=== PATIENT | male | born 1950 | race American Indian/Alaskan Native ===

== ENCOUNTER 2016-11-26 19:20 | Emergency (ER) | payer MEDICARE ==
--- NOTE | 2016-11-26 21:05 | Emergency Department Report ---
Chief Complaint: Pain General Stated Complaint: LEFT SIDED WEAKNESS Time Seen by Provider: 11/26/16 20:44 - HPI History of Present Illness: Patient here with his family who report that patient has left-sided weakness 2 days. Patient also with elevated blood pressure. Patient is end-stage renal disease on dialysis. He has diabetes, hyperlipidemia and heart disease. He reports that patient has a history for strokes and he has residual left-sided weakness but his left side has been progressively weak over the last 2 days. They also report that patient left upper lip is drooping. Family reported the patient was slow in speech and was having some slurred speech. Patient reports that he is having left-sided pain 8 out of 10. Patient denies any headache at present. - ROS Review of Systems: All systems are negative unless stated in HPI above. - Exam Vital Signs: Vital Signs 11/26/16 20:05 Temperature 98.4 F Pulse Rate 108 H Respiratory 16 Rate Blood Pressure 167/108 O2 Sat by Pulse 99 Oximetry Physical Exam: Gen.: This is a 66-year-old male patient that is nontoxic in appearance. mini-Neuro: Patient with abnormal gait. He usually walks with a cane. Positive left pronator drift. Positive facial drooping. CV: Blood pressure is 167/108. Tqachycardia, Regular rhythm. MSE screening note: Focused history and physical exam performed. Due to findings the following was ordered:see mdm ED Medical Decision Making - Medical Decision Making MDM: patient seen by provider in [facility]. suspect stroke leni col ordered, Charge nurse notified. Patient to go to main ED ED Disposition for MSE Condition: Stable
[2016-11-26 22:24] LABS: Basophils % (Auto) 1.2 % (0.0-1.8); Eosinophils % (Auto) 3.5 % (0.0-4.3); Hematocrit 38.7 % (35.5-45.6); Hemoglobin 12.2 gm/dl (11.8-15.2); Mean Corpuscular HGB Conc 32 % (32-34); Mean Corpuscular Hemoglobin 30 pg (28-32); Mean Corpuscular Volume 95 fl (84-94); Platelet Count 197 K/mm3 (140-440); Red Blood Count 4.08 M/mm3 (3.65-5.03); Red Cell Distribution Width 16.4 % (13.2-15.2); White Blood Count 6.5 K/mm3 (4.5-11.0)
[2016-11-26 22:36] LABS: INR 1.02 (0.87-1.13); Partial Thromboplastin Time 29.5 Sec. (24.2-36.6)
--- NOTE | 2016-11-26 22:47 | Cat Scan Report ---
FINAL REPORT EXAM: CT HEAD/BRAIN WO CON HISTORY: neuro deficits < 6hrs or sx present upon awakening TECHNIQUE: Noncontrast CT axial images of the brain. PRIORS: None. FINDINGS: No parenchymal mass, mass effect, hemorrhage, midline shift or hydrocephalus. No evidence of acute cortical infarct. No abnormal, extra-axial fluid or air collection. Mild, patchy low density in the periventricular and subcortical white matter is nonspecific, but may relate to chronic small vessel ischemic change. Probable old lacunar infarct changes in the bilateral basal ganglia. Age-related volume loss. Osseous calvarium grossly intact. Mucosal thickening in the right sphenoid sinus. IMPRESSION: 1. Chronic ischemic and atrophic changes. Please note that MRI is a far more sensitive modality in the evaluation of acute cerebral ischemia, and followup may be warranted. 2. No other acute intracranial findings.
[2016-11-26 22:56] LABS: BUN/Creatinine Ratio 4.14; Calcium 8.9 mg/dL (8.4-10.2); Chloride 94.4 mmol/L (98-107); Potassium 4.4 mmol/L (3.6-5.0)
--- NOTE | 2016-11-27 13:43 | Emergency Department Report ---
ED General Adult HPI - General Chief complaint: Pain General Stated complaint: LEFT SIDED WEAKNESS Time Seen by Provider: 11/26/16 20:44 Source: patient Mode of arrival: Wheelchair Limitations: Physical Limitation - History of Present Illness Initial comments: Patient states that clearly he has a pre-existing left-sided weakness. He states he's felt somewhat weaker on that side perhaps for 6 months. However he is able to ambulate with walker. He is a poor historian. He is here with perhaps a grandson. Apparently he is saying now that his principal concern was he was having more trouble speaking since Friday. He was compliant with his dialysis on Friday. Today is his dialysis day. He does not complain of difficulty breathing chest pain abdominal pain or fluid buildup. He states his difficulty with speech has resolved. He states he is back to his normal self. He's been here since yesterday due to computer difficulties. He is essentially asymptomatic at this time. He usually takes 20 units of insulin I believe twice a day. He and his family are really unclear about his insulin protocol. However he has not taken any insulin today. He denies any recent fever or chills. -: days(s) Associated Symptoms: denies other symptoms Treatments Prior to Arrival: none - Related Data Home Medications Medication Instructions Recorded Confirmed Last Taken Aspirin [Aspirin TAB] 325 mg PO DAILY 12/03/13 12/03/13 Unknown Ergocalciferol [Vitamin D2] 1 cap PO QWEEK 12/03/13 12/03/13 Unknown Furosemide [Lasix] 20 mg PO DAILY 12/03/13 12/03/13 Unknown Gabapentin 300 mg PO BID 12/03/13 12/03/13 Unknown Insulin Glargine,Hum.rec.anlog 10 units SQ QHS 12/03/13 12/03/13 Unknown [Lantus Solostar] Insulin Regular, Human [Humulin R] 3 units SC TIDAC 12/03/13 12/03/13 Unknown Simvastatin [Zocor TAB] 40 mg PO DAILY 12/03/13 12/03/13 Unknown Sodium Bicarbonate 650 mg PO BID 12/03/13 12/03/13 Unknown glipiZIDE [glipiZIDE XL] 10 mg PO DAILY 12/03/13 12/03/13 Unknown Previous Rx's Medication Instructions Recorded Last Taken Type Clopidogrel Bisulfate [Plavix] 75 mg PO DAILY #30 tablet 12/06/13 Unknown Rx amLODIPine [Norvasc] 10 mg PO DAILY #30 tab 12/06/13 Unknown Rx cloNIDine [Catapres] 0.1 mg PO BID #60 tablet 12/06/13 Unknown Rx Allergies Allergy/AdvReac Type Severity Reaction Status Date / Time No Known Allergies Allergy Unverified 12/03/13 12:17 ED Review of Systems ROS: Stated complaint: LEFT SIDED WEAKNESS Other details as noted in HPI Constitutional: denies: chills, fever Eyes: denies: eye pain, eye discharge, vision change ENT: denies: ear pain, throat pain Respiratory: denies: cough, shortness of breath, wheezing Cardiovascular: denies: chest pain, palpitations Endocrine: no symptoms reported Gastrointestinal: denies: abdominal pain, nausea, diarrhea Genitourinary: denies: urgency, dysuria Musculoskeletal: denies: back pain, joint swelling, arthralgia Skin: denies: rash, lesions Neurological: other (tonic left-sided weakness. Speech difficulty for 4 days.) . denies: headache, weakness, paresthesias Psychiatric: denies: anxiety, depression Hematological/Lymphatic: denies: easy bleeding, easy bruising ED Past Medical Hx - Past Medical History Hx Hypertension: Yes Hx CVA: Yes Hx Congestive Heart Failure: No Hx Diabetes: Yes Hx Renal Disease: Yes Hx Asthma: No Hx COPD: No - Surgical History Additional Surgical History: Cataract removal bilat - Social History Smoking Status: Never Smoker Substance Use Type: None - Medications Home Medications: Home Medications Medication Instructions Recorded Confirmed Last Taken Type Aspirin [Aspirin TAB] 325 mg PO DAILY 12/03/13 12/03/13 Unknown History Ergocalciferol [Vitamin D2] 1 cap PO QWEEK 12/03/13 12/03/13 Unknown History Furosemide [Lasix] 20 mg PO DAILY 12/03/13 12/03/13 Unknown History Gabapentin 300 mg PO BID 12/03/13 12/03/13 Unknown History Insulin Glargine,Hum.rec.anlog 10 units SQ QHS 12/03/13 12/03/13 Unknown History [Lantus Solostar] Insulin Regular, Human [Humulin R] 3 units SC TIDAC 12/03/13 12/03/13 Unknown History Simvastatin [Zocor TAB] 40 mg PO DAILY 12/03/13 12/03/13 Unknown History Sodium Bicarbonate 650 mg PO BID 12/03/13 12/03/13 Unknown History glipiZIDE [glipiZIDE XL] 10 mg PO DAILY 12/03/13 12/03/13 Unknown History Clopidogrel Bisulfate [Plavix] 75 mg PO DAILY #30 tablet 12/06/13 Unknown Rx amLODIPine [Norvasc] 10 mg PO DAILY #30 tab 12/06/13 Unknown Rx cloNIDine [Catapres] 0.1 mg PO BID #60 tablet 12/06/13 Unknown Rx ED Physical Exam - General Limitations: Physical Limitation General appearance: alert, in no apparent distress - Head Head exam: Present: atraumatic, normocephalic - Eye Eye exam: Present: normal appearance. Absent: scleral icterus - ENT ENT exam: Present: mucous membranes moist - Neck Neck exam: Present: normal inspection - Respiratory Respiratory exam: Present: normal lung sounds bilaterally. Absent: respiratory distress - Cardiovascular Cardiovascular Exam: Present: regular rate, normal rhythm. Absent: systolic murmur, diastolic murmur, rubs, gallop - GI/Abdominal GI/Abdominal exam: Present: soft, normal bowel sounds. Absent: distended, tenderness, guarding, rebound, rigid - Rectal Rectal exam: Present: deferred - Extremities Exam Extremities exam: Present: normal inspection - Back Exam Back exam: Present: normal inspection - Neurological Exam Neurological exam: Present: alert, oriented X3, other (patient has perhaps a slight left hemiparesis. However he does not have drift. He does have some facial asymmetry/mild paresis this is chronic. He has no acute focal deficit.) - Psychiatric Psychiatric exam: Present: normal affect, normal mood - Skin Skin exam: Present: warm, dry, intact, normal color. Absent: rash ED Course Vital Signs 11/26/16 11/26/16 20:05 22:49 Temperature 98.4 F Pulse Rate 108 H 90 Respiratory 16 16 Rate Blood Pressure 167/108 Blood Pressure 138/81 [Left] O2 Sat by Pulse 99 95 Oximetry - Reevaluation(s) Reevaluation #1: She was observed for quite a period of time. He remained asymptomatic. He was given subcutaneous insulin. He was instructed to follow his sugars. He was instructed to call his dialysis center and this was explained to his family to see if he can get dialyzed tomorrow. He does not meet criteria for emergency dialysis at this time. 11/27/16 15:00 ED Medical Decision Making - Lab Data Result diagrams: 11/26/16 21:35 11/26/16 21:35 Laboratory Results - last 24 hr 11/26/16 11/26/16 11/26/16 21:35 21:35 21:40 WBC 6.5 RBC 4.08 Hgb 12.2 Hct 38.7 MCV 95 H MCH 30 MCHC 32 RDW 16.4 H Plt Count 197 Lymph % (Auto) 32.3 [place] % (Auto) 11.3 H Eos % (Auto) 3.5 Baso % (Auto) 1.2 Lymph # 2.1 [place] # 0.7 Eos # 0.2 Baso # 0.1 Seg Neutrophils % 51.7 Seg Neutrophils # 3.3 PT 13.3 INR 1.02 APTT 29.5 Thrombin Time Sodium 138 Potassium 4.4 Chloride 94.4 L Carbon Dioxide 23 Anion Gap 25 BUN 29 H Creatinine 7.0 H Estimated GFR 10 BUN/Creatinine Ratio 4.14 Glucose 466 H Calcium 8.9 Troponin T 0.091 H 11/26/16 21:41 WBC RBC Hgb Hct MCV MCH MCHC RDW Plt Count Lymph % (Auto) [place] % (Auto) Eos % (Auto) Baso % (Auto) Lymph # [place] # Eos # Baso # Seg Neutrophils % Seg Neutrophils # PT INR APTT Thrombin Time 15.8 Sodium Potassium Chloride Carbon Dioxide Anion Gap BUN Creatinine Estimated GFR BUN/Creatinine Ratio Glucose Calcium Troponin T - EKG Data -: EKG Interpreted by Me EKG shows normal: sinus rhythm, intervals, QRS complexes, ST-T waves Rate: normal - EKG Data Interpretation: other (left axis deviation and no acute changes) Critical care attestation.: If time is entered above; I have spent that time in minutes in the direct care of this critically ill patient, excluding procedure time. ED Disposition Clinical Impression: Hyperglycemia due to type 1 diabetes mellitus, End stage renal disease on dialysis, Dysarthria Disposition: DISCHARGED TO HOME OR SELFCARE Is pt being admited?: No Does the pt Need Aspirin: No Condition: Stable Instructions: Chronic Kidney Disease (ED), Diabetic Hyperglycemia (ED) Additional Instructions: Follow your sugars at home. Call your dialysis center to see if they can provide dialysis tomorrow. Follow-up with your usual fire observer. Return as needed any persistent elevation of your blood sugar or any acute change or problem. Continue your current medications to include aspirin. Referrals: PRIMARY CARE,MD [Primary Care Provider] - 3-5 Days usual, fire observer [Other] - 24 Hours Time of Disposition: 15:04
--- NOTE | 2016-11-27 13:45 | Admit Criteria Form ---
Admission Criteria Documentation: GENERAL ADMISSION CRITERIA (Place 'X' for any and all applicable criteria): Admission is indicated for ANY ONE of the following: [ ]I. Hemodynamic instability as indicated by ANY ONE of the following(1)(2) (3)(4)(5): [ ]a) Vital sign abnormality not readily corrected by appropriate treatment within 12 to 24 hours indicated by ANY ONE of the following: [ ]i) Hypotension [ ]ii) Symptomatic Tachycardia unresponsive to treatment (eg , analgesia, fluids, sedation as indicated) [ ]iii) Orthostatic vital sign changes unresponsive to treatment (eg, fluids) [ ]b) Vital sign abnormality that is severe indicated by ANY ONE of the following: [ ]i) Inadequate perfusion indicated by ANY ONE of the following: [ ]1) Lactic acidosis (greater than 2 mmol/L) [ ]2) New abnormal capillary refill (greater than 3 seconds) [ ]3) Other metabolic acidosis (arterial pH less than 7.35) not otherwise explained [ ]4) Reduced urine output [ ]5) Altered mental status [ ]6) Myocardial Ischemia [ ]v) Mean arterial pressure[A] less than 60 mm Hg [ ]vi) Mean arterial pressure[A] less than 70 mm Hg after 30 minutes of appropriate treatment (eg, fluid resuscitation) [ ]vii) IV inotropic or vasopressor medication required to maintain adequate blood pressure or perfusion [ ]viii) Sustained heart rate greater than 120 beats per minute in adult or child 6 years or older[B]] [ ]II. Hypertension requiring inpatient treatment as indicated by ANY ONE of the following(6)(7)(8): [ ]a) SBP greater than 220 mm Hg or DBP greater than 120 mm Hg despite treatment [ ]b) SBP greater than 140 mm Hg or DBP greater than 100 mm Hg with evidence of acute end organ damage as indicated by ANY ONE of the following: [ ]i) Encephalopathy [ ]ii) Acute renal failure as indicated by new onset of ANY ONE of the following(9)(10)(11)(12)(13): [ ]1) A 3-fold rise in serum creatinine from baseline [ ]2) Serum creatinine greater than 4 mg/dL ( 354 micromoles/L) with acute rise greater than 0.5 mg/dL (44.2 micromoles/L) [ ]3) Reduction of more than 75% in estimated glomerular filtration rate from baseline [ ]4) Estimated glomerular filtration rate less than 35 mL/min/1.73m2 (0.59 mL/sec/1.73m2) in child up to 18 years of age [ ]5) Cessation of urine output indicated by ALL of the following: [ ]A. Adequate volume status [ ]B. Inadequate urine output as indicated by ANY ONE of the following: [ ]a. Urine output less than 0.3 mL/kg/hr for 24 hours [ ]b. Anuria (urine output less than 0.1 mL/kg/hr) for 12 hours [ ]iii) Aortic dissection [ ]iv) Myocardial ischemia [ ]v) Left ventricular heart failure [ ]vi) Retinal hemorrhage [ ]vii) Other significant finding [ ]c) Hypertension in child requiring inpatient treatment as indicated by ALL of the following(14)(15)(16): [ ]i) Outpatient treatment not effective, not available, or not appropriate [ ]ii) SBP or DBP greater than 95th percentile for age [ ]iii) Evidence of acute end organ damage as indicated by ANY ONE of the following: [ ]1) Altered mental status [ ]2) Acute renal failure as indicated by new onset of ANY ONE of the following(9)(10)(11)(12)(13): [ ]A. A 3-fold rise in serum creatinine from baseline [ ]B. Serum creatinine greater than 4 mg/dL (354 micromoles/L) with acute rise greater than 0.5 mg/dL (44.2 micromoles/L) [ ]C. Reduction of more than 75% in estimated glomerular filtration rate from baseline [ ]D. Estimated glomerular filtration rate less than 35 mL/min/1.73m2 (0.59 mL/sec/1.73m2)in child up to 18 years of age [ ]E. Cessation of urine output indicated by ALL of the following: [ ]a. Adequate volume status [ ]b. Inadequate urine output as indicated by ANY ONE of the following: [ ]1) Urine output less than 0.3 mL/kg/hr for 24 hours [ ]2) Anuria (urine output less than 0.1 mL/kg/hr) for 12 hours [ ]3) Severe headache [ ]4) Visual disturbance [ ]5) Retinal hemorrhage [ ]6) Other significant finding [ ]III. Acute cardiac or peripheral ischemia as indicated by ANY ONE of the following: [ ]a) Acute coronary syndrome(17)(18) [ ]b) Acute peripheral ischemia (eg, pulseless, cool, mottled, or cyanotic extremity)(19) [ ]IV. Cardiac arrhythmias or findings of immediate concern indicated by ANY ONE of the following(20)(21): [ ]a) Heart rhythms that are inherently dangerous or unstable indicated by ANY ONE of the following(22)(23)(24): [ ]i) Resuscitated ventricular fibrillation or cardiac arrest [ ]ii) Ventricular escape rhythm [ ]iii) Sustained ventricular tachycardia (30 seconds or more of ventricular rhythm at greater than 100 beats per minute) [ ]iv) Nonsustained ventricular tachycardia and ANY ONE of the following: [ ]1) Suspected cardiac ischemia as cause or consequence of ventricular tachycardia [ ]2) In setting of acute myocarditis [ ]b) Unstable cardiac conduction defects indicated by ANY ONE of the following(24)(25)(26): [ ]i) Type II second-degree atrioventricular block [ ]ii) Third-degree atrioventricular block [ ]iii) New-onset left bundle branch block with suspected myocardial ischemia [ ]c) Any heart rhythm and ANY ONE of the following(22)(23)(27)(28)( 29): [ ] i) Continuous long-term ECG monitoring needed (eg, initiation of drug requiring monitoring for more than 24 hours) [ ] ii) Patient has automatic implanted cardioverter defibrillator that is repeatedly firing, malfunctioning, or in need of immediate adjustment of settings beyond the scope of ambulatory or observation care. [ ]d) Heart rhythms of concern due to ANY ONE of the following: [ ]i) Hypotension [ ]ii) Respiratory distress [ ]iii) Association with other significant symptoms (eg, bradycardia with syncope or ongoing dizziness, supraventricular tachycardia with chest pain) (27)(28) (30) [ ] V. Severe heart failure as indicated by ANY ONE of the following ( 31)(32): [ ]a) Respiratory distress [ ]b) Hypotension [ ]c) Anasarca (refractory to outpatient therapy) [ ]d) Cardiac arrhythmias of immediate concern [ ]e) Myocardial ischemia [ ]. Respiratory abnormalities, including ANY ONE of the following(33)(34) (35)(36): [ ]a) Respiratory rate greater than 30 breaths per minute unresponsive to treatment [A] [ ]b) New saturation of arterial oxygen less than 90% [ ]c) New partial pressure of carbon dioxide greater than 44 mm Hg ( 5.9 kPa) [ ]d) Supplemental oxygen or respiratory treatments needed that are new or not performable at other levels of care [ ]e) New-onset cyanosis [ ]f) Inability to protect airway [ ]g) Chronic lung disease with severe deterioration (not responsive to emergency and observation care treatment as appropriate) as indicated by ANY ONE of the following(34)(36 ): [ ]i) SaO2 5% below baseline in patient with chronic hypoxemia [ ]ii) New requirement for supplemental oxygen to keep SaO2 at baseline or acceptable level [ ]iii) Required supplemental oxygen performable only in acute inpatient setting [ ]iv) Severe airflow or ventilation abnormalities [ ]v) Previously mobile patient unable to walk between rooms [ ]vi Inability to eat or sleep due to dyspnea [ ]vii) Rapid rate of exacerbation onset [ ]viii) Altered mental status ]VII. Severe airflow or ventilation abnormalities (not responsive to emergency and observation care treatment as appropriate) as indicated by ANY ONE of the following(33)(34)(35)(37): [ ]a) PCO2 greater than 42 mm Hg (5.6 kPa) and pH less than 7.35 (new ) [ ]b) Documented PCO2 increased more than 5 mm Hg (0.7 kPa) from disease baseline [ ]c) Airflow measurements [B] less than 60% of previous best or predicted (eg, peak expiratory flow rate less than 300 L/minute) despite intensive emergent treatment [C] [ ]d) Required respiratory treatments that are performable only in acute inpatient setting [ ]VIII. Impending or actual respiratory arrest ( Also use Respiratory Failure GRG for severe respiratory disease and long-term mechanical ventilation patients) [ ]IX. Neurologic abnormalities, including ANY ONE of the following: [ ]a) New findings that suggest ANY ONE of the following: [ ]i) STAND GRINDER infection(38) [ ]ii) Cerebral bleeding, ischemia, or vasospasm(39)(40) [ ]iii) Increased intracranial pressure, hydrocephalus, or cerebral edema(41)(42)(43) [ ]iv) Spinal cord injury(44) [ ]b) Uncontrolled seizures(45) [ ]c) New-onset coma (eg, Roscoe coma scale score less than 9) or unexplained abnormal mental status (eg, Roscoe coma scale score less than 14) [D](41)(46)(47) [ ]X. New-onset severe neurologic findings requiring inpatient care; examples include(42)(48)(49): [ ]a) Papilledema [ ]b) Cerebral edema [ ]c) Mass effect on CT scan [ ]XI. Suspected acute intra-abdominal process with peritoneal signs, abdominal mass, or similar findings (50)(51)(52) [ ]XII. Severe physiologic disorder remaining after emergency or observation level care (as appropriate) as indicated by ANY ONE of the following (53): [ ]a) Significant dehydration [ ]b) Diabetic ketoacidosis [ ]c) Hyperglycemic hyperosmolar state (eg, osmolality greater than 320 mOsm/kg (mmol/kg) [ ]d) Hypoglycemia [ ]e) Other (new) acid-base disorder with pH less than 7.35 or greater than 7.5(54) [ ]f) Thyroid storm (55) [ ]g) Myxedema coma (55) [ ]XIII. Abdominal abnormalities with ANY ONE of the following(56)(57): [ ]a) Absent bowel sounds with complete ileus [ ]b) Signs of intestinal obstruction or peritonitis [E] [ ]c) Nausea and vomiting that cannot be controlled with outpatient or observation care [ ]XIV. Acute renal failure as indicated by new onset of ANY ONE of the following(9)(10)(11)(12)(13): [ ]a) A 3-fold rise in serum creatinine from baseline [ ]b) Serum creatinine greater than 4 mg/dL (354 micromoles/L) with acute rise greater than 0.5 mg/dL (44.2 micromoles/L) [ ]c) Reduction of more than 75% in estimated glomerular filtration rate from baseline [ ]d) Estimated glomerular filtration rate less than 35 mL/min/ 1.73m2 (0.59 mL/sec/1.73m2) in child up to 18 years of age [ ]e) Cessation of urine output indicated by ALL of the following: [ ]i) Adequate volume status [ ]ii) Inadequate urine output as indicated by ANY ONE of the following: [ ]1) Urine output less than 0.3 mL/kg/hr for 24 hours [ ]2) Anuria (urine output less than 0.1 mL/kg/hr) for 12 hours [ ]XV. Significant uremic complications as indicated by ANY ONE of the following(58)(59)(60): [ ]a) Outpatient therapy is ineffective or not feasible for ANY ONE of the following: [ ]i) Severe heart failure [ ]ii) Severehypertension [ ]iii) Pleural effusion [ ]iv) Pericarditis or pericardial effusion [ ]b) Cardiac arrhythmias of immediate concern [ ]c) Intractable nausea or vomiting [ ]d) Recurrent seizures [ ]e) Encephalopathy [ ]f) Bleeding abnormalities (eg, platelet dysfunction) with active (eg, gastrointestinal) bleeding [ ]g) Dialysis indicated before long-term access or ambulatory arrangements can be made [ ]h) Significant metabolic or electrolyte abnormalities (eg, severe acidosis or hyperkalemia) [ ]XVI. High fever or other high-risk infection situation as indicated by ANY ONE of the following(61)(62)(63)(64): [ ]a) Outpatient and observation care antimicrobial treatment unavailable, not effective, or not appropriate [ ]b) Documented bacteremia [ ]c) Temperature greater than 40.5 degrees C (104.9 degrees F) ( oral) [ ]d) Temperature greater than 39.5 degrees C (103.1 degrees F) ( oral) or less than 36 degrees C (96.8 degrees F) (rectal) that does not respond to e treatment and observation care [ ] XVII. Temperature less than 95 degrees F (35 degrees C)(rectal)(65) [ ] XVIII. Severe nutritional abnormalities as indicated by ALL of the following (66)(67): [ ]a) Inability to tolerate or establish sufficient oral or other enteral nutrition in outpatient setting [ ]b) Parenteral nutrition regimen need that must be implemented on inpatient basis [ ] XIX. Severe electrolyte abnormalities indicated by ALL of the following(68) (69)(70): [ ]a) Electrolytes and associated findings are not as expected for patient baseline or acceptable treatment effects. [ ]b) Severe abnormalities indicated by ANY ONE of the following: [ ]i) Sodium less than 130 mEq/L (mmol/L) (new) [ ]ii)Sodium less than 135 mEq/L (mmol/L) with ANY ONE of the following: [ ]1) Uncorrectable (to near normal or chronic baseline) after trial of outpatient and emergency treatment [ ]2) Altered mental status [ ]3) Seizures [ ]4) Severe medical etiology requiring inpatient management (eg, heart failure, hypovolemia) [ ]iii) Sodium greater than 155 mEq/L (mmol/L) [ ]iv) Sodium greater than 150 mEq/L (mmol/L) with ANY ONE of the following: [ ]1) Uncorrectable (to near normal or chronic baseline) with outpatient and emergency treatment [ ]2) Altered mental status [ ]3) Seizures [ ]4) Severe medical etiology (eg, hypovolemia, diabetes insipidus) [ ]v) Potassium less than 2.5 mEq/L (mmol/L) despite outpatient and emergency treatment [ ]vi) Potassium less than 3 mEq/L (mmol/L) with ANY ONE of the following: [ ]1) Weakness [ ]2) Cardiac abnormality (eg, arrhythmia, conduction disturbance) [ ]3) Cardiac ischemia [ ]4) Ileus [ ]5) Ongoing medical cause requiring inpatient management (eg, acute renal wasting or SIADH) [ ]6) Other severe symptoms [ ]vii) Potassium greater than 6.5 mEq/L (mmol/L) [ ]viii) Potassium greater than 5 mEq/L (mmol/L) with ANY ONE of the following: [ ]1) Uncorrectable (to near normal or chronic baseline) with outpatient and emergency treatment [ ]2) Severe ECG findings [F] [ ]3) Acute worsening of renal failure (creatinine greater than 2.5 mg/dL (221 micromoles/L) or significant elevation for age and size) [ ]4) Severe weakness [ ]5) Severe medical etiology (eg, hemolysis, infection, drug overdose) [ ]ix) Calcium less than 7 mg/dL (1.75 mmol/L) despite outpatient and emergency treatment (72) [ ]x) Calcium less than 8 mg/dL (2 mmol/L) with significant symptoms or findings; examples include(72): [ ]1) Altered mental status [ ]2) Muscle spasms [ ]3) Seizures [ ]4) Breathing difficulty [ ]5) Cardiac abnormality (eg, arrhythmia or conduction disturbance) [ ]xi) Calcium greater than 14 mg/dL (3.5 mmol/L)(72) [ ]xii) Calcium greater than 12 mg/dL (3 mmol/L) with ANY ONE of the following(72): [ ]1) Uncorrectable (to near normal or chronic baseline) with outpatient and emergency treatment [ ]2) Significant dehydration or hypovolemia as indicated by ALL of the following(70)(73)(74): [ ]A. Not resolved with initial treatments [ ]B. Clinically significant dehydration as indicated by ANY ONE of the following: [ ]a. Vomiting refractory to outpatient treatment (ie, precluding oral rehydration) [ ]b. Inability to drink [ ]c. Hypernatremia or other electrolyte abnormality unable to be corrected with outpatient and emergency treatment [ ]d. Failure to remain hydrated with outpatient therapy [ ]e. Reduced urine output [ ]f. Hypotension [ ]g. Serious cause for dehydration requiring acute hospitalization (eg, bowel obstruction, increased intracranial pressure, infectious cause) [ ]h. Child with ANY ONE of the following(75): [ ]1) Severe abdominal tenderness [ ]2) Adequate care not available at home [ ]3) Severe dehydration ( greater than 9% loss of body weight) [ ]4) Significant symptoms or findings; examples include: [ ]A. Altered mental status [ ]B. Cardiac abnormality (eg, arrhythmia, conduction disturbance) [ ]C. Malignant etiology requiring inpatient treatment [ ]xiii) Phosphorus less than 1 mg/dL (0.32 mmol/L) [ ]xiv) Phosphorus less than 1.5 mg/dL (0.48 mmol/L) with ANY ONE of the following: [ ]1) Patient unresponsive to outpatient and emergency treatment [ ]2) Significant symptoms or findings; examples include: [ ]A. Weakness [ ]B. Altered mental status [ ]C. Breathing difficulty [ ]D. Seizures [ ]E. Rhabdomyolysis [ ]xv) Phosphorus greater than 10 mg/dL (3.2 mmol/L) [ ]xvi) Phosphorus greater than 4.5 mg/dL (1.45 mmol/L) (new) with ANY ONE of the following: [ ]1) Severe medical etiology (eg, crush injury, acute renal failure) [ ]2) Associated hypocalcemia with significant findings; examples include: [ ]A. Neurologic symptoms [ ]B. Altered mental status [ ]C. Muscle spasms [ ]D. Seizures [ ]E. Breathing difficulty [ ]F. Cardiac abnormality (eg, arrhythmia, conduction disturbance) [ ]xvii) Magnesium less than 1 mg/dL (0.41 mmol/L) [ ]xviii) Magnesium less than 1.5 mg/dL (0.62 mmol/L) with ANY ONE of the following: [ ]1) Patient unresponsive to outpatient and emergency treatment [ ]2) Associated hypocalcemia with significant findings; examples include: [ ]A. Altered mental status [ ]B. Muscle spasms [ ]C. Seizures [ ]D. Breathing difficulty [ ]E. Cardiac abnormality (eg, arrhythmia , conduction disturbance) [ ]3) Associated hypokalemia (potassium less than 3 mEq/L (mmol/L)) with risk of arrhythmia [ ]xix) Magnesium greater than 4 mEq/L (2 mmol/L) [ ]xx) Magnesium greater than 2.5 mEq/L (1.25 mmol/L) with significant symptoms or findings; examples include: [ ]1) Weakness [ ]2) Altered mental status [ ]3) Cardiac abnormality (eg, arrhythmia, conduction disturbance) [ ]4) Breathing difficulty [ ]5) Severe medical etiology (eg, renal failure, hypovolemia) [ ]xxi) Uric acid greater than 20 mg/dL (1190 micromoles/L)(76) [ ]xxii) Uric acid greater than 8 mg/dL (476 micromoles/L) with significant symptoms or findings of tumor lysis syndrome; examples include(76): [ ]1) Creatinine greater than 1.5 times upper limit of normal [ ]2) Cardiac abnormality (eg, arrhythmia, conduction disturbance) [ ]3) Seizure [ ]XX. Acute blood loss causing significant abnormality as indicated by ANY ONE of the following(77)(78): [ ]a) Hemoglobin less than 10 g/dL (100 g/L) (not baseline) [ ]b) Hematocrit less than 30% (0.30) (not baseline) [ ]c) Repeat hematocrit decreased more than 2% (0.02) [ ]d) Uncontrolled bleeding [ ]XXI. Severe anemia indicated by ANY ONE of the following(78)(79): [ ]a) Altered mental status [ ]b) Chest pain [ ]c) Exertional dyspnea [ ]d) Syncope [ ]e) Other findings suggesting inadequate perfusion [ ]f) Treatment with transfusion or volume replacement is ineffective at resolving ANY ONE of the following [G]: [ ]i) Tachycardia for age [ ]ii) Orthostatic vital sign changes as indicated by ANY ONE of the following(80): [ ]1) Fall in SBP of 20 mm Hg or more 1 to 3 minutes after patient sits or stands from recumbent position [ ]2) Fall in DBP of 10 mm Hg or more 1 to 3 minutes after patient sits or stands from recumbent position [ ]XXII. High-risk low platelet count as indicated by ANY ONE of the following( 81)(82): [ ]a) Severe or life-threatening bleeding (eg, intracranial, major gastrointestinal, or extensive mucosal bleeding), with any reduced platelet count [ ]b) Platelet count less than 20,000/mm3 (20 x109/L) with any active bleeding [ ]c) Platelet count less than 10,000/mm3 (10 x109/L) with minor purpura or petechiae [ ]d) Platelet count less than 5000/mm3 (5 x109/L) [ ]e) Low platelet count with hemolytic anemia [ ]XXIII. Disseminated intravascular coagulation(77)(83) [ ]XXIV. Severe adverse drug or systemic toxin reaction requiring inpatient treatment; examples include(84)(85): [ ]a) Serotonin syndrome(86) [ ]b) Neuroleptic malignant syndrome(86) [ ]c) Cholinergic syndrome with severe symptoms (eg, bronchorrhea, weakness, mental status changes, seizures) [ ]d) Sympathetic syndrome with severe symptoms (eg, seizures, mental status changes, cardiac dysrhythmias) [ ]e) Anticholinergic syndrome [ ]XXV. Severe pain requiring acute inpatient management as indicated by ALL of the following (87)(88)(89): [ ]a) Continuous or frequent (eg, every 2 to 4 hours) parenteral analgesics required [H] [ ]b) Rapid improvement expected from treatment or acute intervention (eg, surgery, anesthesia procedure) [ ]XXVI.Severe behavioral health issues judged unmanageable at a lower level of care (eg, residential) in a patient who is ANY ONE of the following(91) [ ]a) Acutely suicidal [ ]b) A danger to self (eg, self-mutilating or suicidal behavior) [ ]c) A danger to others (eg, assaultive or homicidal behavior) [ ]d) Incapacitated because of grave disability (eg, inability to provide for self at lower level of care) (92) [ ]XXVII. Inpatient monitoring needed; examples include(1)(3)(87)(93)(94)(95)(96 ): [ ]a) Vital signs, neurologic signs, or vascular checks more frequently than every 4 hours [ ]b) Cardiac or respiratory monitoring beyond the scope (eg, over 24 hours) of observation care [ ]c) Pulmonary artery catheter monitoring [ ]d) Suspected compartment syndrome(97) (98) [ ]e) Cerebral bleeding, hydrocephalus, or vasospasm monitoring [ ]f) Increased intracranial pressure or cerebral edema monitoring [ ]g) monitoring [ ]XXVIII. Treatment requiring inpatient care; examples include: [ ]a) IV fluid to replace significant ongoing losses (greater than 3 L/m2 per day)(53) [ ]b) High concentration oxygen (greater than 40%)(33)(99)(100) [ ]c) Frequent respiratory therapy (more frequently than every 4 hours) to maintain airflow rates greater than 60% of baseline(33)(99)(100) [ ]d) Epidural analgesia(87) [ ]e) IV anticoagulation, vasoactive, or antiarrhythmic medication(19 )(23) [ ]f) Acute thrombolytics (generally require 24 hours of observation )(101)(102) [ ]XXIX. Emergency procedures needed; examples include: [ ]a) Emergency inpatient surgery [ ]b) Temporary pacemaker placement(103) [ ]c) Chest tube placement with active evacuation (eg, suction, drainage)(104) [ ]d) Emergent cardioversion(105) [ ]e) Emergent cardiac or vascular procedures (eg, cardiac catheterization, angioplasty) (17)(18) [ ]f) Emergent dialysis access placement and institution(10)(106) [ ]g) Emergent pericardiocentesis(107) [ ]h) Emergent plasmapheresis or leukapheresis(83) [ ]i) Emergent tracheostomy The original [employer] content created by [employer] has been revised. The portions of the content which have been revised are identified through the use of italic text or in bold, and [facility] has neither reviewed nor approved the modified material. All other unmodified content is copyright [employer]. Please see references footnoted in the original [employer] edition 2016
[2016-11-27 15:38] VITALS: BP 171/98
== END 2016-11-27 15:38 | disposition home or self-care (01) ==
LOC: ED 19:20
DX: E10.22 Type 1 diabetes mellitus with diabetic chronic kidney disease (principal); I12.0 Hypertensive chronic kidney disease with stage 5 chronic kidney disease or end stage renal disease; E10.65 Type 1 diabetes mellitus with hyperglycemia; N18.6 End stage renal disease; Z99.2 Dependence on renal dialysis; R47.1 Dysarthria and anarthria; Z86.73 Personal history of transient ischemic attack (TIA), and cerebral infarction without residual deficits
CPT/HCPCS: 36415; 70450; 80048; 82962; 84484; 85025; 85610; 85670; 85730; 93005; 93010; 96372; J1815

== ENCOUNTER 2016-12-02 18:59 | Inpatient (IN) | payer MEDICARE ==
[2016-12-02] MEDS ORDERED: ASPIRIN PO ONE (20:06)
[2016-12-02] MEDS ORDERED: NITRO-BID 2% TP ONE (20:06)
[2016-12-02] MEDS ORDERED: ALUM-MAG HYDROX-SIMETH 200-200-20MG/5ML PO ONE (20:08)
[2016-12-02] MEDS ORDERED: LIDOCAINE VISCOUS 2% PO ONE (20:08)
--- NOTE | 2016-12-02 20:13 | Emergency Department Report ---
ED Chest Pain HPI - General Stated Complaint: SHARP CHEST PAIN Time Seen by Provider: 12/02/16 20:01 Source: patient, RN notes reviewed Mode of arrival: Ambulatory - History of Present Illness Initial Comments: This is a 66-year-old gentleman who complains of chest pain starting at 1600 yesterday. He describes sitting around watching TV when the pain started. He reports it is approximately 1 hour after eating a greasy meal. He feels that his indigestion. He did take some Tums last night with some improvement for several hours and the pain returned. The pain throughout the night. He states eczema, couple of times. He rates pain a 7 out of 10 at this time. He denies any shortness of breath associated with it or any radiation of the pain. He reports also feeling similar pains prior that he also continues to be due to heartburn. Patient denies any specific cardiac history does give a history of strokes though. He also indicates that he has end-stage renal disease on hemodialysis. He is dialyzed Friday and Friday. He did finish her dialysis today. He reports this did not change his pain in any way. He does take aspirin daily. He hasn't taken one today yet. MD Complaint: chest pain Onset/Timin -: days(s) Onset: after eating Pain Location: substernal Pain Radiation: none Severity: moderate Quality: other (dull) Consistency: constant Improves With: antacids Worsens With: nothing re: denies: nausea, vomting, diaphoresis, dyspnea Other Symptoms: denies: cough, fever, acid taste in mouth, leg swelling Treatments Prior to Arrival: other (antacid) - Related Data Home Medications Medication Instructions Recorded Confirmed Last Taken Aspirin [Aspirin TAB] 325 mg PO DAILY 12/03/13 12/03/13 Unknown Ergocalciferol [Vitamin D2] 1 cap PO QWEEK 12/03/13 12/03/13 Unknown Furosemide [Lasix] 20 mg PO DAILY 12/03/13 12/03/13 Unknown Gabapentin 300 mg PO BID 12/03/13 12/03/13 Unknown Insulin Glargine,Hum.rec.anlog 10 units SQ QHS 12/03/13 12/03/13 Unknown [Lantus Solostar] Insulin Regular, Human [Humulin R] 3 units SC TIDAC 12/03/13 12/03/13 Unknown Simvastatin [Zocor TAB] 40 mg PO DAILY 12/03/13 12/03/13 Unknown Sodium Bicarbonate 650 mg PO BID 12/03/13 12/03/13 Unknown glipiZIDE [glipiZIDE XL] 10 mg PO DAILY 12/03/13 12/03/13 Unknown Previous Rx's Medication Instructions Recorded Last Taken Type Clopidogrel Bisulfate [Plavix] 75 mg PO DAILY #30 tablet 12/06/13 Unknown Rx amLODIPine [Norvasc] 10 mg PO DAILY #30 tab 12/06/13 Unknown Rx cloNIDine [Catapres] 0.1 mg PO BID #60 tablet 12/06/13 Unknown Rx Allergies Allergy/AdvReac Type Severity Reaction Status Date / Time No Known Allergies Allergy Unverified 12/03/13 12:17 ALONZO score - Alonzo Score Age > 65: (1) Yes Aspirin use within the Past 7 Days: (1) Yes 3 or more CAD Risk Factors: (1) Yes 2 or more Angina events in past 24 hrs: (1) Yes Known CAD with more than 50% Stenosis: (0) No Elevated Cardiac Markers: (1) Yes ST Deviation Greater than 0.5mm: (0) No ALONZO Score: 5 ED Review of Systems ROS: Stated complaint: SHARP CHEST PAIN Other details as noted in HPI Comment: All other systems reviewed and negative Constitutional: denies: chills, fever Eyes: denies: eye pain, eye discharge, vision change ENT: denies: ear pain, throat pain Respiratory: denies: cough, shortness of breath, wheezing Cardiovascular: chest pain. denies: palpitations Endocrine: no symptoms reported Gastrointestinal: denies: abdominal pain, nausea, diarrhea Genitourinary: denies: urgency, dysuria Musculoskeletal: denies: back pain, joint swelling, arthralgia Skin: denies: rash, lesions Neurological: denies: headache, weakness, paresthesias Psychiatric: denies: anxiety, depression Hematological/Lymphatic: denies: easy bleeding, easy bruising ED Past Medical Hx - Past Medical History Hx Hypertension: Yes Hx CVA: Yes Hx Congestive Heart Failure: No Hx Diabetes: Yes Hx Renal Disease: Yes Hx Asthma: No Hx COPD: No - Surgical History Additional Surgical History: Cataract removal bilat - Social History Smoking Status: Never Smoker Substance Use Type: None - Medications Home Medications: Home Medications Medication Instructions Recorded Confirmed Last Taken Type Aspirin [Aspirin TAB] 325 mg PO DAILY 12/03/13 12/03/13 Unknown History Ergocalciferol [Vitamin D2] 1 cap PO QWEEK 12/03/13 12/03/13 Unknown History Furosemide [Lasix] 20 mg PO DAILY 12/03/13 12/03/13 Unknown History Gabapentin 300 mg PO BID 12/03/13 12/03/13 Unknown History Insulin Glargine,Hum.rec.anlog 10 units SQ QHS 12/03/13 12/03/13 Unknown History [Lantus Solostar] Insulin Regular, Human [Humulin R] 3 units SC TIDAC 12/03/13 12/03/13 Unknown History Simvastatin [Zocor TAB] 40 mg PO DAILY 12/03/13 12/03/13 Unknown History Sodium Bicarbonate 650 mg PO BID 12/03/13 12/03/13 Unknown History glipiZIDE [glipiZIDE XL] 10 mg PO DAILY 12/03/13 12/03/13 Unknown History Clopidogrel Bisulfate [Plavix] 75 mg PO DAILY #30 tablet 12/06/13 Unknown Rx amLODIPine [Norvasc] 10 mg PO DAILY #30 tab 12/06/13 Unknown Rx cloNIDine [Catapres] 0.1 mg PO BID #60 tablet 12/06/13 Unknown Rx ED Physical Exam - General General appearance: alert, in no apparent distress - Head Head exam: Present: atraumatic, normocephalic - Eye Eye exam: Present: normal appearance - ENT ENT exam: Present: normal orophraynx, mucous membranes moist - Neck Neck exam: Present: normal inspection - Respiratory Respiratory exam: Present: normal lung sounds bilaterally. Absent: respiratory distress - Cardiovascular Cardiovascular Exam: Present: regular rate, normal rhythm. Absent: systolic murmur, diastolic murmur, rubs, gallop - GI/Abdominal GI/Abdominal exam: Present: soft, normal bowel sounds. Absent: tenderness - Rectal Rectal exam: Present: deferred - Extremities Exam Extremities exam: Present: normal inspection, full ROM, pedal edema (Trace edema of LE bilat with good distal pedal pulses.), other (L arm fistula with good thrill. Bandage over it.). Absent: tenderness, calf tenderness - Back Exam Back exam: Present: normal inspection - Neurological Exam Neurological exam: Present: alert, oriented X3 - Psychiatric Psychiatric exam: Present: normal affect, normal mood - Skin Skin exam: Present: warm, dry, intact, normal color. Absent: rash ED Course Vital Signs 12/02/16 12/02/16 12/02/16 20:00 20:10 20:20 Temperature 99.9 F H Pulse Rate 101 H 100 H 100 H Respiratory 20 21 20 Rate Blood Pressure 168/81 161/74 Blood Pressure [Right] O2 Sat by Pulse 98 97 99 Oximetry 12/02/16 12/02/16 12/02/16 20:30 20:39 20:40 Temperature 99.9 F H Pulse Rate 94 H 101 H 105 H Respiratory 22 20 25 H Rate Blood Pressure 168/81 Blood Pressure 168/81 [Right] O2 Sat by Pulse 98 98 98 Oximetry 12/02/16 12/02/16 12/02/16 20:49 20:50 21:00 Temperature Pulse Rate 104 H 103 H 102 H Respiratory 23 18 Rate Blood Pressure 168/81 161/74 161/74 Blood Pressure [Right] O2 Sat by Pulse 97 98 Oximetry 12/02/16 12/02/16 12/02/16 21:10 21:20 21:30 Temperature Pulse Rate 102 H 104 H 104 H Respiratory 22 20 20 Rate Blood Pressure 161/74 161/74 161/74 Blood Pressure [Right] O2 Sat by Pulse 98 98 98 Oximetry 12/02/16 23:59 Temperature Pulse Rate Respiratory 20 Rate Blood Pressure Blood Pressure [Right] O2 Sat by Pulse Oximetry - Reevaluation(s) Reevaluation #1: 12/02/16 20:54 ECG at 2036 with sinus tachycardia at 113 bpm normal axis normal CT and QRS unchanged from prior ECG from 19 excuse [address] no concerning [address]-T wave changes from 11/26/2016 Reevaluation #2: 12/02/16 21:53 Patient was given GI cocktail with modest improvement of his pain. On repeat evaluation he still complains of 5 out of 10 pain. He appears quite comfortable when I ask about this. He has noted on his laboratory studies troponin elevated at 0.13. Reviewing his chest ECG demonstrates no acute process. The unremarkable ECG and unchanged from prior from 1 week ago. I am concerned given his chest pain and elevated troponin though that this could refer represent ACS. He has had history of disease and there may be a troponin leak that is associated which could be possibly mildly elevated as well. For this reason I will not call him in an STEMI at this time. Dr. Spivey for admission for chest pain ACS protocol. ED Medical Decision Making - Lab Data Result diagrams: 12/02/16 20:56 12/02/16 20:56 - Radiology Data interpreted by me: Mild cardiomegaly no acute infiltrate process otherwise unremarkable. Critical care attestation.: If time is entered above; I have spent that time in minutes in the direct care of this critically ill patient, excluding procedure time. ED Disposition Clinical Impression: Acute coronary syndrome Disposition: OP ADMITTED IP TO THIS HOSP Is pt being admited?: Yes Does the pt Need Aspirin: No Condition: Stable Time of Disposition: 21:55
--- NOTE | 2016-12-02 20:20 | Admit Criteria Form ---
Admission Criteria Documentation: CHEST PAIN Clinical Indications for Admission to Inpatient Care (Place 'X' for any and all applicable criteria): Admission is indicated for chest pain and ANY ONE of the following(1)(2)(3)(4)(5 ): [X ]I. Angina with acute coronary syndrome (Also use Myocardial Infarction or Angina guideline) [ ]II. Hemodynamic instability [X ]III. Angina needing acute intervention as indicated by ALL of the following (11)(12): [ X]a) Unstable angina is present as indicated by angina that is ANY ONE of the following: [X ]i) New onset [ ]ii) Nocturnal [ ]iii) Prolonged at rest [ ]iv) Progressive [X ]b) Angina warrants acute intervention as indicated by ANY ONE of the following: [ ]i) Recurrent angina (e.g, not responding as previously to treatment) [ ]ii) Angina at rest or with low-level activities despite initial medical therapy [ ]iii) New or presumably new ST-segment depression on ECG [ ]iv) Signs or symptoms of heart failure (eg, dyspnea, pulmonary edema) [ ]v) New or worsening mitral regurgitation [ ]vi) Hemodynamic instability [ ]vii) Dangerous arrhythmia (eg, sustained ventricular tachycardia) [ ]viii) History of percutaneous coronary intervention within 6 months [ ]ix) History of coronary artery bypass graft surgery [ ]x) ALONZO risk score of 2 or greater[A] [X ]xi) History of Diabetes(14) [ ]xii) High-risk cardiac ischemia findings on noninvasive testing (e.g, echocardiogram, treadmill testing, nuclear scan) [ ]xiii) Chronic renal insufficiency (ie, estimated GFR less than 60 mL/min/1.732m) [ ]xiv) Left ventricular ejection fraction less than 40% [ ]IV. Evidence of MA (eg, cardiac biomarkers positive, ST-segment elevation on ECG) also use Myocardial Infarction Criteria Form. [ ]V. Pulmonary edema [ ]. Respiratory distress [ ]VII. Chest pain indicative of serious diagnosis other than coronary artery disease (eg, aortic dissection) [ ]VIII. Contraindications and/or Inappropriate clinical situations for Observational Care in patients with Chest Pain, when ANY ONE of the following is required: [ ]a) Patient with risk factor for pulmonary embolism, acute coronary syndrome and myocardial infarction (18) [ ]b) Patient with Pulmonary embolism require an average LOS of 4.3 days, therefore emergency department observation management is inappropriate 18,23 [ ]c) Painful condition/s in the elderly, have the highest rate of recidivism after emergency department observation management (10.8%) 20,21,22 [ ]d) Elevated cardiac biomarker requires intensive and exhaustive care (19) [ ]IX. General contraindications and/or Inappropriate clinical situations for Observational Care in patients with Chest Pain, when ANY ONE of the following is required: [ ]a) Prediction of prolongation of LOS based on ANY ONE of the following may be considered as a contraindication for observational care 2, 3, 4, 5, 6, 7, 8, 9, 10, 11 [ ]i) Age > 65 yrs. [ ]ii) Patient arriving by ambulance [ ]iii) Patient with high acuity [ ]iv) Patient requiring vital sign monitoring [ ]v) Patient on IV medication [ ]b) Systolic blood pressures 180mmHg 3,12 [ ]c) Patient with altered mental status including delirium and other alteration of consciousness, (3) [ ]d) Patient whose discharge disposition will be to a retirement home or rehabilitation home should not be managed in Emergency Department Observation Unit. CMS rule requires 3 days hospital stay before such placement. 3,13 [ ]e) Patient with failure to thrive due to broad array of etiologies 3,16,17 [ ]f) Inability to ambulate 3,14 Extended stay beyond goal length of stay may be needed for (1)(28): [ ]a) Specific condition diagnosed after evaluation (eg, pulmonary embolism, aortic dissection) [ ]b) Unstable angina [ ]c) Continued suspicion of acute coronary syndrome with inability to complete needed cardiac evaluation (eg, patient clinically unable to undergo stress testing) [ ]d) Myocardial infarction (Contents from ANGINA and CHEST PAIN clinical indications for admission to inpatient care have been integrated in this form) The original [employer] content created by [employer] has been revised. The portions of the content which have been revised are identified through the use of italic text or in bold, and [facility] has neither reviewed nor approved the modified material. All other unmodified content is copyright [employer]. Please see references footnoted in the original [facility] edition 2016 Admission Criteria Met: Yes
[2016-12-02 21:27] LABS: Basophils % (Auto) 0.4 % (0.0-1.8); Hematocrit 37.5 % (35.5-45.6); Hemoglobin 11.7 gm/dl (11.8-15.2); Mean Corpuscular HGB Conc 31 % (32-34); Mean Corpuscular Hemoglobin 30 pg (28-32); Mean Corpuscular Volume 95 fl (84-94); Platelet Count 161 K/mm3 (140-440); Red Blood Count 3.95 M/mm3 (3.65-5.03); Red Cell Distribution Width 15.7 % (13.2-15.2); White Blood Count 12.7 K/mm3 (4.5-11.0)
[2016-12-02 21:31] LABS: Albumin 3.5 g/dL (3.9-5); Albumin/Globulin Ratio 0.9 %; BUN/Creatinine Ratio 5.09; Bilirubin,Total 0.3 mg/dL (0.1-1.2); Calcium 8.8 mg/dL (8.4-10.2); Chloride 91.6 mmol/L (98-107); Potassium 4.1 mmol/L (3.6-5.0); Total Protein 7.3 g/dL (6.3-8.2)
[2016-12-02] MEDS ORDERED: MORPHINE IV ONE (21:44)
[2016-12-02] MEDS ORDERED: LOVENOX SUB-Q SCH ×2 (22:00)
[2016-12-02] MEDS ORDERED: SODIUM CHLORIDE FLUSH SYRINGE 10 ML IV PRN (23:30)
[2016-12-02] MEDS ORDERED: TYLENOL PO PRN (23:30)
[2016-12-02] MEDS ORDERED: DULCOLAX PR PRN (23:30)
[2016-12-02] MEDS ORDERED: LEVAQUIN PO SCH (23:30)
--- NOTE | 2016-12-02 23:30 | History and Physical Report ---
History of Present Illness Date of examination: 12/02/16 History of present illness: 66-year-old man with a history of hypertension, diabetes, end-stage renal disease on dialysis Friday, Friday, Friday comes emergency room with complaint of chest pain. Pain is in the epigastric area which she described as a hurting pain, constant, intensity 7/10, no radiation any cannot identify exacerbating or relieving factors. He admits to nausea vomiting, no shortness breath, diaphoresis or palpitation Patient denies cough, abdominal pain, hematochezia, dysuria, frequency, focal weakness, dysarthria, fever chills, polydipsia polyuria, hot or cold intolerance , easy bruisability, or rash or bleeding from mucosal membrane, rhinorrhea, epistaxis, earache, tinnitus, blurry vision, eye discharge, anxiety, depression. Other review of systems negative PAST SURGICAL HISTORY: AV fistula SOCIAL HISTORY: Denies alcohol, tobacco, drugs FAMILY HISTORY: Hypertension Medications and Allergies Allergies Allergy/AdvReac Type Severity Reaction Status Date / Time No Known Allergies Allergy Unverified 12/03/13 12:17 Home Medications Medication Instructions Recorded Confirmed Last Taken Type Aspirin [Aspirin TAB] 325 mg PO DAILY 12/03/13 12/03/13 Unknown History Ergocalciferol [Vitamin D2] 1 cap PO QWEEK 12/03/13 12/03/13 Unknown History Furosemide [Lasix] 20 mg PO DAILY 12/03/13 12/03/13 Unknown History Gabapentin 300 mg PO BID 12/03/13 12/03/13 Unknown History Insulin Glargine,Hum.rec.anlog 10 units SQ QHS 12/03/13 12/03/13 Unknown History [Lantus Solostar] Insulin Regular, Human [Humulin R] 3 units SC TIDAC 12/03/13 12/03/13 Unknown History Simvastatin [Zocor TAB] 40 mg PO DAILY 12/03/13 12/03/13 Unknown History Sodium Bicarbonate 650 mg PO BID 12/03/13 12/03/13 Unknown History glipiZIDE [glipiZIDE XL] 10 mg PO DAILY 12/03/13 12/03/13 Unknown History Clopidogrel Bisulfate [Plavix] 75 mg PO DAILY #30 tablet 12/06/13 Unknown Rx amLODIPine [Norvasc] 10 mg PO DAILY #30 tab 12/06/13 Unknown Rx cloNIDine [Catapres] 0.1 mg PO BID #60 tablet 12/06/13 Unknown Rx Active Meds: Active Medications Amlodipine Besylate (Norvasc) 10 mg PO DAILY BENJA Enoxaparin Sodium (Lovenox) 60 mg SUB-Q Q24H BENJA Levofloxacin (Levaquin) 500 mg PO Q24HR BENJA Exam - Physical Exam Narrative exam: Gen. appearance: Patient lying in bed, no apparent distress HEENT: Normocephalic, atraumatic, pupils equally round and reactive to light, extraocular movement intact, and no sclericterus,. No JVD or thyromegaly or nodule,neck supple, no carotid bruit ,mucous membranes moist, no exudate or erythema Heart: S1, S2, regular rate and rhythm Lungs: Clear to auscultation bilaterally, breathing comfortable Abdomen: Positive bowel sounds, nontender, nondistended, no organomegaly Extremity: No edema, cyanosis, clubbing Skin: No rash, nodules, warm, dry Neuro: Oriented 3, cranial nerves II-12 intact, speech is fluent, motor and sensory intact - Constitutional Vitals: Temp Pulse Resp BP Pulse Ox 99.9 F H 104 H 20 161/74 98 12/02/16 20:39 12/02/16 21:30 12/02/16 21:30 12/02/16 21:30 12/02/16 21:30 Results - Labs CBC & Chem 7: 12/02/16 20:56 12/02/16 20:56 Labs: Abnormal lab results 12/02/16 12/02/16 Range/Units 20:56 20:56 WBC 12.7 H (4.5-11.0) K/mm3 Hgb 11.7 L (11.8-15.2) gm/dl MCV 95 H (84-94) fl MCHC 31 L (32-34) % RDW 15.7 H (13.2-15.2) % Lymph % (Auto) 6.0 L (13.4-35.0) % Leon % (Auto) 12.9 H (0.0-7.3) % Lymph # 0.8 L (1.2-5.4) K/mm3 Leon # 1.6 H (0.0-0.8) K/mm3 Seg Neutrophils % 80.7 H (40.0-70.0) % Seg Neutrophils # 10.2 H (1.8-7.7) K/mm3 Sodium 134 L (137-145) mmol/L Chloride 91.6 L (98-107) mmol/L Carbon Dioxide 16 L (22-30) mmol/L BUN 26 H (9-20) mg/dL Creatinine 5.1 H (0.8-1.5) mg/dL Glucose 168 H (75-100) mg/dL AST 64 H (5-40) units/L Troponin T 0.130 H* (0.00-0.029) ng/mL Albumin 3.5 L (3.9-5) g/dL Triglycerides 203 H (2-149) mg/dL - Imaging and Cardiology EKG: image reviewed Chest x-ray: image reviewed Assessment and Plan Non-STEMI SIRS Hypertension Diabetes End-stage renal disease Admits medicine Start aspirin, beta lynsey, aspirin Check cardiac enzymes, obtain stress test Check fingersticks and initiate insulin start DVT prophylaxis Obtain UA, blood culture, start empiric antibiotics
[2016-12-03] MEDS: LEVAQUIN PO SCH (00:51)
[2016-12-03 06:42] LABS: Basophils % (Auto) 0.2 % (0.0-1.8); Hematocrit 35.7 % (35.5-45.6); Hemoglobin 11.3 gm/dl (11.8-15.2); Mean Corpuscular HGB Conc 32 % (32-34); Mean Corpuscular Hemoglobin 30 pg (28-32); Mean Corpuscular Volume 93 fl (84-94); Platelet Count 153 K/mm3 (140-440); Red Blood Count 3.83 M/mm3 (3.65-5.03); Red Cell Distribution Width 15.9 % (13.2-15.2)
[2016-12-03 07:17] LABS: BUN/Creatinine Ratio 6.19; Calcium 8.7 mg/dL (8.4-10.2); Chloride 88.4 mmol/L (98-107); Potassium 4.3 mmol/L (3.6-5.0)
[2016-12-03 08:17] LABS: Creatine Kinase MB 6.1 ng/mL (0.0-4.0)
--- NOTE | 2016-12-03 09:25 | XRay Report ---
AP CHEST: HISTORY: chest pain AP view of the chest demonstrates a normal mediastinal and cardiac contour with clear lungs and normal bony and soft tissue structures. IMPRESSION: Unremarkable AP chest.
[2016-12-03] MEDS ORDERED: ASPIRIN PO SCH (10:00)
[2016-12-03] MEDS ORDERED: LEVAQUIN PO SCH (10:00)
[2016-12-03] MEDS ORDERED: ZOCOR PO SCH (10:00)
[2016-12-03] MEDS ORDERED: LEXISCAN IV ONE ×2 (10:58→11:00)
[2016-12-03 11:25] LABS: Creatine Kinase MB 5.9 ng/mL (0.0-4.0)
[2016-12-03] MEDS: NEURONTIN PO SCH ×2 (12:29→21:55)
[2016-12-03] MEDS: NORVASC PO SCH (12:29)
[2016-12-03] MEDS: LASIX PO SCH (12:29)
[2016-12-03] MEDS: LOVENOX SUB-Q SCH (12:29)
[2016-12-03] MEDS: PLAVIX PO SCH (12:29)
[2016-12-03] MEDS: BABY ASPIRIN PO SCH (12:29)
[2016-12-03] MEDS: SODIUM BICARBONATE PO SCH ×2 (12:30→21:55)
--- NOTE | 2016-12-03 16:29 | Consultation ---
History of Present Illness - Reason for Consult Consult date: 12/03/16 end stage renal disease - History of Present Illness Patient is a 66 year old AAM with history significant for Hypertension, Diabetes mellitus type 2, CVA and ESRD on hemodialysis (MWF) followed by came to the Emergency room with complaint of chest pain. The pain started yesterday and got worse later in the day. The pain over the anterior chest, fairly constant, not radiating, sharp in nature and intensity 7/10. Associated symptoms include nausea, vomiting, persistent hicups, pain on swallowing and decreased PO intake. Patient denies any abd pain, rectal bleeding, shortness breath, diaphoresis, palpitation, cough, dysuria, hematuria , fever, chills, dizziness or syncope. Patient was last dialyzed yesterday. Past History Past Medical History: anemia, diabetes, dialysis, ESRD, hypertension, stroke Past Surgical History: Other (AVF creation) Social history: denies: smoking, alcohol abuse, IV drug use Medications and Allergies Allergies Allergy/AdvReac Type Severity Reaction Status Date / Time No Known Allergies Allergy Unverified 12/03/13 12:17 Home Medications Medication Instructions Recorded Confirmed Last Taken Type Aspirin [Aspirin TAB] 325 mg PO DAILY 12/03/13 12/03/13 Unknown History Ergocalciferol [Vitamin D2] 1 cap PO QWEEK 12/03/13 12/03/13 Unknown History Furosemide [Lasix] 20 mg PO DAILY 12/03/13 12/03/13 Unknown History Gabapentin 300 mg PO BID 12/03/13 12/03/13 Unknown History Insulin Glargine,Hum.rec.anlog 10 units SQ QHS 12/03/13 12/03/13 Unknown History [Lantus Solostar] Insulin Regular, Human [Humulin R] 3 units SC TIDAC 12/03/13 12/03/13 Unknown History Simvastatin [Zocor TAB] 40 mg PO DAILY 12/03/13 12/03/13 Unknown History Sodium Bicarbonate 650 mg PO BID 12/03/13 12/03/13 Unknown History glipiZIDE [glipiZIDE XL] 10 mg PO DAILY 12/03/13 12/03/13 Unknown History Clopidogrel Bisulfate [Plavix] 75 mg PO DAILY #30 tablet 12/06/13 Unknown Rx amLODIPine [Norvasc] 10 mg PO DAILY #30 tab 12/06/13 Unknown Rx cloNIDine [Catapres] 0.1 mg PO BID #60 tablet 12/06/13 Unknown Rx Active Meds: Active Medications Acetaminophen (Tylenol) 650 mg PO Q4H PRN PRN Reason: Pain MILD(1-3)/Fever >100.5/PINEDA Amlodipine Besylate (Norvasc) 10 mg PO DAILY [facility] Last Admin: 12/03/16 12:29 Dose: 10 mg Aspirin (Baby Aspirin) 81 mg PO QDAY [facility] Last Admin: 12/03/16 12:29 Dose: 81 mg Bisacodyl (Dulcolax) 10 mg [place] QDAY PRN PRN Reason: Constipation unrelieved by MOM Clopidogrel Bisulfate (Plavix) 75 mg PO DAILY [facility] Last Admin: 12/03/16 12:29 Dose: 75 mg Enoxaparin Sodium (Lovenox) 30 mg SUB-Q QDAY [facility] Last Admin: 12/03/16 12:29 Dose: 30 mg Ergocalciferol (Vitamin D2) 50,000 unit PO [facility] Furosemide (Lasix) 20 mg PO DAILY [facility] Last Admin: 12/03/16 12:29 Dose: 20 mg Gabapentin (Neurontin) 300 mg PO BID [facility] Last Admin: 12/03/16 12:29 Dose: 300 mg Levofloxacin (Levaquin) 500 mg PO Q48HR [facility] Last Admin: 12/03/16 00:51 Dose: 500 mg Ondansetron HCl (Zofran) 4 mg IV Q8H PRN PRN Reason: N/V unrelieved by Reglan Oxycodone/Acetaminophen (Percocet 5/325) 1 tab PO Q6H PRN PRN Reason: Pain, Moderate (4-6) Simvastatin (Zocor) 40 mg PO QHS [facility] Sodium Bicarbonate (Sodium Bicarbonate) 650 mg PO BID [facility] Last Admin: 12/03/16 12:30 Dose: Not Given Sodium Chloride (Sodium Chloride Flush Syringe 10 Ml) 10 ml IV PRN PRN PRN Reason: LINE FLUSH Review of Systems Constitutional: anorexia, weakness, no weight loss, no weight gain, no fever, no chills Ears, nose, mouth and throat: no sinus pain, no epistaxis Cardiovascular: chest pain, no orthopnea, no palpitations, no edema, no syncope , no lightheadedness, no shortness of breath Respiratory: no cough, no hemoptysis, no shortness of breath, no wheezing Gastrointestinal: nausea, vomiting, no abdominal pain, no diarrhea, no melena Genitourinary Male: no dysuria, no hematuria Rectal: no bleeding Musculoskeletal: no neck stiffness, no neck pain, no redness of joints Integumentary: no rash, no wounds, no jaundice Neurological: weakness (left sided weakness), no seizures, no syncope Endocrine: no weight change Hematologic/Lymphatic: no easy bleeding Allergic/Immunologic: no wheezing, no anaphylaxis Exam - Vital Signs Vital signs: Vital Signs Temp Pulse Resp BP Pulse Ox 99.9 F H 101 H 20 168/81 98 12/02/16 20:00 12/02/16 20:00 12/02/16 20:00 12/02/16 20:00 12/02/16 20:00 - General Appearance General appearance: well-developed, frail, other (no distress) EENT: PERRL, mucous membranes dry, hearing intact, vision intact Neck: Present: neck supple, trachea midline Respiratory: Clear to Ascultation Heart: regular, S1S2, no murmurs Gastrointestinal: Present: normoactive bowel sounds. Absent: tenderness, distended, guarding Integumentary: no rash, warm and dry Neurologic: alert and oriented x3, CN 3-12 intact, hemiplegic (left sided weakness) Musculoskeletal: Present: other (no edema) Psychiatric: mood/affect appropriate, cooperative Results - Lab Results 12/03/16 06:29 12/03/16 06:29 Most recent lab results Calcium 8.7 mg/dL (8.4-10.2) 12/03/16 06:29 Assessment and Plan - Patient Problems (1) End stage renal disease on dialysis Current Visit: No Status: Acute Plan to address problem: Patient was last dialyzed yesterday. Plan to do hemodialysis tomorrow. (2) Acute coronary syndrome Current Visit: Yes Status: Acute Plan to address problem: On ASA, Plavix and Statin. (3) Anemia, chronic renal failure Current Visit: Yes Status: Acute Qualifiers: Chronic kidney disease stage: C Plan to address problem: Epogen prn. (4) Hypertension Current Visit: Yes Status: Acute Qualifiers: Hypertension type: H Plan to address problem: Resume home meds and monitor BP.
--- NOTE | 2016-12-03 17:48 | Progress Note ---
Assessment and Plan Assessment and plan: Chest pain/ non-STEMI - Elevated cardiac enzymes - Cardiology consult placed - On aspirin, Plavix End-stage disease on hemodialysis - Nephrology consulted - We will monitor Prophylaxis - lovenox Disposition - Continue inpatient care History Interval history: I have seen and evaluated the patient, currently the patient denied any chest pain, shortness of breath. Hospitalist Physical - Physical exam Narrative exam: Not in cardiopulmonary distress. Vital signs as documented. Head exam is unremarkable. No scleral icterus . Neck is without jugular venous distension, thyromegaly, or carotid bruits. Lungs are clear to auscultation. Cardiac exam reveals regular rate and Rhythm. First and second heart sounds normal. No murmurs, rubs or gallops. Abdominal exam reveals normal bowel sounds, no masses, no organomegaly and no aortic enlargement. 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 No focal weakness. - Constitutional Vitals: Temp Pulse Resp BP Pulse Ox 99.4 F 102 H 18 167/69 95 12/03/16 12:28 12/03/16 12:29 12/03/16 12:28 12/03/16 12:29 12/03/16 12:28 Results - Labs CBC & Chem 7: 12/03/16 06:29 12/03/16 06:29 Labs: Laboratory Last Values WBC 11.0 K/mm3 (4.5-11.0) 12/03/16 06:29 RBC 3.83 M/mm3 (3.65-5.03) 12/03/16 06:29 Hgb 11.3 gm/dl (11.8-15.2) L 12/03/16 06:29 Hct 35.7 % (35.5-45.6) 12/03/16 06:29 MCV 93 fl (84-94) 12/03/16 06:29 MCH 30 pg (28-32) 12/03/16 06:29 MCHC 32 % (32-34) 12/03/16 06:29 RDW 15.9 % (13.2-15.2) H 12/03/16 06:29 Plt Count 153 K/mm3 (140-440) 12/03/16 06:29 Lymph % (Auto) 6.5 % (13.4-35.0) L 12/03/16 06:29 Bartholomew % (Auto) 12.8 % (0.0-7.3) H 12/03/16 06:29 Eos % (Auto) 0.0 % (0.0-4.3) 12/03/16 06:29 Baso % (Auto) 0.2 % (0.0-1.8) 12/03/16 06:29 Lymph # 0.7 K/mm3 (1.2-5.4) L 12/03/16 06:29 Bartholomew # 1.4 K/mm3 (0.0-0.8) H 12/03/16 06:29 Eos # 0.0 K/mm3 (0.0-0.4) 12/03/16 06:29 Baso # 0.0 K/mm3 (0.0-0.1) 12/03/16 06:29 Seg Neutrophils % 80.5 % (40.0-70.0) H 12/03/16 06:29 Seg Neutrophils # 8.8 K/mm3 (1.8-7.7) H 12/03/16 06:29 Sodium 133 mmol/L (137-145) L 12/03/16 06:29 Potassium 4.3 mmol/L (3.6-5.0) 12/03/16 06:29 Chloride 88.4 mmol/L (98-107) L 12/03/16 06:29 Carbon Dioxide 19 mmol/L (22-30) L 12/03/16 06:29 Anion Gap 30 mmol/L 12/03/16 06:29 BUN 39 mg/dL (9-20) H 12/03/16 06:29 Creatinine 6.3 mg/dL (0.8-1.5) H 12/03/16 06:29 Estimated GFR 11 ml/min 12/03/16 06:29 BUN/Creatinine Ratio 6.19 % 12/03/16 06:29 Glucose 228 mg/dL (75-100) H 12/03/16 06:29 Calcium 8.7 mg/dL (8.4-10.2) 12/03/16 06:29 Total Bilirubin 0.3 mg/dL (0.1-1.2) 12/02/16 20:56 AST 64 units/L (5-40) H 12/02/16 20:56 ALT 33 units/L (7-56) 12/02/16 20:56 Alkaline Phosphatase 76 units/L (35-129) 12/02/16 20:56 Total Creatine Kinase 1169 units/L (55-170) H 12/03/16 10:41 CK-MB (CK-2) 5.9 ng/mL (0.0-4.0) H 12/03/16 10:41 CK-MB (CK-2) Rel Index 0.5 (0-4) 12/03/16 10:41 Troponin T 0.123 ng/mL (0.00-0.029) H* 12/03/16 13:12 Total Protein 7.3 g/dL (6.3-8.2) 12/02/16 20:56 Albumin 3.5 g/dL (3.9-5) L 12/02/16 20:56 Albumin/Globulin Ratio 0.9 % 12/02/16 20:56 Triglycerides 203 mg/dL (2-149) H 12/02/16 20:56 Cholesterol 157 mg/dL (50-199) 12/02/16 20:56 LDL Cholesterol Direct 67 mg/dL (50-130) 12/02/16 20:56 HDL Cholesterol 50 mg/dL (40-59) 12/02/16 20:56 Cholesterol/HDL Ratio 3.14 % 12/02/16 20:56
--- NOTE | 2016-12-03 20:42 | Treadmill Report ---
THALLIUM STRESS TEST LEFT VENTRICLE: Left ventricular chamber size is within normal. Perfusion study demonstrates a small to moderate size, fixed inferior defect. On the resting study, there is no significant reversibility. Gated analysis demonstrates well preserved left ventricular systolic function, ejection fraction 57%. CONCLUSION: Fixed inferior defect suggests diaphragmatic attenuation artifact, cannot exclude a prior basal or mid inferior infarct. There is no significant reversible ischemia demonstrated. Clinical correlation is recommended due to suboptimal study. [facility]# [id number] CA/NTS
[2016-12-03] MEDS: ZOCOR PO SCH (21:55)
[2016-12-04 06:18] LABS: Basophils % (Auto) 0.3 % (0.0-1.8); Hematocrit 36.5 % (35.5-45.6); Hemoglobin 11.5 gm/dl (11.8-15.2); Mean Corpuscular HGB Conc 32 % (32-34); Mean Corpuscular Hemoglobin 29 pg (28-32); Mean Corpuscular Volume 93 fl (84-94); Platelet Count 174 K/mm3 (140-440); Red Blood Count 3.92 M/mm3 (3.65-5.03); Red Cell Distribution Width 15.6 % (13.2-15.2); White Blood Count 9.6 K/mm3 (4.5-11.0)
[2016-12-04 06:31] LABS: BUN/Creatinine Ratio 7.52; Chloride 87.5 mmol/L (98-107); Potassium 4.5 mmol/L (3.6-5.0)
--- NOTE | 2016-12-04 07:08 | Progress Note ---
Assessment and Plan - Patient Problems (1) End stage renal disease on dialysis Current Visit: No Status: Acute Plan to address problem: Continue hemodialysis as planned. Since BP is borderline low will not remove any fluids. (2) Acute coronary syndrome Current Visit: Yes Status: Acute Plan to address problem: On ASA, Plavix and Statin. (3) Anemia, chronic renal failure Current Visit: Yes Status: Acute Qualifiers: Chronic kidney disease stage: C Plan to address problem: Epogen prn. (4) Hypertension Current Visit: Yes Status: Acute Qualifiers: Hypertension type: H Plan to address problem: BP well controlled. (5) Fever Current Visit: Yes Status: Acute Qualifiers: Fever type: F Encounter type: E Plan to address problem: On Levofloxacin. Cultures pending. Subjective Date of service: 12/04/16 Interval history: Patient was seen and examined during hemodialysis. Fever noted. Objective - Vital Signs Vital signs: Vital Signs - 12hr 12/03/16 12/04/16 12/04/16 20:41 00:00 05:00 Temperature 99.3 F 99.9 F H 99.8 F H Pulse Rate [ 101 H 104 H 110 H Left] Respiratory 19 19 18 Rate Blood Pressure 171/71 151/72 170/74 [Left Arm] O2 Sat by Pulse 100 91 96 Oximetry - General Appearance General appearance: well-developed, frail, other (no distress) EENT: PERRL, hearing intact, vision intact Neck: supple Respiratory: Present: Clear to Ascultation Cardiology: regular, S1S2, no murmurs Gastrointestinal: no tenderness, no distended, no guarding Integumentary: no rash, warm and dry Neurologic: no asterixis, alert and oriented x3, other (left sided weakness) Musculoskeletal: other (no edema, left arm AVF) Psychiatric: mood/affect appropriate, cooperative - Lab 12/04/16 04:30 12/04/16 04:30 Most recent lab results Calcium 9.0 mg/dL (8.4-10.2) 12/04/16 04:30
[2016-12-04] MEDS ORDERED: NACL 0.9% 1000 ML 100 ML IV PRN (07:09)
[2016-12-04] MEDS: NEURONTIN PO SCH ×2 (10:00→22:11)
[2016-12-04] MEDS: SODIUM BICARBONATE PO SCH ×2 (10:00→22:11)
[2016-12-04] MEDS: NORVASC PO SCH (10:30)
--- NOTE | 2016-12-04 10:58 | Discharge Summary ---
Providers - Providers Date of Admission: 12/02/16 23:30 Date of discharge: 12/04/16 Attending physician: AVELINO SCHAEFFER MD 12/03/16 14:36 Consult to Physician [CONS] Routine Consulting Provider: CYNTHIA GROVE Reason For Exam: ESRD on hemodialysis Place consult to:: Nephrology Notified:: y Primary care physician: JEANNETTE WELCH MD Hospitalization Condition: Stable Disposition: STILL A PATIENT Exam - Constitutional Vitals: Temp Pulse Resp BP Pulse Ox 102.4 F H 95 H 20 97/63 94 12/04/16 09:30 12/04/16 10:35 12/04/16 09:30 12/04/16 10:35 12/04/16 08:56 Plan Follow up with: JEANNETTE WELCH MD [Primary Care Provider] - 3-5 Days
--- NOTE | 2016-12-04 13:42 | Progress Note ---
Assessment and Plan Assessment and plan: Chest pain - Elevated cardiac enzymes in the setting of end-stage renal disease - Nuclear medicine stress test was negative this morning - My suspicion for NSTEMI is low End-stage disease on hemodialysis - Nephrology consulted - We will monitor Patient has cough and fever - Patient may have aspiration pneumonia - Patient is on IV Levaquin - Patient has coughing while eating - Make him nothing by mouth - Aspiration precaution - Chest x-ray - Swallow evaluation Prophylaxis - lovenox Disposition - Continue inpatient care History Interval history: I have seen and evaluated the patient, patient's complaining cough productive of yellowish sputum. Patient denied fever 101.3 overnight. Patient was coughing while eating. Hospitalist Physical - Physical exam Narrative exam: Not in cardiopulmonary distress. Vital signs as documented. Head exam is unremarkable. No scleral icterus . Neck is without jugular venous distension, thyromegaly, or carotid bruits. Lungs significant wheezing on the left anterior chest. Cardiac exam reveals regular rate and Rhythm. First and second heart sounds normal. No murmurs, rubs or gallops. Abdominal exam reveals normal bowel sounds, no masses, no organomegaly and no aortic enlargement. 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 No focal weakness. - Constitutional Vitals: Temp Pulse Resp BP Pulse Ox 98.4 F 96 H 20 146/80 74 L 12/04/16 12:45 12/04/16 12:45 12/04/16 12:45 12/04/16 12:45 12/04/16 10:00 Results - Labs CBC & Chem 7: 12/04/16 04:30 12/04/16 04:30 Labs: Laboratory Last Values WBC 9.6 K/mm3 (4.5-11.0) 12/04/16 04:30 RBC 3.92 M/mm3 (3.65-5.03) 12/04/16 04:30 Hgb 11.5 gm/dl (11.8-15.2) L 12/04/16 04:30 Hct 36.5 % (35.5-45.6) 12/04/16 04:30 MCV 93 fl (84-94) 12/04/16 04:30 MCH 29 pg (28-32) 12/04/16 04:30 MCHC 32 % (32-34) 12/04/16 04:30 RDW 15.6 % (13.2-15.2) H 12/04/16 04:30 Plt Count 174 K/mm3 (140-440) 12/04/16 04:30 Lymph % (Auto) 8.0 % (13.4-35.0) L 12/04/16 04:30 [place] % (Auto) 14.1 % (0.0-7.3) H 12/04/16 04:30 Eos % (Auto) 0.0 % (0.0-4.3) 12/04/16 04:30 Baso % (Auto) 0.3 % (0.0-1.8) 12/04/16 04:30 Lymph # 0.8 K/mm3 (1.2-5.4) L 12/04/16 04:30 [place] # 1.4 K/mm3 (0.0-0.8) H 12/04/16 04:30 Eos # 0.0 K/mm3 (0.0-0.4) 12/04/16 04:30 Baso # 0.0 K/mm3 (0.0-0.1) 12/04/16 04:30 Seg Neutrophils % 77.6 % (40.0-70.0) H 12/04/16 04:30 Seg Neutrophils # 7.5 K/mm3 (1.8-7.7) 12/04/16 04:30 Sodium 133 mmol/L (137-145) L 12/04/16 04:30 Potassium 4.5 mmol/L (3.6-5.0) 12/04/16 04:30 Chloride 87.5 mmol/L (98-107) L 12/04/16 04:30 Carbon Dioxide 20 mmol/L (22-30) L 12/04/16 04:30 Anion Gap 30 mmol/L 12/04/16 04:30 BUN 67 mg/dL (9-20) H 12/04/16 04:30 Creatinine 8.9 mg/dL (0.8-1.5) H 12/04/16 04:30 Estimated GFR 7 ml/min 12/04/16 04:30 BUN/Creatinine Ratio 7.52 % 12/04/16 04:30 Glucose 307 mg/dL (75-100) H 12/04/16 04:30 Calcium 9.0 mg/dL (8.4-10.2) 12/04/16 04:30 Total Bilirubin 0.3 mg/dL (0.1-1.2) 12/02/16 20:56 AST 64 units/L (5-40) H 12/02/16 20:56 ALT 33 units/L (7-56) 12/02/16 20:56 Alkaline Phosphatase 76 units/L (35-129) 12/02/16 20:56 Total Creatine Kinase 1169 units/L (55-170) H 12/03/16 10:41 CK-MB (CK-2) 5.9 ng/mL (0.0-4.0) H 12/03/16 10:41 CK-MB (CK-2) Rel Index 0.5 (0-4) 12/03/16 10:41 Troponin T 0.123 ng/mL (0.00-0.029) H* 12/03/16 13:12 Total Protein 7.3 g/dL (6.3-8.2) 12/02/16 20:56 Albumin 3.5 g/dL (3.9-5) L 12/02/16 20:56 Albumin/Globulin Ratio 0.9 % 12/02/16 20:56 Triglycerides 203 mg/dL (2-149) H 12/02/16 20:56 Cholesterol 157 mg/dL (50-199) 12/02/16 20:56 LDL Cholesterol Direct 67 mg/dL (50-130) 12/02/16 20:56 HDL Cholesterol 50 mg/dL (40-59) 12/02/16 20:56 Cholesterol/HDL Ratio 3.14 % 12/02/16 20:56
[2016-12-04] MEDS ORDERED: LEVAQUIN 750MG/150ML 150 ML IV SCH (14:00)
--- NOTE | 2016-12-04 14:36 | XRay Report ---
AP chest x-ray. Findings: The heart and lungs reveal no acute findings or interval changes since the previous study on December 02.
[2016-12-04] MEDS: LEVAQUIN PO SCH (16:40)
[2016-12-04] MEDS: LASIX PO SCH (17:16)
[2016-12-04] MEDS: BABY ASPIRIN PO SCH (17:16)
[2016-12-04] MEDS: LOVENOX SUB-Q SCH (17:16)
[2016-12-04] MEDS: PLAVIX PO SCH (17:17)
[2016-12-04] MEDS: LEVAQUIN 500MG/100ML 500 MG/100 ML BAG IV SCH (17:17)
[2016-12-04] MEDS: ZOCOR PO SCH (22:11)
[2016-12-05 06:30] LABS: Basophils % (Auto) 0.1 % (0.0-1.8); Hematocrit 35.2 % (35.5-45.6); Hemoglobin 11.1 gm/dl (11.8-15.2); Mean Corpuscular HGB Conc 32 % (32-34); Mean Corpuscular Hemoglobin 30 pg (28-32); Mean Corpuscular Volume 93 fl (84-94); Platelet Count 148 K/mm3 (140-440); Red Blood Count 3.77 M/mm3 (3.65-5.03); Red Cell Distribution Width 15.3 % (13.2-15.2); White Blood Count 8.5 K/mm3 (4.5-11.0)
[2016-12-05 06:45] LABS: BUN/Creatinine Ratio 7.14; Calcium 8.7 mg/dL (8.4-10.2); Potassium 4.1 mmol/L (3.6-5.0)
--- NOTE | 2016-12-05 07:11 | Progress Note ---
Assessment and Plan - Patient Problems (1) End stage renal disease on dialysis Current Visit: No Status: Acute Plan to address problem: Maintenance Hemodialysis on MWF, last dialyzed yesterday. (2) Acute coronary syndrome Current Visit: Yes Status: Acute Plan to address problem: On ASA, Plavix and Statin. (3) Anemia, chronic renal failure Current Visit: Yes Status: Acute Qualifiers: Chronic kidney disease stage: C Plan to address problem: Epogen prn. (4) Hypertension Current Visit: Yes Status: Acute Qualifiers: Hypertension type: H Plan to address problem: BP well controlled. (5) Fever Current Visit: Yes Status: Acute Qualifiers: Fever type: F Encounter type: E Plan to address problem: On Levofloxacin. Cultures pending. Subjective Date of service: 12/05/16 Interval history: He is feeling better today. Objective - Vital Signs Vital signs: Vital Signs - 12hr 12/04/16 12/04/16 12/05/16 20:00 20:10 00:35 Temperature 97.3 F L 98.8 F Pulse Rate [ 96 H 94 H Right Radial] Respiratory 20 22 Rate Blood Pressure 153/76 137/72 [Left Arm] O2 Sat by Pulse 93 93 95 Oximetry 12/05/16 04:25 Temperature 98.6 F Pulse Rate [ 92 H Right Radial] Respiratory 18 Rate Blood Pressure 134/78 [Left Arm] O2 Sat by Pulse 94 Oximetry - General Appearance General appearance: well-developed, frail, other (no distress) EENT: PERRL, hearing intact, vision intact Neck: supple Respiratory: Present: Other (coarse breath sounds) Cardiology: regular, S1S2 Gastrointestinal: normoactive bowel sounds, no tenderness, no distended, no guarding Integumentary: no rash, warm and dry Neurologic: alert and oriented x3, CN 3-12 intact Musculoskeletal: other (no edema, left arm AVF) Psychiatric: mood/affect appropriate, cooperative - Lab 12/05/16 04:55 12/05/16 04:55 Most recent lab results Calcium 8.7 mg/dL (8.4-10.2) 12/05/16 04:55
[2016-12-05] MEDS: DUONEB 0.5 MG-3 MG/3 ML SOLN IH SCH ×4 (10:15→19:55)
[2016-12-05] MEDS: LOVENOX SUB-Q SCH (13:24)
[2016-12-05] MEDS: LASIX PO SCH (15:00)
[2016-12-05] MEDS: NORVASC PO SCH (15:00)
[2016-12-05] MEDS: SODIUM BICARBONATE PO SCH ×2 (15:00→21:46)
[2016-12-05] MEDS: PLAVIX PO SCH (15:00)
[2016-12-05] MEDS: NEURONTIN PO SCH ×2 (15:00→21:46)
[2016-12-05] MEDS: BABY ASPIRIN PO SCH (15:00)
--- NOTE | 2016-12-05 15:45 | Progress Note ---
Assessment and Plan Assessment and plan: Chest pain - Elevated cardiac enzymes in the setting of end-stage renal disease - Nuclear medicine stress test was negative this morning - My suspicion for NSTEMI is low End-stage disease on hemodialysis - Nephrology consulted - We will monitor Patient has cough and fever - Patient may have aspiration pneumonia - Patient is on IV Levaquin - Patient has coughing while eating - Make him nothing by mouth - Aspiration precaution - Chest x-ray - Swallow evaluation done and at high risk for aspiration, recommended barium swallow tomorrow morning Prophylaxis - lovenox Disposition - Continue inpatient care History Interval history: I have seen and evaluated the patient, patient's complaining cough productive of yellowish sputum. Patient was coughing while eating. Swallow evaluation was done and he is at risk of aspiration. Recommended to have barium swallow evaluation. Nothing by mouth. Hospitalist Physical - Physical exam Narrative exam: Not in cardiopulmonary distress. Vital signs as documented. Head exam is unremarkable. No scleral icterus . Neck is without jugular venous distension, thyromegaly, or carotid bruits. Lungs CTAB. Cardiac exam reveals regular rate and Rhythm. First and second heart sounds normal. No murmurs, rubs or gallops. Abdominal exam reveals normal bowel sounds, no masses, no organomegaly and no aortic enlargement. 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 No focal weakness. - Constitutional Vitals: Temp Pulse Resp BP Pulse Ox 98.6 F 87 16 147/77 96 12/05/16 04:25 12/05/16 07:52 12/05/16 07:52 12/05/16 07:52 12/05/16 10:00 Results - Labs CBC & Chem 7: 12/05/16 04:55 12/05/16 04:55 Labs: Laboratory Last Values WBC 8.5 K/mm3 (4.5-11.0) 12/05/16 04:55 RBC 3.77 M/mm3 (3.65-5.03) 12/05/16 04:55 Hgb 11.1 gm/dl (11.8-15.2) L 12/05/16 04:55 Hct 35.2 % (35.5-45.6) L 12/05/16 04:55 MCV 93 fl (84-94) 12/05/16 04:55 MCH 30 pg (28-32) 12/05/16 04:55 MCHC 32 % (32-34) 12/05/16 04:55 RDW 15.3 % (13.2-15.2) H 12/05/16 04:55 Plt Count 148 K/mm3 (140-440) 12/05/16 04:55 Lymph % (Auto) 9.7 % (13.4-35.0) L 12/05/16 04:55 [place] % (Auto) 12.0 % (0.0-7.3) H 12/05/16 04:55 Eos % (Auto) 0.0 % (0.0-4.3) 12/05/16 04:55 Baso % (Auto) 0.1 % (0.0-1.8) 12/05/16 04:55 Lymph # 0.8 K/mm3 (1.2-5.4) L 12/05/16 04:55 [place] # 1.0 K/mm3 (0.0-0.8) H 12/05/16 04:55 Eos # 0.0 K/mm3 (0.0-0.4) 12/05/16 04:55 Baso # 0.0 K/mm3 (0.0-0.1) 12/05/16 04:55 Seg Neutrophils % 78.2 % (40.0-70.0) H 12/05/16 04:55 Seg Neutrophils # 6.6 K/mm3 (1.8-7.7) 12/05/16 04:55 Sodium 136 mmol/L (137-145) L 12/05/16 04:55 Potassium 4.1 mmol/L (3.6-5.0) 12/05/16 04:55 Chloride 89.0 mmol/L (98-107) L 12/05/16 04:55 Carbon Dioxide 24 mmol/L (22-30) 12/05/16 04:55 Anion Gap 27 mmol/L 12/05/16 04:55 BUN 45 mg/dL (9-20) H 12/05/16 04:55 Creatinine 6.3 mg/dL (0.8-1.5) H 12/05/16 04:55 Estimated GFR 11 ml/min 12/05/16 04:55 BUN/Creatinine Ratio 7.14 % 12/05/16 04:55 Glucose 242 mg/dL (75-100) H 12/05/16 04:55 Calcium 8.7 mg/dL (8.4-10.2) 12/05/16 04:55 Total Bilirubin 0.3 mg/dL (0.1-1.2) 12/02/16 20:56 AST 64 units/L (5-40) H 12/02/16 20:56 ALT 33 units/L (7-56) 12/02/16 20:56 Alkaline Phosphatase 76 units/L (35-129) 12/02/16 20:56 Total Creatine Kinase 1169 units/L (55-170) H 12/03/16 10:41 CK-MB (CK-2) 5.9 ng/mL (0.0-4.0) H 12/03/16 10:41 CK-MB (CK-2) Rel Index 0.5 (0-4) 12/03/16 10:41 Troponin T 0.123 ng/mL (0.00-0.029) H* 12/03/16 13:12 Total Protein 7.3 g/dL (6.3-8.2) 12/02/16 20:56 Albumin 3.5 g/dL (3.9-5) L 12/02/16 20:56 Albumin/Globulin Ratio 0.9 % 12/02/16 20:56 Triglycerides 203 mg/dL (2-149) H 12/02/16 20:56 Cholesterol 157 mg/dL (50-199) 12/02/16 20:56 LDL Cholesterol Direct 67 mg/dL (50-130) 12/02/16 20:56 HDL Cholesterol 50 mg/dL (40-59) 12/02/16 20:56 Cholesterol/HDL Ratio 3.14 % 12/02/16 20:56 - Imaging and Cardiology Chest x-ray: image reviewed (no acute cardiopulmonary process)
[2016-12-05] MEDS: NACL 0.9% 1000 ML 2,000 ML IV SCH (16:52)
[2016-12-05] MEDS: ZOCOR PO SCH (21:46)
[2016-12-06 06:03] LABS: Basophils % (Auto) 0.2 % (0.0-1.8); Hematocrit 32.9 % (35.5-45.6); Hemoglobin 10.5 gm/dl (11.8-15.2); Mean Corpuscular HGB Conc 32 % (32-34); Mean Corpuscular Hemoglobin 29 pg (28-32); Mean Corpuscular Volume 92 fl (84-94); Platelet Count 155 K/mm3 (140-440); Red Blood Count 3.57 M/mm3 (3.65-5.03); Red Cell Distribution Width 15.3 % (13.2-15.2); White Blood Count 6.5 K/mm3 (4.5-11.0)
[2016-12-06 06:24] LABS: BUN/Creatinine Ratio 8.21; Calcium 8.5 mg/dL (8.4-10.2); Potassium 4.1 mmol/L (3.6-5.0)
--- NOTE | 2016-12-06 06:51 | Progress Note ---
Assessment and Plan - Patient Problems (1) End stage renal disease on dialysis Current Visit: No Status: Acute Plan to address problem: Maintenance Hemodialysis on MWF, last dialyzed 2 days ago. (2) Acute coronary syndrome Current Visit: Yes Status: Acute Plan to address problem: On ASA, Plavix and Statin. (3) Anemia, chronic renal failure Current Visit: Yes Status: Acute Qualifiers: Chronic kidney disease stage: C Plan to address problem: Epogen prn. (4) Hypertension Current Visit: Yes Status: Acute Qualifiers: Hypertension type: H Plan to address problem: Decrease IV fluids. (5) Fever Current Visit: Yes Status: Acute Qualifiers: Fever type: F Encounter type: E Plan to address problem: On Levofloxacin. Cultures pending. Subjective Date of service: 12/06/16 Interval history: No new complaint. Objective - Vital Signs Vital signs: Vital Signs - 12hr 12/05/16 12/05/16 12/05/16 19:55 20:00 20:08 Temperature 98.2 F Pulse Rate Pulse Rate [ 89 92 H Anterior Bilateral Throughout] Pulse Rate [ 92 H Right Radial] Respiratory 19 Rate Respiratory 18 18 Rate [Anterior Bilateral Throughout] Blood Pressure 162/75 [Right Arm] O2 Sat by Pulse 100 Oximetry 12/05/16 12/05/16 12/05/16 20:10 21:50 22:00 Temperature Pulse Rate 90 Pulse Rate [ Anterior Bilateral Throughout] Pulse Rate [ Right Radial] Respiratory 20 Rate Respiratory Rate [Anterior Bilateral Throughout] Blood Pressure [Right Arm] O2 Sat by Pulse 96 Oximetry 12/06/16 12/06/16 01:00 05:00 Temperature 100.5 F H 98.3 F Pulse Rate Pulse Rate [ Anterior Bilateral Throughout] Pulse Rate [ 93 H 96 H Right Radial] Respiratory 19 19 Rate Respiratory Rate [Anterior Bilateral Throughout] Blood Pressure 180/79 184/87 [Right Arm] O2 Sat by Pulse 96 99 Oximetry - General Appearance General appearance: well-developed, appears stated age, frail, other (no distress) EENT: PERRL, hearing intact, vision intact Neck: no carotid bruit, supple Respiratory: Present: Clear to Ascultation Cardiology: regular, S1S2, no murmurs Gastrointestinal: normoactive bowel sounds, no tenderness, no distended Integumentary: no rash Neurologic: no asterixis, CN 3-12 intact, other (left sided weakness) Musculoskeletal: other (no edema, left arm AVF) Psychiatric: mood/affect appropriate, cooperative - Lab 12/06/16 04:25 12/06/16 04:25 Most recent lab results Calcium 8.5 mg/dL (8.4-10.2) 12/06/16 04:25
[2016-12-06] MEDS: DUONEB 0.5 MG-3 MG/3 ML SOLN IH SCH ×4 (07:12→20:11)
[2016-12-06] MEDS ORDERED: NACL 0.9% 1000 ML 100 ML IV PRN (09:33)
--- NOTE | 2016-12-06 11:29 | Event Note ---
Date: 12/06/16 Attempted to see patient. Off floor for MBS. Noted patient recommended MBS for assessment of aspiration. Will wait for results of MBS for further evaluation. Full consult in AM. FREDY Stern-BC
[2016-12-06] MEDS: PLAVIX PO SCH (13:57)
[2016-12-06] MEDS: BABY ASPIRIN PO SCH (13:57)
[2016-12-06] MEDS: NEURONTIN PO SCH (13:57)
[2016-12-06] MEDS: LASIX PO SCH (13:57)
[2016-12-06] MEDS: NORVASC PO SCH (13:57)
[2016-12-06] MEDS: SODIUM BICARBONATE PO SCH ×2 (13:57→23:03)
[2016-12-06] MEDS: LOVENOX SUB-Q SCH (13:57)
--- NOTE | 2016-12-06 15:03 | Progress Note ---
Assessment and Plan Assessment and plan: Chest pain - Elevated cardiac enzymes in the setting of end-stage renal disease - Nuclear medicine stress test was negative this morning - My suspicion for NSTEMI is low End-stage disease on hemodialysis - Nephrology consulted - We will monitor Patient has cough and fever - Patient may have aspiration pneumonia - Patient is on IV Levaquin - Patient has coughing while eating - Make him nothing by mouth - Aspiration precaution - Chest x-ray no acute changes - Swallow evaluation done and at high risk for aspiration, recommended barium swallow tomorrow morning - GI consulted didn't saw him because the patient went for barium swallow evaluation, they said they will see him tomorrow morning Left-sided weakness (chronic) - On his previous workup in the ED showed chronic changes - Going to do MRI head to further evaluate for CVA Prophylaxis - lovenox Disposition - Continue inpatient care History Interval history: I have seen and evaluated the patient, patient's complaining cough productive of yellowish sputum. Patient was coughing while eating. Swallow evaluation was done and he is at risk of aspiration. Barium swallow twst will be done today. His was in the room while I examined him and she told me that he has some weakness on the left side and patient was presented recently for the same complaint and he was discharged after resting for [address] done at that time showed chronic changes no acute process going on. I'll do MRI of the head to evaluate for stroke. Hospitalist Physical - Physical exam Narrative exam: Not in cardiopulmonary distress. Vital signs as documented. Head exam is unremarkable. No scleral icterus . Neck is without jugular venous distension, thyromegaly, or carotid bruits. Lungs CTAB. Cardiac exam reveals regular rate and Rhythm. First and second heart sounds normal. No murmurs, rubs or gallops. Abdominal exam reveals normal bowel sounds, no masses, no organomegaly and no aortic enlargement. 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 Mild weakness on the left side compared to the right side. - Constitutional Vitals: Temp Pulse Resp BP Pulse Ox 98.2 F 91 H 20 141/87 92 12/06/16 10:30 12/06/16 12:15 12/06/16 10:30 12/06/16 12:15 12/06/16 07:39 Results - Labs CBC & Chem 7: 12/06/16 04:25 12/06/16 04:25 Labs: Laboratory Last Values WBC 6.5 K/mm3 (4.5-11.0) 12/06/16 04:25 RBC 3.57 M/mm3 (3.65-5.03) L 12/06/16 04:25 Hgb 10.5 gm/dl (11.8-15.2) L 12/06/16 04:25 Hct 32.9 % (35.5-45.6) L 12/06/16 04:25 MCV 92 fl (84-94) 12/06/16 04:25 MCH 29 pg (28-32) 12/06/16 04:25 MCHC 32 % (32-34) 12/06/16 04:25 RDW 15.3 % (13.2-15.2) H 12/06/16 04:25 Plt Count 155 K/mm3 (140-440) 12/06/16 04:25 Lymph % (Auto) 10.0 % (13.4-35.0) L 12/06/16 04:25 [place] % (Auto) 12.8 % (0.0-7.3) H 12/06/16 04:25 Eos % (Auto) 0.0 % (0.0-4.3) 12/06/16 04:25 Baso % (Auto) 0.2 % (0.0-1.8) 12/06/16 04:25 Lymph # 0.7 K/mm3 (1.2-5.4) L 12/06/16 04:25 [place] # 0.8 K/mm3 (0.0-0.8) 12/06/16 04:25 Eos # 0.0 K/mm3 (0.0-0.4) 12/06/16 04:25 Baso # 0.0 K/mm3 (0.0-0.1) 12/06/16 04:25 Seg Neutrophils % 77.0 % (40.0-70.0) H 12/06/16 04:25 Seg Neutrophils # 5.0 K/mm3 (1.8-7.7) 12/06/16 04:25 Sodium 142 mmol/L (137-145) 12/06/16 04:25 Potassium 4.1 mmol/L (3.6-5.0) 12/06/16 04:25 Chloride 95.0 mmol/L (98-107) L 12/06/16 04:25 Carbon Dioxide 23 mmol/L (22-30) 12/06/16 04:25 Anion Gap 28 mmol/L 12/06/16 04:25 BUN 69 mg/dL (9-20) H 12/06/16 04:25 Creatinine 8.4 mg/dL (0.8-1.5) H 12/06/16 04:25 Estimated GFR 8 ml/min 12/06/16 04:25 BUN/Creatinine Ratio 8.21 % 12/06/16 04:25 Glucose 189 mg/dL (75-100) H 12/06/16 04:25 POC Glucose 232 (70-105) H 12/06/16 07:21 Calcium 8.5 mg/dL (8.4-10.2) 12/06/16 04:25 Total Bilirubin 0.3 mg/dL (0.1-1.2) 12/02/16 20:56 AST 64 units/L (5-40) H 12/02/16 20:56 ALT 33 units/L (7-56) 12/02/16 20:56 Alkaline Phosphatase 76 units/L (35-129) 12/02/16 20:56 Total Creatine Kinase 1169 units/L (55-170) H 12/03/16 10:41 CK-MB (CK-2) 5.9 ng/mL (0.0-4.0) H 12/03/16 10:41 CK-MB (CK-2) Rel Index 0.5 (0-4) 12/03/16 10:41 Troponin T 0.123 ng/mL (0.00-0.029) H* 12/03/16 13:12 Total Protein 7.3 g/dL (6.3-8.2) 12/02/16 20:56 Albumin 3.5 g/dL (3.9-5) L 12/02/16 20:56 Albumin/Globulin Ratio 0.9 % 12/02/16 20:56 Triglycerides 203 mg/dL (2-149) H 12/02/16 20:56 Cholesterol 157 mg/dL (50-199) 12/02/16 20:56 LDL Cholesterol Direct 67 mg/dL (50-130) 12/02/16 20:56 HDL Cholesterol 50 mg/dL (40-59) 12/02/16 20:56 Cholesterol/HDL Ratio 3.14 % 12/02/16 20:56
[2016-12-06] MEDS: LEVAQUIN 500MG/100ML 500 MG/100 ML BAG IV SCH (15:10)
[2016-12-06] MEDS: ZOCOR PO SCH (23:03)
--- NOTE | 2016-12-07 06:36 | Consultation ---
REFERRING PHYSICIAN: Andres Lopez MD INDICATION: 1. Dysphagia. 2. Problem swallowing. HISTORY OF PRESENT ILLNESS: The patient is a 66-year-old black male with history of hypertension, diabetes, end-stage renal disease, on dialysis, who now have been seen by GI for problems swallowing. The patient was admitted on 12/02/2016, with chest pain with noted increased cardiac enzymes, but was felt to be more a byproduct of his renal disease. The patient reports he had some problems with pain on swallowing in his upper esophageal layer. He reports food does not necessarily gets stuck, but hurts sometimes as it is going down. He reports a history of reflux and does have some epigastric pain. He reports no nausea, vomiting. He reports no lower GI symptoms including diarrhea, constipation or rectal bleeding. Denies any weight loss. Denies any other specific GI problems or complaints. GI is consulted to aid in management. PAST MEDICAL HISTORY: Diabetes, hypertension, end-stage renal disease, on dialysis. PAST SURGICAL HISTORY: AV fistula. MEDICATIONS: See chart. ALLERGIES: No known drug allergies. SOCIAL HISTORY: Denies alcohol or tobacco. FAMILY HISTORY: Negative for colon cancer. REVIEW OF SYSTEMS: GENERAL: Reports mild weakness. HEENT: No visual complaints or tinnitus. PULMONARY: No shortness of breath. No cough. No chest pain. GASTROINTESTINAL: Reports pain with swallowing. All points of 13-point review of systems otherwise negative. PHYSICAL EXAMINATION: VITAL SIGNS: Temperature of 98.9, pulse 91, respiratory rate 18, blood pressure 160/74. GENERAL: Fairly nourished male in no acute distress. HEENT: Pupils equal, round, reactive to light and accommodation. Extraocular movements intact. PULMONARY: Clear to auscultation bilaterally. CARDIOVASCULAR: Regular rhythm. Normal S1, S2. ABDOMEN: Positive bowel sounds, soft. SKIN: No obvious rashes. LABORATORY DATA: Pertinent for white count of 6.5, hemoglobin and hematocrit 10.5 and ____, platelet count of 155. Chem-7 pertinent for BUN and creatinine of 69 and 8.4. ASSESSMENT AND PLAN: A 66-year-old black male with past medical history as noted above been seen for problems with swallowing. The patient reports he has a history of reflux. He reports otherwise prior to admission, he has been doing well. The patient was scheduled to have a modified barium swallow and speech evaluation today, but did not. Management as noted below. PLAN: 1. We will continue n.p.o. 2. We will await results of speech evaluation and a modified barium swallow. 3. Avoid NSAIDs and aspirin. 4. We will consider EGD and further intervention based on progress and results of the above. JOB# [id number] CAB/NTS
[2016-12-07] MEDS: DUONEB 0.5 MG-3 MG/3 ML SOLN IH SCH ×4 (07:10→19:49)
--- NOTE | 2016-12-07 07:38 | Progress Note ---
Assessment and Plan - Patient Problems (1) End stage renal disease on dialysis Current Visit: No Status: Acute Plan to address problem: Maintenance Hemodialysis on MWF, last dialyzed yesterday. Decrease IV fluids. (2) Acute coronary syndrome Current Visit: Yes Status: Acute Plan to address problem: On ASA, Plavix and Statin. (3) Anemia, chronic renal failure Current Visit: Yes Status: Acute Qualifiers: Chronic kidney disease stage: C Plan to address problem: Epogen prn. (4) Hypertension Current Visit: Yes Status: Acute Qualifiers: Hypertension type: H Plan to address problem: Decrease IV fluids. (5) Fever Current Visit: Yes Status: Acute Qualifiers: Fever type: F Encounter type: E Plan to address problem: On Levofloxacin. Cultures pending. (6) Dysphagia Current Visit: Yes Status: Acute Qualifiers: Dysphagia type: D Plan to address problem: Followed by GI. Subjective Date of service: 12/07/16 Interval history: Patient is doing ok. Objective - Vital Signs Vital signs: Vital Signs - 12hr 12/06/16 12/06/16 12/06/16 20:09 20:12 20:14 Temperature Pulse Rate Pulse Rate [ 96 H Anterior Bilateral Throughout] Pulse Rate [ Right Radial] Respiratory 20 Rate Respiratory 18 Rate [Anterior Bilateral Throughout] Blood Pressure [Right Arm] O2 Sat by Pulse 96 Oximetry 12/06/16 12/06/16 12/06/16 20:31 21:12 22:00 Temperature 98.2 F Pulse Rate 98 H Pulse Rate [ 97 H Anterior Bilateral Throughout] Pulse Rate [ 105 H Right Radial] Respiratory 20 Rate Respiratory 16 Rate [Anterior Bilateral Throughout] Blood Pressure 116/61 [Right Arm] O2 Sat by Pulse 97 Oximetry 12/07/16 12/07/16 01:00 04:00 Temperature 99.4 F 98.7 F Pulse Rate Pulse Rate [ Anterior Bilateral Throughout] Pulse Rate [ 99 H 90 Right Radial] Respiratory 20 18 Rate Respiratory Rate [Anterior Bilateral Throughout] Blood Pressure 140/65 150/73 [Right Arm] O2 Sat by Pulse 99 96 Oximetry - General Appearance General appearance: well-developed, frail, other (no distress) EENT: PERRL, mucous membranes moist, hearing intact, vision intact Neck: no carotid bruit, supple Respiratory: Present: Clear to Ascultation Cardiology: regular, S1S2, no murmurs Gastrointestinal: normoactive bowel sounds, no tenderness, no distended Integumentary: no rash, warm and dry Neurologic: no focal deficit, no asterixis, alert and oriented x3, CN 3-12 intact Musculoskeletal: other (no edema, left arm AVF) Psychiatric: mood/affect appropriate, cooperative - Lab 12/06/16 04:25 12/06/16 04:25 Most recent lab results Calcium 8.5 mg/dL (8.4-10.2) 12/06/16 04:25
--- NOTE | 2016-12-07 13:19 | Event Note ---
Date: 12/07/16 Pt not seen as he has MBS scheduled for 12/08. Will see him subsequently to assess and plan.
[2016-12-07] MEDS: LOVENOX SUB-Q SCH (14:47)
[2016-12-07] MEDS: SODIUM BICARBONATE PO SCH ×2 (16:12→21:13)
[2016-12-07] MEDS: PLAVIX PO SCH (16:12)
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
[2016-12-07] MEDS: LASIX PO SCH (18:03)
[2016-12-07] MEDS: BABY ASPIRIN PO SCH (18:03)
[2016-12-07] MEDS: NORVASC PO SCH (18:04)
[2016-12-07] MEDS: NEURONTIN PO SCH (18:04)
[2016-12-07] MEDS: ZOCOR PO SCH (21:13)
[2016-12-07] MEDS: PERCOCET 5/325 PO PRN (22:10)
[2016-12-08 05:30] LABS: Hematocrit 32.8 % (35.5-45.6); Hemoglobin 10.4 gm/dl (11.8-15.2); Mean Corpuscular HGB Conc 32 % (32-34); Mean Corpuscular Hemoglobin 30 pg (28-32); Mean Corpuscular Volume 93 fl (84-94); Platelet Count 172 K/mm3 (140-440); Red Blood Count 3.54 M/mm3 (3.65-5.03); Red Cell Distribution Width 15.7 % (13.2-15.2)
[2016-12-08] MEDS ORDERED: NORMODYNE IV PRN (05:32)
[2016-12-08 05:54] LABS: BUN/Creatinine Ratio 8.88; Calcium 8.5 mg/dL (8.4-10.2); Chloride 95.6 mmol/L (98-107); Potassium 4.2 mmol/L (3.6-5.0)
[2016-12-08] MEDS: DUONEB 0.5 MG-3 MG/3 ML SOLN IH SCH ×3 (08:13→19:44)
[2016-12-08 08:14] LABS: Anisocytosis Few; Basophils % (Manual) 0 % (0.0-1.8); Blastocytes % (Manual) 0 %; Diff Status Complete; Eosinophils % (Manual) 0 % (0.0-4.3); Hypochromasia 1+; Stomatocytes Rare
--- NOTE | 2016-12-08 09:17 | Progress Note ---
Assessment and Plan - Patient Problems (1) End stage renal disease on dialysis Current Visit: No Status: Acute Plan to address problem: Maintenance Hemodialysis on MWF, last dialyzed 2 days ago. (2) Acute coronary syndrome Current Visit: Yes Status: Acute Plan to address problem: On ASA, Plavix and Statin. (3) Anemia, chronic renal failure Current Visit: Yes Status: Acute Qualifiers: Chronic kidney disease stage: C Plan to address problem: Epogen prn. (4) Hypertension Current Visit: Yes Status: Acute Qualifiers: Hypertension type: H (5) Fever Current Visit: Yes Status: Acute Qualifiers: Fever type: F Encounter type: E Plan to address problem: On Levofloxacin. Cultures negative so far. (6) Dysphagia Current Visit: Yes Status: Acute Qualifiers: Dysphagia type: D Plan to address problem: MBS today. Followed by GI. Subjective Date of service: 12/08/16 Interval history: Patient is doing ok. Objective - Vital Signs Vital signs: Vital Signs - 12hr 12/08/16 12/08/16 12/08/16 00:13 01:17 04:16 Temperature 98.3 F 98.5 F Pulse Rate 101 H Pulse Rate [ 99 H 89 Right Radial] Respiratory 20 18 Rate Blood Pressure 148/81 173/86 [Right Arm] O2 Sat by Pulse 97 97 Oximetry 12/08/16 09:10 Temperature 98.1 F Pulse Rate Pulse Rate [ 85 Right Radial] Respiratory 18 Rate Blood Pressure 161/81 [Right Arm] O2 Sat by Pulse 97 Oximetry - General Appearance General appearance: well-developed, frail, other (no distress) EENT: PERRL, hearing intact, vision intact Neck: supple Respiratory: Present: Clear to Ascultation Cardiology: regular, S1S2, no murmurs Gastrointestinal: normoactive bowel sounds, no tenderness, no distended, no guarding Integumentary: no rash, warm and dry Neurologic: no asterixis, alert and oriented x3, CN 3-12 intact, other (left hemiparesis) Musculoskeletal: other (no edema, left arm AVF) Psychiatric: mood/affect appropriate, cooperative - Lab 12/08/16 04:26 12/08/16 04:26 Most recent lab results Calcium 8.5 mg/dL (8.4-10.2) 12/08/16 04:26
--- NOTE | 2016-12-08 10:34 | Fluoroscopy Report ---
MODIFIED BARIUM SWALLOW: 12/08/16 09:30:00 CLINICAL: Choking on swallowing. FINDINGS: The patient ingested barium impregnated substances of varying consistencies and swallowing was observed fluoroscopically. For more detail, please refer to the speech pathologist's report.
[2016-12-08] MEDS: NORVASC PO SCH (11:45)
[2016-12-08] MEDS: LASIX PO SCH (11:46)
[2016-12-08] MEDS: BABY ASPIRIN PO SCH (11:46)
[2016-12-08] MEDS: LOVENOX SUB-Q SCH (11:46)
[2016-12-08] MEDS: SODIUM BICARBONATE PO SCH ×2 (11:46→23:02)
[2016-12-08] MEDS: PERCOCET 5/325 PO PRN (11:47)
[2016-12-08] MEDS: NEURONTIN PO SCH (11:47)
[2016-12-08] MEDS: ZOFRAN IV PRN (11:47)
[2016-12-08] MEDS: PLAVIX PO SCH (11:47)
--- NOTE | 2016-12-08 14:07 | Progress Note ---
Assessment and Plan 1. Difficulty swallowing - unclear if pt has oropharyngeal dysphagia, with aspiration, vs. upper esophageal process given that pt describes some pain on swallowing. - would f/u on MBS, and if appropriate, proceed with PEG placement. - if MBS negative, would do EGD for mucosal evaluation since clear hx difficult to stevens. Subjective Date of service: 12/08/16 Interval history: Pt complains of cough with retching up of some food approx 1 hr ago. [place] he showed me was empty. Objective - Constitutional Vitals: Vital Signs - 12hr 12/08/16 12/08/16 12/08/16 04:16 07:50 08:04 Temperature 98.5 F Pulse Rate [ 85 86 Anterior Bilateral Throughout] Pulse Rate [ 89 Right Radial] Respiratory 18 Rate Respiratory 18 18 Rate [Anterior Bilateral Throughout] Blood Pressure 173/86 [Right Arm] O2 Sat by Pulse 97 Oximetry 12/08/16 12/08/16 12/08/16 09:10 10:00 11:32 Temperature 98.1 F Pulse Rate [ Anterior Bilateral Throughout] Pulse Rate [ 85 96 H Right Radial] Respiratory 18 22 Rate Respiratory Rate [Anterior Bilateral Throughout] Blood Pressure 161/81 189/91 [Right Arm] O2 Sat by Pulse 97 97 Oximetry 12/08/16 11:47 Temperature Pulse Rate [ Anterior Bilateral Throughout] Pulse Rate [ Right Radial] Respiratory 20 Rate Respiratory Rate [Anterior Bilateral Throughout] Blood Pressure [Right Arm] O2 Sat by Pulse Oximetry General appearance: Present: no acute distress - EENT Eyes: PERRL, EOM intact ENT: hearing intact - Gastrointestinal General gastrointestinal: Present: soft, non-tender - Labs CBC & Chem 7: 12/08/16 04:26 12/08/16 04:26 Labs: Abnormal lab results 12/07/16 12/07/16 12/08/16 Range/Units 16:52 21:38 04:26 RBC 3.54 L (3.65-5.03) M/mm3 Hgb 10.4 L (11.8-15.2) gm/dl Hct 32.8 L (35.5-45.6) % RDW 15.7 H (13.2-15.2) % Lymphocytes % (Manual) 13.0 L (13.4-35.0) % Monocytes % (Manual) 18.0 H (0.0-7.3) % Lymphocytes # (Manual) 0.9 L (1.2-5.4) K/mm3 Monocytes # (Manual) 1.3 H (0.0-0.8) K/mm3 Chloride (98-107) mmol/L Carbon Dioxide (22-30) mmol/L BUN (9-20) mg/dL Creatinine (0.8-1.5) mg/dL Glucose (75-100) mg/dL POC Glucose 250 H 227 H (70-105) 12/08/16 Range/Units 04:26 RBC (3.65-5.03) M/mm3 Hgb (11.8-15.2) gm/dl Hct (35.5-45.6) % RDW (13.2-15.2) % Lymphocytes % (Manual) (13.4-35.0) % Monocytes % (Manual) (0.0-7.3) % Lymphocytes # (Manual) (1.2-5.4) K/mm3 Monocytes # (Manual) (0.0-0.8) K/mm3 Chloride 95.6 L (98-107) mmol/L Carbon Dioxide 20 L (22-30) mmol/L BUN 80 H (9-20) mg/dL Creatinine 9.0 H (0.8-1.5) mg/dL Glucose 168 H (75-100) mg/dL POC Glucose (70-105)
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
[2016-12-08] MEDS: LEVAQUIN 500MG/100ML 500 MG/100 ML BAG IV SCH (18:03)
[2016-12-08] MEDS: ZOCOR PO SCH (23:02)
[2016-12-09] MEDS: NACL 0.9% 1000 ML 2,000 ML IV SCH (05:02)
[2016-12-09] MEDS: DUONEB 0.5 MG-3 MG/3 ML SOLN IH SCH ×3 (09:18→19:08)
--- NOTE | 2016-12-09 09:21 | Progress Note ---
Assessment and Plan - Patient Problems (1) End stage renal disease on dialysis Current Visit: No Status: Acute Plan to address problem: Maintenance Hemodialysis on MWF, last dialyzed 3 days ago. Plan to do hemodialysis today. (2) Acute coronary syndrome Current Visit: Yes Status: Acute Plan to address problem: On ASA, Plavix and Statin. (3) Anemia, chronic renal failure Current Visit: Yes Status: Acute Qualifiers: Chronic kidney disease stage: C Plan to address problem: Epogen prn. (4) Hypertension Current Visit: Yes Status: Acute Qualifiers: Hypertension type: H Plan to address problem: Decrease IV fluids. (5) Fever Current Visit: Yes Status: Acute Qualifiers: Fever type: F Encounter type: E Plan to address problem: On Levofloxacin. Cultures are negative. (6) Dysphagia Current Visit: Yes Status: Acute Qualifiers: Dysphagia type: D Plan to address problem: Followed by GI. Subjective Date of service: 12/09/16 Interval history: Patient is doing ok. Objective - Vital Signs Vital signs: Vital Signs - 12hr 12/08/16 12/08/16 12/08/16 21:24 21:39 22:00 Temperature 98.2 F Pulse Rate 84 Pulse Rate [ 91 H Right Radial] Respiratory 18 Rate Blood Pressure 126/65 [Right Arm] O2 Sat by Pulse 98 97 Oximetry 12/09/16 12/09/16 00:06 05:46 Temperature 98.4 F 98.0 F Pulse Rate Pulse Rate [ 89 84 Right Radial] Respiratory 20 20 Rate Blood Pressure 146/75 126/69 [Right Arm] O2 Sat by Pulse 98 100 Oximetry - General Appearance General appearance: well-developed, frail, other (no distress) EENT: PERRL, mucous membranes moist, hearing intact, vision intact Neck: supple Respiratory: Present: Clear to Ascultation Cardiology: regular, S1S2, no murmurs Gastrointestinal: normoactive bowel sounds, no tenderness, no distended Integumentary: no rash, warm and dry Neurologic: alert and oriented x3, CN 3-12 intact, other (slight weakness of left side) Musculoskeletal: other (no edema, left arm AVF) Psychiatric: mood/affect appropriate, cooperative - Lab 12/08/16 04:26 12/08/16 04:26 Most recent lab results Calcium 8.5 mg/dL (8.4-10.2) 12/08/16 04:26
[2016-12-09] MEDS ORDERED: NACL 0.9% 1000 ML 100 ML IV PRN (09:46)
--- NOTE | 2016-12-09 10:12 | Gastroenterology Progress Note ---
Assessment and Plan 1) Dysphagia; s/p MBBS with posterior pharyngeal thickening and cervical osteophytes -Hold off on PEG, but would want to r/o anatomic pathology with EGD. Pt is agreeable and will plan for tomorrow. -NPO after MN tonight Subjective Date of service: 12/09/16 Principal diagnosis: Dysphagia Interval history: Pt seen/examined today. Had MBBS yesterday, which revealed cervical osteophytes and posterior pharyngeal wall thickening. No aspiration noted and pt on pureed diet at present. No complaints this AM. Objective - Constitutional Vitals: Temp Pulse Resp BP Pulse Ox 98.0 F 88 18 126/69 98 12/09/16 05:46 12/09/16 09:54 12/09/16 09:54 12/09/16 05:46 12/09/16 09:18 General appearance: no acute distress - Neck Neck: supple - Respiratory Respiratory: bilateral: CTA - Cardiovascular Rhythm: regular Heart Sounds: Present: S1 & S2 - Extremities Extremities: No edema - Gastrointestinal General gastrointestinal: Present: soft, non-tender, non-distended, normal bowel sounds - Neurologic Neurological: alert and oriented x3 - Labs CBC & Chem 7: 12/08/16 04:26 12/08/16 04:26 Labs: Laboratory Results - last 24 hr 12/08/16 12/08/16 12/08/16 07:48 11:37 17:08 POC Glucose 213 H 306 H 335 H 12/08/16 12/09/16 22:15 07:31 POC Glucose 283 H 197 H - Imaging x-ray: report reviewed (CORAL)
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
[2016-12-09] MEDS: SODIUM BICARBONATE PO SCH ×2 (14:57→21:18)
[2016-12-09] MEDS: BABY ASPIRIN PO SCH (14:57)
[2016-12-09] MEDS: NEURONTIN PO SCH (14:57)
[2016-12-09] MEDS: PLAVIX PO SCH (14:57)
[2016-12-09] MEDS: LOVENOX SUB-Q SCH (14:58)
[2016-12-09] MEDS: LASIX PO SCH (14:58)
[2016-12-09] MEDS: NORVASC PO SCH (14:58)
[2016-12-09] MEDS: ZOCOR PO SCH (21:18)
--- NOTE | 2016-12-10 07:17 | Progress Note ---
Assessment and Plan - Patient Problems (1) End stage renal disease on dialysis Current Visit: No Status: Chronic Plan to address problem: Maintenance Hemodialysis on MWF, last dialyzed yesterday. Plan to do hemodialysis tomorrow. (2) Acute coronary syndrome Current Visit: Yes Status: Acute Plan to address problem: On ASA, Plavix and Statin. (3) Anemia, chronic renal failure Current Visit: Yes Status: Chronic Qualifiers: Chronic kidney disease stage: C Plan to address problem: Epogen prn. (4) Hypertension Current Visit: Yes Status: Chronic Qualifiers: Hypertension type: H Plan to address problem: Decrease IV fluids. (5) Fever Current Visit: Yes Status: Acute Qualifiers: Fever type: F Encounter type: E Plan to address problem: Resolved. On Levofloxacin. Cultures are negative. (6) Dysphagia Current Visit: Yes Status: Acute Qualifiers: Dysphagia type: D Plan to address problem: EGD today. Subjective Date of service: 12/10/16 Principal diagnosis: Dysphagia Interval history: Patient is doing better. Objective - Vital Signs Vital signs: Vital Signs - 12hr 12/09/16 12/09/16 12/09/16 20:21 21:21 22:00 Temperature 97.8 F 97.6 F Pulse Rate 88 Pulse Rate [ 102 H 84 Right Radial] Respiratory 18 18 18 Rate Blood Pressure 144/75 141/64 [Right Arm] O2 Sat by Pulse 98 98 Oximetry 12/10/16 00:47 Temperature 98.2 F Pulse Rate Pulse Rate [ 98 H Right Radial] Respiratory 20 Rate Blood Pressure 119/73 [Right Arm] O2 Sat by Pulse 93 Oximetry - General Appearance General appearance: well-developed, other (no distress) EENT: PERRL, hearing intact, vision intact Neck: supple Respiratory: Present: Clear to Ascultation Gastrointestinal: normoactive bowel sounds, no tenderness, no distended Integumentary: no rash, warm and dry Neurologic: no asterixis, alert and oriented x3, CN 3-12 intact, other (left sided weaknes barely noticeable) Musculoskeletal: other (no edema, left arm AVF) Psychiatric: mood/affect appropriate, cooperative - Lab 12/08/16 04:26 12/08/16 04:26 Most recent lab results Calcium 8.5 mg/dL (8.4-10.2) 12/08/16 04:26
[2016-12-10] MEDS: DUONEB 0.5 MG-3 MG/3 ML SOLN IH SCH ×3 (08:00→19:37)
[2016-12-10] MEDS ORDERED: WATER FOR IRRIG STERILE IR ONE ×3 (13:28→14:06)
--- NOTE | 2016-12-10 13:33 | Anesthesia Consultation ---
Anesthesia Consult and Med Hx Date of service: 12/10/16 - Airway Anesthetic Teeth Evaluation: Edentulous ROM Head & Neck: Adequate Mental/Hyoid Distance: Adequate Mallampati Class: Class II Intubation Access Assessment: Probably Good - Pulmonary Exam CTA: Yes - Cardiac Exam Cardiac Exam: RRR - Pre-Operative Health Status ASA Pre-Surgery Classification: ASA4 Proposed Anesthetic Plan: MAC - Pulmonary Hx Asthma: No COPD: No Home Oxygen Therapy: Yes (patient on O2 since admitted to hospital) Hx Pneumonia: No - Cardiovascular System Hx Hypertension: Yes Hx Coronary Artery Disease: Yes (EF from stress test 57%) Hx Heart Attack/AMI: Yes (NSTEMI 12/03/16) Hx Angina: Yes - Central Nervous System CVA: Yes (x4 - left sided weakness; most recent stroke 3 years ago) - Gastrointestinal Hx Gastroesophageal Reflux Disease: Yes - Endocrine Hx Renal Disease: Yes Hx End Stage Renal Disease: Yes (Dialysis M,W,F) Hx Insulin Dependent Diabetes: Yes (BG 183) - Hematic Hx Anemia: Yes
--- NOTE | 2016-12-10 13:34 | Anesthesia Day of Surgery ---
Anesthesia Day of Surgery - Day of Surgery Patient Examined: Yes Patient H&P Reviewed: Yes Patient is NPO: Yes Beta Blockers: No Cardiac Clearance: No Pulmonary Clearance: No
[2016-12-10] MEDS ORDERED: DIPRIVAN 10 MG/ML IV ONE (13:38)
[2016-12-10] MEDS ORDERED: AMIDATE IV ONE (13:38)
[2016-12-10] MEDS ORDERED: NACL 0.9% 1000 ML 1,000 ML IV SCH (14:00)
--- NOTE | 2016-12-10 14:16 | Post Operative Note ---
Pre-op diagnosis: Dysphagia Post-op diagnosis: other (Esophagitis) Findings: EGD Esophagus: Ulcerative esophagitis in distal esophagus; not bleeding. 4cm hiatus hernia. Stomach: Normal Duodenum: Normal, up to 2nd portion Rec: 1) PPI 2x/day 2) Carafate 4x/day for 14 days 3) Outpatient f/u in 1 month No further GI w/u planned; please re-call with any questions. Thank you! Procedure: EGD Anesthesia: MAC Surgeon: MARIO FOY Estimated blood loss: minimal Pathology: none Specimen disposition: to lab Condition: stable Disposition: floor
--- NOTE | 2016-12-10 14:38 | Operative Report ---
PROCEDURE PERFORMED: Upper endoscopy. PREOPERATIVE DIAGNOSIS: Dysphagia. POSTOPERATIVE DIAGNOSIS: Esophagitis. ANESTHESIA: Via monitored anesthesia care. DESCRIPTION OF PROCEDURE: After informed consent was obtained, the patient was placed in left lateral decubitus position. Standard Fujinon upper endoscope was inserted into the mouth and advanced to the second portion of duodenum. Scope was then carefully withdrawn and mucosa was carefully examined. FINDINGS: Esophagus: There was evidence of ulcerative esophagitis in the distal esophagus, which was not bleeding. There was an associated 4 cm hiatal hernia. Stomach appeared normal. Duodenum appeared normal up to second portion. COMPLICATIONS: None. ESTIMATED BLOOD LOSS: None. IMPRESSION: A 66-year-old gentleman with dysphagia which is likely more so due to oropharyngeal dysphagia, but he also has concomitant esophagitis on EGD. RECOMMENDATIONS: 1. Pureed diet with thin liquids as per speech recommendations. 2. Protonix 40 mg twice daily for 1 month. 3. Carafate suspension 4 times a day for 14 days. 4. Outpatient followup in 1 month. At this time, no further GI workup will be planned, but please do not hesitate to contact me with any further questions. Thank you for allowing me to participate in the care of your patient. JOB# [id number] LIZ/NTS
--- NOTE | 2016-12-10 14:51 | Post Anesthesia Evaluation ---
- Post Anesthesia Evaluation Patient Participated: Yes Airway Patent: Yes Stable Respiratory Function: Yes Temp > 96.8F: Yes Pain Manageable: Yes Adequeate Hydration: Yes Anesthesia Complications: No Block Receding Appropriately: Not Applicable
[2016-12-10] MEDS: PROTONIX PO SCH ×2 (15:25→23:30)
[2016-12-10] MEDS: SODIUM BICARBONATE PO SCH ×2 (15:25→23:30)
[2016-12-10] MEDS: PLAVIX PO SCH (15:25)
[2016-12-10] MEDS: LASIX PO SCH (15:25)
[2016-12-10] MEDS: NORVASC PO SCH (15:27)
[2016-12-10] MEDS: NEURONTIN PO SCH (15:30)
[2016-12-10] MEDS: LOVENOX SUB-Q SCH (15:33)
[2016-12-10] MEDS: BABY ASPIRIN PO SCH (15:33)
[2016-12-10] MEDS: CARAFATE PO SCH ×2 (17:41→23:41)
[2016-12-10] MEDS: LEVAQUIN 500MG/100ML 500 MG/100 ML BAG IV SCH (17:42)
[2016-12-10] MEDS: ZOCOR PO SCH (23:30)
--- NOTE | 2016-12-11 04:43 | Progress Note ---
Assessment and Plan - Patient Problems (1) Acute coronary syndrome Current Visit: Yes Status: Resolved Plan to address problem: REsolved. Secondary to GERD. (2) Accelerated hypertension Current Visit: No Status: Acute Plan to address problem: continue current care, monitor bp q shift (3) End stage renal disease on dialysis Current Visit: No Status: Chronic Plan to address problem: Nephrology consulted, dialysis as per renal service (4) Type II diabetes mellitus Current Visit: No Status: Chronic Qualifiers: Diabetes mellitus complication status: D Diabetes mellitus complication detail: D Diabetic retinopathy severity: D Proliferative retinopathy type: P Diabetes mellitus macular edema: D Diabetes mellitus [facility] insulin use : D Laterality: L Chronic kidney disease stage: C Plan to address problem: ADA diet, insulin, accu check (5) Dysphagia Current Visit: Yes Status: Acute Qualifiers: Dysphagia type: D Plan to address problem: Endoscopy as per GI today (6) DVT prophylaxis Current Visit: Yes Status: Acute History Interval history: Pt resting in bed, Pt denies pain. Pt states that he feels well and in ready to go home. No reported nursing events. D/C planning after endoscopy today. Hospitalist Physical - Constitutional Vitals: Temp Pulse Resp BP Pulse Ox 98.5 F 85 18 129/66 99 12/11/16 00:54 12/11/16 00:54 12/11/16 00:54 12/11/16 00:54 12/11/16 00:54 General appearance: Present: no acute distress - EENT Eyes: Present: PERRL, EOM intact - Neck Neck: Present: supple - Respiratory Respiratory: bilateral: CTA - Cardiovascular Rhythm: regular Heart Sounds: Present: S1 & S2 - Extremities Extremities: no ischemia Peripheral Pulses: within normal limits - Abdominal General gastrointestinal: soft, non-tender, non-distended - Integumentary Integumentary: Present: clear, warm, dry - Psychiatric Psychiatric: appropriate mood/affect, cooperative - Neurologic Neurologic: CNII-XII intact Results - Labs CBC & Chem 7: 12/08/16 04:26 12/08/16 04:26 Labs: Laboratory Last Values WBC 7.0 K/mm3 (4.5-11.0) 12/08/16 04:26 RBC 3.54 M/mm3 (3.65-5.03) L 12/08/16 04:26 Hgb 10.4 gm/dl (11.8-15.2) L 12/08/16 04:26 Hct 32.8 % (35.5-45.6) L 12/08/16 04:26 MCV 93 fl (84-94) 12/08/16 04:26 MCH 30 pg (28-32) 12/08/16 04:26 MCHC 32 % (32-34) 12/08/16 04:26 RDW 15.7 % (13.2-15.2) H 12/08/16 04:26 Plt Count 172 K/mm3 (140-440) 12/08/16 04:26 Lymph % (Auto) 10.0 % (13.4-35.0) L 12/06/16 04:25 [place] % (Auto) Privacy Attorney 12/08/16 04:26 Eos % (Auto) 0.0 % (0.0-4.3) 12/06/16 04:25 Baso % (Auto) 0.2 % (0.0-1.8) 12/06/16 04:25 Lymph # 0.7 K/mm3 (1.2-5.4) L 12/06/16 04:25 [place] # 0.8 K/mm3 (0.0-0.8) 12/06/16 04:25 Eos # 0.0 K/mm3 (0.0-0.4) 12/06/16 04:25 Baso # 0.0 K/mm3 (0.0-0.1) 12/06/16 04:25 Add Manual Diff Complete 12/08/16 04:26 Total Counted 100 12/08/16 04:26 Seg Neutrophils % 77.0 % (40.0-70.0) H 12/06/16 04:25 Seg Neuts % (Manual) 46.0 % (40.0-70.0) 12/08/16 04:26 Band Neutrophils % 20.0 % 12/08/16 04:26 Lymphocytes % (Manual) 13.0 % (13.4-35.0) L 12/08/16 04:26 Reactive Lymphs % (Man) 0 % 12/08/16 04:26 Monocytes % (Manual) 18.0 % (0.0-7.3) H 12/08/16 04:26 Eosinophils % (Manual) 0 % (0.0-4.3) 12/08/16 04:26 Basophils % (Manual) 0 % (0.0-1.8) 12/08/16 04:26 Metamyelocytes % 3.0 % 12/08/16 04:26 Myelocytes % 0 % 12/08/16 04:26 Promyelocytes % 0 % 12/08/16 04:26 Blast Cells % 0 % 12/08/16 04:26 Nucleated RBC % Not Reportable 12/08/16 04:26 Seg Neutrophils # 5.0 K/mm3 (1.8-7.7) 12/06/16 04:25 Seg Neutrophils # Man 3.2 K/mm3 (1.8-7.7) 12/08/16 04:26 Band Neutrophils # 1.4 K/mm3 12/08/16 04:26 Lymphocytes # (Manual) 0.9 K/mm3 (1.2-5.4) L 12/08/16 04:26 Abs React Lymphs (Man) 0.0 K/mm3 12/08/16 04:26 Monocytes # (Manual) 1.3 K/mm3 (0.0-0.8) H 12/08/16 04:26 Eosinophils # (Manual) 0.0 K/mm3 (0.0-0.4) 12/08/16 04:26 Basophils # (Manual) 0.0 K/mm3 (0.0-0.1) 12/08/16 04:26 Metamyelocytes # 0.2 K/mm3 12/08/16 04:26 Myelocytes # 0.0 K/mm3 12/08/16 04:26 Promyelocytes # 0.0 K/mm3 12/08/16 04:26 Blast Cells # 0.0 K/mm3 12/08/16 04:26 WBC Morphology Not Reportable 12/08/16 04:26 Hypersegmented Neuts Not Reportable 12/08/16 04:26 Hyposegmented Neuts Not Reportable 12/08/16 04:26 Hypogranular Neuts Not Reportable 12/08/16 04:26 Smudge Cells Not Reportable 12/08/16 04:26 Toxic Granulation Not Reportable 12/08/16 04:26 Toxic Vacuolation Not Reportable 12/08/16 04:26 Dohle Bodies Not Reportable 12/08/16 04:26 Pelger-Huet Anomaly Not Reportable 12/08/16 04:26 Otilio Rods Not Reportable 12/08/16 04:26 Platelet Estimate Appears normal 12/08/16 04:26 Clumped Platelets Not Reportable 12/08/16 04:26 Plt Clumps, EDTA Not Reportable 12/08/16 04:26 Large Platelets Not Reportable 12/08/16 04:26 Giant Platelets Not Reportable 12/08/16 04:26 Platelet Satelliting Not Reportable 12/08/16 04:26 Plt Morphology Comment Not Reportable 12/08/16 04:26 RBC Morphology Not Reportable 12/08/16 04:26 Dimorphic RBCs Not Reportable 12/08/16 04:26 Polychromasia Not Reportable 12/08/16 04:26 Hypochromasia 1+ 12/08/16 04:26 Poikilocytosis Not Reportable 12/08/16 04:26 Anisocytosis Few 12/08/16 04:26 Microcytosis Not Reportable 12/08/16 04:26 Macrocytosis Not Reportable 12/08/16 04:26 Spherocytes Not Reportable 12/08/16 04:26 Pappenheimer Bodies Not Reportable 12/08/16 04:26 Sickle Cells Not Reportable 12/08/16 04:26 Target Cells Not Reportable 12/08/16 04:26 Tear Drop Cells Not Reportable 12/08/16 04:26 Ovalocytes Not Reportable 12/08/16 04:26 Stomatocytes Rare 12/08/16 04:26 Helmet Cells Not Reportable 12/08/16 04:26 Mcg[place] Bodies Not Reportable 12/08/16 04:26 [place] Rings Not Reportable 12/08/16 04:26 [place] Cells Not Reportable 12/08/16 04:26 Bite Cells Not Reportable 12/08/16 04:26 Crenated Cell Not Reportable 12/08/16 04:26 Elliptocytes Not Reportable 12/08/16 04:26 Acanthocytes (Spur) Not Reportable 12/08/16 04:26 Rouleaux Not Reportable 12/08/16 04:26 Hemoglobin C Crystals Not Reportable 12/08/16 04:26 Schistocytes Not Reportable 12/08/16 04:26 Malaria parasites Not Reportable 12/08/16 04:26 Maxim Bodies Not Reportable 12/08/16 04:26 Hem Pathologist Commnt No 12/08/16 04:26 Sodium 141 mmol/L (137-145) 12/08/16 04:26 Potassium 4.2 mmol/L (3.6-5.0) 12/08/16 04:26 Chloride 95.6 mmol/L (98-107) L 12/08/16 04:26 Carbon Dioxide 20 mmol/L (22-30) L 12/08/16 04:26 Anion Gap 30 mmol/L 12/08/16 04:26 BUN 80 mg/dL (9-20) H 12/08/16 04:26 Creatinine 9.0 mg/dL (0.8-1.5) H 12/08/16 04:26 Estimated GFR 7 ml/min 12/08/16 04:26 BUN/Creatinine Ratio 8.88 % 12/08/16 04:26 Glucose 168 mg/dL (75-100) H 12/08/16 04:26 POC Glucose 291 (70-105) H 12/10/16 22:23 Calcium 8.5 mg/dL (8.4-10.2) 12/08/16 04:26 Total Bilirubin 0.3 mg/dL (0.1-1.2) 12/02/16 20:56 AST 64 units/L (5-40) H 12/02/16 20:56 ALT 33 units/L (7-56) 12/02/16 20:56 Alkaline Phosphatase 76 units/L (35-129) 12/02/16 20:56 Total Creatine Kinase 1169 units/L (55-170) H 12/03/16 10:41 CK-MB (CK-2) 5.9 ng/mL (0.0-4.0) H 12/03/16 10:41 CK-MB (CK-2) Rel Index 0.5 (0-4) 12/03/16 10:41 Troponin T 0.123 ng/mL (0.00-0.029) H* 12/03/16 13:12 Total Protein 7.3 g/dL (6.3-8.2) 12/02/16 20:56 Albumin 3.5 g/dL (3.9-5) L 12/02/16 20:56 Albumin/Globulin Ratio 0.9 % 12/02/16 20:56 Triglycerides 203 mg/dL (2-149) H 12/02/16 20:56 Cholesterol 157 mg/dL (50-199) 12/02/16 20:56 LDL Cholesterol Direct 67 mg/dL (50-130) 12/02/16 20:56 HDL Cholesterol 50 mg/dL (40-59) 12/02/16 20:56 Cholesterol/HDL Ratio 3.14 % 12/02/16 20:56
[2016-12-11] MEDS: CARAFATE PO SCH ×3 (05:48→19:02)
[2016-12-11] MEDS: DUONEB 0.5 MG-3 MG/3 ML SOLN IH SCH ×3 (07:43→19:22)
[2016-12-11] MEDS ORDERED: NACL 0.9% 1000 ML 100 ML IV PRN (08:32)
[2016-12-11] MEDS: BABY ASPIRIN PO SCH (09:40)
[2016-12-11] MEDS: NORVASC PO SCH (09:40)
[2016-12-11] MEDS: PLAVIX PO SCH (09:40)
[2016-12-11] MEDS: NEURONTIN PO SCH (09:41)
[2016-12-11] MEDS: PROTONIX PO SCH (09:41)
[2016-12-11] MEDS: LASIX PO SCH (09:41)
[2016-12-11] MEDS: SODIUM BICARBONATE PO SCH (09:41)
[2016-12-11] MEDS: LOVENOX SUB-Q SCH (09:41)
[2016-12-11] MEDS: ZOFRAN IV PRN (15:31)
--- NOTE | 2016-12-11 16:44 | Discharge Summary ---
Providers - Providers Date of Admission: 12/02/16 23:30 Attending physician: MAYCO FRIAS 12/03/16 14:36 Consult to Physician [CONS] Routine Consulting Provider: CYNTHIA GROVE Reason For Exam: ESRD on hemodialysis Place consult to:: Nephrology Notified:: y 12/04/16 13:37 Speech Therapy Evaluation and Treat [CONS] Urgent Reason For Exam: possible aspiration 12/06/16 09:23 Consult to Physician [CONS] Routine Consulting Provider: [facility] Reason For Exam: Difficulty of swallowing, CVA Place consult to:: dr torres Notified:: dr torres 12/06/16 09:29 Physical Therapy Evaluation and Treat [CONS] Urgent Comment: Reason For Exam: cva 12/10/16 09:23 Physical Therapy Evaluation and Treat [CONS] Routine Comment: Reason For Exam: Stroke. Mode of Transport?: Wheelchair Weight bearing status?: Full wt bearing Primary care physician: SALES RESEARCH ANALYST Hospitalization Condition: Stable Hospital course: 66 YO Male admitted for Chest pain. Pt treated IAW Chest pain protocol. Pt found to have elevated cardiac enzymes. Pt underwent stress test which was negative for ischemia. Nephrology team consulted for ESRD. Pt treated with dialysis as per nephrology team. Pt convalesced well during hospital course. Pt hospital course complicated by dysphagia. Pt underwent CT head which was negative for evidence of acute stroke. GI team consulted. Pt underwent EGD and found to have gastric ulcers and treated with PPI therapy as per GI service recommendations. Pt medically optimized. Pt evaluated prior to discharge but no significant new physical exam findings since admission. Pt discharged to SNF under care of emergency medical dispatcher. Pt to f/u pcp 1wk, nephrology prn, and GI as directed. 34 minutes dedicated to patient discharge and education. Disposition: DC/TX SNF W [facility] CERT - Discharge Diagnoses (1) Acute coronary syndrome Status: Resolved (2) Accelerated hypertension Status: Acute (3) End stage renal disease on dialysis Status: Chronic (4) Type II diabetes mellitus Status: Chronic Qualifiers: Diabetes mellitus complication status: D Diabetes mellitus complication detail: D Diabetic retinopathy severity: D Proliferative retinopathy type: P Diabetes mellitus macular edema: D Diabetes mellitus terminologist insulin use : D Laterality: L Chronic kidney disease stage: C (5) Dysphagia Status: Acute Qualifiers: Dysphagia type: D (6) DVT prophylaxis Status: Acute (7) GERD (gastroesophageal reflux disease) Status: Acute Qualifiers: Esophagitis presence: E Core Measure Documentation - Palliative Care Palliative Care/ Comfort Measures: Not Applicable - Core Measures Any of the following diagnoses?: none Exam - Constitutional Vitals: Temp Pulse Resp BP Pulse Ox 98.4 F 80 16 97/35 95 12/11/16 14:15 12/11/16 16:30 12/11/16 14:15 12/11/16 16:30 12/11/16 10:00 General appearance: Present: no acute distress, well-nourished - EENT Eyes: Present: PERRL ENT: hearing intact, clear oral mucosa - Neck Neck: Present: supple, normal ROM - Respiratory Respiratory effort: normal Respiratory: bilateral: CTA - Cardiovascular Heart Sounds: Present: S1 & S2. Absent: rub, click - Extremities Extremities: pulses symmetrical, No edema Peripheral Pulses: within normal limits - Abdominal General gastrointestinal: Present: soft, non-tender, non-distended, normal bowel sounds Male genitourinary: Present: normal - Integumentary Integumentary: Present: clear, warm, dry - Musculoskeletal Musculoskeletal: gait normal, strength equal bilaterally - Psychiatric Psychiatric: appropriate mood/affect, intact judgment & insight - Neurologic Neurologic: CNII-XII intact, moves all extremities Plan Diet: renal Follow up with: PRIMARY CARE, [Primary Care Provider] - 3-5 Days Prescriptions: Pantoprazole [Protonix] 40 mg PO BID #60 tablet Sucralfate [Carafate] 1 gm PO Q6HR #56 [facility] [place]
[2016-12-11 18:05] VITALS: BP 146/74
[2016-12-13] MEDS ORDERED: VITAMIN D2 PO SCH (10:00)
== END 2016-12-11 20:21 | DRG 380 ==
LOC: ED 18:59 → 4A 23:30 → 3A 12-11 13:43
PROVIDERS: ADMIT Internal Medicine; ATTEND Internal Medicine
PROC: 5A1D60Z (ICD-10-PCS; 2016-12-09)
PROC: 0DJ08ZZ Inspection of Upper Intestinal Tract, Via Natural or Artificial Opening Endoscopic (ICD-10-PCS; principal; 2016-12-10)
DX: K22.10 Ulcer of esophagus without bleeding (principal); J69.0 Pneumonitis due to inhalation of food and vomit; N18.6 End stage renal disease; I24.9 Acute ischemic heart disease, unspecified; R65.10 Systemic inflammatory response syndrome (SIRS) of non-infectious origin without acute organ dysfunction; I12.0 Hypertensive chronic kidney disease with stage 5 chronic kidney disease or end stage renal disease; I69.354 Hemiplegia and hemiparesis following cerebral infarction affecting left non-dominant side; E11.22 Type 2 diabetes mellitus with diabetic chronic kidney disease; R13.10 Dysphagia, unspecified; M25.70 Osteophyte, unspecified joint; K21.9 Gastro-esophageal reflux disease without esophagitis; I25.10 Atherosclerotic heart disease of native coronary artery without angina pectoris; I25.2 Old myocardial infarction; K44.9 Diaphragmatic hernia without obstruction or gangrene; K25.9 Gastric ulcer, unspecified as acute or chronic, without hemorrhage or perforation; Z99.2 Dependence on renal dialysis; Z79.82 Long term (current) use of aspirin; Z79.4 Long term (current) use of insulin; Z82.49 Family history of ischemic heart disease and other diseases of the circulatory system; Z98.42 Cataract extraction status, left eye; Z98.41 Cataract extraction status, right eye
CPT/HCPCS: 36415; 71010; 74230; 78452; 80048; 80053; 80061; 82550; 82553; 82962; 84484; 85007; 85025; 87040; 93005; 93010; 93017; 94640; 94760; 96372; 96374; 96375; A9502; G8978-GP; G8979-GP; G8996-GN; G8997-GN; J1650; J1815; J1956; J2270; J2405; J2704; J2785; J7030

== ENCOUNTER 2017-01-14 00:17 | Emergency (ER) | payer MEDICARE ==
[2017-01-14] MEDS ORDERED: ULTRAM PO ONE (00:59)
--- NOTE | 2017-01-14 01:00 | Emergency Department Report ---
ED General Adult HPI - General Chief complaint: Extremity Injury, Lower Stated complaint: LEFT FOOT SWELLING Time Seen by Provider: 01/14/17 00:46 Source: patient, family, EMS (ems notes not available at time of chart dictation), RN notes reviewed Limitations: No Limitations - History of Present Illness Initial comments: This is a 66-year-old male. He is previously unknown to me. Has a past medical history of hypertension, diabetes, end-stage renal disease on dialysis, Friday, Friday, Friday. The patient was recently dialyzed on Friday ( yesterday), reports that it was of normal length and duration. The patient presents to the ER with a complaint of nontraumatic left great toe pain and swelling. It has been present for 1 day. He does not know how it happened. There is no redness, pus, streaking. There is no calf pain, there is no chest pain, there is no shortness of breath. The pain is sharp and achy. Increases with palpation and range of motion, decreases with rest. It does not radiate anywhere. -: unknown Location: left, upper extremity Radiation: non-radiation Quality: aching Consistency: intermittent Improves with: rest Worsens with: movement Associated Symptoms: denies other symptoms - Related Data Home Medications Medication Instructions Recorded Confirmed Last Taken Aspirin [Aspirin TAB] 325 mg PO DAILY 12/03/13 12/10/16 1 Day Ago Ergocalciferol [Vitamin D2] 1 cap PO QWEEK 12/03/13 01/14/17 1 Day Ago Gabapentin 300 mg PO BID 12/03/13 01/14/17 1 Day Ago Insulin Glargine,Hum.rec.anlog 10 units SQ QHS 12/03/13 01/14/17 1 Day Ago [Lantus Solostar] Insulin Regular, Human [HumuLIN R] 3 units SC TIDAC 12/03/13 01/14/17 1 Day Ago Simvastatin [Zocor TAB] 40 mg PO DAILY 12/03/13 01/14/17 1 Day Ago glipiZIDE [glipiZIDE XL] 10 mg PO DAILY 12/03/13 01/14/17 1 Day Ago Furosemide [Lasix] 20 mg PO QDAY 01/14/17 01/14/17 Unknown Previous Rx's Medication Instructions Recorded Last Taken Type Clopidogrel Bisulfate [Plavix] 75 mg PO DAILY #30 tablet 12/06/13 1 Day Ago Rx cloNIDine [Catapres] 0.1 mg PO BID #60 tablet 12/06/13 1 Day Ago Rx Pantoprazole [Protonix] 40 mg PO BID #60 tablet 12/11/16 Unknown Rx Sucralfate [Carafate] 1 gm PO Q6HR #56 udc 12/11/16 Unknown Rx Acetaminophen [Tylenol Arthritis] 650 mg PO Q6HR PRN #30 tablet.er 01/14/17 Unknown Rx Allergies Allergy/AdvReac Type Severity Reaction Status Date / Time No Known Allergies Allergy Unverified 12/03/13 12:17 ED Review of Systems ROS: Stated complaint: LEFT FOOT SWELLING Other details as noted in HPI Constitutional: denies: malaise Eyes: denies: vision change ENT: denies: epistaxis Respiratory: denies: cough Cardiovascular: denies: chest pain Gastrointestinal: denies: abdominal pain Musculoskeletal: arthralgia Skin: rash, change in color Neurological: denies: weakness Psychiatric: denies: depression ED Past Medical Hx - Past Medical History Hx Hypertension: Yes Hx CVA: Yes Hx Heart Attack/AMI: Yes (NSTEMI 12/03/16) Hx Congestive Heart Failure: No Hx Diabetes: Yes Hx Renal Disease: Yes Hx Asthma: No Hx COPD: No - Surgical History Additional Surgical History: Cataract removal bilat - Social History Smoking Status: Never Smoker - Medications Home Medications: Home Medications Medication Instructions Recorded Confirmed Last Taken Type Aspirin [Aspirin TAB] 325 mg PO DAILY 12/03/13 12/10/16 1 Day Ago History Ergocalciferol [Vitamin D2] 1 cap PO QWEEK 12/03/13 01/14/17 1 Day Ago History Gabapentin 300 mg PO BID 12/03/13 01/14/17 1 Day Ago History Insulin Glargine,Hum.rec.anlog 10 units SQ QHS 12/03/13 01/14/17 1 Day Ago History [Lantus Solostar] Insulin Regular, Human [HumuLIN R] 3 units SC TIDAC 12/03/13 01/14/17 1 Day Ago History Simvastatin [Zocor TAB] 40 mg PO DAILY 12/03/13 01/14/17 1 Day Ago History glipiZIDE [glipiZIDE XL] 10 mg PO DAILY 12/03/13 01/14/17 1 Day Ago History Clopidogrel Bisulfate [Plavix] 75 mg PO DAILY #30 tablet 12/06/13 01/14/17 1 Day Ago Rx cloNIDine [Catapres] 0.1 mg PO BID #60 tablet 12/06/13 01/14/17 1 Day Ago Rx Pantoprazole [Protonix] 40 mg PO BID #60 tablet 12/11/16 01/14/17 Unknown Rx Sucralfate [Carafate] 1 gm PO Q6HR #56 udc 12/11/16 01/14/17 Unknown Rx Acetaminophen [Tylenol Arthritis] 650 mg PO Q6HR PRN #30 tablet.er 01/14/17 Unknown Rx Furosemide [Lasix] 20 mg PO QDAY 01/14/17 01/14/17 Unknown History ED Physical Exam - General General appearance: alert, in no apparent distress - Head Head exam: Present: atraumatic, normocephalic - Eye Eye exam: Present: normal appearance - ENT ENT exam: Present: normal exam, normal orophraynx, mucous membranes moist, normal external ear exam - Neck Neck exam: Present: normal inspection, full ROM. Absent: tenderness, meningismus - Respiratory Respiratory exam: Present: normal lung sounds bilaterally. Absent: respiratory distress, wheezes, rales, rhonchi, stridor, decreased breath sounds - Cardiovascular Cardiovascular Exam: Present: regular rate, normal rhythm, normal heart sounds. Absent: bradycardia, tachycardia, irregular rhythm, systolic murmur, diastolic murmur, rubs, gallop - GI/Abdominal GI/Abdominal exam: Present: soft, normal bowel sounds. Absent: distended, tenderness, guarding, rebound, rigid, pulsatile mass - Rectal Rectal exam: Present: deferred - Extremities Exam Extremities exam: Present: full ROM, normal capillary refill, other (there is a left upper extremity AV fistula, and appropriate thrill.). Absent: tenderness ( there is discoloration of the carpal metacarpal joint at the left great toe. There is no redness, streaking, crepitus. The compartments are soft. 2+ pulses noted in 4 extremities.), pedal edema, joint swelling, calf tenderness - Back Exam Back exam: Present: normal inspection, full ROM. Absent: tenderness, CVA tenderness (R), CVA tenderness (L), muscle spasm, paraspinal tenderness, vertebral tenderness - Neurological Exam Neurological exam: Present: alert, oriented X3, normal gait, other (Extraocular movements intact. Tongue midline. No facial droop. Facial sensation intact to light touch in the V1, V2, V3 distribution bilaterally. 5 and 5 strength in 4 extremities.. Sensation is intact to light touch in 4 extremities.). Absent : motor sensory deficit - Psychiatric Psychiatric exam: Present: normal affect, normal mood - Skin Skin exam: Present: warm, dry, intact, normal color. Absent: rash ED Course Vital Signs 01/14/17 01/14/17 01/14/17 02:00 02:10 02:55 Temperature 97.7 F Pulse Rate 89 Respiratory 20 20 20 Rate Blood Pressure 174/79 [Right] O2 Sat by Pulse 100 100 Oximetry 01/14/17 03:00 Temperature Pulse Rate Respiratory 20 Rate Blood Pressure [Right] O2 Sat by Pulse Oximetry - Reevaluation(s) Reevaluation #1: 01/14/17 02:04 differential diagnosis: Gout, arthritis, bursitis, pseudogout Assessment and plan: 66-year-old male with discoloration of left great toe joint , with essentially no pain with active and or passive range of motion. Compartments are soft, clinically doubt infection versus gout. [place] improved after symptomatic therapy. Patient may apply warm compresses, physical activities as tolerated, and follow up with primary care as needed. Patient received dialysis prior to presentation. He has no other complaints, I see no reason to obtain laboratory studies at this time. ED Medical Decision Making - Radiology Data Radiology results: image reviewed interpreted by me: left foot x ray negative Critical care attestation.: If time is entered above; I have spent that time in minutes in the direct care of this critically ill patient, excluding procedure time. ED Disposition Clinical Impression: Swelling of toe of left foot Disposition: DC/TX HOME UNDER HOME HEALTH Is pt being admited?: No Does the pt Need Aspirin: No Condition: Stable Additional Instructions: Continue current outpatient medications. Rest and avoid heavy lifting. Avoid strenuous physical activity. Take the acetaminophen as directed/ needed for pain. Apply warm compresses to the affected area. Follow-up with a primary care doctor within the next week. Return to the ER right away with redness, swelling, pus, streaking, fevers, new different or worsening pain, inability to ambulate. Weightbearing as tolerated is recommended. Prescriptions: Acetaminophen [Tylenol Arthritis] 650 mg PO Q6HR PRN #30 tablet.er PRN Reason: Pain Referrals: JOAQUÍN JOYNER MD [Staff Physician] - 3-5 Days
[2017-01-14 02:12] VITALS: BP 174/79
--- NOTE | 2017-01-14 09:39 | XRay Report ---
LEFT FOOT, 2 VIEWS History: Left right toe pain. Findings: There is normal bone mineralization. No evidence for fracture or bone lesion. There is subtle bone demineralization along the medial aspect of the distal first metatarsal. No bony erosion is appreciated. I question if this could be related to gout. Please correlate with the patient. Impression: No evidence for acute injury. Is there clinical concern for gout?
== END 2017-01-14 03:47 | disposition home health service (06) ==
LOC: ED 00:17
DX: R22.42 Localized swelling, mass and lump, left lower limb (principal); I10 Essential (primary) hypertension; I63.9 Cerebral infarction, unspecified; I25.2 Old myocardial infarction; E11.9 Type 2 diabetes mellitus without complications; Z79.82 Long term (current) use of aspirin; Z79.4 Long term (current) use of insulin

== ENCOUNTER 2017-10-27 09:17 | Inpatient (IN) | payer MEDICARE ==
--- NOTE | 2017-10-27 12:39 | Emergency Department Report ---
HPI - General Chief Complaint: Medical Clearance Time Seen by Provider: 10/27/17 12:14 - HPI HPI: This is a 67-year-old -[place] male presents to the emergency department from his dialysis center with complaint of clogged left forearm AV fistula. The patient gets [facility] on Friday/Friday/Friday and last had it on Friday. He said he has had this issue with clotted dialysis access in the past. He denies any chest pain, shortness of breath, nausea, vomiting or fever. His lead c developer is Dr. Henry. He also has a history of CVA, diabetes, coronary artery disease with [place], hypertension. He has not taken anything for her symptoms from presentation. ED Past Medical Hx - Past Medical History Previous Medical History?: Yes Hx Hypertension: Yes Hx CVA: Yes (left sided weakness) Hx Heart Attack/AMI: Yes (NSTEMI 12/03/16) Hx Congestive Heart Failure: No Hx Diabetes: Yes Hx Renal Disease: Yes Hx Asthma: No Hx COPD: No - Surgical History Past Surgical History?: Yes Additional Surgical History: Cataract removal bilat - Social History Smoking Status: Never Smoker Substance Use Type: None - Medications Home Medications: Home Medications Medication Instructions Recorded Confirmed Last Taken Type Aspirin [Aspirin TAB] 325 mg PO DAILY 12/03/13 12/10/16 1 Day Ago History ~12/09/16 Ergocalciferol [Vitamin D2] 1 cap PO QWEEK 12/03/13 01/14/17 1 Day Ago History ~12/09/16 Gabapentin 300 mg PO BID 12/03/13 01/14/17 1 Day Ago History ~12/09/16 Insulin Glargine,Hum.rec.anlog 10 units SQ QHS 12/03/13 01/14/17 1 Day Ago History [Lantus Solostar] ~12/09/16 Insulin Regular, Human [HumuLIN R] 3 units SC TIDAC 12/03/13 01/14/17 1 Day Ago History ~12/09/16 Simvastatin [Zocor TAB] 40 mg PO DAILY 12/03/13 01/14/17 1 Day Ago History ~12/09/16 glipiZIDE [glipiZIDE XL] 10 mg PO DAILY 12/03/13 01/14/17 1 Day Ago History ~12/09/16 Clopidogrel Bisulfate [Plavix] 75 mg PO DAILY #30 tablet 12/06/13 01/14/17 1 Day Ago Rx ~12/09/16 cloNIDine [Catapres] 0.1 mg PO BID #60 tablet 12/06/13 01/14/17 1 Day Ago Rx ~12/09/16 Pantoprazole [Protonix] 40 mg PO BID #60 tablet 12/11/16 01/14/17 Unknown Rx Sucralfate [Carafate] 1 gm PO Q6HR #56 udc 12/11/16 01/14/17 Unknown Rx Acetaminophen [Tylenol Arthritis] 650 mg PO Q6HR PRN #30 tablet.er 01/14/17 Unknown Rx Furosemide [Lasix] 20 mg PO QDAY 01/14/17 01/14/17 Unknown History ED Review of Systems ROS: Stated complaint: BLOCKED ABSCESS Other details as noted in HPI Comment: All other systems reviewed and negative Constitutional: denies: chills, fever Eyes: denies: eye pain, eye discharge, vision change ENT: denies: ear pain, throat pain Respiratory: denies: cough, shortness of breath, wheezing Cardiovascular: denies: chest pain, palpitations Gastrointestinal: denies: abdominal pain, nausea, diarrhea Genitourinary: denies: urgency, dysuria Musculoskeletal: denies: back pain, joint swelling, arthralgia Skin: denies: rash, lesions Neurological: denies: headache, weakness, paresthesias Physical Exam - Physical Exam Vital Signs: Vital Signs 10/27/17 10:51 Temperature 98.0 F Pulse Rate 80 Respiratory 18 Rate Blood Pressure 187/90 O2 Sat by Pulse 98 Oximetry Physical Exam: GENERAL: The patient is well-developed well-nourished. HENT: Normocephalic. Atraumatic. Patient has moist mucous membranes. EYES: Extraocular motions are intact. Pupils equal reactive to light bilaterally. NECK: Supple. Trachea is midline. CHEST/LUNGS: Clear to auscultation. There is no respiratory distress noted. HEART/CARDIOVASCULAR: Regular. There is no tachycardia. There is no murmur. ABDOMEN: Abdomen is soft, nontender. Patient has normal bowel sounds. There is no abdominal distention. SKIN: Skin is warm and dry. NEURO: The patient is awake, alert, and oriented. The patient is cooperative. The patient has no focal neurologic deficits. The patient has normal speech. MUSCULOSKELETAL: There is no tenderness or deformity. There is no limitation range of motion. There is no evidence of acute injury. There appears to be left forearm dialysis fistula that has a palpable thrill and audible. ED Course Vital Signs 10/27/17 10:51 Temperature 98.0 F Pulse Rate 80 Respiratory 18 Rate Blood Pressure 187/90 O2 Sat by Pulse 98 Oximetry - Consultations Consultation #1: I spoke with Dr Merrill, now covers the patient's of [facility] nephrology. He asked for the patient to be admitted to the hospitalist service, a vascular consult for the morning regarding the possible clogged dialysis fistula, and for the patient to be given the hyperkalemia cocktail. 10/27/17 14:35 ED Medical Decision Making - Lab Data Result diagrams: 10/27/17 12:29 10/27/17 12:29 - Medical Decision Making The patient has a potassium of 5.8 and will be given Kayexalate, insulin, glucose, albuterol and calcium. He has no complaints of any shortness of breath , chest pain, nausea, vomiting. A consult was placed for nephrology and for vascular. The patient has been accepted to the hospitalist service of Dr. Collins. Critical Care Time: No Critical care attestation.: If time is entered above; I have spent that time in minutes in the direct care of this critically ill patient, excluding procedure time. ED Disposition Clinical Impression: End-stage renal disease needing dialysis, Hyperkalemia Dialysis AV fistula malfunction Qualifiers: Encounter type: initial encounter Qualified Code(s): T82.590A - Other mechanical complication of surgically created arteriovenous fistula, initial encounter Hypertension Qualifiers: Hypertension type: essential hypertension Qualified Code(s): I10 - Essential ( primary) hypertension Disposition: OP ADMIT IP TO THIS HOSP Is pt being admited?: Yes Condition: Stable Instructions: Hypertension (ED) Referrals: EFREN BLACK MD [Primary Care Provider] - 3-5 Days Time of Disposition: 14:37
[2017-10-27 12:50] LABS: Hematocrit 34.3 % (35.5-45.6); Hemoglobin 11.2 gm/dl (11.8-15.2); Mean Corpuscular HGB Conc 33 % (32-34); Mean Corpuscular Hemoglobin 30 pg (28-32); Mean Corpuscular Volume 92 fl (84-94); Platelet Count 187 K/mm3 (140-440); Red Blood Count 3.75 M/mm3 (3.65-5.03); Red Cell Distribution Width 15.1 % (13.2-15.2)
[2017-10-27 13:59] LABS: Calcium 9.3 mg/dL (8.4-10.2)
[2017-10-27] MEDS ORDERED: D50W (25GM) Vial IV ONE (14:24)
[2017-10-27] MEDS ORDERED: KIONEX PO ONE (14:24)
[2017-10-27] MEDS ORDERED: CALCIUM GLUCONATE 1,000 MG in NACL 0.9% 100 ML IV ONE (14:24)
[2017-10-27] MEDS ORDERED: PROVENTIL IH ONE ×2 (14:25→22:07)
[2017-10-27] MEDS ORDERED: APRESOLINE IV ONE (14:37)
[2017-10-27] MEDS ORDERED: CALCIUM CHLORIDE 1,000 MG in NACL 0.9% 100 ML IV ONE (16:00)
--- NOTE | 2017-10-27 16:31 | Consultation ---
History of Present Illness - Reason for Consult Consult date: 10/27/17 end stage renal disease, hyperkalemia - History of Present Illness The patient is a 67-year-old AAM with medical history significant for Type 2 DM , HTN, HLD, CVA, CAD h/o [place] and ESRD on hemodialysis presented to the Emergency department from his dialysis center with complaint of clogged left forearm AV fistula. The patient gets hemodialysis on MWF and followed by . He was last dialyzed on 10/24/17. The dialysis staff were unable to cannulate the access. He denies any CP, shortness of breath, nausea, vomiting, leg swelling or fever. Past History Past Medical History: anemia, CAD, diabetes, dialysis, ESRD, hypertension, hyperlipidemia Medications and Allergies Allergies Allergy/AdvReac Type Severity Reaction Status Date / Time No Known Allergies Allergy Unverified 12/03/13 12:17 Home Medications Medication Instructions Recorded Confirmed Last Taken Type Aspirin [Aspirin TAB] 325 mg PO DAILY 12/03/13 10/27/17 1 Day Ago History ~12/09/16 Ergocalciferol [Vitamin D2] 1 cap PO QWEEK 12/03/13 10/27/17 1 Day Ago History ~12/09/16 Gabapentin 300 mg PO BID 12/03/13 10/27/17 1 Day Ago History ~12/09/16 Insulin Glargine,Hum.rec.anlog 20 units SQ QHS 12/03/13 10/27/17 1 Day Ago History [Lantus Solostar] ~12/09/16 Insulin Regular, Human [HumuLIN R] 3 units SC TIDAC 12/03/13 10/27/17 1 Day Ago History ~12/09/16 Clopidogrel Bisulfate [Plavix] 75 mg PO DAILY #30 tablet 12/06/13 10/27/17 1 Day Ago Rx ~12/09/16 Sucralfate [Carafate] 1 gm PO Q6HR #56 udc 12/11/16 10/27/17 Unknown Rx AtorvaSTATin [Lipitor] 20 mg PO QHS 10/27/17 10/27/17 Unknown History Calcitriol [Rocaltrol] 0.5 mcg PO QDAY 10/27/17 10/27/17 Unknown History Folic Acid/Vit B Complex and C 1 tab PO DAILY 10/27/17 10/27/17 Unknown History [Renal-Alexandrea Tablet] Lisinopril [Prinivil] 5 mg PO DAILY 10/27/17 10/27/17 Unknown History Ondansetron [Zofran TAB] 4 mg PO Q8HR PRN 10/27/17 10/27/17 Unknown History Sevelamer Carbonate [Renvela] 2 tab PO TID 10/27/17 10/27/17 Unknown History Torsemide [Demadex] 40 mg PO DAILY 10/27/17 10/27/17 Unknown History amLODIPine [Norvasc] 10 mg PO DAILY 10/27/17 10/27/17 Unknown History glipiZIDE [Glipizide] 10 mg PO DAILY 10/27/17 10/27/17 Unknown History traMADol [Ultram] 50 mg PO Q8HR PRN 10/27/17 10/27/17 Unknown History Active Meds: Active Medications Heparin Sodium (Porcine) (Heparin) 5,000 unit SUB-Q Q8HR BENJA Review of Systems Constitutional: no weight loss, no weight gain, no fever, no chills, no anorexia Ears, nose, mouth and throat: no epistaxis Cardiovascular: high blood pressure, no chest pain, no orthopnea, no edema, no syncope, no lightheadedness, no shortness of breath, no leg edema Respiratory: no cough, no cough with sputum, no hemoptysis, no shortness of breath Gastrointestinal: no abdominal pain, no nausea, no vomiting, no hematemesis, no melena Genitourinary Male: no dysuria, no hematuria Rectal: no bleeding Musculoskeletal: no redness of joints, no hot joints Integumentary: no rash, no sores, no wounds, no jaundice Neurological: no paralysis, no seizures, no syncope, no migraines, no aphasia Psychiatric: no change in appetite Exam - Vital Signs Vital signs: Vital Signs Temp Pulse Resp BP Pulse Ox 98.0 F 80 18 187/90 98 10/27/17 10:51 10/27/17 10:51 10/27/17 10:51 10/27/17 10:51 10/27/17 10:51 - General Appearance General appearance: well-developed, well-nourished, appears stated age, other ( no distress) EENT: ATNC, PERRL, mucous membranes moist, hearing intact, vision intact Neck: Present: neck supple, trachea midline Respiratory: Clear to Ascultation Heart: regular, S1S2, no murmurs Gastrointestinal: Present: normoactive bowel sounds. Absent: tenderness, distended Integumentary: no rash, warm and dry Neurologic: no asterixis, alert and oriented x3, other (able to move all 4 extremities) Musculoskeletal: Present: other (no edema, left FA AVG) Psychiatric: mood/affect appropriate, cooperative Results - Lab Results 10/28/17 05:53 10/28/17 05:53 Most recent lab results Calcium 9.3 mg/dL (8.4-10.2) 10/27/17 12:29 Assessment and Plan 1. Clotted hemodialysis access: Vascular consulted. May need fistulogram. 2. Hyperkalemia: Kayexalate. Follow potassium level. 3. ESRD: Hemodialysis tomorrow after declotting the access. 4. Anemia. 5. Hypertension.
[2017-10-27] MEDS ORDERED: D50W (25GM) Syringe IV ONE ×2 (18:41→19:32)
[2017-10-27] MEDS ORDERED: KIONEX ONE (18:44)
[2017-10-27] MEDS ORDERED: HEPARIN ONE ×2 (18:48→23:21)
[2017-10-27] MEDS ORDERED: APRESOLINE ONE ×2 (18:49→19:46)
--- NOTE | 2017-10-27 20:10 | History and Physical Report ---
History of Present Illness Date of examination: 10/27/17 Date of admission: 10/27/17 14:37 Chief complaint: CC Unable to get Dialysis due to Clotted AV fistula. History of present illness: ALETA: This is a 67-year-old -[place] male presents to the emergency department from his dialysis center with complaint of clogged left forearm AV fistula. The patient gets HD on Friday/Friday/Friday and last had it on Friday. He said he has had this issue with clotted dialysis access in the past. He denies any chest pain, shortness of breath, nausea, vomiting or fever. His clinic scheduler is Dr. Henry. He also has a history of CVA, diabetes, coronary artery disease with AL, hypertension. Past Medical History Previous Medical History?: Yes Hx Hypertension: Yes Hx CVA: Yes (left sided weakness) Hx Heart Attack/AMI: Yes (NSTEMI 12/03/16) Hx Diabetes: Yes Hx Renal Disease: Yes -Surgical History Past Surgical History?: Yes Additional Surgical History: Cataract removal bilat - Social History Smoking Status: Never Smoker Substance Use Type: None - Medications Home Medications: Home Medications Medication Instructions Recorded Confirmed Last Taken Type Aspirin [Aspirin TAB] 325 mg PO DAILY 12/03/13 12/10/16 1 Day Ago History ~12/09/16 Ergocalciferol [Vitamin D2] 1 cap PO QWEEK 12/03/13 01/14/17 1 Day Ago History ~12/09/16 Gabapentin 300 mg PO BID 12/03/13 01/14/17 1 Day Ago History ~12/09/16 Insulin Glargine,Hum.rec.anlog 10 units SQ QHS 12/03/13 01/14/17 1 Day Ago History [Lantus Solostar] ~12/09/16 Insulin Regular, Human [HumuLIN R] 3 units SC TIDAC 12/03/13 01/14/17 1 Day Ago History ~12/09/16 Simvastatin [Zocor TAB] 40 mg PO DAILY 12/03/13 01/14/17 1 Day Ago History ~12/09/16 glipiZIDE [glipiZIDE XL] 10 mg PO DAILY 12/03/13 01/14/17 1 Day Ago History ~12/09/16 Clopidogrel Bisulfate [Plavix] 75 mg PO DAILY #30 tablet 12/06/13 01/14/17 1 Day Ago Rx ~12/09/16 cloNIDine [Catapres] 0.1 mg PO BID #60 tablet 12/06/13 01/14/17 1 Day Ago Rx ~12/09/16 Pantoprazole [Protonix] 40 mg PO BID #60 tablet 12/11/16 01/14/17 Unknown Rx Sucralfate [Carafate] 1 gm PO Q6HR #56 udc 12/11/16 01/14/17 Unknown Rx Acetaminophen [Tylenol Arthritis] 650 mg PO Q6HR PRN #30 tablet.er 01/14/17 Unknown Rx Furosemide [Lasix] 20 mg PO QDAY 01/14/17 01/14/17 Unknown History Review of Systems ROS: Stated complaint: BLOCKED ABSCESS Other details as noted in HPI Comment: All other systems reviewed and negative Constitutional: denies: chills, fever Eyes: denies: eye pain, eye discharge, vision change ENT: denies: ear pain, throat pain Respiratory: denies: cough, shortness of breath, wheezing Cardiovascular: denies: chest pain, palpitations Gastrointestinal: denies: abdominal pain, nausea, diarrhea Genitourinary: denies: urgency, dysuria Musculoskeletal: denies: back pain, joint swelling, arthralgia Skin: denies: rash, lesions Neurological: denies: headache, weakness, paresthesias Medications and Allergies Allergies Allergy/AdvReac Type Severity Reaction Status Date / Time No Known Allergies Allergy Unverified 12/03/13 12:17 Home Medications Medication Instructions Recorded Confirmed Last Taken Type Aspirin [Aspirin TAB] 325 mg PO DAILY 12/03/13 10/27/17 1 Day Ago History ~12/09/16 Ergocalciferol [Vitamin D2] 1 cap PO QWEEK 12/03/13 10/27/17 1 Day Ago History ~12/09/16 Gabapentin 300 mg PO BID 12/03/13 10/27/17 1 Day Ago History ~12/09/16 Insulin Glargine,Hum.rec.anlog 20 units SQ QHS 12/03/13 10/27/17 1 Day Ago History [Lantus Solostar] ~12/09/16 Insulin Regular, Human [HumuLIN R] 3 units SC TIDAC 12/03/13 10/27/17 1 Day Ago History ~12/09/16 Clopidogrel Bisulfate [Plavix] 75 mg PO DAILY #30 tablet 12/06/13 10/27/17 1 Day Ago Rx ~12/09/16 Sucralfate [Carafate] 1 gm PO Q6HR #56 udc 12/11/16 10/27/17 Unknown Rx AtorvaSTATin [Lipitor] 20 mg PO QHS 10/27/17 10/27/17 Unknown History Calcitriol [Rocaltrol] 0.5 mcg PO QDAY 10/27/17 10/27/17 Unknown History Folic Acid/Vit B Complex and C 1 tab PO DAILY 10/27/17 10/27/17 Unknown History [Renal-Alexandrea Tablet] Lisinopril [Prinivil] 5 mg PO DAILY 10/27/17 10/27/17 Unknown History Ondansetron [Zofran TAB] 4 mg PO Q8HR PRN 10/27/17 10/27/17 Unknown History Sevelamer Carbonate [Renvela] 2 tab PO TID 10/27/17 10/27/17 Unknown History Torsemide [Demadex] 40 mg PO DAILY 10/27/17 10/27/17 Unknown History amLODIPine [Norvasc] 10 mg PO DAILY 10/27/17 10/27/17 Unknown History glipiZIDE [Glipizide] 10 mg PO DAILY 10/27/17 10/27/17 Unknown History traMADol [Ultram] 50 mg PO Q8HR PRN 10/27/17 10/27/17 Unknown History Active Meds: Active Medications Heparin Sodium (Porcine) (Heparin) 5,000 unit SUB-Q Q8HR BENJA Exam - Constitutional Vitals: Temp Pulse Resp BP Pulse Ox 98.0 F 90 18 202/106 98 10/27/17 10:51 10/27/17 19:53 10/27/17 10:51 10/27/17 19:53 10/27/17 10:51 General appearance: Present: no acute distress, well-nourished - EENT Eyes: Present: PERRL ENT: hearing intact, clear oral mucosa - Neck Neck: Present: supple, normal ROM - Respiratory Respiratory effort: normal Respiratory: bilateral: CTA - Cardiovascular Heart rate: 80 Rhythm: regular Heart Sounds: Present: S1 & S2. Absent: rub, click - Extremities Extremities: no ischemia, pulses intact, pulses symmetrical, No edema, abnormal (AV Fistula No Thrill) Peripheral Pulses: within normal limits - Abdominal General gastrointestinal: Present: soft, non-tender, non-distended, normal bowel sounds Male genitourinary: Present: normal - Integumentary Integumentary: Present: clear, warm, dry - Musculoskeletal Musculoskeletal: gait normal, strength equal bilaterally - Psychiatric Psychiatric: appropriate mood/affect, intact judgment & insight - Neurologic Neurologic: CNII-XII intact, moves all extremities Results - Labs CBC & Chem 7: 10/28/17 05:53 10/28/17 05:53 Labs: Laboratory Last Values WBC 8.0 K/mm3 (4.5-11.0) 10/27/17 12:29 RBC 3.75 M/mm3 (3.65-5.03) 10/27/17 12:29 Hgb 11.2 gm/dl (11.8-15.2) L 10/27/17 12:29 Hct 34.3 % (35.5-45.6) L 10/27/17 12:29 MCV 92 fl (84-94) 10/27/17 12:29 MCH 30 pg (28-32) 10/27/17 12:29 MCHC 33 % (32-34) 10/27/17 12:29 RDW 15.1 % (13.2-15.2) 10/27/17 12:29 Plt Count 187 K/mm3 (140-440) 10/27/17 12:29 Sodium 143 mmol/L (137-145) 10/27/17 12:29 Potassium 5.8 mmol/L (3.6-5.0) H 10/27/17 12:29 Chloride 99.3 mmol/L (98-107) 10/27/17 12:29 Carbon Dioxide 20 mmol/L (22-30) L 10/27/17 12:29 Anion Gap 30 mmol/L 10/27/17 12:29 BUN 67 mg/dL (9-20) H 10/27/17 12:29 Creatinine 9.6 mg/dL (0.8-1.5) H 10/27/17 12:29 Estimated GFR 7 ml/min 10/27/17 12:29 BUN/Creatinine Ratio 7 % 10/27/17 12:29 Glucose 118 mg/dL (75-100) H 10/27/17 12:29 POC Glucose 85 (70-105) 10/27/17 19:32 Calcium 9.3 mg/dL (8.4-10.2) 10/27/17 12:29 - Imaging and Cardiology EKG: report reviewed Assessment and Plan Advance Directives: Yes (Full code) VTE prophylaxis?: Chemical Plan of care discussed with patient/family: Yes - Patient Problems (1) Volume overload Current Visit: Yes Status: Acute Qualifiers: Hypervolemia type: unspecified Qualified Code(s): E87.70 - Fluid overload, unspecified Plan to address problem: Sec to missed HD Nephrology and Vascular consulted May need Vas cath (2) ESRD on hemodialysis Current Visit: Yes Status: Chronic Plan to address problem: Emergent HD (3) Dialysis AV fistula malfunction Current Visit: Yes Status: Acute Qualifiers: Encounter type: initial encounter Qualified Code(s): T82.590A - Other mechanical complication of surgically created arteriovenous fistula, initial encounter Plan to address problem: Vascular surgery consulted (4) Hyperkalemia Current Visit: Yes Status: Acute Plan to address problem: Calcium Cl given Recheck K level (5) Hypertension Current Visit: Yes Status: Chronic Qualifiers: Hypertension type: essential hypertension Qualified Code(s): I10 - Essential (primary) hypertension Plan to address problem: Cont Anti hypertensives (6) Vitamin D deficiency Current Visit: Yes Status: Chronic Plan to address problem: Cont Vit D (7) CAD (coronary artery disease) Current Visit: Yes Status: Acute (8) GERD (gastroesophageal reflux disease) Current Visit: Yes Status: Chronic Qualifiers: Esophagitis presence: without esophagitis Qualified Code(s): K21.9 - Gastro -esophageal reflux disease without esophagitis Plan to address problem: Cont PPI/H2 blockers (9) T2DM (type 2 diabetes mellitus) Current Visit: Yes Status: Chronic Qualifiers: Diabetes mellitus complication status: with kidney complications Diabetes mellitus fpc insulin use: without 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
[2017-10-27] MEDS ORDERED: NON-FORMULARY (Acetaminophen [Tylenol Arthritis] 650 MG) PO PRN (20:12)
[2017-10-27] MEDS ORDERED: DULCOLAX PR PRN (20:18)
[2017-10-27] MEDS ORDERED: PERCOCET 5/325 PO PRN (20:18)
[2017-10-27] MEDS ORDERED: ZOFRAN IV PRN (20:18)
[2017-10-27] MEDS ORDERED: TYLENOL PO PRN (20:18)
[2017-10-27] MEDS ORDERED: MILK OF MAGNESIA PO PRN (20:18)
[2017-10-27] MEDS ORDERED: MORPHINE IV PRN (20:18)
[2017-10-27] MEDS ORDERED: ZOFRAN ONE (20:20)
--- NOTE | 2017-10-27 20:54 | Discharge Summary ---
Providers - Providers Date of Admission: 10/27/17 14:37 Attending physician: ISAEL DELGADO 10/27/17 14:25 Consult to Physician [CONS] Routine Consulting Provider: AYUSH JACOB Reason For Exam: clogged dialysis fistula Consult to Physician [CONS] Routine Consulting Provider: CYNTHIA GROVE Reason For Exam: dialysis, hyperkalemia Place consult to:: NEPHROLOGY Notified:: Y Was contact made?: Yes If yes, spoke with:: Dr Grove 10/27/17 20:21 Consult to Dietitian/Nutrition [CONS] Routine Physician Instructions: Reason For Exam: Reason for Consult: Diet education Primary care physician: EFREN BLACK Hospitalization Condition: Stable Exam - Constitutional Vitals: Temp Pulse Resp BP Pulse Ox 98.0 F 90 18 202/106 98 10/27/17 10:51 10/27/17 19:53 10/27/17 10:51 10/27/17 19:53 10/27/17 10:51 Plan Follow up with: EFREN BLACK MD [Primary Care Provider] - 3-5 Days
[2017-10-27] MEDS ORDERED: NON-FORMULARY (Insulin Glargine,Hum.Rec.Anlog [Lantus Solostar] 15 UNITS) SQ SCH (22:00)
[2017-10-27] MEDS ORDERED: PLAVIX ONE (23:20)
[2017-10-27] MEDS ORDERED: CATAPRES ONE (23:20)
[2017-10-27] MEDS ORDERED: NEURONTIN ONE (23:21)
[2017-10-27] MEDS ORDERED: MORPHINE ONE (23:23)
[2017-10-27] MEDS: PLAVIX PO SCH (23:34)
[2017-10-27] MEDS: CATAPRES PO SCH (23:34)
[2017-10-27] MEDS: NEURONTIN PO SCH (23:34)
[2017-10-27] MEDS: HEPARIN SUB-Q SCH (23:40)
[2017-10-28] MEDS: NOVOLOG SUB-Q SCH ×3 (00:10→22:51)
[2017-10-28] MEDS: CARAFATE PO SCH ×3 (01:06→14:17)
[2017-10-28] MEDS: AMBIEN PO PRN ×2 (01:07→23:48)
[2017-10-28 01:57] LABS: Creatine Kinase MB 5.8 ng/mL (0.0-4.0)
[2017-10-28 02:13] LABS: Chol/HDL Ratio 4.55 %
[2017-10-28 06:17] LABS: Basophils # (Auto) 0.1 K/mm3 (0.0-0.1); Basophils % (Auto) 0.7 % (0.0-1.8); Eosinophils # (Auto) 0.2 K/mm3 (0.0-0.4); Eosinophils % (Auto) 2.4 % (0.0-4.3); Hematocrit 30.2 % (35.5-45.6); Hemoglobin 9.9 gm/dl (11.8-15.2); Lymphocytes % (Auto) 21.7 % (13.4-35.0); Mean Corpuscular HGB Conc 33 % (32-34); Mean Corpuscular Hemoglobin 30 pg (28-32); Mean Corpuscular Volume 92 fl (84-94); Monocytes % (Auto) 11.5 % (0.0-7.3); Platelet Count 189 K/mm3 (140-440); Red Blood Count 3.29 M/mm3 (3.65-5.03); Red Cell Distribution Width 15.1 % (13.2-15.2)
[2017-10-28] MEDS: HEPARIN SUB-Q SCH ×3 (06:23→22:38)
[2017-10-28 06:26] LABS: Calcium 9.5 mg/dL (8.4-10.2)
[2017-10-28] MEDS ORDERED: ZOFRAN PO PRN (07:58)
[2017-10-28] MEDS ORDERED: ULTRAM PO PRN (07:58)
[2017-10-28] MEDS ORDERED: NON-FORMULARY (Sevelamer Carbonate [Renvela] 2 TAB) PO SCH (08:00)
--- NOTE | 2017-10-28 08:33 | Progress Note ---
Assessment and Plan 1. Clotted hemodialysis access: Seen by Vascular. 2. Hyperkalemia: Improved with Kayexalate. HD today. 3. ESRD: Plan to do hemodialysis today after declotting the access. 4. Anemia. 5. Hypertension. Subjective Date of service: 10/28/17 Interval history: Patient is doing ok. Objective - Vital Signs Vital signs: Vital Signs - 12hr 10/27/17 10/27/17 10/27/17 20:45 21:00 21:15 Temperature Pulse Rate 113 H Respiratory 11 L Rate Blood Pressure 195/100 192/142 170/83 O2 Sat by Pulse Oximetry 10/27/17 10/27/17 10/27/17 21:31 21:45 22:00 Temperature Pulse Rate 110 H 112 H 107 H Respiratory 11 L 12 10 L Rate Blood Pressure 192/142 165/90 156/83 O2 Sat by Pulse Oximetry 10/27/17 10/27/17 10/27/17 22:15 22:30 22:45 Temperature Pulse Rate 111 H 121 H 121 H Respiratory 11 L 12 13 Rate Blood Pressure 175/88 147/81 156/81 O2 Sat by Pulse Oximetry 10/27/17 10/27/17 10/27/17 23:00 23:15 23:21 Temperature Pulse Rate 116 H 116 H 115 H Respiratory 14 12 16 Rate Blood Pressure 153/78 150/76 150/76 O2 Sat by Pulse Oximetry 10/27/17 10/27/17 10/27/17 23:30 23:34 23:45 Temperature Pulse Rate 115 H 114 H 112 H Respiratory 10 L 10 L Rate Blood Pressure 154/71 154/71 131/78 O2 Sat by Pulse Oximetry 10/27/17 10/27/17 10/28/17 23:49 23:51 00:00 Temperature Pulse Rate 113 H 112 H 110 H Respiratory 10 L 11 L 11 L Rate Blood Pressure 131/78 131/78 129/76 O2 Sat by Pulse Oximetry 10/28/17 10/28/17 00:26 01:30 Temperature 99.0 F Pulse Rate 111 H Respiratory 20 20 Rate Blood Pressure 137/76 O2 Sat by Pulse 97 97 Oximetry - General Appearance General appearance: well-developed, well-nourished, appears stated age, other ( no distress) EENT: ATNC, PERRL, hearing intact Neck: supple Respiratory: Present: Clear to Ascultation Cardiology: regular, S1S2, no murmurs Gastrointestinal: normoactive bowel sounds, no tenderness, no distended Integumentary: no rash, warm and dry Neurologic: no focal deficit, no asterixis, other (able to move all 4 extremities) Musculoskeletal: other (no edema, left FA AVG with thrill noted) Psychiatric: mood/affect appropriate, cooperative - Lab 10/28/17 05:53 10/28/17 05:53 Most recent lab results Calcium 9.5 mg/dL (8.4-10.2) 10/28/17 05:53
[2017-10-28] MEDS ORDERED: NON-FORMULARY (Simvastatin 40 MG) PO SCH (10:00)
[2017-10-28] MEDS ORDERED: NON-FORMULARY (Torsemide [Demadex] 40 MG) PO SCH (10:00)
[2017-10-28] MEDS ORDERED: HEPARIN/NS 5000 UNIT/500ML(CATH LAB) 1,000 ML IR ONE (12:55)
[2017-10-28] MEDS ORDERED: XYLOCAINE 2% INFILTRATI ONE (12:55)
[2017-10-28] MEDS ORDERED: NACL 0.9% 250ML 250 ML ONE (12:55)
[2017-10-28] MEDS ORDERED: SUBLIMAZE ONE (12:55)
[2017-10-28] MEDS ORDERED: ANCEF/STERILE WATER 2 GM/20 ML 2 GM/20 ML SYRINGE IV ONE (12:55)
--- NOTE | 2017-10-28 14:05 | Progress Note ---
Assessment and Plan Assessment and plan: Patient is a 67-year-old man with a history of hypertension, diabetes mellitus type 2, CVA with left-sided paresis and end-stage renal disease on hemodialysis Friday and Friday who presents with clotted AV fistula and unable to finish hemodialysis on Friday. He was diagnosed with volume overload, hyperkalemia, elevated troponin -End-stage renal disease needing hemodialysis: Consult nephrology -Malfunctioning AV hemodialysis access: Going for de-clot today -Hyperkalemia: Needing hemodialysis, repeat BMP in a.m. -Elevated troponin: Consult cardiology -Uncontrolled type 2 diabetes mellitus: Add Sliding scale insulin -Accelerated hypertension: IV hydralazine when necessary -Acute on chronic anemia of chronic renal disease with a drop in hematocrit: Repeat CBC in a.m. History Interval history: Patient was seen and examined. Follow-up on current diagnosis. Overnight uneventful. Patient denies any chest pain, shortness breath, nausea/vomiting or severe headaches. Imaging, nursing note, chart, labs and old chart reviewed. Discussed with patient. Hospitalist Physical - Physical exam Narrative exam: GEN: WDWN, NAD, AWAKE, ALERT, ORIENTATED 3 HEENT: NCAT, EOMI, PERRL, OP Clear NECK: supple, no adenopathy, no thyromegaly, no JVD CVS/HEART: RRR, NORMAL S1S2, NO JVD, pulses present bilaterally CHEST/LUNGS: Bibasilar crackles Symmetrical chest expansion, good air entry bilaterally GI/Abdomen: soft, NTND, good bowel sounds, no guarding or rebound /Bladder: no suprapubic tenderness, no CVA or paraspinal tenderness EXT/Skin: no obvious rash MSK: Left-sided hemiparesis Neuro: CN 2-12 grossly intact, no new focal deficits Psych: calm - Constitutional Vitals: Temp Pulse Resp BP Pulse Ox 97.5 F L 93 H 18 168/89 96 10/28/17 08:13 10/28/17 08:13 10/28/17 08:13 10/28/17 08:13 10/28/17 08:13 General appearance: Present: no acute distress, well-nourished Results - Labs CBC & Chem 7: 10/28/17 05:53 10/28/17 05:53 Labs: Laboratory Last Values WBC 9.0 K/mm3 (4.5-11.0) 10/28/17 05:53 RBC 3.29 M/mm3 (3.65-5.03) L 10/28/17 05:53 Hgb 9.9 gm/dl (11.8-15.2) L 10/28/17 05:53 Hct 30.2 % (35.5-45.6) L 10/28/17 05:53 MCV 92 fl (84-94) 10/28/17 05:53 MCH 30 pg (28-32) 10/28/17 05:53 MCHC 33 % (32-34) 10/28/17 05:53 RDW 15.1 % (13.2-15.2) 10/28/17 05:53 Plt Count 189 K/mm3 (140-440) 10/28/17 05:53 Lymph % (Auto) 21.7 % (13.4-35.0) 10/28/17 05:53 Cameron % (Auto) 11.5 % (0.0-7.3) H 10/28/17 05:53 Eos % (Auto) 2.4 % (0.0-4.3) 10/28/17 05:53 Baso % (Auto) 0.7 % (0.0-1.8) 10/28/17 05:53 Lymph # 2.0 K/mm3 (1.2-5.4) 10/28/17 05:53 Cameron # 1.0 K/mm3 (0.0-0.8) H 10/28/17 05:53 Eos # 0.2 K/mm3 (0.0-0.4) 10/28/17 05:53 Baso # 0.1 K/mm3 (0.0-0.1) 10/28/17 05:53 Seg Neutrophils % 63.7 % (40.0-70.0) 10/28/17 05:53 Seg Neutrophils # 5.7 K/mm3 (1.8-7.7) 10/28/17 05:53 Sodium 141 mmol/L (137-145) 10/28/17 05:53 Potassium 4.8 mmol/L (3.6-5.0) 10/28/17 05:53 Chloride 99.1 mmol/L (98-107) 10/28/17 05:53 Carbon Dioxide 25 mmol/L (22-30) 10/28/17 05:53 Anion Gap 22 mmol/L 10/28/17 05:53 BUN 71 mg/dL (9-20) H 10/28/17 05:53 Creatinine 9.8 mg/dL (0.8-1.5) H 10/28/17 05:53 Estimated GFR 6 ml/min 10/28/17 05:53 BUN/Creatinine Ratio 7 % 10/28/17 05:53 Glucose 143 mg/dL (75-100) H 10/28/17 05:53 POC Glucose 199 (70-105) H 10/28/17 11:56 Hemoglobin A1c 8.9 % (4-6) H 10/27/17 12:29 Calcium 9.5 mg/dL (8.4-10.2) 10/28/17 05:53 Total Creatine Kinase 139 units/L (55-170) 10/28/17 01:16 CK-MB (CK-2) 5.8 ng/mL (0.0-4.0) H 10/28/17 01:16 Troponin T 0.110 ng/mL (0.00-0.029) H* 10/28/17 05:53 Triglycerides 386 mg/dL (2-149) H 10/28/17 01:16 Cholesterol 155 mg/dL (50-199) 10/28/17 01:16 LDL Cholesterol Direct 44 mg/dL (50-130) L 10/28/17 01:16 HDL Cholesterol 34 mg/dL (40-59) L 10/28/17 01:16 Cholesterol/HDL Ratio 4.55 % 10/28/17 01:16
[2017-10-28] MEDS: RENVELA PO SCH (14:13)
[2017-10-28] MEDS: PLAVIX PO SCH (14:13)
[2017-10-28] MEDS: PROTONIX PO SCH ×2 (14:14→22:47)
[2017-10-28] MEDS: ROCALTROL PO SCH (14:14)
[2017-10-28] MEDS: PEPCID PO SCH ×2 (14:14→22:44)
[2017-10-28] MEDS: NORVASC PO SCH (14:15)
[2017-10-28] MEDS: ZESTRIL PO SCH (14:15)
[2017-10-28] MEDS: NEURONTIN PO SCH ×2 (14:15→22:46)
[2017-10-28] MEDS: ASPIRIN PO SCH (14:15)
[2017-10-28] MEDS: GLUCOTROL PO SCH (14:17)
[2017-10-28] MEDS: LASIX PO SCH (14:17)
[2017-10-28] MEDS ORDERED: NACL 0.9% 100 ML IV PRN (15:14)
--- NOTE | 2017-10-28 15:36 | Consultation ---
History of Present Illness Consult date: 10/28/17 Requesting physician: JUS GARCIA Consult reason: elevated troponin History of present illness: The patient is a 67 year old male with a history of ESRD on HD, hypertension, diabetes who presented from his dialysis center with complaint of clogged left forearm AV fistula and underwent a de-clotting procedure today. Last night, he experienced a brief episode of substernal chest pain described as "heartburn" that occurred after eating. It resolved on its own. He denies any further chest pain, palpitations, or shortness of breath. Troponin level is mildly elevated. Stress test done 11/2016 showed no significant ischemia. Past History Past Medical History: anemia, CAD, diabetes, dialysis, ESRD, hypertension, hyperlipidemia Past Surgical History: Other (AV fistula) Social history: denies: smoking, alcohol abuse, IV drug use Family history: CAD (sister) Medications and Allergies Allergies Allergy/AdvReac Type Severity Reaction Status Date / Time No Known Allergies Allergy Unverified 12/03/13 12:17 Home Medications Medication Instructions Recorded Confirmed Last Taken Type Aspirin [Aspirin TAB] 325 mg PO DAILY 12/03/13 10/27/17 1 Day Ago History ~12/09/16 Ergocalciferol [Vitamin D2] 1 cap PO QWEEK 12/03/13 10/27/17 1 Day Ago History ~12/09/16 Gabapentin 300 mg PO BID 12/03/13 10/27/17 1 Day Ago History ~12/09/16 Insulin Glargine,Hum.rec.anlog 20 units SQ QHS 12/03/13 10/27/17 1 Day Ago History [Lantus Solostar] ~12/09/16 Insulin Regular, Human [HumuLIN R] 3 units SC TIDAC 12/03/13 10/27/17 1 Day Ago History ~12/09/16 Clopidogrel Bisulfate [Plavix] 75 mg PO DAILY #30 tablet 12/06/13 10/27/17 1 Day Ago Rx ~12/09/16 Sucralfate [Carafate] 1 gm PO Q6HR #56 udc 12/11/16 10/27/17 Unknown Rx AtorvaSTATin [Lipitor] 20 mg PO QHS 10/27/17 10/27/17 Unknown History Calcitriol [Rocaltrol] 0.5 mcg PO QDAY 10/27/17 10/27/17 Unknown History Folic Acid/Vit B Complex and C 1 tab PO DAILY 10/27/17 10/27/17 Unknown History [Renal-Alexandrea Tablet] Lisinopril [Prinivil] 5 mg PO DAILY 10/27/17 10/27/17 Unknown History Ondansetron [Zofran TAB] 4 mg PO Q8HR PRN 10/27/17 10/27/17 Unknown History Sevelamer Carbonate [Renvela] 2 tab PO TID 10/27/17 10/27/17 Unknown History Torsemide [Demadex] 40 mg PO DAILY 10/27/17 10/27/17 Unknown History amLODIPine [Norvasc] 10 mg PO DAILY 10/27/17 10/27/17 Unknown History glipiZIDE [Glipizide] 10 mg PO DAILY 10/27/17 10/27/17 Unknown History traMADol [Ultram] 50 mg PO Q8HR PRN 10/27/17 10/27/17 Unknown History Active Meds: Active Medications Acetaminophen (Tylenol) 650 mg PO Q4H PRN PRN Reason: Pain MILD(1-3)/Fever >100.5/PINEDA Amlodipine Besylate (Norvasc) 10 mg PO DAILY [facility] Last Admin: 10/28/17 14:15 Dose: 10 mg Aspirin (Aspirin) 81 mg PO DAILY [facility] Last Admin: 10/28/17 14:15 Dose: 81 mg Atorvastatin Calcium (Lipitor) 20 mg PO QHS [facility] Bisacodyl (Dulcolax) 10 mg MA QDAY PRN PRN Reason: Constipation unrelieved by MOM Calcitriol (Rocaltrol) 0.5 mcg PO QDAY [facility] Last Admin: 10/28/17 14:14 Dose: 0.5 mcg Clonidine HCl (Catapres) 0.1 mg PO BID [facility] Last Admin: 10/27/17 23:34 Dose: 0.1 mg Clopidogrel Bisulfate (Plavix) 75 mg PO DAILY [facility] Last Admin: 10/28/17 14:13 Dose: 75 mg Famotidine (Pepcid) 10 mg PO BID [facility] Last Admin: 10/28/17 14:14 Dose: 10 mg Furosemide (Lasix) 20 mg PO QDAY [facility] Last Admin: 10/28/17 14:17 Dose: 20 mg Gabapentin (Neurontin) 300 mg PO BID [facility] Last Admin: 10/28/17 14:15 Dose: 300 mg Glipizide (Glucotrol) 10 mg PO QAMDIAB [facility] Last Admin: 10/28/17 14:17 Dose: 10 mg Heparin Sodium (Porcine) (Heparin) 5,000 unit SUB-Q Q8HR [facility] Last Admin: 10/28/17 14:16 Dose: 5,000 unit Sodium Chloride (Nacl 0.9%) 100 mls @ 999 mls/hr IV CHACORTA PRN PRN Reason: Hypotension Insulin Aspart (Novolog) 0 units SUB-Q ACHS [facility] PRN Reason: Protocol Last Admin: 10/28/17 00:10 Dose: 4 units Insulin Detemir (Levemir) 15 units SUB-Q QHS [facility] Insulin Human Regular (Novolin R) 3 units SUB-Q TIDAC [facility] Lisinopril (Zestril) 5 mg PO DAILY [facility] Last Admin: 10/28/17 14:15 Dose: 5 mg Magnesium Hydroxide (Milk Of Magnesia) 30 ml PO Q4H PRN PRN Reason: Constipation Morphine Sulfate (Morphine) 2 mg IV Q4H PRN PRN Reason: Pain, Moderate (4-6) Last Admin: 10/27/17 23:35 Dose: 2 mg Multivit/Ca Carb/B Cmplx/FA/Prenat (Renal Caps) 1 cap PO QDAY [facility] Ondansetron HCl (Zofran) 4 mg IV Q3H PRN PRN Reason: N/V unrelieved by Tish Last Admin: 10/27/17 20:35 Dose: 4 mg Ondansetron HCl (Zofran) 4 mg PO Q8HR PRN PRN Reason: Nausea Oxycodone/Acetaminophen (Percocet 5/325) 1 tab PO Q6H PRN PRN Reason: Pain, Moderate (4-6) Pantoprazole Sodium (Protonix) 40 mg PO BID [facility] Last Admin: 10/28/17 14:14 Dose: 40 mg Pravastatin Sodium (Pravachol) 80 mg PO QHS [facility] Sevelamer Carbonate (Renvela) 1,600 mg PO AC [facility] Last Admin: 10/28/17 14:13 Dose: 1,600 mg Sucralfate (Carafate) 1 gm PO Q6HR [facility] Last Admin: 10/28/17 14:17 Dose: 1 gm Torsemide (Demadex) 40 mg PO QDAY B[facility] Tramadol HCl (Ultram) 50 mg PO Q8HR PRN PRN Reason: Pain Zolpidem Tartrate (Ambien) 5 mg PO QHS PRN PRN Reason: Insomnia Last Admin: 10/28/17 01:07 Dose: 5 mg Review of Systems Constitutional: no fever, no chills Ears, nose, mouth and throat: no nasal congestion, no nasal discharge, no sinus pressure Cardiovascular: chest pain, no shortness of breath, no dyspnea on exertion Respiratory: no cough, no congestion, no wheezing Gastrointestinal: no abdominal pain, no nausea, no vomiting, no diarrhea Genitourinary Male: no dysuria, no hematuria Musculoskeletal: no neck stiffness, no neck pain, no myalgias Integumentary: no rash, no pruritis Neurological: no parathesias, no numbness, no tingling, no headaches Endocrine: no cold intolerance, no heat intolerance Hematologic/Lymphatic: no easy bruising, no easy bleeding Allergic/Immunologic: no urticaria, no wheezing Physical Examination Vital Signs Temp Pulse Resp BP Pulse Ox 98.0 F 80 18 187/90 98 10/27/17 10:51 10/27/17 10:51 10/27/17 10:51 10/27/17 10:51 10/27/17 10:51 General appearance: no acute distress HEENT: Positive: Normocephaly, Mucus Membranes Moist Neck: Positive: neck supple, trachea midline Cardiac: Positive: Reg Rate and Rhythm, S1/S2 Lungs: Positive: clear to auscultation Neuro: Positive: Grossly Intact Abdomen: Positive: Soft, Active Bowel Sounds. Negative: Tender Skin: Positive: Clear. Negative: Rash Extremities: Present: normal. Absent: edema Results 10/28/17 05:53 10/28/17 05:53 Cardiac Enzymes 10/28/17 Range/Units 01:16 CK-MB (CK-2) 5.8 H (0.0-4.0) ng/mL Lipids 10/28/17 Range/Units 01:16 Triglycerides 386 H (2-149) mg/dL Cholesterol 155 (50-199) mg/dL HDL Cholesterol 34 L (40-59) mg/dL Cholesterol/HDL Ratio 4.55 % CBC 10/28/17 Range/Units 05:53 WBC 9.0 (4.5-11.0) K/mm3 RBC 3.29 L (3.65-5.03) M/mm3 Hgb 9.9 L (11.8-15.2) gm/dl Hct 30.2 L (35.5-45.6) % Plt Count 189 (140-440) K/mm3 Lymph # 2.0 (1.2-5.4) K/mm3 Sebastian # 1.0 H (0.0-0.8) K/mm3 Eos # 0.2 (0.0-0.4) K/mm3 Baso # 0.1 (0.0-0.1) K/mm3 Comprehensive Metabolic Panel 10/28/17 Range/Units 05:53 Sodium 141 (137-145) mmol/L Potassium 4.8 (3.6-5.0) mmol/L Chloride 99.1 (98-107) mmol/L Carbon Dioxide 25 (22-30) mmol/L BUN 71 H (9-20) mg/dL Creatinine 9.8 H (0.8-1.5) mg/dL Glucose 143 H (75-100) mg/dL Calcium 9.5 (8.4-10.2) mg/dL Assessment and Plan Assessment: Atypical chest pain Elevated troponin Accelerated hypertension-->BP improved ESRD on HD Diabetes Plan: Elevated troponin likely due to accelerated hypertension and ESRD. Given resolution of atypical chest pain and negative stress test in 11/2016, recommend continuing medical management. The patient has been seen in conjunction with Dr. Gutierrez who agrees with the assessment and plan of care.
--- NOTE | 2017-10-28 17:14 | Post Operative Note ---
Pre-op diagnosis: ESRD Post-op diagnosis: same Findings: No significant flow limiting stenoses found Procedure: Fistulagram Anesthesia: local Surgeon: MICHELLE VELASCO Estimated blood loss: none Pathology: none Condition: stable Disposition: floor
[2017-10-28] MEDS: LEVEMIR SUB-Q SCH ×2 (22:45→23:00)
[2017-10-28] MEDS: PRAVACHOL PO SCH (22:45)
[2017-10-28] MEDS: CATAPRES PO SCH (22:45)
[2017-10-29] MEDS: PRAVACHOL PO SCH ×2 (00:25→22:30)
[2017-10-29] MEDS: CARAFATE PO SCH ×4 (00:42→18:16)
[2017-10-29] MEDS: HEPARIN SUB-Q SCH ×2 (05:22→15:00)
[2017-10-29 05:43] LABS: Hematocrit 33.2 % (35.5-45.6); Hemoglobin 10.6 gm/dl (11.8-15.2); Mean Corpuscular HGB Conc 32 % (32-34); Mean Corpuscular Hemoglobin 30 pg (28-32); Mean Corpuscular Volume 94 fl (84-94); Platelet Count 192 K/mm3 (140-440); Red Blood Count 3.55 M/mm3 (3.65-5.03); Red Cell Distribution Width 15.6 % (13.2-15.2)
[2017-10-29 06:03] LABS: Calcium 9.5 mg/dL (8.4-10.2)
[2017-10-29] MEDS: GLUCOTROL PO SCH (08:00)
[2017-10-29] MEDS: NOVOLOG SUB-Q SCH ×3 (08:00→16:35)
[2017-10-29] MEDS: RENVELA PO SCH ×3 (08:00→16:30)
--- NOTE | 2017-10-29 08:39 | Progress Note ---
Assessment and Plan 1. Clotted hemodialysis access: S/p angioplasty yesterday. Unable to use the access yesterday. Plan for fistulogram today. Followed by Vascular. 2. Hyperkalemia: Start on IV D5W. HD today. 3. ESRD: Plan to do hemodialysis today after declotting / angioplasty of the access. 4. Anemia. 5. Hypertension. Subjective Date of service: 10/29/17 Interval history: Patient is doing ok. Objective - Vital Signs Vital signs: Vital Signs - 12hr 10/28/17 10/28/17 10/29/17 22:00 22:45 07:53 Temperature 98.7 F Pulse Rate 139 H 93 H Respiratory 20 18 Rate Blood Pressure 162/95 152/80 O2 Sat by Pulse 99 Oximetry 10/29/17 08:19 Temperature 98.5 F Pulse Rate Respiratory 18 Rate Blood Pressure 160/98 O2 Sat by Pulse Oximetry - General Appearance General appearance: well-developed, well-nourished, appears stated age, other ( no distress) EENT: ATNC, PERRL, hearing intact Neck: supple Respiratory: Present: Clear to Ascultation Cardiology: regular, S1S2, no murmurs Gastrointestinal: normoactive bowel sounds, no tenderness, no distended Integumentary: no rash, warm and dry Neurologic: no focal deficit, no asterixis, alert and oriented x3 Musculoskeletal: other (no edema, left FA AVF / AVG) Psychiatric: mood/affect appropriate, cooperative - Lab 10/29/17 04:45 10/29/17 04:45 Most recent lab results Calcium 9.5 mg/dL (8.4-10.2) 10/29/17 04:45
[2017-10-29] MEDS ORDERED: D5W 1,000 ML IV SCH (09:30)
[2017-10-29] MEDS: ASPIRIN PO SCH (10:00)
[2017-10-29] MEDS: Renal Caps PO SCH (10:00)
[2017-10-29] MEDS ORDERED: DEMADEX PO SCH ×2 (10:00)
[2017-10-29] MEDS: PLAVIX PO SCH (10:00)
[2017-10-29] MEDS ORDERED: Renal Caps PO SCH (10:00)
--- NOTE | 2017-10-29 10:11 | Progress Note ---
Assessment and Plan Assessment: Atypical chest pain Elevated troponin Accelerated hypertension-->BP improved ESRD on HD Diabetes Plan: Elevated troponin likely due to accelerated hypertension and ESRD. Given resolution of atypical chest pain and negative stress test in 11/2016, recommend continuing medical management. Stable cardiac status. Will see PRN. The patient has been seen in conjunction with Dr. Gutierrez who agrees with the assessment and plan of care. Subjective Date of service: 10/29/17 Principal diagnosis: elevated troponin Interval history: The patient is resting comfortably in bed. No further chest pain. Objective Last Vital Signs Temp 98.5 F 10/29/17 08:19 Pulse 93 H 10/29/17 07:53 Resp 18 10/29/17 08:19 BP 160/98 10/29/17 08:19 Pulse Ox 99 10/29/17 07:53 - Physical Examination General: No Apparent Distress HEENT: Positive: Normocephaly, Mucus Membranes Moist Neck: Positive: neck supple, trachea midline Cardiac: Positive: Reg Rate and Rhythm, S1/S2 Lungs: Positive: clear to auscultation Neuro: Positive: Grossly Intact Abdomen: Positive: Soft, Active Bowel Sounds. Negative: Tender Skin: Positive: Clear. Negative: Rash Extremities: Present: normal. Absent: edema - Labs and Meds CBC 10/29/17 Range/Units 04:45 WBC 9.0 (4.5-11.0) K/mm3 RBC 3.55 L (3.65-5.03) M/mm3 Hgb 10.6 L (11.8-15.2) gm/dl Hct 33.2 L (35.5-45.6) % Plt Count 192 (140-440) K/mm3 Comprehensive Metabolic Panel 10/29/17 Range/Units 04:45 Sodium 144 (137-145) mmol/L Potassium 5.4 H (3.6-5.0) mmol/L Chloride 100.0 (98-107) mmol/L Carbon Dioxide 23 (22-30) mmol/L BUN 77 H (9-20) mg/dL Creatinine 11.4 H (0.8-1.5) mg/dL Glucose 96 (75-100) mg/dL Calcium 9.5 (8.4-10.2) mg/dL - Imaging and Cardiology EKG: report reviewed
[2017-10-29] MEDS ORDERED: NORMODYNE IV PRN (10:38)
--- NOTE | 2017-10-29 10:41 | Progress Note ---
Assessment and Plan Assessment and plan: Patient is a 67-year-old man with a history of hypertension, diabetes mellitus type 2, CVA with left-sided paresis and end-stage renal disease on hemodialysis Friday and Friday who presents with clotted AV fistula and unable to finish hemodialysis on Friday. He was diagnosed with volume overload, hyperkalemia, elevated troponin -End-stage renal disease needing hemodialysis: Consult nephrology -Malfunctioning AV hemodialysis access: Vascular is following -Hyperkalemia: Needing hemodialysis, repeat BMP in a.m. -Elevated troponin: Consult cardiology -Uncontrolled type 2 diabetes mellitus: Add Sliding scale insulin -Accelerated hypertension: IV hydralazine when necessary -Acute on chronic anemia of chronic renal disease with a drop in hematocrit: Repeat CBC in a.m. 10/28/17: Fistulogram 10/29/17: Repair today, then hopefully hemodialysis then home if successfully History Interval history: Patient was seen and examined. Follow-up on current diagnosis. Overnight uneventful. Patient denies any chest pain, shortness breath, nausea/vomiting or severe headaches. Imaging, nursing note, chart, labs and old chart reviewed. Discussed with patient. Hospitalist Physical - Physical exam Narrative exam: GEN: WDWN, NAD, AWAKE, ALERT, ORIENTATED 3 HEENT: NCAT, EOMI, PERRL, OP Clear NECK: supple, no adenopathy, no thyromegaly, no JVD CVS/HEART: RRR, NORMAL S1S2, NO JVD, pulses present bilaterally CHEST/LUNGS: Bibasilar crackles Symmetrical chest expansion, good air entry bilaterally GI/Abdomen: soft, NTND, good bowel sounds, no guarding or rebound /Bladder: no suprapubic tenderness, no CVA or paraspinal tenderness EXT/Skin: no obvious rash MSK: Left-sided hemiparesis Neuro: CN 2-12 grossly intact, no new focal deficits Psych: calm - Constitutional Vitals: Temp Pulse Resp BP Pulse Ox 98.5 F 93 H 18 160/98 99 10/29/17 08:19 10/29/17 07:53 10/29/17 08:19 10/29/17 08:19 10/29/17 07:53 General appearance: Present: no acute distress Results - Labs CBC & Chem 7: 10/29/17 04:45 10/29/17 04:45 Labs: Laboratory Last Values WBC 9.0 K/mm3 (4.5-11.0) 10/29/17 04:45 RBC 3.55 M/mm3 (3.65-5.03) L 10/29/17 04:45 Hgb 10.6 gm/dl (11.8-15.2) L 10/29/17 04:45 Hct 33.2 % (35.5-45.6) L 10/29/17 04:45 MCV 94 fl (84-94) 10/29/17 04:45 MCH 30 pg (28-32) 10/29/17 04:45 MCHC 32 % (32-34) 10/29/17 04:45 RDW 15.6 % (13.2-15.2) H 10/29/17 04:45 Plt Count 192 K/mm3 (140-440) 10/29/17 04:45 Lymph % (Auto) 21.7 % (13.4-35.0) 10/28/17 05:53 [place] % (Auto) 11.5 % (0.0-7.3) H 10/28/17 05:53 Eos % (Auto) 2.4 % (0.0-4.3) 10/28/17 05:53 Baso % (Auto) 0.7 % (0.0-1.8) 10/28/17 05:53 Lymph # 2.0 K/mm3 (1.2-5.4) 10/28/17 05:53 [place] # 1.0 K/mm3 (0.0-0.8) H 10/28/17 05:53 Eos # 0.2 K/mm3 (0.0-0.4) 10/28/17 05:53 Baso # 0.1 K/mm3 (0.0-0.1) 10/28/17 05:53 Seg Neutrophils % 63.7 % (40.0-70.0) 10/28/17 05:53 Seg Neutrophils # 5.7 K/mm3 (1.8-7.7) 10/28/17 05:53 Sodium 144 mmol/L (137-145) 10/29/17 04:45 Potassium 5.4 mmol/L (3.6-5.0) H 10/29/17 04:45 Chloride 100.0 mmol/L (98-107) 10/29/17 04:45 Carbon Dioxide 23 mmol/L (22-30) 10/29/17 04:45 Anion Gap 26 mmol/L 10/29/17 04:45 BUN 77 mg/dL (9-20) H 10/29/17 04:45 Creatinine 11.4 mg/dL (0.8-1.5) H 10/29/17 04:45 Estimated GFR 5 ml/min 10/29/17 04:45 BUN/Creatinine Ratio 7 % 10/29/17 04:45 Glucose 96 mg/dL (75-100) 10/29/17 04:45 POC Glucose 67 (70-105) L 10/29/17 09:13 Hemoglobin A1c 8.9 % (4-6) H 10/27/17 12:29 Calcium 9.5 mg/dL (8.4-10.2) 10/29/17 04:45 Total Creatine Kinase 139 units/L (55-170) 10/28/17 01:16 CK-MB (CK-2) 5.8 ng/mL (0.0-4.0) H 10/28/17 01:16 Troponin T 0.144 ng/mL (0.00-0.029) H* D 10/28/17 14:38 Triglycerides 386 mg/dL (2-149) H 10/28/17 01:16 Cholesterol 155 mg/dL (50-199) 10/28/17 01:16 LDL Cholesterol Direct 44 mg/dL (50-130) L 10/28/17 01:16 HDL Cholesterol 34 mg/dL (40-59) L 10/28/17 01:16 Cholesterol/HDL Ratio 4.55 % 10/28/17 01:16
[2017-10-29] MEDS: NEURONTIN PO SCH ×2 (14:06→22:00)
[2017-10-29] MEDS: ROCALTROL PO SCH (14:06)
[2017-10-29] MEDS: PEPCID PO SCH ×3 (14:07→22:25)
[2017-10-29] MEDS: NORVASC PO SCH (14:08)
[2017-10-29] MEDS: LASIX PO SCH (14:08)
[2017-10-29] MEDS: ZESTRIL PO SCH (14:09)
[2017-10-29] MEDS: CATAPRES PO SCH ×2 (14:10→22:25)
[2017-10-29] MEDS: PROTONIX PO SCH (14:16)
[2017-10-29] MEDS ORDERED: HEPARIN 10,000 UNITS/10 ML ONE (16:46)
[2017-10-29] MEDS ORDERED: HEPARIN/NS 5000 UNIT/500ML(CATH LAB) 500 ML IR ONE ×2 (16:46→17:39)
[2017-10-29] MEDS ORDERED: NACL 0.9% 500 ML 500 ML ONE (16:47)
[2017-10-29] MEDS ORDERED: XYLOCAINE 2% INFILTRATI ONE (16:47)
[2017-10-29] MEDS ORDERED: ANCEF/STERILE WATER 2 GM/20 ML 2 GM/20 ML SYRINGE IV ONE (17:06)
[2017-10-29] MEDS: SUBLIMAZE ONE ×2 (17:18→17:28)
[2017-10-29] MEDS: VERSED ONE ×2 (17:18→17:28)
[2017-10-29] MEDS ORDERED: VERSED ONE (17:30)
[2017-10-29] MEDS ORDERED: SUBLIMAZE ONE (17:31)
[2017-10-29] MEDS ORDERED: NACL 0.9% 100 ML IV PRN (17:41)
--- NOTE | 2017-10-29 17:58 | Operative Report ---
Operative Report Operative Report: EXAM: 1. Ultrasound guided access of the left arm radiocephalic AVF towards the anastamosis 2. Selection of the radial artery in a retrograde fashion with angiography 3. Fistulogram 4. Angioplasty of the peripheral and mid forearm cephalic vein with a 7 mm angioplasty balloon 5. Ultrasound guided access of the left arm radiocephalic AVF towards the venous outflow 6. Angioplasty of the central forearm cephalic vein with a 7 mm angioplasty balloon DATE: 10/29/17 [employer]: IRWIN SINGH MD INDICATION: Left arm AV fistula malfunction MEDICATIONS: Please see nursing report for full details. DEVICES: 7 mm x 60 mm angioplasty balloon PROCEDURE: The risks, benefits, and alternatives of the procedure were discussed and written informed consent was obtained. The patient was transported in stable condition to the angiography suite. The patient's left arm AV radiocephalic fistula was assessed by ultrasound and was patent. The patient was prepped and draped in a sterile fashion. Under ultrasound guidance, the left arm AV radiocephalic fistula was accessed with a 21-gauge micropuncture needle towards the anastomosis. The area was anesthetized prior to access. 0.018 inch wire was advanced through the micropuncture needle into the fistula and then the needle was exchanged for a 5 [place] transitional dilator. The inner dilator and wire were removed and a 0.035 inch wire was advanced through the venous outflow. The transitional dilator was exchanged for a 6 [place] short sheath. The radial artery was then selected in a retrograde fashion. Digital subtraction angiography demonstrated patency of the radial artery on the anastomosis with multifocal mild and moderate narrowings within the cephalic vein within the forearm. 7 mm angioplasty balloon was used to perform angioplasty of the mid and peripheral portion of the forearm cephalic vein. Digital subtraction angiography demonstrated minimal residual narrowing of the section. Under ultrasound guidance, the left arm AV radiocephalic fistula was accessed with a 21-gauge micropuncture needle towards the venous outflow. The area was anesthetized prior to access. 0.018 inch wire was advanced through the micropuncture needle into the fistula and then the needle was exchanged for a 5 [place] transitional dilator. The inner dilator and wire were removed and a 0.035 inch wire was advanced through the venous outflow. The transitional dilator was exchanged for a 6 [place] short sheath. 7 mm angioplasty balloon was used perform angioplasty of the central portion of the forearm cephalic vein AV fistula. Digital subtraction angiography demonstrated minimal residual narrowing of the segment. Digital subtraction angiography was then performed demonstrating most of the flow within the upper arm was to the cephalic vein which was patent. The left subclavian vein, innominate vein, and SVC were patent. The wires were removed and each site was closed with a 3-0 Vicryl suture. Each sheath was then removed. Hemostasis was achieved with slight manual compression. The patient was transported from the angiography suite to the floor in stable condition. IMPRESSION: Successful fistulogram and venoplasty as descibed above with a 7 mm angioplasty balloon. Initial fistulogram demonstrates multifocal mild and moderate narrowing within the forearm cephalic vein. Final fistulogram demonstrates no residual narrowing within the forearm cephalic vein.
[2017-10-30] MEDS: LEVEMIR SUB-Q SCH (04:25)
[2017-10-30] MEDS: NOVOLOG SUB-Q SCH ×3 (04:32→11:47)
--- NOTE | 2017-10-30 08:20 | Event Note ---
Date: 10/29/17 ESRD with AVF malfunction and inability to complete dialysis. Fistulogram will be scheduled again for re-evaluation of AV access.
[2017-10-30] MEDS: RENVELA PO SCH ×2 (08:47→11:48)
[2017-10-30] MEDS: GLUCOTROL PO SCH (08:47)
[2017-10-30] MEDS: PROTONIX PO SCH (10:00)
[2017-10-30] MEDS: ASPIRIN PO SCH (10:00)
[2017-10-30] MEDS: PLAVIX PO SCH (10:00)
[2017-10-30] MEDS: Renal Caps PO SCH (10:00)
[2017-10-30] MEDS: LASIX PO SCH (10:00)
[2017-10-30] MEDS: NEURONTIN PO SCH (10:00)
[2017-10-30] MEDS: NORVASC PO SCH (10:01)
[2017-10-30] MEDS: ROCALTROL PO SCH (10:01)
[2017-10-30] MEDS: CATAPRES PO SCH (10:02)
[2017-10-30] MEDS: PEPCID PO SCH (10:04)
[2017-10-30] MEDS: ZESTRIL PO SCH (10:04)
--- NOTE | 2017-10-30 10:11 | Progress Note ---
Assessment and Plan 1. Clotted hemodialysis access: S/p angioplasty yesterday. Able to use the access yesterday. 2. Hyperkalemia: S/p HD yesterday. 3. ESRD: Hemodialysis MWF schedule. 4. Anemia: Monitor. 5. Hypertension. Subjective Date of service: 10/30/17 Principal diagnosis: elevated troponin Interval history: Patient is doing ok. Objective - Vital Signs Vital signs: Vital Signs - 12hr 10/29/17 10/29/17 10/30/17 22:16 22:25 05:12 Temperature 98.3 F 97.6 F Pulse Rate Respiratory 20 20 Rate Blood Pressure 172/126 187/96 Blood Pressure 172/126 [Right] O2 Sat by Pulse Oximetry 10/30/17 10/30/17 10/30/17 05:27 07:36 10:01 Temperature 99.9 F H Pulse Rate 105 H 85 85 Respiratory 18 Rate Blood Pressure 146/71 146/71 Blood Pressure [Right] O2 Sat by Pulse 94 98 Oximetry 10/30/17 10/30/17 10:02 10:04 Temperature Pulse Rate 85 85 Respiratory Rate Blood Pressure 146/71 146/71 Blood Pressure [Right] O2 Sat by Pulse Oximetry - General Appearance General appearance: well-developed, well-nourished, appears stated age, other ( no distress) EENT: ATNC, PERRL, hearing intact Neck: supple Respiratory: Present: Clear to Ascultation Cardiology: regular, S1S2, no murmurs Gastrointestinal: normoactive bowel sounds, no tenderness, no distended Integumentary: no rash, warm and dry Neurologic: no asterixis, alert and oriented x3 Musculoskeletal: other (no edema, left FA AVF) Psychiatric: mood/affect appropriate, cooperative - Lab 10/29/17 04:45 10/29/17 04:45 Most recent lab results Calcium 9.5 mg/dL (8.4-10.2) 10/29/17 04:45
--- NOTE | 2017-10-30 11:20 | Discharge Summary ---
Providers - Providers Date of Admission: 10/27/17 14:37 Date of discharge: 10/30/17 Attending physician: JUS GARCIA 10/27/17 14:25 Consult to Physician [CONS] Routine Consulting Provider: AYUSH JACOB Reason For Exam: clogged dialysis fistula Place consult to:: answering service Notified:: yes Phone number called:: [phone] If yes, spoke with:: todd Time called:: 07:42 Comment:: faustino Consult to Physician [CONS] Routine Consulting Provider: CYNTHIA GROVE Reason For Exam: dialysis, hyperkalemia Place consult to:: NEPHROLOGY Notified:: Y Was contact made?: Yes If yes, spoke with:: Dr Grove 10/27/17 20:21 Consult to Dietitian/Nutrition [CONS] Routine Physician Instructions: Reason For Exam: Reason for Consult: Diet education Primary care physician: EFREN BLACK Hospitalization Condition: Stable Hospital course: Patient is a 67-year-old man with a history of hypertension, diabetes mellitus type 2, CVA with left-sided paresis and end-stage renal disease on hemodialysis Friday and Friday who presents with clotted AV fistula and unable to finish hemodialysis on Friday. He was diagnosed with volume overload, hyperkalemia, elevated troponin -End-stage renal disease needing hemodialysis: Consult nephrology -Malfunctioning AV hemodialysis access: Vascular is following -Hyperkalemia: Needing hemodialysis, repeat BMP in a.m. -Elevated troponin: Consult cardiology -Uncontrolled type 2 diabetes mellitus: Add Sliding scale insulin -Accelerated hypertension: IV hydralazine when necessary -Acute on chronic anemia of chronic renal disease with a drop in hematocrit: Repeat CBC in a.m. 10/28/17: Fistulogram 10/29/17: Repair today, then hopefully hemodialysis then home if successfully 10/30/17: hemodialysis successful yesterday per chart, will discharge home Disposition: [place] TO HOME OR SELFCARE Time spent for discharge: 37 minutes Core Measure Documentation - Palliative Care Palliative Care/ Comfort Measures: Not Applicable - Core Measures Any of the following diagnoses?: none - VTE Discharge Requirements Deep Vein Thrombosis/Pulmonary Embolism Present on Admission: No Has pt received <5 days of overlap therapy or INR<2.0: No Anticoagulant overlap therapy prescribed at discharge: No Contraindication No Overlap Therapy order at DC: Not Indicated Exam - Physical Exam Narrative exam: GEN: WDWN, NAD, AWAKE, ALERT, ORIENTATED 3 HEENT: NCAT, EOMI, PERRL, OP Clear NECK: supple, no adenopathy, no thyromegaly, no JVD CVS/HEART: RRR, NORMAL S1S2, NO JVD, pulses present bilaterally CHEST/LUNGS: Bibasilar crackles Symmetrical chest expansion, good air entry bilaterally GI/Abdomen: soft, NTND, good bowel sounds, no guarding or rebound /Bladder: no suprapubic tenderness, no CVA or paraspinal tenderness EXT/Skin: no obvious rash MSK: Left-sided hemiparesis Neuro: CN 2-12 grossly intact, no new focal deficits Psych: calm - Constitutional Vitals: Temp Pulse Resp BP Pulse Ox 99.9 F H 85 18 146/71 98 10/30/17 07:36 10/30/17 10:04 10/30/17 07:36 10/30/17 10:04 10/30/17 07:36 Plan Activity: other (no strenous activity until cleared by pcp) Diet: renal Follow up with: EFREN BLACK MD [Primary Care Provider] - 3-5 Days
[2017-10-30] MEDS: CARAFATE PO SCH (11:48)
[2017-10-30] MEDS: HEPARIN SUB-Q SCH (14:30)
[2017-10-30 14:55] VITALS: BP 148/70
[2017-11-01] MEDS ORDERED: FOLIC ACID PO SCH (10:00)
[2017-11-01] MEDS ORDERED: VIT B COMPLEX AND C PO SCH (10:00)
== END 2017-10-30 15:29 | disposition home or self-care (01) | DRG 252 ==
LOC: ED 09:17 → 2B-ACE 14:37
PROVIDERS: ADMIT Internal Medicine; ATTEND Internal Medicine
PROC: 5A1D70Z Performance of Urinary Filtration, Intermittent, Less than 6 Hours Per Day (ICD-10-PCS; 2017-10-28)
PROC: B51W1ZZ Fluoroscopy of Dialysis Shunt/Fistula using Low Osmolar Contrast (ICD-10-PCS; 2017-10-28)
PROC: 057F3ZZ Dilation of Left Cephalic Vein, Percutaneous Approach (ICD-10-PCS; principal; 2017-10-29)
PROC: 5A1D70Z Performance of Urinary Filtration, Intermittent, Less than 6 Hours Per Day (ICD-10-PCS; 2017-10-29)
DX: T82.868A Thrombosis due to vascular prosthetic devices, implants and grafts, initial encounter (principal); N18.6 End stage renal disease; I12.0 Hypertensive chronic kidney disease with stage 5 chronic kidney disease or end stage renal disease; I69.354 Hemiplegia and hemiparesis following cerebral infarction affecting left non-dominant side; E87.70 Fluid overload, unspecified; E87.5 Hyperkalemia; D63.1 Anemia in chronic kidney disease; Y83.2 Surgical operation with anastomosis, bypass or graft as the cause of abnormal reaction of the patient, or of later complication, without mention of misadventure at the time of the procedure; E78.5 Hyperlipidemia, unspecified; E55.9 Vitamin D deficiency, unspecified; E11.22 Type 2 diabetes mellitus with diabetic chronic kidney disease; I25.10 Atherosclerotic heart disease of native coronary artery without angina pectoris; I25.2 Old myocardial infarction; Z79.4 Long term (current) use of insulin; Z79.82 Long term (current) use of aspirin; Z82.49 Family history of ischemic heart disease and other diseases of the circulatory system; Z79.899 Other long term (current) drug therapy; Y92.89 Other specified places as the place of occurrence of the external cause
CPT/HCPCS: 36415; 36901; 36902; 80048; 80061; 82550; 82553; 82962; 83036; 84484; 85025; 85027; 93005; 93010; 99285; A9270-GY; C1725; C1751; C1769; C1894; J0360; J0610; J0690; J1644; J1815; J1818; J2250; J2270; J2405; J3010; J7040; J7050; J7070; Q9967

== ENCOUNTER 2018-11-04 06:43 | Inpatient (IN) | payer MEDICARE ==
--- NOTE | 2018-11-04 06:55 | Emergency Department Report ---
ED Neuro Deficit HPI - General Chief Complaint: Neuro Symptoms/Deficit Stated Complaint: STROKE Time Seen by Provider: 11/04/18 06:50 Source: patient, EMS Mode of arrival: Stretcher Limitations: Altered Mental Status, Other - History of Present Illness Initial Comments: Patient is 68-year-old male presents emergency with complaints of left-sided weakness. Patient is a resident shelter brought here by EMS. Patient has a previous stroke leaving him with left-sided weakness but patient states weakness worse. Patient has been having falls recently over the last 3 days. Last known well time was unknown. Patient is a resident at shelter and is a DO NOT RESUSCITATE. Patient denies chest pain shortness of breath. Patient denies any physical pain. Patient states he hit his head a few days ago sustaining an abrasion to his right forehead. Patient complains of a cough 5 days. Patient denies fever or chills. Patient states the cough is nonproductive. Patient answering most questions appropriately. Patient is a and O 2. Patie nt is confused on date. -: Sudden Location: speech, left arm, left leg Presenting Symptoms: Present: Weak/Paralyzed One Side, Unable to Speak Clearly History of same: Yes Place: home Severity: severe Quality: weak Improves With: none Worsens With: none Context: sudden onset Associated Symptoms: confusion, weakness. denies: chest pain, cough, diaphoresis, fever/chills, headaches, loss of appetite, malise, nausea/vomiting, vertigo, seizures, shortness of breath, syncope Treatments Prior to Arrival: none - Related Data Home Medications: Home Medications Medication Instructions Recorded Confirmed Last Taken Aspirin [Aspirin TAB] 325 mg PO DAILY 12/03/13 10/27/17 1 Day Ago ~12/09/16 Ergocalciferol [Vitamin D2] 1 cap PO QWEEK 12/03/13 10/27/17 1 Day Ago ~12/09/16 Gabapentin 300 mg PO BID 12/03/13 10/27/17 1 Day Ago ~12/09/16 Insulin Glargine,Hum.rec.anlog 20 units SQ QHS 12/03/13 10/27/17 1 Day Ago [Lantus Solostar] ~12/09/16 Insulin Regular, Human [HumuLIN R] 3 units SC TIDAC 12/03/13 10/27/17 1 Day Ago ~12/09/16 AtorvaSTATin [Lipitor] 20 mg PO QHS 10/27/17 10/27/17 Unknown Calcitriol [Rocaltrol] 0.5 mcg PO QDAY 10/27/17 10/27/17 Unknown Folic Acid/Vit B Complex and C 1 tab PO DAILY 10/27/17 10/27/17 Unknown [Renal-Alexandrea Tablet] Lisinopril [Prinivil] 5 mg PO DAILY 10/27/17 10/27/17 Unknown Ondansetron [Zofran TAB] 4 mg PO Q8HR PRN 10/27/17 10/27/17 Unknown Sevelamer Carbonate [Renvela] 2 tab PO TID 10/27/17 10/27/17 Unknown Torsemide [Demadex] 40 mg PO DAILY 10/27/17 10/27/17 Unknown amLODIPine [Norvasc] 10 mg PO DAILY 10/27/17 10/27/17 Unknown glipiZIDE [Glipizide] 10 mg PO DAILY 10/27/17 10/27/17 Unknown traMADol [Ultram 50 MG tab] 50 mg PO Q8HR PRN 10/27/17 10/27/17 Unknown Previous Rx's Medication Instructions Recorded Last Taken Type Clopidogrel Bisulfate [Plavix] 75 mg PO DAILY #30 tablet 12/06/13 1 Day Ago Rx ~12/09/16 Sucralfate [Carafate] 1 gm PO Q6HR #56 udc 12/11/16 Unknown Rx Allergies/Adverse Reactions: Allergies Allergy/AdvReac Type Severity Reaction Status Date / Time No Known Allergies Allergy Unverified 12/03/13 12:17 ED Review of Systems ROS: Stated complaint: STROKE Other details as noted in HPI Constitutional: weakness. denies: chills, fever Eyes: denies: eye pain, eye discharge, vision change ENT: denies: ear pain, throat pain Respiratory: cough. denies: shortness of breath, wheezing Cardiovascular: denies: chest pain, palpitations Endocrine: no symptoms reported Gastrointestinal: denies: abdominal pain, nausea, diarrhea Genitourinary: denies: urgency, dysuria Musculoskeletal: denies: back pain, joint swelling, arthralgia Skin: denies: rash, lesions Neurological: weakness, confusion. denies: headache, paresthesias Psychiatric: denies: anxiety, depression Hematological/Lymphatic: denies: easy bleeding, easy bruising ED Past Medical Hx - Past Medical History Previous Medical History?: Yes Hx Hypertension: Yes Hx CVA: Yes (left sided weakness) Hx Heart Attack/AMI: Yes (NSTEMI 12/03/16) Hx Congestive Heart Failure: No Hx Diabetes: Yes Hx Renal Disease: Yes Hx Asthma: No Hx COPD: No Hx HIV: No - Surgical History Past Surgical History?: Yes Additional Surgical History: Cataract removal bilat - Family History Family history: no significant - Social History Smoking Status: Former Smoker Substance Use Type: None - Medications Home Medications: Home Medications Medication Instructions Recorded Confirmed Last Taken Type Aspirin [Aspirin TAB] 325 mg PO DAILY 12/03/13 10/27/17 1 Day Ago History ~12/09/16 Ergocalciferol [Vitamin D2] 1 cap PO QWEEK 12/03/13 10/27/17 1 Day Ago History ~12/09/16 Gabapentin 300 mg PO BID 12/03/13 10/27/17 1 Day Ago History ~12/09/16 Insulin Glargine,Hum.rec.anlog 20 units SQ QHS 12/03/13 10/27/17 1 Day Ago History [Lantus Solostar] ~12/09/16 Insulin Regular, Human [HumuLIN R] 3 units SC TIDAC 12/03/13 10/27/17 1 Day Ago History ~12/09/16 Clopidogrel Bisulfate [Plavix] 75 mg PO DAILY #30 tablet 12/06/13 10/27/17 1 Day Ago Rx ~12/09/16 Sucralfate [Carafate] 1 gm PO Q6HR #56 udc 12/11/16 10/27/17 Unknown Rx AtorvaSTATin [Lipitor] 20 mg PO QHS 10/27/17 10/27/17 Unknown History Calcitriol [Rocaltrol] 0.5 mcg PO QDAY 10/27/17 10/27/17 Unknown History Folic Acid/Vit B Complex and C 1 tab PO DAILY 10/27/17 10/27/17 Unknown History [Renal-Alexandrea Tablet] Lisinopril [Prinivil] 5 mg PO DAILY 10/27/17 10/27/17 Unknown History Ondansetron [Zofran TAB] 4 mg PO Q8HR PRN 10/27/17 10/27/17 Unknown History Sevelamer Carbonate [Renvela] 2 tab PO TID 10/27/17 10/27/17 Unknown History Torsemide [Demadex] 40 mg PO DAILY 10/27/17 10/27/17 Unknown History amLODIPine [Norvasc] 10 mg PO DAILY 10/27/17 10/27/17 Unknown History glipiZIDE [Glipizide] 10 mg PO DAILY 10/27/17 10/27/17 Unknown History traMADol [Ultram 50 MG tab] 50 mg PO Q8HR PRN 10/27/17 10/27/17 Unknown History ED Neuro Physical Exam - General Limitations: Altered Mental Status, Other General appearance: alert, in no apparent distress Suspected Stroke: Yes - Head Head exam: Present: atraumatic, normocephalic - Eye Eye exam: Present: normal appearance, PERRL Pupils: Present: normal accommodation - ENT ENT exam: Present: mucous membranes dry - Neck Neck exam: Present: normal inspection - Respiratory Respiratory exam: Present: rhonchi, decreased breath sounds. Absent: respiratory distress - Cardiovascular Cardiovascular Exam: Present: regular rate, normal rhythm. Absent: systolic murmur, diastolic murmur, rubs, gallop - GI/Abdominal GI/Abdominal exam: Present: soft, normal bowel sounds - Rectal Rectal exam: Present: deferred - Extremities Exam Extremities exam: Present: normal inspection - Back Exam Back exam: Present: normal inspection - Neurological Exam Neurological exam: Present: alert, altered (pt is A&Ox2) - NIHSS Assessment Interval: Baseline 1a. Level of Consciousness: alert/keenly responsive 1b. LOC Questions: answers both correctly 1c. LOC Commands: performs tasks correctly 2. Best Gaze: normal 3. Visual: no visual loss 4. Facial Palsy: normal symmetrical movement 5b. Motor Arm Right: no drift 5a. Motor Arm Left: drift 6a. Motor Leg Left: drift 6b. Motor Leg Right: no drift 7. Limb Ataxia: absent 8. Sensory: normal 9. Best Language: mild/moderate aphasia 10. Dysarthria: mild/moderate dysarthria 11. Extinction/Inattention: no abnormality Total Score: 4 Stroke Severity: Minor Stroke - Psychiatric Psychiatric exam: Present: normal affect, normal mood - Skin Skin exam: Present: warm, dry, intact, normal color. Absent: rash ED Course Vital Signs 11/04/18 11/04/18 11/04/18 07:01 07:10 07:15 Temperature 97.8 F Pulse Rate 92 H 90 91 H Respiratory 18 11 L Rate Blood Pressure 160/89 O2 Sat by Pulse 100 Oximetry 11/04/18 11/04/18 11/04/18 07:30 07:45 08:00 Temperature Pulse Rate 87 86 88 Respiratory 11 L 10 L 12 Rate Blood Pressure 158/71 147/73 163/83 O2 Sat by Pulse 100 Oximetry 11/04/18 11/04/18 11/04/18 08:16 08:42 08:45 Temperature Pulse Rate 90 88 87 Respiratory 17 9 L Rate Blood Pressure 159/79 163/83 169/83 O2 Sat by Pulse Oximetry 11/04/18 11/04/18 11/04/18 09:00 09:15 09:30 Temperature Pulse Rate 87 88 88 Respiratory 10 L 13 13 Rate Blood Pressure 171/80 174/83 171/85 O2 Sat by Pulse Oximetry - Reevaluation(s) Reevaluation #1: Initial evaluation done. Patient sent to CT. We'll consult neurologist. Code stroke initiated prior to arrival 11/04/18 06:45 Discussed all results and plan of care with patient. Patient agrees with plan of care and admission. Patient admits to the hospital service. However prior to admission we do a chest CT due to the patient's abnormal lung exam and cough and the fact that unable to obtain a good chest x-ray. 11/04/18 08:24 Patient is admitted to the hospitalist service. 11/04/18 09:15 - Consultations Consultation #1: Discussed case with neurologist. Dr. Parker recommends admission and MRI and further stroke workup. 11/04/18 07:17 Consultation #2: Hospital medicine service consulted for admission. Os was to admit patient. Hospitalist to assume care patient. Bridging orders placed 11/04/18 09:09 11/04/18 15:11 - Lab Data Result diagrams: 11/04/18 07:02 11/04/18 07:02 Lab Results 11/04/18 11/04/18 11/04/18 Range/Units 07:02 07:02 07:02 WBC 10.2 (4.5-11.0) K/mm3 RBC 3.47 L (3.65-5.03) M/mm3 Hgb 10.4 L (11.8-15.2) gm/dl Hct 31.3 L (35.5-45.6) % MCV 90 (84-94) fl MCH 30 (28-32) pg MCHC 33 (32-34) % RDW 17.2 H (13.2-15.2) % Plt Count 176 (140-440) K/mm3 Cuming % (Auto) Computer Peripheral Equipment Operator Add Manual Diff Complete Total Counted 100 Seg Neuts % (Manual) 68.0 (40.0-70.0) % Band Neutrophils % 0 % Lymphocytes % (Manual) 15.0 (13.4-35.0) % Reactive Lymphs % (Man) 0 % Monocytes % (Manual) 14.0 H (0.0-7.3) % Eosinophils % (Manual) 2.0 (0.0-4.3) % Basophils % (Manual) 1.0 (0.0-1.8) % Metamyelocytes % 0 % Myelocytes % 0 % Promyelocytes % 0 % Blast Cells % 0 % Nucleated RBC % Not Reportable Seg Neutrophils # Man 6.9 (1.8-7.7) K/mm3 Band Neutrophils # 0.0 K/mm3 Lymphocytes # (Manual) 1.5 (1.2-5.4) K/mm3 Abs React Lymphs (Man) 0.0 K/mm3 Monocytes # (Manual) 1.4 H (0.0-0.8) K/mm3 Eosinophils # (Manual) 0.2 (0.0-0.4) K/mm3 Basophils # (Manual) 0.1 (0.0-0.1) K/mm3 Metamyelocytes # 0.0 K/mm3 Myelocytes # 0.0 K/mm3 Promyelocytes # 0.0 K/mm3 Blast Cells # 0.0 K/mm3 WBC Morphology Not Reportable Hypersegmented Neuts Not Reportable Hyposegmented Neuts Not Reportable Hypogranular Neuts Not Reportable Smudge Cells Not Reportable Toxic Granulation Not Reportable Toxic Vacuolation Not Reportable Dohle Bodies Not Reportable Pelger-Huet Anomaly Not Reportable Otilio Rods Not Reportable Platelet Estimate Consistent w auto Clumped Platelets Not Reportable Plt Clumps, EDTA Not Reportable Large Platelets Not Reportable Giant Platelets Not Reportable Platelet Satelliting Not Reportable Plt Morphology Comment Not Reportable RBC Morphology Not Reportable Dimorphic RBCs Not Reportable Polychromasia Not Reportable Hypochromasia Not Reportable Poikilocytosis Not Reportable Anisocytosis 1+ Microcytosis Not Reportable Macrocytosis Not Reportable Spherocytes Not Reportable Pappenheimer Bodies Not Reportable Sickle Cells Not Reportable Target Cells Not Reportable Tear Drop Cells Not Reportable Ovalocytes Not Reportable Helmet Cells Not Reportable Mcgill-Adena Bodies Not Reportable [place] Rings Not Reportable Gloria Cells Not Reportable Bite Cells Not Reportable Crenated Cell Not Reportable Elliptocytes Not Reportable Acanthocytes (Spur) Not Reportable Rouleaux Not Reportable Hemoglobin C Crystals Not Reportable Schistocytes Not Reportable Malaria parasites Not Reportable Maxim Bodies Not Reportable Hem Pathologist Commnt No PT 14.0 (12.2-14.9) Sec. INR 1.04 (0.87-1.13) APTT 37.0 H (24.2-36.6) Sec. Thrombin Time 15.4 (15.1-19.6) Sec. Sodium 138 (137-145) mmol/L Potassium 4.9 (3.6-5.0) mmol/L Chloride 93.6 L (98-107) mmol/L Carbon Dioxide 21 L (22-30) mmol/L Anion Gap 28 mmol/L BUN 68 H (9-20) mg/dL Creatinine 12.2 H (0.8-1.5) mg/dL Estimated GFR 5 ml/min BUN/Creatinine Ratio 6 % Glucose 74 L (75-100) mg/dL Calcium 9.2 (8.4-10.2) mg/dL Total Bilirubin 0.20 (0.1-1.2) mg/dL AST 17 (5-40) units/L ALT 20 (7-56) units/L Alkaline Phosphatase 86 (35-129) units/L Total Creatine Kinase 172 H (55-170) units/L CK-MB (CK-2) 3.6 (0.0-4.0) ng/mL CK-MB (CK-2) Rel Index 2.0 (0-4) Troponin T 0.110 H* (0.00-0.029) ng/mL Total Protein 7.0 (6.3-8.2) g/dL Albumin 3.9 (3.9-5) g/dL Albumin/Globulin Ratio 1.3 % Triglycerides 173 H (2-149) mg/dL Cholesterol 122 (50-199) mg/dL LDL Cholesterol Direct 66 (50-130) mg/dL HDL Cholesterol 35 L (40-59) mg/dL Cholesterol/HDL Ratio 3.48 % - EKG Data -: EKG Interpreted by Oh EKG shows normal: sinus rhythm, axis, intervals, QRS complexes, ST-T waves Rate: normal - Radiology Data Radiology results: report reviewed FINAL REPORT EXAM: CT HEAD/BRAIN WO CON HISTORY: stroke like symptoms TECHNIQUE: CT imaging acquired through the head without intravenous contrast. Transaxial reformations are provided. PRIORS: 11/26/2016 FINDINGS: The ventricles, cisterns and sulci are within normal limits. No intraparenchymal or extra-axial mass, hemorrhage, or mass effect. Kilpatrick and white-matter differentiation is within normal limits for patient age. Normal spherical shape of the globes. No significant abnormality involving the imaged portions of the paranasal sinuses and mastoid air cells. No skull or facial fracture visualized. IMPRESSION: No acute intracranial abnormality. Findings were conveyed to Dr. Cardenas at 0601 central Time on 11/04/2018 immediately following the examination. Transcribed By: MB Dictated By: EFREN GOTTLIEB MD Electronically Authenticated By: EFREN GOTTLIEB MD Signed Date/Time: 11/04/[address] CHEST WITHOUT CONTRAST: HISTORY: Cough. COMPARISON: AP chest performed the same day. TECHNIQUE: Helical CT in 1.25mm intervals without IV contrast. Sagittal and coronal reformatted images. FINDINGS: Thyroid gland: Normal. Tracheobronchial tree: Normal. Esophagus: Normal. Heart: Normal. Pericardium: Normal. Mediastinum: Normal. Lung Conley: Within normal limits. Mild subpleural bibasilar atelectatic changes are identified. No evidence for pneumonia, mass or interstitial lung disease. Pleural Spaces: Normal. Musculoskeletal: Normal. IMPRESSION: No acute cardiopulmonary process. Bibasilar atelectatic changes. No convincing pneumonia. Transcribed By: LATOYA Dictated By: SANDRA PIERRE JR, MD Electronically Authenticated By: SANDRA PIERRE JR, MD Signed Date/Time: 11/04/18 0855 - Medical Decision Making Patient 68-year-old male presents emergency with left-sided weakness and possible CVA. Patient found to have left-sided weakness is unclear whether this is a continue of his previous stroke or new weakness. Patient also confused. Neurology was consult and recommendations received. Patient is admitted to the hospitalist service for further evaluation treatment. Patient requires stroke workup as well as an MRI. Patient found to have an abnormal cough with abnormal lung exam. CTA was negative for pneumonia. Patient will be treated for bronchitis. Elevated troponin is most likely secondary to chronic kidney disease. Patient also found to have anemia also secondary to chronic disease. - Differential Diagnosis cough. CVA. Weakness. Critical Care Time: Yes Critical care attestation.: If time is entered above; I have spent that time in minutes in the direct care of this critically ill patient, excluding procedure time. Critical Care Time: 45 minutes ED Disposition Clinical Impression: Cough, Left-sided weakness, Elevated troponin, Falls frequently, Bronchitis, End-stage renal disease needing dialysis CKD (chronic kidney disease) Qualifiers: Chronic kidney disease stage: unspecified stage Qualified Code(s): N18.9 - Chronic kidney disease, unspecified CVA (cerebral vascular accident) Qualifiers: CVA mechanism: unspecified Qualified Code(s): I63.9 - Cerebral infarction, unspecified Head injury Qualifiers: Encounter type: initial encounter Qualified Code(s): S09.90XA - Unspecified injury of head, initial encounter Forehead abrasion Qualifiers: Encounter type: initial encounter Qualified Code(s): S00.81XA - Abrasion of other part of head, initial encounter Disposition: DC-09 OP ADMIT IP TO THIS HOSP Is pt being admited?: Yes Does the pt Need Aspirin: No Condition: Critical Time of Disposition: 09:03
--- NOTE | 2018-11-04 07:06 | Cat Scan Report ---
FINAL REPORT EXAM: CT HEAD/BRAIN WO CON HISTORY: stroke like symptoms TECHNIQUE: CT imaging acquired through the head without intravenous contrast. Transaxial reformatio ns are provided. PRIORS: 11/26/2016 FINDINGS: The ventricles, cisterns and sulci are within normal limits. No intraparenchymal or extra-axial mass, hemorrhage, or mass effect. Kilpatrick and white-matter differentiation is within normal limits for patie nt age. Normal spherical shape of the globes. No significant abnormality involving the imaged portions of the paranasal sinuses and mastoid air cells. No skull or facial fracture visualized. IMPRESSION: No acute intracranial abnormality. Findings were conveyed to Dr. Cardenas at 0601 central Time on 11/04/2018 immediately following the exa mination.
[2018-11-04 07:31] LABS: Hematocrit 31.3 % (35.5-45.6); Hemoglobin 10.4 gm/dl (11.8-15.2); Mean Corpuscular HGB Conc 33 % (32-34); Mean Corpuscular Volume 90 fl (84-94); Platelet Count 176 K/mm3 (140-440); Red Blood Count 3.47 M/mm3 (3.65-5.03); Red Cell Distribution Width 17.2 % (13.2-15.2)
--- NOTE | 2018-11-04 07:38 | XRay Report ---
AP CHEST: HISTORY: Weakness, cough Compared to 12/04/16. There is poor inspiratory effort on today's exam. Subtle bibasilar opacities are identified which are most consistent with mild atelectatic changes. No convincing infiltrate, pleural effusion or pneumothorax. Heart and mediastinal structures are unremarkable. The bony structures are grossly intact. IMPRESSION: Grossly negative expiratory AP chest.
[2018-11-04 07:40] LABS: Creatine Kinase MB 3.6 ng/mL (0.0-4.0)
[2018-11-04 07:41] LABS: Albumin 3.9 g/dL (3.9-5); Calcium 9.2 mg/dL (8.4-10.2)
[2018-11-04 07:53] LABS: INR 1.04 (0.87-1.13); Thrombin Time 15.4 Sec. (15.1-19.6)
[2018-11-04 07:56] LABS: Chol/HDL Ratio 3.48 %
[2018-11-04 08:49] LABS: Total Cells Counted 100
[2018-11-04 08:50] LABS: Anisocytosis 1+; Platelet Estimate Consistent w Auto
--- NOTE | 2018-11-04 08:58 | Cat Scan Report ---
CT CHEST WITHOUT CONTRAST: HISTORY: Cough. COMPARISON: AP chest performed the same day. TECHNIQUE: Helical CT in 1.25mm intervals without IV contrast. Sagittal and coronal reformatted images. FINDINGS: Thyroid gland: Normal. Tracheobronchial tree: Normal. Esophagus: Normal. Heart: Normal. Pericardium: Normal. Mediastinum: Normal. Lung Conley: Within normal limits. Mild subpleural bibasilar atelectatic changes are identified. No evidence for pneumonia, mass or interstitial lung disease. Pleural Spaces: Normal. Musculoskeletal: Normal. IMPRESSION: No acute cardiopulmonary process. Bibasilar atelectatic changes. No convincing pneumonia.
[2018-11-04] MEDS ORDERED: SOLU-Medrol IV ONE (09:04)
[2018-11-04] MEDS ORDERED: LEVAQUIN 250MG/50ML 250 MG/50 ML BAG IV ONE (10:30)
--- NOTE | 2018-11-04 10:50 | History and Physical Report ---
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 Patient previous stroke left him with left-sided weakness but patient states the weakness is worse. Patient had multiple falls over the last 3 days, beginning on Friday. There is no precipitating factors to the falls. The falls are intermittent and more associated with his legs giving out. There is no aggravating or relieving f actors to the falls. He denies LOC. He did hit his head and has an abrasion on his right face/forehead. About 1-2 weeks ago, he was experiencing nausea and vomiting after hemodialysis. He went to see GI doctor but they were late to the visit and had to re-schedule. He does have a nonproductive cough without SOB, fever, chills or chest pains. PMH: as hpi, heart attack 2017 PSH: AV fistula and declot, Cataract removal SH: non smoker, quit tob >20 years ago, no etoh or drug abuse, FH: Hypertension, mother of heart attack ROS: Constitutional: denies: fever ENT: denies: throat or neck pain Respiratory: + cough, no shortness of breath Cardiovascular: denies: chest pain Endocrine: denies unexplained weight loss or gain Gastrointestinal: denies: abdominal pain, nausea Genitourinary: denies: dysuria Rectal: denies no incontinence, no bleeding, no itching, no discharge Musculoskeletal: denies swelling, myaglia, muscle weakness Skin: denies: rash Neurological: mild headache Hematological/Lymphatic: denies: easy bleeding or easy bruising Allergic/Immunologic: no urticaria, no allergic rhinitis, no anaphylaxis Psych: denies sadness or hopelessness, SI/HI Gen: chronic debilated appearing, NAD, Awake, Alert, Orientated x 2 HEENT: , abrasion to his right forehead. EOMI, PERRL, OP Clear Neck: supple, no adenopathy, no thyromegaly, no JVD CVS/Heart: RRR, normal S1S2, pulses present bilaterally Chest/Lungs: CTA B, Symmetrical chest expansion, good air entry bilaterally GI/Abdomen: soft, NTND, good bowel sounds, no guarding or rebound /Bladder: no suprapubic tenderness, no CVA or paraspinal tenderness Extermity/Skin: no c/c/e, no obvious rash MSK: FROM x 3, left hemiparesis Neuro: CN 2-12 grossly intact except speech, no new focal deficits Psych: calm Medications and Allergies Allergies Allergy/AdvReac Type Severity Reaction Status Date / Time No Known Allergies Allergy Unverified 12/03/13 12:17 Home Medications Medication Instructions Recorded Confirmed Last Taken Type Aspirin [Aspirin TAB] 325 mg PO DAILY 12/03/13 10/27/17 1 Day Ago History ~12/09/16 Ergocalciferol [Vitamin D2] 1 cap PO QWEEK 12/03/13 10/27/17 1 Day Ago History ~12/09/16 Gabapentin 300 mg PO BID 12/03/13 10/27/17 1 Day Ago History ~12/09/16 Insulin Glargine,Hum.rec.anlog 20 units SQ QHS 12/03/13 10/27/17 1 Day Ago History [Lantus Solostar] ~12/09/16 Insulin Regular, Human [HumuLIN R] 3 units SC TIDAC 12/03/13 10/27/17 1 Day Ago History ~12/09/16 Clopidogrel Bisulfate [Plavix] 75 mg PO DAILY #30 tablet 12/06/13 10/27/17 1 Day Ago Rx ~12/09/16 Sucralfate [Carafate] 1 gm PO Q6HR #56 udc 12/11/16 10/27/17 Unknown Rx AtorvaSTATin [Lipitor] 20 mg PO QHS 10/27/17 10/27/17 Unknown History Calcitriol [Rocaltrol] 0.5 mcg PO QDAY 10/27/17 10/27/17 Unknown History Folic Acid/Vit B Complex and C 1 tab PO DAILY 10/27/17 10/27/17 Unknown History [Renal-Alexandrea Tablet] Lisinopril [Prinivil] 5 mg PO DAILY 10/27/17 10/27/17 Unknown History Ondansetron [Zofran TAB] 4 mg PO Q8HR PRN 10/27/17 10/27/17 Unknown History Sevelamer Carbonate [Renvela] 2 tab PO TID 10/27/17 10/27/17 Unknown History Torsemide [Demadex] 40 mg PO DAILY 10/27/17 10/27/17 Unknown History amLODIPine [Norvasc] 10 mg PO DAILY 10/27/17 10/27/17 Unknown History glipiZIDE [Glipizide] 10 mg PO DAILY 10/27/17 10/27/17 Unknown History traMADol [Ultram 50 MG tab] 50 mg PO Q8HR PRN 10/27/17 10/27/17 Unknown History Active Meds: Active Medications Levofloxacin/Dextrose (Levaquin 250mg/50ml) 250 mg in 50 mls @ 50 mls/hr IV ONCE ONE Stop: 11/04/18 11:29 Exam - Constitutional Vitals: Temp Pulse Resp BP Pulse Ox 98.6 F 86 20 167/80 100 11/04/18 10:27 11/04/18 10:27 11/04/18 10:27 11/04/18 10:27 11/04/18 10:27 Results - Labs CBC & Chem 7: 11/04/18 07:02 11/04/18 07:02 Labs: Abnormal lab results 11/04/18 11/04/18 11/04/18 Range/Units 07:02 07:02 07:02 RBC 3.47 L (3.65-5.03) M/mm3 Hgb 10.4 L (11.8-15.2) gm/dl Hct 31.3 L (35.5-45.6) % RDW 17.2 H (13.2-15.2) % Monocytes % (Manual) 14.0 H (0.0-7.3) % Monocytes # (Manual) 1.4 H (0.0-0.8) K/mm3 APTT 37.0 H (24.2-36.6) Sec. 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 Patient previous stroke left him with left-sided weakness but patient states the weakness is worse. Patient had multiple falls over the last 3 days, beginning on Friday. There is no precipitating factors to the falls. The falls are intermittent and more associated with his legs giving out. There is no aggravating or relieving factors to the falls. He denies LOC. He did hit his head and has an abrasion on his right face/forehead. About 1-2 weeks ago, he was experiencing nausea and vomiting after hemodialysis. He was scheduled to see GI doctor but they were late to the visit and had to re-schedule. He does have a nonproductive cough without SOB, fever, chills or chest pains. * CT chest wo contrast IMPRESSION: No acute cardiopulmonary process. Bibasilar atelectatic changes. No convincing pneumonia. * CT head wo contrast IMPRESSION: No acute intracranial abnormality. -Recurrent falls, ?new stroke vs late effect of old stroke vs TIA vs other: get mri, treat with asa/statin/PT, mri/us carotid/echo with bubble study -Acute Bronchitis most likely viral: treat with antitussive and prn nebs -Anemia of chronic disease: monitor h/h closely -Accelerated Hypertension with Urgency: treat with iv hydralazine -ESRD on hemodialysis: consult renal, He has seen Dr. Merrill in the past -Metabolic acidosis due to renal dysfunction: treat with hemodialysis -Elevated Troponin T, chronically elevated at this level: recheck Troponins, then determine if Cardiology consult is needed -DVT prophylaxis: on asa and plavix -GI prophylaxis: ppi -Home Reconciliation: needs updating -Diet: Renal diet/ada -Disposition: admit inpatient, need telemetry to detect any arrhythmia, -DNR, d/w who confirmed this.
[2018-11-04] MEDS ORDERED: PROVENTIL IH PRN (11:16)
[2018-11-04] MEDS ORDERED: ZOFRAN IV PRN (11:16)
[2018-11-04] MEDS ORDERED: TYLENOL PO PRN (11:16)
[2018-11-04] MEDS ORDERED: APRESOLINE IV PRN (11:17)
[2018-11-04] MEDS: TESSALON PERLES PO SCH ×2 (14:42→21:54)
[2018-11-04] MEDS ORDERED: PROCRIT SUB-Q PRN (15:27)
[2018-11-04] MEDS ORDERED: NACL 0.9% 100 ML IV PRN (15:27)
--- NOTE | 2018-11-04 15:37 | Consultation ---
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 Patient is poor historian. He had multiple falls over the past few days. Per patient his legs are weak and giving out on attempted standing or transferring himself out of the wheelchair. There is no aggravating or relieving factors to the falls. He did hit his head and has an abrasion on his right face / forehead. He also c/o cough productive of clear phlegm. Denies SOB, fever, chills, chest pain, dizziness, PINEDA, Syncope, LOC, N, V, D, abd pain or leg swelling. Nephrology was consulted for ESRD care. Past History Past Medical History: diabetes, dialysis, ESRD, hyperlipidemia, stroke Medications and Allergies Allergies Allergy/AdvReac Type Severity Reaction Status Date / Time No Known Allergies Allergy Unverified 12/03/13 12:17 Home Medications Medication Instructions Recorded Confirmed Last Taken Type Aspirin [Aspirin TAB] 325 mg PO DAILY 12/03/13 10/27/17 1 Day Ago History ~12/09/16 Ergocalciferol [Vitamin D2] 1 cap PO QWEEK 12/03/13 10/27/17 1 Day Ago History ~12/09/16 Gabapentin 300 mg PO BID 12/03/13 10/27/17 1 Day Ago History ~12/09/16 Insulin Glargine,Hum.rec.anlog 20 units SQ QHS 12/03/13 10/27/17 1 Day Ago History [Lantus Solostar] ~12/09/16 Insulin Regular, Human [HumuLIN R] 3 units SC TIDAC 12/03/13 10/27/17 1 Day Ago History ~12/09/16 Clopidogrel Bisulfate [Plavix] 75 mg PO DAILY #30 tablet 12/06/13 10/27/17 1 Day Ago Rx ~12/09/16 Sucralfate [Carafate] 1 gm PO Q6HR #56 udc 12/11/16 10/27/17 Unknown Rx AtorvaSTATin [Lipitor] 20 mg PO QHS 10/27/17 10/27/17 Unknown History Calcitriol [Rocaltrol] 0.5 mcg PO QDAY 10/27/17 10/27/17 Unknown History Folic Acid/Vit B Complex and C 1 tab PO DAILY 10/27/17 10/27/17 Unknown History [Renal-Alexandrea Tablet] Lisinopril [Prinivil] 5 mg PO DAILY 10/27/17 10/27/17 Unknown History Ondansetron [Zofran TAB] 4 mg PO Q8HR PRN 10/27/17 10/27/17 Unknown History Sevelamer Carbonate [Renvela] 2 tab PO TID 10/27/17 10/27/17 Unknown History Torsemide [Demadex] 40 mg PO DAILY 10/27/17 10/27/17 Unknown History amLODIPine [Norvasc] 10 mg PO DAILY 10/27/17 10/27/17 Unknown History glipiZIDE [Glipizide] 10 mg PO DAILY 10/27/17 10/27/17 Unknown History traMADol [Ultram 50 MG tab] 50 mg PO Q8HR PRN 10/27/17 10/27/17 Unknown History Active Meds: Active Medications Acetaminophen (Tylenol) 650 mg PO Q6H PRN PRN Reason: Non Cardiac Pain or Temp>100.5 Albuterol (Proventil) 2.5 mg IH Q4HRT PRN PRN Reason: Shortness Of Breath Aspirin (Aspirin) 325 mg PO DAILY [facility] Atorvastatin Calcium (Lipitor) 40 mg PO QHS [facility] Benzonatate (Tessalon Perles) 100 mg PO Q8HR [facility] Last Admin: 11/04/18 14:42 Dose: 100 mg Documented by: Calcitriol (Rocaltrol) 0.5 mcg PO QDAY [facility] Clopidogrel Bisulfate (Plavix) 75 mg PO DAILY [facility] Hydralazine HCl (Apresoline) 10 mg IV Q4HR PRN PRN Reason: HTN SBP>=180 OR CHACORTA>=110 Ondansetron HCl (Zofran) 4 mg IV Q4H PRN PRN Reason: Nausea And Vomiting Pantoprazole Sodium (Protonix) 20 mg PO QDAY [facility] Review of Systems Constitutional: weakness, no weight loss, no weight gain, no fever, no chills, no anorexia Ears, nose, mouth and throat: no epistaxis Cardiovascular: high blood pressure, no chest pain, no orthopnea, no palpitations, no edema, no syncope, no lightheadedness, no shortness of breath, no dyspnea on exertion, no paroxysmal nocturnal dyspnea, no leg edema Respiratory: cough, cough with sputum, excessive sputum, no hemoptysis, no shortness of breath, no dyspnea on exertion, no home oxygen Gastrointestinal: no abdominal pain, no nausea, no vomiting, no diarrhea, no melena Genitourinary Male: no dysuria, no hematuria Rectal: no bleeding Musculoskeletal: no redness of joints Integumentary: no rash, no wounds, no jaundice Neurological: no syncope, no convulsions, no change in speech, no change in mentation, no confusion Exam - Vital Signs Vital signs: Vital Signs Pulse 92 H 11/04/18 07:01 - General Appearance General appearance: well-developed, well-nourished, appears stated age, other (frequent cough productive of clear phlegm.) EENT: ATNC, hearing diminished Neck: Present: neck supple, trachea midline Respiratory: Ronchi Heart: regular, S1S2, no murmurs Gastrointestinal: Present: normoactive bowel sounds. Absent: tenderness, dist ended Integumentary: no rash, warm and dry Neurologic: no asterixis, other (able to move all 4 extremities, dysarthria) Musculoskeletal: Present: other (left arm AVF, no edema) Results - Lab Results 11/04/18 07:02 11/04/18 07:02 Most recent lab results Calcium 9.2 mg/dL (8.4-10.2) 11/04/18 07:02 Assessment and Plan 1. ESRD: His usual schedule is MWF. Patient is due for hemodialysis today. HD orders placed. 2. Anemia: Epogen. 3. Frequent falls: Suspected new CVA. 4. Bronchitis. 5. HTN: Resume home meds. Monitor. 6. DM-2.
[2018-11-05 01:00] LABS: Hepatitis B Surface Antigen Non-Reactive (Negative); Hepatitis C Virus Antibody Non-Reactive (NonReactive)
[2018-11-05] MEDS: TESSALON PERLES PO SCH ×3 (05:15→21:12)
[2018-11-05] MEDS ORDERED: PROTONIX PO SCH (10:00)
--- NOTE | 2018-11-05 10:03 | Progress Note ---
Assessment and Plan 1. ESRD: His usual schedule is MWF. Patient received hemodialysis yesterday. 2. Anemia: Epogen. 3. Frequent falls: MRI brain with no acute changes. 4. Bronchitis. 5. HTN: BP is better. 6. DM-2. Subjective Date of service: 11/05/18 Interval history: Patient was seen and examined at the bedside. Doing better today. Objective - Vital Signs Vital signs: Vital Signs - 12hr 11/04/18 11/05/18 11/05/18 23:32 02:25 04:12 Temperature 98.0 F 98.0 F Pulse Rate 113 H 111 H 101 H Respiratory 18 18 Rate Blood Pressure 179/89 182/80 O2 Sat by Pulse 98 100 Oximetry - General Appearance General appearance: well-developed, well-nourished, appears stated age, other (not in distress) EENT: ATNC, PERRL, hearing intact Neck: supple Respiratory: Present: Ronchi Cardiology: regular, S1S2, no murmurs Gastrointestinal: normoactive bowel sounds, no tenderness, no distended Integumentary: no rash, warm and dry Neurologic: no asterixis, alert and oriented x3, other (dysarthric, able to move all 4 extremities) Musculoskeletal: other (no edema, left FA AVF) Psychiatric: cooperative - Lab 11/04/18 07:02 11/04/18 07:02 Most recent lab results Calcium 9.2 mg/dL (8.4-10.2) 11/04/18 07:02 Medications & Allergies - Medications Allergies/Adverse Reactions: Allergies No Known Allergies Allergy (Unverified 12/03/13 12:17) Home Medications: Home Medications Medication Instructions Recorded Confirmed Last Taken Type Aspirin [Aspirin TAB] 325 mg PO DAILY 12/03/13 10/27/17 1 Day Ago History ~12/09/16 Ergocalciferol [Vitamin D2] 1 cap PO QWEEK 12/03/13 10/27/17 1 Day Ago History ~12/09/16 Gabapentin 300 mg PO BID 12/03/13 10/27/17 1 Day Ago History ~12/09/16 Insulin Glargine,Hum.rec.anlog 20 units SQ QHS 12/03/13 10/27/17 1 Day Ago History [Lantus Solostar] ~12/09/16 Insulin Regular, Human [HumuLIN R] 3 units SC TIDAC 12/03/13 10/27/17 1 Day Ago History ~12/09/16 Clopidogrel Bisulfate [Plavix] 75 mg PO DAILY #30 tablet 12/06/13 10/27/17 1 Day Ago Rx ~12/09/16 Sucralfate [Carafate] 1 gm PO Q6HR #56 udc 12/11/16 10/27/17 Unknown Rx AtorvaSTATin [Lipitor] 20 mg PO QHS 10/27/17 10/27/17 Unknown History Calcitriol [Rocaltrol] 0.5 mcg PO QDAY 10/27/17 10/27/17 Unknown History Folic Acid/Vit B Complex and C 1 tab PO DAILY 10/27/17 10/27/17 Unknown History [Renal-Alexandrea Tablet] Lisinopril [Prinivil] 5 mg PO DAILY 10/27/17 10/27/17 Unknown History Ondansetron [Zofran TAB] 4 mg PO Q8HR PRN 10/27/17 10/27/17 Unknown History Sevelamer Carbonate [Renvela] 2 tab PO TID 10/27/17 10/27/17 Unknown History Torsemide [Demadex] 40 mg PO DAILY 10/27/17 10/27/17 Unknown History amLODIPine [Norvasc] 10 mg PO DAILY 10/27/17 10/27/17 Unknown History glipiZIDE [Glipizide] 10 mg PO DAILY 10/27/17 10/27/17 Unknown History traMADol [Ultram 50 MG tab] 50 mg PO Q8HR PRN 10/27/17 10/27/17 Unknown History Active Medications: Generic Name Dose Route Start Last Admin Trade Name Freq PRN Reason Stop Dose Admin Acetaminophen 650 mg 11/04/18 11:16 Tylenol PO Q6H PRN Non Cardiac Pain or Temp>100.5 Albuterol 2.5 mg 11/04/18 11:16 Proventil IH Q4HRT PRN Shortness Of Breath Aspirin 325 mg 11/05/18 10:00 Aspirin PO DAILY BENJA Atorvastatin Calcium 40 mg 11/04/18 22:00 11/04/18 21:54 Lipitor PO 40 mg QHS BENJA Administration Benzonatate 100 mg 11/04/18 14:00 11/05/18 05:15 Tessalon Perles PO 100 mg Q8HR BENJA Administration Calcitriol 0.5 mcg 11/05/18 10:00 Rocaltrol PO QDAY [facility] Clopidogrel Bisulfate 75 mg 11/05/18 10:00 Plavix PO DAILY BENJA Epoetin Oniel 10,000 unit 11/04/18 15:27 11/04/18 20:42 Procrit SUB-Q 10,000 unit CHACORTA PRN Administration hemodialysis Hydralazine HCl 10 mg 11/04/18 11:17 Apresoline IV Q4HR PRN HTN SBP>=180 OR CHACORTA>=110 Sodium Chloride 100 mls @ 999 mls/hr 11/04/18 15:27 Nacl 0.9% IV CHACORTA PRN Hypotension Ondansetron HCl 4 mg 11/04/18 11:16 11/04/18 16:06 Zofran IV 4 mg Q4H PRN Administration Nausea And Vomiting Pantoprazole Sodium 20 mg 11/05/18 10:00 Protonix PO QDAY BENJA
--- NOTE | 2018-11-05 10:10 | Magnetic Resonance Report ---
MRI OF THE BRAIN WITHOUT CONTRAST: HISTORY: CVA PROCEDURE: Multiplanar, multisequence MR imaging of the brain without IV contrast was performed. FINDINGS: The CT head dated 11/04/18 was reviewed. MRI demonstrates mild diffuse volume loss and mild nonspecific chronic white matter changes. A chronic lacunar infarct in the right anterior thalamus is noted. There is no evidence for hemorrhage, mass or large area of acute ischemia. No extra-axial fluid collection The midline structures are central. The basal cisterns are patent. Normal ventricular size. The orbital cavities and sella turcica demonstrate no abnormality. The visualized paranasal sinuses and mastoid air cells are well aerated. IMPRESSION: No acute intracranial process. Volume loss. Nonspecific chronic white matter changes. Chronic lacunar infarct in the right basal ganglia.
[2018-11-05] MEDS: PROTONIX PO SCH (10:54)
[2018-11-05] MEDS: ASPIRIN PO SCH (10:54)
[2018-11-05] MEDS: PLAVIX PO SCH (10:54)
[2018-11-05] MEDS: ROCALTROL PO SCH (10:54)
[2018-11-05] MEDS: NORVASC PO SCH (11:15)
[2018-11-05] MEDS: ZESTRIL PO SCH (11:15)
--- NOTE | 2018-11-05 14:50 | Progress Note ---
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 Patient previous stroke left him with left-sided weakness but patient states the weakness is worse. Patient had multiple falls over the last 3 days, beginning on Friday. There is no precipitating factors to the falls. The falls are intermittent and more associated with his legs giving out. There is no aggravating or relieving factors to the falls. He denies LOC. He did hit his head and has an abrasion on his right face/forehead. About 1-2 weeks ago, he was experiencing nausea and vomiting after hemodialysis. He was scheduled to see GI doctor but they were late to the visit and had to re-schedule. He does have a nonproductive cough without SOB, fever, chills or chest pains. * CT chest wo contrast IMPRESSION: No acute cardiopulmonary process. Bibasilar atelectatic changes. No convincing pneumonia. * CT head wo contrast IMPRESSION: No acute intracranial abnormality. -Recurrent falls, ?new stroke vs late effect of old stroke vs TIA vs other: get mri, treat with asa/statin/PT, mri/us carotid/echo with bubble study -Acute Bronchitis most likely viral: treat with antitussive and prn nebs -Anemia of chronic disease: monitor h/h closely -Accelerated Hypertension with Urgency: treat with iv hydralazine -ESRD on hemodialysis: consult renal, He has seen Dr. Merrill in the past -Metabolic acidosis due to renal dysfunction: treat with hemodialysis -Elevated Troponin T, chronically elevated at this level: recheck Troponins, t hen determine if Cardiology consult is needed -DVT prophylaxis: on asa and plavix -GI prophylaxis: ppi -Home Reconciliation: needs updating -Diet: Renal diet/ada -Disposition: admit inpatient, need telemetry to detect any arrhythmia, -DNR, d/w who confirmed this. Able to walk with minimal support possible d/c tomorrow Subjective Date of service: 11/05/18 Principal diagnosis: Recurrent falls Interval history: Walking in hallway with minimal support from PT therapist Objective - Constitutional Vitals: Vital Signs - 12hr 11/05/18 11/05/1811/05/19 04:12 13:32 13:33 Temperature 98.0 F 98.5 F Pulse Rate 101 H 94 H Respiratory 18 18 Rate Blood Pressure 182/80 141/81 O2 Sat by Pulse 100 100 Oximetry General appearance: Present: no acute distress, well-nourished - EENT Eyes: PERRL, EOM intact ENT: hearing intact, clear oral mucosa Ears: bilateral: normal - Neck Neck: supple, normal ROM - Respiratory Respiratory effort: normal Respiratory: bilateral: CTA - Breasts Breasts: normal - Cardiovascular Rhythm: regular Heart Sounds: Present: S1 & S2. Absent: gallop, rub Extremities: pulses intact, No edema, normal color, Full ROM - Gastrointestinal General gastrointestinal: Present: soft, non-tender, non-distended, normal bowel sounds - Genitourinary Male genitourinary: normal - Integumentary Integumentary: clear, warm, dry - Musculoskeletal Musculoskeletal: 1, strength equal bilaterally - Neurologic Neurologic: moves all extremities - Psychiatric Psychiatric: memory intact, appropriate mood/affect, intact judgment & insight - Labs CBC & Chem 7: 11/04/18 07:02 11/04/18 07:02 Labs: Abnormal lab results 11/04/18 11/04/18 11/05/18 Range/Units 17:27 17:28 06:14 POC Glucose 341 H 270 H (70-105) Troponin T 0.098 H (0.00-0.029) ng/mL 11/05/18 Range/Units 13:33 POC Glucose 239 H (70-105) Troponin T (0.00-0.029) ng/mL
--- NOTE | 2018-11-05 14:53 | Vascular Lab Report ---
FINAL REPORT EXAM: VL CAROTID DUPLEX BILAT HISTORY: cva TECHNIQUE: Grayscale and color and spectral Doppler ultrasound imaging of the carotid arteries was p erformed. PRIORS: None. FINDINGS: No areas of complete occlusion. Normal waveforms are seen throughout. No aneurysm. Calcified atherosc lerotic plaque is seen bilaterally. Normal flow is seen in the external carotid arteries. Antegrade f low is seen in the vertebral arteries. Peak systolic velocities in cm/s below: Right: CCA: 63 proximally, 54 distally ICA: 48 proximally, 45 mid, 147 distally ECA: 108 Left: CCA: 130 proximally, 100 distally ICA: 72 proximally, 78 mid, 62 distally ECA: 92 The right ICA:CCA ratio is 2.34. The left ICA:CCA ratio is 0.60. IMPRESSION: 1. 50-69 percent stenosis of the distal aspect of the right internal carotid artery. 2. Less than 50 percent stenosis of the left internal carotid artery.
[2018-11-06] MEDS: TESSALON PERLES PO SCH ×3 (05:30→22:38)
[2018-11-06 05:32] LABS: Basophils # (Auto) 0.1 K/mm3 (0.0-0.1); Basophils % (Auto) 0.7 % (0.0-1.8); Eosinophils # (Auto) 0.3 K/mm3 (0.0-0.4); Eosinophils % (Auto) 3.3 % (0.0-4.3); Hematocrit 31.8 % (35.5-45.6); Hemoglobin 10.4 gm/dl (11.8-15.2); Lymphocytes % (Auto) 24.4 % (13.4-35.0); Mean Corpuscular HGB Conc 33 % (32-34); Mean Corpuscular Volume 91 fl (84-94); Monocytes # (Auto) 1.2 K/mm3 (0.0-0.8); Monocytes % (Auto) 13.8 % (0.0-7.3); Platelet Count 190 K/mm3 (140-440); Red Cell Distribution Width 16.9 % (13.2-15.2)
[2018-11-06 05:58] LABS: Albumin 3.9 g/dL (3.9-5); Calcium 9.4 mg/dL (8.4-10.2)
--- NOTE | 2018-11-06 08:50 | Progress Note ---
Assessment and Plan 1. ESRD: His usual schedule is MWF. HD day. 2. Anemia: Epogen. 3. Frequent falls: MRI brain with no acute changes. 4. Bronchitis. 5. HTN: BP is better. 6. DM-2. Subjective Date of service: 11/06/18 Principal diagnosis: Recurrent falls Interval history: Patient was seen and examined at the bedside. Objective - Vital Signs Vital signs: Vital Signs - 12hr 11/05/18 11/05/18 11/06/18 21:00 22:55 04:27 Temperature 98.0 F 98.5 F Pulse Rate 95 H 92 H Respiratory 16 18 Rate Blood Pressure 180/92 158/86 O2 Sat by Pulse 91 94 Oximetry - General Appearance General appearance: well-developed, well-nourished, appears stated age, other (not in distress) EENT: ATNC, PERRL, vision intact Neck: supple Respiratory: Present: Ronchi Cardiology: regular, S1S2, no murmurs Gastrointestinal: normoactive bowel sounds, no tenderness, no distended Integumentary: no rash, warm and dry Neurologic: other (able to move all 4 extremities, conversing) Musculoskeletal: other (no edema, left FA AVF) Psychiatric: cooperative - Lab 11/06/18 05:15 11/06/18 05:15 Most recent lab results Calcium 9.4 mg/dL (8.4-10.2) 11/06/18 05:15 Medications & Allergies - Medications Allergies/Adverse Reactions: Allergies No Known Allergies Allergy (Unverified 12/03/13 12:17) Home Medications: Home Medications Medication Instructions Recorded Confirmed Last Taken Type Aspirin [Aspirin TAB] 325 mg PO DAILY 12/03/13 10/27/17 1 Day Ago History ~12/09/16 Ergocalciferol [Vitamin D2] 1 cap PO QWEEK 12/03/13 10/27/17 1 Day Ago History ~12/09/16 Gabapentin 300 mg PO BID 12/03/13 10/27/17 1 Day Ago History ~12/09/16 Insulin Glargine,Hum.rec.anlog 20 units SQ QHS 12/03/13 10/27/17 1 Day Ago History [Lantus Solostar] ~12/09/16 Insulin Regular, Human [HumuLIN R] 3 units SC TIDAC 12/03/13 10/27/17 1 Day Ago History ~12/09/16 Clopidogrel Bisulfate [Plavix] 75 mg PO DAILY #30 tablet 12/06/13 10/27/17 1 Day Ago Rx ~12/09/16 Sucralfate [Carafate] 1 gm PO Q6HR #56 udc 12/11/16 10/27/17 Unknown Rx AtorvaSTATin [Lipitor] 20 mg PO QHS 10/27/17 10/27/17 Unknown History Calcitriol [Rocaltrol] 0.5 mcg PO QDAY 10/27/17 10/27/17 Unknown History Folic Acid/Vit B Complex and C 1 tab PO DAILY 10/27/17 10/27/17 Unknown History [Renal-Alexandrea Tablet] Lisinopril [Prinivil] 5 mg PO DAILY 10/27/17 10/27/17 Unknown History Ondansetron [Zofran TAB] 4 mg PO Q8HR PRN 10/27/17 10/27/17 Unknown History Sevelamer Carbonate [Renvela] 2 tab PO TID 10/27/17 10/27/17 Unknown History Torsemide [Demadex] 40 mg PO DAILY 10/27/17 10/27/17 Unknown History amLODIPine [Norvasc] 10 mg PO DAILY 10/27/17 10/27/17 Unknown History glipiZIDE [Glipizide] 10 mg PO DAILY 10/27/17 10/27/17 Unknown History traMADol [Ultram 50 MG tab] 50 mg PO Q8HR PRN 10/27/17 10/27/17 Unknown History Active Medications: Generic Name Dose Route Start Last Admin Trade Name Freq PRN Reason Stop Dose Admin Acetaminophen 650 mg 11/04/18 11:16 Tylenol PO Q6H PRN Non Cardiac Pain or Temp>100.5 Albuterol 2.5 mg 11/04/18 11:16 Proventil IH Q4HRT PRN Shortness Of Breath Amlodipine Besylate 10 mg 11/05/18 11:00 11/05/18 11:15 Norvasc PO 10 mg QDAY BENJA Administration Aspirin 325 mg 11/05/18 10:00 11/05/18 10:54 Aspirin PO 325 mg DAILY BENJA Administration Atorvastatin Calcium 40 mg 11/04/18 22:00 11/05/18 21:12 Lipitor PO 40 mg QHS BENJA Administration Benzonatate 100 mg 11/04/18 14:00 11/06/18 05:30 Tessalon Perles PO 100 mg Q8HR BENJA Administration Calcitriol 0.5 mcg 11/05/18 10:00 11/05/18 10:54 Rocaltrol PO 0.5 mcg QDAY BENJA Administration Clopidogrel Bisulfate 75 mg 11/05/18 10:00 11/05/18 10:54 Plavix PO 75 mg DAILY BENJA Administration Epoetin Oniel 10,000 unit 11/04/18 15:27 11/04/18 20:42 Procrit SUB-Q 10,000 unit CHACORTA PRN Administration hemodialysis Hydralazine HCl 10 mg 11/04/18 11:17 Apresoline IV Q4HR PRN HTN SBP>=180 OR CHACORTA>=110 Sodium Chloride 100 mls @ 999 mls/hr 11/04/18 15:27 Nacl 0.9% IV CHACORTA PRN Hypotension Lisinopril 10 mg 11/05/18 11:00 11/05/18 11:15 Zestril PO 10 mg QDAY BENJA Administration Ondansetron HCl 4 mg 11/04/18 11:16 11/04/18 16:06 Zofran IV 4 mg Q4H PRN Administration Nausea And Vomiting Pantoprazole Sodium 20 mg 11/05/18 10:00 11/05/18 10:54 Protonix PO 20 mg QDAY BENJA Administration
[2018-11-06] MEDS ORDERED: NACL 0.9 (PRIMING MACHINE ONLY DIALYSIS) MC ONE (12:53)
[2018-11-06] MEDS: PLAVIX PO SCH (15:20)
[2018-11-06] MEDS: ASPIRIN PO SCH (15:20)
[2018-11-06] MEDS: PROTONIX PO SCH (15:20)
[2018-11-06] MEDS: NORVASC PO SCH (15:20)
[2018-11-06] MEDS: ROCALTROL PO SCH (15:20)
[2018-11-06] MEDS: ZESTRIL PO SCH (15:20)
[2018-11-07] MEDS: TESSALON PERLES PO SCH ×3 (06:09→21:51)
[2018-11-07] MEDS: HumaLOG SUB-Q SCH ×4 (08:02→21:57)
[2018-11-07] MEDS: NORVASC PO SCH (11:56)
[2018-11-07] MEDS: ROCALTROL PO SCH (11:56)
[2018-11-07] MEDS: ASPIRIN PO SCH (11:56)
[2018-11-07] MEDS: PLAVIX PO SCH (11:56)
[2018-11-07] MEDS: PROTONIX PO SCH (11:56)
[2018-11-07] MEDS: ZESTRIL PO SCH (11:57)
--- NOTE | 2018-11-07 13:43 | Progress Note ---
Assessment and Plan 1. ESRD: His usual schedule is MWF. Last dialyzed yesterday. 2. Anemia: Epogen. 3. Frequent falls: MRI brain with no acute changes. 4. Bronchitis. 5. HTN: BP is better. 6. DM-2. Subjective Date of service: 11/07/18 Principal diagnosis: Recurrent falls Interval history: Patient was seen and examined at the bedside. Objective - Vital Signs Vital signs: Vital Signs - 12hr 11/07/18 11/07/18 11/07/18 05:10 08:45 08:50 Temperature 98.9 F 98.9 F Pulse Rate 103 H 99 H 101 H Respiratory 18 20 20 Rate Blood Pressure 155/87 133/85 119/31 O2 Sat by Pulse 100 100 100 Oximetry 11/07/18 11:53 Temperature 99.2 F Pulse Rate Respiratory Rate Blood Pressure O2 Sat by Pulse Oximetry - General Appearance General appearance: well-developed, well-nourished, appears stated age, other (not in distress) EENT: ATNC, PERRL, hearing diminished Neck: supple Respiratory: Present: Ronchi Cardiology: regular, S1S2, no murmurs Gastrointestinal: normoactive bowel sounds, no tenderness, no distended Integumentary: no rash, warm and dry Neurologic: other (able to move all 4 extremities, conversing) Musculoskeletal: other (no edema, left arm AVF) Psychiatric: cooperative - Lab 11/06/18 05:15 11/06/18 05:15 Most recent lab results Calcium 9.4 mg/dL (8.4-10.2) 11/06/18 05:15 Medications & Allergies - Medications Allergies/Adverse Reactions: Allergies No Known Allergies Allergy (Unverified 12/03/13 12:17) Home Medications: Home Medications Medication Instructions Recorded Confirmed Last Taken Type Aspirin [Aspirin TAB] 325 mg PO DAILY 12/03/13 10/27/17 1 Day Ago History ~12/09/16 Ergocalciferol [Vitamin D2] 1 cap PO QWEEK 12/03/13 10/27/17 1 Day Ago History ~12/09/16 Gabapentin 300 mg PO BID 12/03/13 10/27/17 1 Day Ago History ~12/09/16 Insulin Glargine,Hum.rec.anlog 20 units SQ QHS 12/03/13 10/27/17 1 Day Ago History [Lantus Solostar] ~12/09/16 Insulin Regular, Human [HumuLIN R] 3 units SC TIDAC 12/03/13 10/27/17 1 Day Ago History ~12/09/16 Clopidogrel Bisulfate [Plavix] 75 mg PO DAILY #30 tablet 12/06/13 10/27/17 1 Day Ago Rx ~12/09/16 Sucralfate [Carafate] 1 gm PO Q6HR #56 udc 12/11/16 10/27/17 Unknown Rx AtorvaSTATin [Lipitor] 20 mg PO QHS 10/27/17 10/27/17 Unknown History Calcitriol [Rocaltrol] 0.5 mcg PO QDAY 10/27/17 10/27/17 Unknown History Folic Acid/Vit B Complex and C 1 tab PO DAILY 10/27/17 10/27/17 Unknown History [Renal-Alexandrea Tablet] Lisinopril [Prinivil] 5 mg PO DAILY 10/27/17 10/27/17 Unknown History Ondansetron [Zofran TAB] 4 mg PO Q8HR PRN 10/27/17 10/27/17 Unknown History Sevelamer Carbonate [Renvela] 2 tab PO TID 10/27/17 10/27/17 Unknown History Torsemide [Demadex] 40 mg PO DAILY 10/27/17 10/27/17 Unknown History amLODIPine [Norvasc] 10 mg PO DAILY 10/27/17 10/27/17 Unknown History glipiZIDE [Glipizide] 10 mg PO DAILY 10/27/17 10/27/17 Unknown History traMADol [Ultram 50 MG tab] 50 mg PO Q8HR PRN 10/27/17 10/27/17 Unknown History Active Medications: Generic Name Dose Route Start Last Admin Trade Name Freq PRN Reason Stop Dose Admin Acetaminophen 650 mg 11/04/18 11:16 Tylenol PO Q6H PRN Non Cardiac Pain or Temp>100.5 Albuterol 2.5 mg 11/04/18 11:16 Proventil IH Q4HRT PRN Shortness Of Breath Amlodipine Besylate 10 mg 11/05/18 11:00 11/07/18 11:56 Norvasc PO 10 mg QDAY BENJA Administration Aspirin 325 mg 11/05/18 10:00 11/07/18 11:56 Aspirin PO 325 mg DAILY BENJA Administration Atorvastatin Calcium 40 mg 11/04/18 22:00 11/06/18 22:38 Lipitor PO 40 mg QHS BENJA Administration Benzonatate 100 mg 11/04/18 14:00 11/07/18 06:09 Tessalon Perles PO 100 mg Q8HR BENJA Administration Calcitriol 0.5 mcg 11/05/18 10:00 11/07/18 11:56 Rocaltrol PO 0.5 mcg QDAY BENJA Administration Clopidogrel Bisulfate 75 mg 11/05/18 10:00 11/07/18 11:56 Plavix PO 75 mg DAILY BENJA Administration Epoetin Oniel 10,000 unit 11/04/18 15:27 11/04/18 20:42 Procrit SUB-Q 10,000 unit CHACORTA PRN Administration hemodialysis Hydralazine HCl 10 mg 11/04/18 11:17 Apresoline IV Q4HR PRN HTN SBP>=180 OR CHACORTA>=110 Sodium Chloride 100 mls @ 999 mls/hr 11/04/18 15:27 Nacl 0.9% IV CHACORTA PRN Hypotension Insulin Human Lispro 0 unit 11/07/18 07:30 11/07/18 12:01 Humalog SUB-Q 8 unit ACHS BENJA Administration Protocol Lisinopril 10 mg 11/05/18 11:00 11/07/18 11:57 Zestril PO 10 mg QDAY BENJA Administration Ondansetron HCl 4 mg 11/04/18 11:16 11/04/18 16:06 Zofran IV 4 mg Q4H PRN Administration Nausea And Vomiting Pantoprazole Sodium 20 mg 11/05/18 10:00 11/07/18 11:56 Protonix PO 20 mg QDAY BENJA Administration
--- NOTE | 2018-11-07 15:42 | Discharge Summary ---
Providers - Providers Date of Admission: 11/04/18 09:13 Date of discharge: 11/07/18 Attending physician: ISAEL DELGADO 11/04/18 11:12 Occupational Therapy Evaluate and Treat [CONS] Routine Comment: Reason For Exam: ADLs evaluation Physical Therapy Evaluation and Treat [CONS] Routine Comment: Reason For Exam: gait evaluation/ambulatory dysfunction 11/04/18 14:37 Consult to Physician [CONS] Routine Comment: Consulting Provider: CYNTHIA GROVE Physician Instructions: Reason For Exam: ESRD on HD, you've seen in the past Primary care physician: [employer] Hospitalization Condition: Critical Pertinent studies: IMPRESSION: No acute intracranial process. Volume loss. Nonspecific chronic white matter changes. Chronic lacunar infarct in the right basal ganglia. Hospital course: Recurrent falls, needs PT at SNF,No new CVA -Acute Bronchitis most likely viral: Improved -Anemia of chronic disease: -Accelerated Hypertension with Urgency: Improved -ESRD on hemodialysis: consult renal, He has seen Dr. Grove in the past -Metabolic acidosis due to renal dysfunction: treat with hemodialysis -Elevated Troponin T, chronically elevated at this level: recheck Troponins, then determine if Cardiology consult is needed -DVT prophylaxis: on asa and plavix -GI prophylaxis: ppi -DNR, d/w who confirmed this. Able to walk with minimal support d/c Today Disposition: DC-01 TO HOME OR SELFCARE Core Measure Documentation - Palliative Care Palliative Care/ Comfort Measures: Not Applicable - Core Measures Any of the following diagnoses?: none Exam - Constitutional Vitals: Temp Pulse Resp BP Pulse Ox 99.2 F 101 H 20 119/31 100 11/07/18 11:53 11/07/18 08:50 11/07/18 08:50 11/07/18 08:50 11/07/18 08:50 General appearance: Present: no acute distress, well-nourished - EENT Eyes: Present: PERRL ENT: hearing intact, clear oral mucosa - Neck Neck: Present: supple, normal ROM - Respiratory Respiratory effort: normal Respiratory: bilateral: CTA - Cardiovascular Heart rate: 78 Rhythm: regular Heart Sounds: Present: S1 & S2. Absent: rub, click - Extremities Extremities: no ischemia, pulses intact, pulses symmetrical, No edema Peripheral Pulses: within normal limits - Abdominal General gastrointestinal: Present: soft, non-tender, non-distended, normal bowel sounds Male genitourinary: Present: normal - Rectal Rectal Exam: deferred - Integumentary Integumentary: Present: clear, warm, dry - Musculoskeletal Musculoskeletal: gait normal, strength equal bilaterally - Psychiatric Psychiatric: appropriate mood/affect, intact judgment & insight - Neurologic Neurologic: CNII-XII intact, moves all extremities - Allied Health Allied health notes reviewed: nursing, case management Plan Activity: no restrictions Diet: low fat, low cholesterol, low salt Follow up with: PRIMARY CARE, [Primary Care Provider] - 3-5 Days
--- NOTE | 2018-11-07 15:58 | Progress Note ---
Assessment and Plan -Recurrent falls, ?new stroke vs late effect of old stroke vs TIA vs other: get mri, treat with asa/statin/PT, mri/us carotid/echo with bubble study -Acute Bronchitis most likely viral: treat with antitussive and prn nebs -Anemia of chronic disease: monitor h/h closely -Accelerated Hypertension with Urgency: treat with iv hydralazine -ESRD on hemodialysis: consult renal, He has seen Dr. Merrill in the past -Metabolic acidosis due to renal dysfunction: treat with hemodialysis -Elevated Troponin T, chronically elevated at this level: recheck Troponins, then determine if Cardiology consult is needed -DVT prophylaxis: on asa and plavix -GI prophylaxis: ppi -DNR, d/w who confirmed this. Able to walk with minimal support d/c tomorrow Subjective Date of service: 11/07/18 Principal diagnosis: Recurrent falls Interval history: Walking in hallway with minimal support from PT therapist Objective - Constitutional Vitals: Vital Signs - 12hr 11/07/18 11/07/18 11/07/18 05:10 08:45 08:50 Temperature 98.9 F 98.9 F Pulse Rate 103 H 99 H 101 H Respiratory 18 20 20 Rate Blood Pressure 155/87 133/85 119/31 O2 Sat by Pulse 100 100 100 Oximetry 11/07/18 11:53 Temperature 99.2 F Pulse Rate Respiratory Rate Blood Pressure O2 Sat by Pulse Oximetry General appearance: Present: no acute distress, well-nourished - EENT Eyes: PERRL, EOM intact ENT: hearing intact, clear oral mucosa Ears: bilateral: normal - Neck Neck: supple, normal ROM - Respiratory Respiratory effort: normal Respiratory: bilateral: CTA - Breasts Breasts: normal - Cardiovascular Rhythm: regular Heart Sounds: Present: S1 & S2. Absent: gallop, rub Extremities: pulses intact, No edema, normal color, Full ROM - Gastrointestinal General gastrointestinal: Present: soft, non-tender, non-distended, normal bowel sounds - Genitourinary Male genitourinary: normal - Integumentary Integumentary: clear, warm, dry - Musculoskeletal Musculoskeletal: 1, strength equal bilaterally - Neurologic Neurologic: moves all extremities - Psychiatric Psychiatric: memory intact, appropriate mood/affect, intact judgment & insight - Labs CBC & Chem 7: 11/06/18 05:15 11/06/18 05:15 Labs: Abnormal lab results 11/06/18 11/06/18 11/07/18 Range/Units 17:01 21:30 01:24 POC Glucose 256 H 352 H 267 H (70-105) 11/07/18 11/07/18 Range/Units 06:34 11:53 POC Glucose 243 H 301 H (70-105)
[2018-11-08] MEDS: TESSALON PERLES PO SCH ×2 (05:43→13:56)
[2018-11-08] MEDS: PROTONIX PO SCH (10:25)
[2018-11-08] MEDS: ZESTRIL PO SCH (10:25)
[2018-11-08] MEDS: NORVASC PO SCH (10:25)
[2018-11-08] MEDS: ROCALTROL PO SCH (10:25)
[2018-11-08] MEDS: ASPIRIN PO SCH (10:25)
[2018-11-08] MEDS: HumaLOG SUB-Q SCH ×3 (10:25→18:10)
[2018-11-08] MEDS: PLAVIX PO SCH (10:25)
--- NOTE | 2018-11-08 12:01 | Progress Note ---
Assessment and Plan 1. ESRD: His usual schedule is MWF. Last dialyzed 2 days ago. 2. Anemia: Epogen. 3. Frequent falls: MRI brain with no acute changes. 4. Bronchitis: Improved. 5. HTN: BP is better. 6. DM-2. Subjective Date of service: 11/08/18 Principal diagnosis: Recurrent falls Interval history: Patient was seen and examined at the bedside. Objective - Vital Signs Vital signs: Vital Signs - 12hr 11/08/18 11/08/18 11/08/18 04:58 08:33 08:34 Temperature 98.0 F 98.7 F Pulse Rate 96 H 98 H Respiratory 17 18 Rate Blood Pressure 130/83 130/82 O2 Sat by Pulse 99 100 Oximetry 11/08/18 08:41 Temperature Pulse Rate Respiratory Rate Blood Pressure O2 Sat by Pulse 99 Oximetry - General Appearance General appearance: well-developed, well-nourished, appears stated age, other (not in distress) EENT: ATNC, PERRL, mucous membranes moist, hearing intact, vision intact Neck: supple Respiratory: Present: Clear to Ascultation Cardiology: regular, S1S2, no murmurs Gastrointestinal: normoactive bowel sounds, no tenderness, no distended Integumentary: no rash, warm and dry Neurologic: no asterixis, other (able to move all extremities) Musculoskeletal: other (no edema, left arm AVF) Psychiatric: cooperative - Lab 11/06/18 05:15 11/06/18 05:15 Most recent lab results Calcium 9.4 mg/dL (8.4-10.2) 11/06/18 05:15 Medications & Allergies - Medications Allergies/Adverse Reactions: Allergies No Known Allergies Allergy (Unverified 12/03/13 12:17) Home Medications: Home Medications Medication Instructions Recorded Confirmed Last Taken Type Aspirin [Aspirin TAB] 325 mg PO DAILY 12/03/13 10/27/17 1 Day Ago History ~12/09/16 Ergocalciferol [Vitamin D2] 1 cap PO QWEEK 12/03/13 10/27/17 1 Day Ago History ~12/09/16 Gabapentin 300 mg PO BID 12/03/13 10/27/17 1 Day Ago History ~12/09/16 Insulin Glargine,Hum.rec.anlog 20 units SQ QHS 12/03/13 10/27/17 1 Day Ago History [Lantus Solostar] ~12/09/16 Insulin Regular, Human [HumuLIN R] 3 units SC TIDAC 12/03/13 10/27/17 1 Day Ago History ~12/09/16 Clopidogrel Bisulfate [Plavix] 75 mg PO DAILY #30 tablet 12/06/13 10/27/17 1 Day Ago Rx ~12/09/16 Sucralfate [Carafate] 1 gm PO Q6HR #56 udc 12/11/16 10/27/17 Unknown Rx AtorvaSTATin [Lipitor] 20 mg PO QHS 10/27/17 10/27/17 Unknown History Calcitriol [Rocaltrol] 0.5 mcg PO QDAY 10/27/17 10/27/17 Unknown History Folic Acid/Vit B Complex and C 1 tab PO DAILY 10/27/17 10/27/17 Unknown History [Renal-Alexandrea Tablet] Lisinopril [Prinivil] 5 mg PO DAILY 10/27/17 10/27/17 Unknown History Ondansetron [Zofran TAB] 4 mg PO Q8HR PRN 10/27/17 10/27/17 Unknown History Sevelamer Carbonate [Renvela] 2 tab PO TID 10/27/17 10/27/17 Unknown History Torsemide [Demadex] 40 mg PO DAILY 10/27/17 10/27/17 Unknown History amLODIPine [Norvasc] 10 mg PO DAILY 10/27/17 10/27/17 Unknown History glipiZIDE [Glipizide] 10 mg PO DAILY 10/27/17 10/27/17 Unknown History traMADol [Ultram 50 MG tab] 50 mg PO Q8HR PRN 10/27/17 10/27/17 Unknown History Active Medications: Generic Name Dose Route Start Last Admin Trade Name Freq PRN Reason Stop Dose Admin Acetaminophen 650 mg 11/04/18 11:16 Tylenol PO Q6H PRN Non Cardiac Pain or Temp>100.5 Albuterol 2.5 mg 11/04/18 11:16 Proventil IH Q4HRT PRN Shortness Of Breath Amlodipine Besylate 10 mg 11/05/18 11:00 11/08/18 10:25 Norvasc PO 10 mg QDAY BENJA Administration Aspirin 325 mg 11/05/18 10:00 11/08/18 10:25 Aspirin PO 325 mg DAILY BENJA Administration Atorvastatin Calcium 40 mg 11/04/18 22:00 11/07/18 21:50 Lipitor PO 40 mg QHS BENJA Administration Benzonatate 100 mg 11/04/18 14:00 11/08/18 05:43 Tessalon Perles PO 100 mg Q8HR BENJA Administration Calcitriol 0.5 mcg 11/05/18 10:00 11/08/18 10:25 Rocaltrol PO 0.5 mcg QDAY BENJA Administration Clopidogrel Bisulfate 75 mg 11/05/18 10:00 11/08/18 10:25 Plavix PO 75 mg DAILY BENJA Administration Epoetin Oniel 10,000 unit 11/04/18 15:27 11/04/18 20:42 Procrit SUB-Q 10,000 unit CHACORTA PRN Administration hemodialysis Hydralazine HCl 10 mg 11/04/18 11:17 Apresoline IV Q4HR PRN HTN SBP>=180 OR CHACORTA>=110 Sodium Chloride 100 mls @ 999 mls/hr 11/04/18 15:27 Nacl 0.9% IV CHACORTA PRN Hypotension Insulin Human Lispro 0 unit 11/07/18 07:30 11/08/18 10:25 Humalog SUB-Q 6 unit ACHS BENJA Administration Protocol Lisinopril 10 mg 11/05/18 11:00 11/08/18 10:25 Zestril PO 10 mg QDAY BENJA Administration Ondansetron HCl 4 mg 11/04/18 11:16 11/04/18 16:06 Zofran IV 4 mg Q4H PRN Administration Nausea And Vomiting Pantoprazole Sodium 20 mg 11/05/18 10:00 11/08/18 10:25 Protonix PO 20 mg QDAY BENJA Administration
[2018-11-08 12:07] VITALS: BP 128/82
== END 2018-11-08 18:15 | DRG 304 ==
LOC: ED 06:43 → 4A 09:13
PROVIDERS: ADMIT Internal Medicine; ATTEND Internal Medicine
PROC: 5A1D70Z Performance of Urinary Filtration, Intermittent, Less than 6 Hours Per Day (ICD-10-PCS; principal; 2018-11-04)
PROC: 5A1D70Z Performance of Urinary Filtration, Intermittent, Less than 6 Hours Per Day (ICD-10-PCS; 2018-11-06)
DX: I16.0 Hypertensive urgency (principal); N18.6 End stage renal disease; E87.2 Acidosis; I12.0 Hypertensive chronic kidney disease with stage 5 chronic kidney disease or end stage renal disease; J20.8 Acute bronchitis due to other specified organisms; D63.8 Anemia in other chronic diseases classified elsewhere; Z99.2 Dependence on renal dialysis; Z66 Do not resuscitate; R29.6 Repeated falls; E11.22 Type 2 diabetes mellitus with diabetic chronic kidney disease; Z87.891 Personal history of nicotine dependence; Z82.49 Family history of ischemic heart disease and other diseases of the circulatory system; E78.5 Hyperlipidemia, unspecified; I25.2 Old myocardial infarction
CPT/HCPCS: 36415; 70450; 70551; 71045; 71250; 80053; 80061; 80074; 82550; 82553; 82962; 84484; 85007; 85025; 85610; 85670; 85730; 93005; 93010; 93306; 93880; 96374; G0378; A9270-GY; J0885; J1815; J1956; J2405; J2930; J7030

== ENCOUNTER 2019-04-20 02:09 | Emergency (ER) | payer MEDICARE ==
[2019-04-20] MEDS ORDERED: APRESOLINE IV ONE (04:55)
[2019-04-20 05:27] LABS: Basophils # (Auto) 0.1 K/mm3 (0.0-0.1); Basophils % (Auto) 0.8 % (0.0-1.8); Eosinophils # (Auto) 0.2 K/mm3 (0.0-0.4); Hematocrit 37.3 % (35.5-45.6); Lymphocytes % (Auto) 25.8 % (13.4-35.0); Mean Corpuscular HGB Conc 32 % (32-34); Mean Corpuscular Volume 91 fl (84-94); Monocytes # (Auto) 0.9 K/mm3 (0.0-0.8); Monocytes % (Auto) 11.8 % (0.0-7.3); Platelet Count 174 K/mm3 (140-440); Red Blood Count 4.09 M/mm3 (3.65-5.03); Red Cell Distribution Width 17.8 % (13.2-15.2)
[2019-04-20 05:39] LABS: Partial Thromboplastin Time 26.5 Sec. (24.2-36.6)
[2019-04-20] MEDS ORDERED: NORVASC PO ONE (06:03)
--- NOTE | 2019-04-20 06:05 | Cat Scan Report ---
PROCEDURE: CT HEAD/BRAIN WO CON TECHNIQUE: Computerized tomography of the head was performed without contrast material. CT DOSE LENGTH PRODUCT: 805.4 mGycm HISTORY: fall on plavix COMPARISONS: 11/04/2018 . FINDINGS: Skull and scalp: There is mild left frontal scalp swelling without skull fracture. . Paranasal sinuses: There is mucosal thickening in the right sphenoid sinus. . Ventricles and subarachnoid spaces: Normal . Cerebrum: No evidence of hemorrhage, acute infarction or mass . There is diminished attenuation of t he perivertebral white matter. There are remote lacunar infarcts in the basal ganglia bilaterally. Cerebellum and brainstem: No evidence of hemorrhage, acute infarction or mass . Vasculature: Normal . Other: None . ASPECTS: 10 IMPRESSION: Small left frontal scalp injury without skull fracture. Mild to moderate atrophy with chronic ischemic white matter disease changes. No acute stroke or hemor rhage. Remote lacunar infarcts in the basal ganglia bilaterally. Right sphenoid sinusitis which appears chronic.. This document is electronically signed by Sukhdev Bateman MD., April 20 2019 06:03:40 AM ET
[2019-04-20 06:16] LABS: Calcium 10.3 mg/dL (8.4-10.2)
[2019-04-20] MEDS ORDERED: TYLENOL PO ONE (06:55)
--- NOTE | 2019-04-20 07:00 | Emergency Department Report ---
ED Head Trauma HPI - General Chief complaint: Fall Stated complaint: FALL Time Seen by Provider: 04/20/19 06:50 Source: patient, EMS Mode of arrival: Stretcher Limitations: No Limitations - History of Present Illness Initial comments: 61-year-old male who presents to ED from senior living following a fall. Patient states he was bending down to pick something up from off the ground when his leg gave out. Patient fell down hitting his head. Denies LOC. Denies nausea or vomiting. Reports slight headache. MD Complaint: head injury -: This morning Mechanism of Injury: mechanical fall Location: frontal Loss of Consciousness: no Place: home ([facility]) Severity: moderate Provoking factors: none known Other Injuries: none Context: other (not on anticoagulants) Associated Symptoms: denies: vision changes, nausea, vomiting, neck pain - Related Data Home Medications Medication Instructions Recorded Confirmed Last Taken Aspirin 325 mg PO DAILY 12/03/13 10/27/17 1 Day Ago ~12/09/16 Ergocalciferol [Vitamin D2] 1 cap PO QWEEK 12/03/13 10/27/17 1 Day Ago ~12/09/16 Gabapentin 300 mg PO BID 12/03/13 10/27/17 1 Day Ago ~12/09/16 Insulin Glargine,Hum.rec.anlog 20 units SQ QHS 12/03/13 10/27/17 1 Day Ago [Lantus Solostar] ~12/09/16 Insulin Regular, Human [HumuLIN R] 3 units SC TIDAC 12/03/13 10/27/17 1 Day Ago ~12/09/16 AtorvaSTATin [Lipitor] 20 mg PO QHS 10/27/17 10/27/17 Unknown Calcitriol [Rocaltrol] 0.5 mcg PO QDAY 10/27/17 10/27/17 Unknown Folic Acid/Vit B Complex and C 1 tab PO DAILY 10/27/17 10/27/17 Unknown [Renal-Alexandrea Tablet] Lisinopril [Prinivil] 5 mg PO DAILY 10/27/17 10/27/17 Unknown Ondansetron [Zofran TAB] 4 mg PO Q8HR PRN 10/27/17 10/27/17 Unknown Sevelamer Carbonate [Renvela] 2 tab PO TID 10/27/17 10/27/17 Unknown Torsemide [Demadex] 40 mg PO DAILY 10/27/17 10/27/17 Unknown amLODIPine [Norvasc] 10 mg PO DAILY 10/27/17 10/27/17 Unknown glipiZIDE [Glipizide] 10 mg PO DAILY 10/27/17 10/27/17 Unknown traMADol [Ultram 50 MG tab] 50 mg PO Q8HR PRN 10/27/17 10/27/17 Unknown Previous Rx's Medication Instructions Recorded Last Taken Type Clopidogrel Bisulfate [Plavix] 75 mg PO DAILY #30 tablet 12/06/13 1 Day Ago Rx ~12/09/16 Sucralfate [Carafate] 1 gm PO Q6HR #56 udc 12/11/16 Unknown Rx Allergies/Adverse reactions: Allergies Allergy/AdvReac Type Severity Reaction Status Date / Time No Known Allergies Allergy Unverified 12/03/13 12:17 ED Review of Systems ROS: Stated complaint: FALL Other details as noted in HPI Comment: All other systems reviewed and negative Neurological: headache ED Past Medical Hx - Past Medical History Hx Hypertension: Yes Hx CVA: Yes (left sided weakness) Hx Heart Attack/AMI: Yes (NSTEMI 12/03/16) Hx Congestive Heart Failure: No Hx Diabetes: Yes Hx Renal Disease: Yes Hx Asthma: No Hx COPD: No Hx HIV: No - Surgical History Additional Surgical History: Cataract removal bilat - Social History Smoking Status: Never Smoker - Medications Home Medications: Home Medications Medication Instructions Recorded Confirmed Last Taken Type Aspirin 325 mg PO DAILY 12/03/13 10/27/17 1 Day Ago History ~12/09/16 Ergocalciferol [Vitamin D2] 1 cap PO QWEEK 12/03/13 10/27/17 1 Day Ago History ~12/09/16 Gabapentin 300 mg PO BID 12/03/13 10/27/17 1 Day Ago History ~12/09/16 Insulin Glargine,Hum.rec.anlog 20 units SQ QHS 12/03/13 10/27/17 1 Day Ago History [Lantus Solostar] ~12/09/16 Insulin Regular, Human [HumuLIN R] 3 units SC TIDAC 12/03/13 10/27/17 1 Day Ago History ~12/09/16 Clopidogrel Bisulfate [Plavix] 75 mg PO DAILY #30 tablet 12/06/13 10/27/17 1 Day Ago Rx ~12/09/16 Sucralfate [Carafate] 1 gm PO Q6HR #56 udc 12/11/16 10/27/17 Unknown Rx AtorvaSTATin [Lipitor] 20 mg PO QHS 10/27/17 10/27/17 Unknown History Calcitriol [Rocaltrol] 0.5 mcg PO QDAY 10/27/17 10/27/17 Unknown History Folic Acid/Vit B Complex and C 1 tab PO DAILY 10/27/17 10/27/17 Unknown History [Renal-Alexandrea Tablet] Lisinopril [Prinivil] 5 mg PO DAILY 10/27/17 10/27/17 Unknown History Ondansetron [Zofran TAB] 4 mg PO Q8HR PRN 10/27/17 10/27/17 Unknown History Sevelamer Carbonate [Renvela] 2 tab PO TID 10/27/17 10/27/17 Unknown History Torsemide [Demadex] 40 mg PO DAILY 10/27/17 10/27/17 Unknown History amLODIPine [Norvasc] 10 mg PO DAILY 10/27/17 10/27/17 Unknown History glipiZIDE [Glipizide] 10 mg PO DAILY 10/27/17 10/27/17 Unknown History traMADol [Ultram 50 MG tab] 50 mg PO Q8HR PRN 10/27/17 10/27/17 Unknown History ED Physical Exam - General Limitations: No Limitations General appearance: alert, in no apparent distress - Head Head exam: Present: other (hematoma with abrasion to left forehead) - Eye Eye exam: Present: normal appearance, PERRL, EOMI Pupils: Present: normal accommodation - ENT ENT exam: Present: mucous membranes moist - Neck Neck exam: Present: normal inspection, full ROM. Absent: tenderness - Respiratory Respiratory exam: Present: normal lung sounds bilaterally. Absent: respiratory distress - Cardiovascular Cardiovascular Exam: Present: regular rate, normal rhythm - GI/Abdominal GI/Abdominal exam: Present: soft. Absent: distended - Extremities Exam Extremities exam: Present: normal inspection - Neurological Exam Neurological exam: Present: alert, oriented X3 - Psychiatric Psychiatric exam: Present: normal affect, normal mood - Skin Skin exam: Present: warm, dry, intact, normal color. Absent: rash ED Course Vital Signs 04/20/19 04/20/19 04/20/19 02:35 03:00 05:30 Temperature 97.9 F Pulse Rate 83 86 88 Respiratory 18 12 Rate Blood Pressure 178/90 Blood Pressure [Right] O2 Sat by Pulse 100 100 Oximetry 04/20/19 04/20/19 04/20/19 05:46 06:00 06:16 Temperature Pulse Rate 88 86 95 H Respiratory 15 12 14 Rate Blood Pressure 211/97 Blood Pressure [Right] O2 Sat by Pulse 100 100 99 Oximetry 04/20/19 04/20/19 04/20/19 06:17 06:31 06:45 Temperature Pulse Rate 80 90 Respiratory 18 13 Rate Blood Pressure 211/97 Blood Pressure 195/76 [Right] O2 Sat by Pulse 100 99 100 Oximetry 04/20/19 04/20/19 04/20/19 07:01 07:15 07:31 Temperature Pulse Rate Respiratory 9 L 12 11 L Rate Blood Pressure 205/105 205/105 205/105 Blood Pressure [Right] O2 Sat by Pulse 99 100 100 Oximetry 04/20/19 07:41 Temperature Pulse Rate 93 H Respiratory 18 Rate Blood Pressure Blood Pressure 146/73 [Right] O2 Sat by Pulse 100 Oximetry - Consultations Consultation #1: 04/20/19 07:13 Pt has potassium of 5.6. MWF dialysis schedule. Dialyzed yesterday, will be dialyzed tomorrow. Spoke w/ Dr Merrill. States no need for emergent dialysis. Give 45g kayexalate and can d/c home. - Lab Data Result diagrams: 04/20/19 05:09 04/20/19 05:55 Lab Results 04/20/19 04/20/19 04/20/19 Range/Units 05:09 05:09 05:55 WBC 7.7 (4.5-11.0) K/mm3 RBC 4.09 (3.65-5.03) M/mm3 Hgb 12.0 (11.8-15.2) gm/dl Hct 37.3 (35.5-45.6) % MCV 91 (84-94) fl MCH 30 (28-32) pg MCHC 32 (32-34) % RDW 17.8 H (13.2-15.2) % Plt Count 174 (140-440) K/mm3 Lymph % (Auto) 25.8 (13.4-35.0) % Love % (Auto) 11.8 H (0.0-7.3) % Eos % (Auto) 2.0 (0.0-4.3) % Baso % (Auto) 0.8 (0.0-1.8) % Lymph # 2.0 (1.2-5.4) K/mm3 Love # 0.9 H (0.0-0.8) K/mm3 Eos # 0.2 (0.0-0.4) K/mm3 Baso # 0.1 (0.0-0.1) K/mm3 Seg Neutrophils % 59.6 (40.0-70.0) % Seg Neutrophils # 4.6 (1.8-7.7) K/mm3 PT 12.9 (12.2-14.9) Sec. INR 1.00 (0.87-1.13) APTT 26.5 (24.2-36.6) Sec. Sodium 135 L (137-145) mmol/L Potassium 5.6 H (3.6-5.0) mmol/L Chloride 94.0 L (98-107) mmol/L Carbon Dioxide 22 (22-30) mmol/L Anion Gap 25 mmol/L BUN 28 H (9-20) mg/dL Creatinine 6.6 H (0.8-1.5) mg/dL Estimated GFR 10 ml/min BUN/Creatinine Ratio 4 % Glucose 222 H (75-100) mg/dL Calcium 10.3 H (8.4-10.2) mg/dL - EKG Data -: EKG Interpreted by Ia EKG shows normal: sinus rhythm, axis, intervals, QRS complexes, ST-T waves Rate: normal Interpretation: no acute changes - Radiology Data Radiology results: report reviewed, image reviewed - Medical Decision Making 68-year-old male from senior living with mechanical fall. Patient not on any anticoagulation. Hematoma presence of forehead, however CT head is negative. Patient has GCS of 15. Labs show mild hypokalemia with potassium of 5.6. Spoke with patient's handbag parts cutter, and suggested giving 45 g of Kayexalate, and patient can go to regularly scheduled dialysis on tomorrow. No emergent dialysis necessary. Kayexalate given. Patient discharged back to senior living. - Differential Diagnosis intracranial injury, hematoma Critical care attestation.: If time is entered above; I have spent that time in minutes in the direct care of this critically ill patient, excluding procedure time. ED Disposition Clinical Impression: Head injury, Hyperkalemia Disposition: DC-01 TO HOME OR SELFCARE Is pt being admited?: No Condition: Stable Instructions: Minor Head Injury (ED), Hyperkalemia (ED) Referrals: MARIO DAHL MD [Primary Care Provider] - 3-5 Days Time of Disposition: 07:14
[2019-04-20] MEDS ORDERED: KIONEX PO ONE (07:10)
[2019-04-20 07:41] VITALS: BP 146/73
== END 2019-04-20 13:44 | disposition home or self-care (01) ==
LOC: ED 02:09
DX: S00.83XA Contusion of other part of head, initial encounter (principal); E87.5 Hyperkalemia; I25.2 Old myocardial infarction; Z79.82 Long term (current) use of aspirin; Z79.4 Long term (current) use of insulin; Z79.899 Other long term (current) drug therapy; W18.30XA Fall on same level, unspecified, initial encounter; Y93.89 Activity, other specified; Y92.099 Unspecified place in other non-institutional residence as the place of occurrence of the external cause; Y99.8 Other external cause status
CPT/HCPCS: 36415; 70450; 80048; 85025; 85610; 85730; 93005; 93010; 99284

== ENCOUNTER 2020-06-13 17:31 | Inpatient (IN) | payer MEDICARE ==
[2020-06-13] MEDS ORDERED: VANCOMYCIN 1,000 MG in SODIUM CHLORIDE 0.9% 500 ML 500 ML IV ONE (18:14)
[2020-06-13] MEDS ORDERED: CEFEPIME/NS 2 GM/100 ML 2 GM/100 ML BAG IV SCH (18:14)
[2020-06-13] MEDS ORDERED: VANCOMYCIN 1,250 MG in SODIUM CHLORIDE 0.9% 250ML 250 ML IV ONE (18:30)
--- NOTE | 2020-06-13 18:43 | Emergency Department Report ---
ED Fever HPI - General Chief Complaint: Dyspnea/Respdistress Stated Complaint: EXCESSIVE COUGHING PUI?: Yes Time Seen by Provider: 06/13/20 18:14 Source: patient, old records Exam Limitations: no limitations - History of Present Illness Initial Comments: Mr. Williamson is a 69-year-old male with history of end-stage renal disease on hemodialysis, diabetes mellitus, GERD, coronary artery disease, CVA who presents from hemodialysis with low oxygen saturation, productive cough and fever. He was transported from dialysis clinic via EMS. Due to respiratory distress and hypoxia, patient was unable to undergo dialysis therapy. He has been sick for several days. He has cough productive of green sputum. Timing/Duration: other (Generalized illness for several days) Fever Severity/Quality: greater than 100.5 F Associated Symptoms: cough, shortness of breath ED Review of Systems ROS: Stated complaint: EXCESSIVE COUGHING Other details as noted in HPI Comment: All other systems reviewed and negative Constitutional: fever, malaise Respiratory: cough, shortness of breath Cardiovascular: denies: chest pain Gastrointestinal: denies: abdominal pain, nausea, vomiting ED Past Medical Hx - Past Medical History Previous Medical History?: Yes Hx Hypertension: Yes Hx CVA: Yes (left sided weakness) Hx Heart Attack/AMI: Yes (NSTEMI 12/03/16) Hx Congestive Heart Failure: No Hx Diabetes: Yes Hx Renal Disease: Yes Hx Asthma: No Hx COPD: No Hx HIV: No - Surgical History Past Surgical History?: Yes Additional Surgical History: Cataract removal bilat - Social History Smoking Status: Never Smoker Substance Use Type: None - Medications Home Medications: Home Medications Medication Instructions Recorded Confirmed Last Taken Type Aspirin 325 mg PO DAILY 12/03/13 10/27/17 1 Day Ago History ~12/09/16 Ergocalciferol [Vitamin D2] 1 cap PO QWEEK 12/03/13 10/27/17 1 Day Ago History ~12/09/16 Gabapentin 300 mg PO BID 12/03/13 10/27/17 1 Day Ago History ~12/09/16 Insulin Glargine,Hum.rec.anlog 20 units SQ QHS 12/03/13 10/27/17 1 Day Ago History [Lantus Solostar] ~12/09/16 Insulin Regular, Human [HumuLIN R] 3 units SC TIDAC 12/03/13 10/27/17 1 Day Ago History ~12/09/16 Clopidogrel Bisulfate [Plavix] 75 mg PO DAILY #30 tablet 12/06/13 10/27/17 1 Day Ago Rx ~12/09/16 Sucralfate [Carafate] 1 gm PO Q6HR #56 udc 12/11/16 10/27/17 Unknown Rx AtorvaSTATin [Lipitor] 20 mg PO QHS 10/27/17 10/27/17 Unknown History Folic Acid/Vit B Complex and C 1 tab PO DAILY 10/27/17 10/27/17 Unknown History [Renal-Alexandrea Tablet] Ondansetron [Zofran TAB] 4 mg PO Q8HR PRN 10/27/17 10/27/17 Unknown History Sevelamer Carbonate [Renvela] 2 tab PO TID 10/27/17 10/27/17 Unknown History Torsemide [Demadex] 40 mg PO DAILY 10/27/17 10/27/17 Unknown History amLODIPine 10 mg PO DAILY 10/27/17 10/27/17 Unknown History calcitrioL [Rocaltrol] 0.5 mcg PO QDAY 10/27/17 10/27/17 Unknown History glipiZIDE [Glipizide] 10 mg PO DAILY 10/27/17 10/27/17 Unknown History lisinopriL [Prinivil] 5 mg PO DAILY 10/27/17 10/27/17 Unknown History traMADoL [Ultram 50 MG tab] 50 mg PO Q8HR PRN 10/27/17 10/27/17 Unknown History ED Physical Exam - General Limitations: No Limitations General appearance: in distress (Moderate work of breathing speaking for 5 word sentences,) - Head Head exam: Present: atraumatic, normocephalic - Eye Eye exam: Present: normal appearance - ENT ENT exam: Present: normal orophraynx, mucous membranes moist - Neck Neck exam: Present: normal inspection, full ROM - Respiratory Respiratory exam: Present: respiratory distress, rales, decreased breath sounds. Absent: chest wall tenderness, accessory muscle use, prolonged expiratory - Cardiovascular Cardiovascular Exam: Present: regular rate, normal rhythm, normal heart sounds. Absent: rubs, gallop - GI/Abdominal GI/Abdominal exam: Present: soft. Absent: distended, tenderness, guarding, rebound - Rectal Rectal exam: Present: deferred - Extremities Exam Extremities exam: Present: other (Left forearm fistula no pedal edema) - Neurological Exam Neurological exam: Present: alert, oriented X3 - Psychiatric Psychiatric exam: Present: flat affect - Skin Skin exam: Present: warm, dry, intact, normal color. Absent: rash ED Course Vital Signs 06/13/20 06/13/20 06/13/20 18:00 18:16 18:17 Temperature 100.7 F H Pulse Rate 94 H 88 93 H Respiratory 26 H 19 24 Rate Blood Pressure 123/58 123/58 O2 Sat by Pulse 99 96 Oximetry O2 Sat by Pulse Oximetry [ Anterior Bilateral] 06/13/20 06/13/20 06/13/20 18:30 18:31 18:46 Temperature Pulse Rate 91 H 95 H Respiratory 20 24 25 H Rate Blood Pressure 144/66 152/65 O2 Sat by Pulse 96 98 97 Oximetry O2 Sat by Pulse Oximetry [ Anterior Bilateral] 06/13/20 06/13/20 06/13/20 19:00 19:16 19:30 Temperature Pulse Rate 111 H 127 H 137 H Respiratory 24 30 H 33 H Rate Blood Pressure 160/74 137/83 137/83 O2 Sat by Pulse 94 97 92 Oximetry O2 Sat by Pulse Oximetry [ Anterior Bilateral] 06/13/20 06/13/20 06/13/20 19:46 20:00 20:18 Temperature Pulse Rate 141 H 139 H 131 H Respiratory 35 H 33 H 16 Rate Blood Pressure 137/83 137/83 137/83 O2 Sat by Pulse 100 88 96 Oximetry O2 Sat by Pulse Oximetry [ Anterior Bilateral] 06/13/20 06/13/20 06/13/20 20:19 20:30 20:45 Temperature 104 F H Pulse Rate 127 H 126 H Respiratory 32 H 31 H Rate Blood Pressure 165/79 161/77 O2 Sat by Pulse 95 93 Oximetry O2 Sat by Pulse Oximetry [ Anterior Bilateral] 06/13/20 06/13/20 06/13/20 21:00 21:15 21:31 Temperature Pulse Rate 105 H 117 H 114 H Respiratory 22 22 27 H Rate Blood Pressure 128/63 127/71 117/85 O2 Sat by Pulse 95 92 94 Oximetry O2 Sat by Pulse Oximetry [ Anterior Bilateral] 06/13/20 06/13/20 06/13/20 21:45 22:00 22:15 Temperature Pulse Rate 109 H 105 H 107 H Respiratory 28 H 19 26 H Rate Blood Pressure 110/55 102/55 103/53 O2 Sat by Pulse 95 96 Oximetry O2 Sat by Pulse Oximetry [ Anterior Bilateral] 06/13/20 06/13/20 06/13/20 22:30 22:45 23:00 Temperature Pulse Rate 105 H 106 H 108 H Respiratory 31 H 31 H 21 Rate Blood Pressure 112/58 88/62 98/65 O2 Sat by Pulse 94 94 90 Oximetry O2 Sat by Pulse Oximetry [ Anterior Bilateral] 06/13/20 06/13/20 06/13/20 23:15 23:30 23:31 Temperature Pulse Rate 110 H 108 H 108 H Respiratory 21 24 Rate Blood Pressure 88/62 121/79 121/79 O2 Sat by Pulse 99 93 Oximetry O2 Sat by Pulse Oximetry [ Anterior Bilateral] 06/13/20 06/14/20 06/14/20 23:45 00:00 00:01 Temperature Pulse Rate 105 H 107 H 105 H Respiratory 23 26 H 25 H Rate Blood Pressure 127/68 93/57 93/57 O2 Sat by Pulse 91 95 95 Oximetry O2 Sat by Pulse Oximetry [ Anterior Bilateral] 06/14/20 06/14/20 06/14/20 00:15 00:30 00:45 Temperature Pulse Rate 102 H 99 H 94 H Respiratory 33 H 36 H 30 H Rate Blood Pressure 97/55 88/60 92/57 O2 Sat by Pulse 95 95 91 Oximetry O2 Sat by Pulse Oximetry [ Anterior Bilateral] 06/14/20 06/14/20 06/14/20 01:00 01:15 01:21 Temperature 102.9 F H Pulse Rate 94 H 93 H 107 H Respiratory 35 H 31 H 35 H Rate Blood Pressure 96/59 90/60 103/53 O2 Sat by Pulse 93 93 Oximetry O2 Sat by Pulse 94 Oximetry [ Anterior Bilateral] 06/14/20 06/14/20 06/14/20 01:30 01:36 01:45 Temperature 99.9 F H Pulse Rate 93 H 96 H 92 H Respiratory 32 H 36 H 31 H Rate Blood Pressure 94/59 104/62 89/55 O2 Sat by Pulse 93 93 Oximetry O2 Sat by Pulse 94 Oximetry [ Anterior Bilateral] 06/14/20 06/14/20 06/14/20 01:51 02:00 02:11 Temperature Pulse Rate 92 H 91 H 93 H Respiratory 34 H 35 H 25 H Rate Blood Pressure 89/55 104/59 104/59 O2 Sat by Pulse 92 91 93 Oximetry O2 Sat by Pulse Oximetry [ Anterior Bilateral] 06/14/20 02:21 Temperature Pulse Rate 93 H Respiratory 27 H Rate Blood Pressure 104/58 O2 Sat by Pulse 92 Oximetry O2 Sat by Pulse Oximetry [ Anterior Bilateral] - Reevaluation(s) Reevaluation #1: 06/13/20 20:27 I was asked by nurse to come to the bedside. Patient's heart rate increased to 132 bpm. He has axillary temperature 104 Fahrenheit. He appears to using the flu. He has increased work of breathing. I contacted respiratory therapist. I asked for stat ABG. Reevaluation #2: 06/13/20 20:51 I spoke with patient's personal autobody technician Dr. Merrill who will arrange for emergent dialysis. Considering patient's respiratory decline, metabolic acidosis and hyperkalemia, emergent dialysis will benefit patient at this time. Reevaluation #3: 06/13/20 22:01 Patient's is dazed. Tolerated BiPAP with decreased work of breathing. HR 109 bpm ED Medical Decision Making - Lab Data Result diagrams: 06/14/20 04:08 06/14/20 04:08 - Radiology Data Radiology results: report reviewed Chest radiograph: Bilateral perihilar and left lower lobe opacities - Medical Decision Making 1. acute respiratory failure hypoxia: Room air saturation 79% which is markedly abnormal. Over several hours in the emergency department, patient's mental status declined. I suspect due to work of breathing. Patient's ABG revealed metabolic acidosis with respiratory compensation. Patient requires noninvasive positive pressure ventilation at this time. 2. fever, hypoxia: COVID 19 suspected, possible bacterial HCAP addressed with broad-spectrum antibiotics. 3. Acute toxic metabolic encephalopathy due to attributed to infection, metabolic acidosis, uremia 4. End-stage renal disease on hemodialysis: emergent hemodialysis arranged by patient's personal autobody technician Dr. Merrill to address uremic complications admitted to hospitalist service Critical Care Time: Yes Critical care time in (mins) excluding proc time.: 40 Critical care attestation.: If time is entered above; I have spent that time in minutes in the direct care of this critically ill patient, excluding procedure time. 40 minutes of critical care time excluding procedures were used in the care of the patient. I reviewed electronic record. I discussed treatment plan with the nursing team members at the bedside. I came immediately to the bedside upon patient's arrival to the treatment room.. After reassessment I was concerned for imminent airway compromise. Patient required multiple interventions and reassessments after clinical decline. ED Disposition Clinical Impression: Acute respiratory failure with hypoxia, Uremia, ESRD on hemodialysis, Suspected 2019-nCoV infection, Healthcare-associated pneumonia, Hyperkalemia Disposition: OP ADMIT IP TO THIS HOSP Is pt being admited?: Yes Does the pt Need Aspirin: No Condition: Fair
[2020-06-13 18:58] LABS: Basophils % (Auto) 0.2 % (0.0-1.8); Hematocrit 40.6 % (35.5-45.6); Hemoglobin 12.9 gm/dl (11.8-15.2); Lymphocytes # (Auto) 1.1 K/mm3 (1.2-5.4); Lymphocytes % (Auto) 12.4 % (13.4-35.0); Mean Corpuscular HGB Conc 32 % (32-34); Mean Corpuscular Volume 95 fl (84-94); Monocytes % (Auto) 11.4 % (0.0-7.3); Platelet Count 159 K/mm3 (140-440); Red Blood Count 4.27 M/mm3 (3.65-5.03); Red Cell Distribution Width 14.6 % (13.2-15.2)
[2020-06-13] MEDS ORDERED: VANCOMYCIN PHARMACY TO DOSE IV SCH (19:00)
[2020-06-13 19:13] LABS: Albumin 3.5 g/dL (3.9-5); Calcium 9.6 mg/dL (8.4-10.2)
--- NOTE | 2020-06-13 19:38 | XRay Report ---
CHEST 1 VIEW INDICATION / CLINICAL INFORMATION: fever hypoxia cough. COMPARISON: 11/04/2018 FINDINGS: SUPPORT DEVICES: None. HEART / MEDIASTINUM: Minimally enlarged cardiac silhouette is stable since prior exam. LUNGS / PLEURA: Bilateral perihilar and left lower lobe opacities. No pneumothorax or effusion. ADDITIONAL FINDINGS: No significant additional findings. IMPRESSION: 1. Bilateral perihilar and left lower lobe opacities may represent atypical versus viral infectious p rocess. Clinical correlation is needed Signer Name: Randy Mathias MD Signed: 06/13/2020 7:34 PM Workstation Name: [id number]
[2020-06-13] MEDS ORDERED: ACETAMINOPHEN 650 MG RECT SUPP PR ONE (20:28)
[2020-06-13 20:40] LABS: ABG Base Excess -14.6 mmol/L (-2.0-3.0); ABG HCO3 11.4 mmol/L (20.0-26.0); ABG Methemoglobin 0.2 % (0.0-1.5); ABG Oxygen Saturation 91.7 % (95.0-99.0); ABG PCO2 27.6 mm Hg; ABG PH 7.233 pH Units (7.350-7.450)
[2020-06-13] MEDS ORDERED: SODIUM CHLORIDE 0.9% 100 ML IV PRN (21:03)
[2020-06-13] MEDS ORDERED: HEPARIN 10,000 UNITS/10 ML VIAL IV PRN (21:03)
[2020-06-13 22:53] LABS: Hepatitis B Surface Antigen Non-Reactive (Negative); Hepatitis C Virus Antibody Non-Reactive (NonReactive)
[2020-06-13] MEDS ORDERED: MAGNESIUM HYDROXIDE (MOM) ORAL LIQD UDC PO PRN (23:27)
[2020-06-13] MEDS ORDERED: ONDANSETRON 4 MG/2 ML INJ IV PRN (23:27)
[2020-06-13] MEDS ORDERED: DEXTROSE 50% IN WATER (25GM) 50 ML SYRINGE IV PRN (23:27)
--- NOTE | 2020-06-13 23:41 | History and Physical Report ---
History of Present Illness Date of examination: 06/13/20 Date of admission: 06/13/20 22:23 Chief complaint: Dyspnea History of present illness: 69-year-old male with end-stage renal disease on dialysis, GERD, coronary artery disease and CVA was brought in from dialysis with a low oxygen saturation, fever and productive cough. He was brought to the emergency room by EMS from the dialysis center. Patient was said to be unable to go to dialysis because of the respiratory distress and hypoxia. Patient is said to have been sick for a few days and has been having cough productive of greenish sputum. Patient unable to give any history at this time most of the history was obtained from the emergency room physician. Evaluation in the emergency room today reveals left lower lobe infiltrate on chest x-ray, patient was also hyperkalemic on the chemistry. [employer] Dr. Merrill has been consulted for dialysis and patient has been started on empiric IV antibiotics for pneumonia. Past History Past Medical History: CAD, diabetes, ESRD, GERD, hypertension, stroke Medications and Allergies Allergies Allergy/AdvReac Type Severity Reaction Status Date / Time No Known Allergies Allergy Unverified 12/03/13 12:17 Home Medications Medication Instructions Recorded Confirmed Last Taken Type Aspirin 325 mg PO DAILY 12/03/13 10/27/17 1 Day Ago History ~12/09/16 Ergocalciferol [Vitamin D2] 1 cap PO QWEEK 12/03/13 10/27/17 1 Day Ago History ~12/09/16 Gabapentin 300 mg PO BID 12/03/13 10/27/17 1 Day Ago History ~12/09/16 Insulin Glargine,Hum.rec.anlog 20 units SQ QHS 12/03/13 10/27/17 1 Day Ago History [Lantus Solostar] ~12/09/16 Insulin Regular, Human [HumuLIN R] 3 units SC TIDAC 12/03/13 10/27/17 1 Day Ago History ~12/09/16 Clopidogrel Bisulfate [Plavix] 75 mg PO DAILY #30 tablet 12/06/13 10/27/17 1 Day Ago Rx ~12/09/16 Sucralfate [Carafate] 1 gm PO Q6HR #56 udc 12/11/16 10/27/17 Unknown Rx AtorvaSTATin [Lipitor] 20 mg PO QHS 10/27/17 10/27/17 Unknown History Folic Acid/Vit B Complex and C 1 tab PO DAILY 10/27/17 10/27/17 Unknown History [Renal-Alexandrea Tablet] Ondansetron [Zofran TAB] 4 mg PO Q8HR PRN 10/27/17 10/27/17 Unknown History Sevelamer Carbonate [Renvela] 2 tab PO TID 10/27/17 10/27/17 Unknown History Torsemide [Demadex] 40 mg PO DAILY 10/27/17 10/27/17 Unknown History amLODIPine 10 mg PO DAILY 10/27/17 10/27/17 Unknown History calcitrioL [Rocaltrol] 0.5 mcg PO QDAY 10/27/17 10/27/17 Unknown History glipiZIDE [Glipizide] 10 mg PO DAILY 10/27/17 10/27/17 Unknown History lisinopriL [Prinivil] 5 mg PO DAILY 10/27/17 10/27/17 Unknown History traMADoL [Ultram 50 MG tab] 50 mg PO Q8HR PRN 10/27/17 10/27/17 Unknown History Active Meds: Active Medications Acetaminophen (Tylenol) 650 mg PO Q6H PRN PRN Reason: Pain MILD(1-3)/Fever >100.5/PINEDA Dextrose (D50w (25gm) Syringe) 50 ml IV Q30MIN PRN; Protocol PRN Reason: Hypoglycemia Dextrose (D50w (25gm) Syringe) 50 ml IV Q30MIN PRN; Protocol PRN Reason: Hypoglycemia Heparin Sodium (Porcine) (Heparin 10,000 Units/10 Ml) 3,000 unit IV CHACORTA PRN PRN Reason: hemodialysis Heparin Sodium (Porcine) (Heparin) 5,000 unit SUB-Q Q8HR BENJA Cefepime HCl (Cefepime/Ns 1 Gm/100 Ml) 1 gm in 100 mls @ 200 mls/hr IV Q24H BENJA; Protocol Sodium Chloride (Nacl 0.9%) 100 mls @ 999 mls/hr IV CHACORTA PRN PRN Reason: Hypotension Cefepime HCl (Cefepime/Ns 2 Gm/100 Ml) 2 gm in 100 mls @ 200 mls/hr IV Q8HR BENJA; Protocol Insulin Human Lispro (Humalog) 0 unit SUB-Q ACHS BENJA; Protocol Insulin Human Lispro (Humalog) 0 unit SUB-Q ACHS BENJA; Protocol Magnesium Hydroxide (Milk Of Magnesia) 30 ml PO Q4H PRN PRN Reason: Constipation Ondansetron HCl (Zofran) 4 mg IV Q8H PRN PRN Reason: Nausea And Vomiting Sodium Chloride (Sodium Chloride Flush Syringe 10 Ml) 10 ml IV BID BENJA Sodium Chloride (Sodium Chloride Flush Syringe 10 Ml) 10 ml IV PRN PRN PRN Reason: LINE FLUSH Review of Systems ROS unobtainable: due to mental status Exam - Constitutional Vitals: Temp Pulse Resp BP Pulse Ox 104 F H 105 H 19 102/55 95 06/13/20 20:19 06/13/20 22:00 06/13/20 22:00 06/13/20 22:00 06/13/20 22:00 General appearance: Present: mild distress, well-nourished - EENT Eyes: Present: PERRL, EOM intact. Absent: scleral icterus ENT: hearing intact, clear oral mucosa, dentition normal - Neck Neck: Present: supple, normal ROM - Respiratory Respiratory effort: normal Respiratory: bilateral: diminished - Cardiovascular Rhythm: regular Heart Sounds: Present: S1 & S2. Absent: gallop, systolic murmur, diastolic murmur, rub - Extremities Extremities: no ischemia, pulses intact, pulses symmetrical, No edema, Full ROM Peripheral Pulses: within normal limits - Abdominal General gastrointestinal: Present: soft, non-tender, non-distended, normal bowel sounds. Absent: mass - Integumentary Integumentary: Present: clear, warm, dry. Absent: rash - Musculoskeletal Musculoskeletal: strength equal bilaterally - Psychiatric Psychiatric: cooperative - Neurologic Neurologic: CNII-XII intact, no focal deficits, moves all extremities Results - Labs CBC & Chem 7: 06/14/20 04:08 06/14/20 04:08 Labs: Abnormal lab results 06/13/20 06/13/20 06/13/20 Range/Units 18:32 18:32 20:25 MCV 95 H (84-94) fl Lymph % (Auto) 12.4 L (13.4-35.0) % [place] % (Auto) 11.4 H (0.0-7.3) % Lymph # 1.1 L (1.2-5.4) K/mm3 [place] # 1.0 H (0.0-0.8) K/mm3 Seg Neutrophils % 76.0 H (40.0-70.0) % ABG pH 7.233 L (7.350-7.450) pH Units ABG pO2 72.0 L (80.0-90.0) mm Hg ABG HCO3 11.4 L (20.0-26.0) mmol/L ABG O2 Saturation 91.7 L (95.0-99.0) % ABG Base Excess -14.6 L (-2.0-3.0) mmol/L ABG Hemoglobin 12.5 L (14.0-18.0) gm/dl Oxyhemoglobin 90.8 L (95.0-99.0) % Potassium 5.9 H (3.6-5.0) mmol/L Carbon Dioxide 14 L (22-30) mmol/L BUN 105 H (9-20) mg/dL Creatinine 16.2 H (0.8-1.3) mg/dL Glucose 160 H (75-100) mg/dL AST 261 H (5-40) units/L ALT 124 H (7-56) units/L Alkaline Phosphatase 179 H (35-129) units/L Albumin 3.5 L (3.9-5) g/dL Assessment and Plan - Patient Problems (1) Acute respiratory failure with hypoxia Current Visit: Yes Status: Acute Plan to address problem: Possibly secondary to the pneumonia. We will keep O2 saturation greater or equal to 94%. (2) Healthcare-associated pneumonia Current Visit: Yes Status: Acute Plan to address problem: Patient placed on empiric IV antibiotics. We will await blood culture result. (3) Hyperkalemia Current Visit: Yes Status: Acute Plan to address problem: Patient to undergo dialysis. Will monitor chemistry. (4) Suspected 2019-nCoV infection Current Visit: Yes Status: Acute Plan to address problem: We will place consult to infectious disease for evaluation and recommendation and meanwhile patient will be placed on isolation precautions. (5) ESRD on hemodialysis Current Visit: Yes Status: Chronic Plan to address problem: Patient has been scheduled for immediate dialysis. (6) Hypertension Current Visit: No Status: Chronic Qualifiers: Plan to address problem: We will resume routine home medications and monitor vital signs closely. (7) T2DM (type 2 diabetes mellitus) Current Visit: No Status: Chronic Plan to address problem: We will monitor Accu-Cheks. (8) DVT prophylaxis Current Visit: No Status: Acute Plan to address problem: Patient placed on subcutaneous heparin (9) Full code status Current Visit: Yes Status: Acute
[2020-06-14] MEDS: HEPARIN 5,000 UNIT/1 ML VIAL SUB-Q SCH ×3 (05:09→22:52)
[2020-06-14 05:17] LABS: Basophils % (Auto) 0.1 % (0.0-1.8); Lymphocytes # (Auto) 0.4 K/mm3 (1.2-5.4); Mean Corpuscular HGB Conc 33 % (32-34); Mean Corpuscular Volume 94 fl (84-94); Monocytes # (Auto) 0.4 K/mm3 (0.0-0.8); Monocytes % (Auto) 5.5 % (0.0-7.3); Platelet Count 136 K/mm3 (140-440); Red Blood Count 3.93 M/mm3 (3.65-5.03); Red Cell Distribution Width 14.3 % (13.2-15.2)
[2020-06-14 05:22] LABS: Calcium 8.6 mg/dL (8.4-10.2)
[2020-06-14] MEDS ORDERED: CEFEPIME/NS 2 GM/100 ML 2 GM/100 ML BAG IV SCH (06:00)
[2020-06-14 06:19] LABS: INR 1.03 (0.87-1.13)
[2020-06-14] MEDS ORDERED: INSULIN LISPRO 100 UNIT/ML VIAL 3 mL SUB-Q SCH (07:30)
--- NOTE | 2020-06-14 08:56 | Progress Note ---
Assessment and Plan Assessment and plan: -- Acute respiratory failure with hypoxia/on BiPAP Current Visit: Yes Status: Acute Plan to address problem: Possibly secondary to the pneumonia. We will keep O2 saturation greater or equal to 94%. -- Suspected 2019-CoV infection/PUI Current Visit: Yes Status: Acute Plan to address problem: We will place consult to infectious disease for evaluation and recommendation and meanwhile patient will be placed on isolation precautions. -- Healthcare-associated pneumonia Current Visit: Yes Status: Acute Plan to address problem: Patient placed on empiric IV antibiotics. We will await blood culture result. -- Hyperkalemia Current Visit: Yes Status: Acute Plan to address problem: Patient to undergo dialysis. Will monitor chemistry. -- ESRD on hemodialysis Current Visit: Yes Status: Chronic Plan to address problem: Patient has been scheduled for stat dialysis. Nephrology consulted, HD per schedule -- Hypertension Current Visit: No Status: Chronic Qualifiers: Plan to address problem: We will resume routine home medications and monitor vital signs closely. --T2DM (type 2 diabetes mellitus) Current Visit: No Status: Chronic Plan to address problem: We will monitor Accu-Cheks. -- DVT prophylaxis Current Visit: No Status: Acute Plan to address problem: Patient placed on subcutaneous heparin -- Full code status Current Visit: Yes Status: Acute We will closely monitor the patient and adjust management as needed Consults and recommendations noted and appreciated Plan of care reviewed with the patient nurse and case management History Interval history: Patient seen and examined in IMCU this morning Patient's chart and medications, tests and reports reviewed Patient was sent from dialysis unit with hypoxia and respiratory distress, febrile with T-max of 104 Patient is on BiPAP, obtunded response to deep stimuli by opening eyes In mild distress, vital signs reviewed Hospitalist Physical - Constitutional Vitals: Temp Pulse Resp BP Pulse Ox 99.9 F H 81 17 112/60 96 06/14/20 04:00 06/14/20 06:51 06/14/20 06:51 06/14/20 06:51 06/14/20 06:51 General appearance: Present: mild distress, well-nourished - EENT Eyes: Present: PERRL, EOM intact - Neck Neck: Present: supple, normal ROM - Respiratory Respiratory effort: labored Respiratory: bilateral: diminished, rhonchi, negative: rales, wheezing - Cardiovascular Rhythm: regular Heart Sounds: Present: S1 & S2 - Extremities Extremities: no ischemia, No edema - Abdominal General gastrointestinal: soft, non-tender, non-distended, normal bowel sounds - Integumentary Integumentary: Present: clear, warm - Psychiatric Psychiatric: other (Minimally communicative on BiPAP) - Neurologic Neurologic: moves all extremities Results - Labs CBC & Chem 7: 06/14/20 04:08 06/14/20 04:08 Labs: Laboratory Last Values WBC 7.2 K/mm3 (4.5-11.0) 06/14/20 04:08 RBC 3.93 M/mm3 (3.65-5.03) 06/14/20 04:08 Hgb 12.0 gm/dl (11.8-15.2) 06/14/20 04:08 Hct 37.0 % (35.5-45.6) 06/14/20 04:08 MCV 94 fl (84-94) 06/14/20 04:08 MCH 31 pg (28-32) 06/14/20 04:08 MCHC 33 % (32-34) 06/14/20 04:08 RDW 14.3 % (13.2-15.2) 06/14/20 04:08 Plt Count 136 K/mm3 (140-440) L 06/14/20 04:08 Lymph % (Auto) 6.0 % (13.4-35.0) L 06/14/20 04:08 [place] % (Auto) 5.5 % (0.0-7.3) 06/14/20 04:08 Eos % (Auto) 0.0 % (0.0-4.3) 06/14/20 04:08 Baso % (Auto) 0.1 % (0.0-1.8) 06/14/20 04:08 Lymph # 0.4 K/mm3 (1.2-5.4) L 06/14/20 04:08 [place] # 0.4 K/mm3 (0.0-0.8) 06/14/20 04:08 Eos # 0.0 K/mm3 (0.0-0.4) 06/14/20 04:08 Baso # 0.0 K/mm3 (0.0-0.1) 06/14/20 04:08 Seg Neutrophils % 88.4 % (40.0-70.0) H 06/14/20 04:08 Seg Neutrophils # 6.3 K/mm3 (1.8-7.7) 06/14/20 04:08 PT 13.6 Sec. (12.2-14.9) 06/14/20 04:08 INR 1.03 (0.87-1.13) 06/14/20 04:08 ABG pH 7.233 pH Units (7.350-7.450) L 06/13/20 20:25 ABG pCO2 27.6 mm Hg 06/13/20 20:25 ABG pO2 72.0 mm Hg (80.0-90.0) L 06/13/20 20:25 ABG HCO3 11.4 mmol/L (20.0-26.0) L 06/13/20 20:25 ABG O2 Saturation 91.7 % (95.0-99.0) L 06/13/20 20:25 ABG O2 Content 16.0 (0.0-44) 06/13/20 20:25 ABG Base Excess -14.6 mmol/L (-2.0-3.0) L 06/13/20 20:25 ABG Hemoglobin 12.5 gm/dl (14.0-18.0) L 06/13/20 20:25 ABG Carboxyhemoglobin 0.7 % (0.0-5.0) 06/13/20 20:25 ABG Methemoglobin 0.2 % (0.0-1.5) 06/13/20 20:25 Oxyhemoglobin 90.8 % (95.0-99.0) L 06/13/20 20:25 FiO2 50 % 06/13/20 20:25 Sodium 142 mmol/L (137-145) 06/14/20 04:08 Potassium 4.9 mmol/L (3.6-5.0) 06/14/20 04:08 Chloride 96.4 mmol/L (98-107) L 06/14/20 04:08 Carbon Dioxide 14 mmol/L (22-30) L 06/14/20 04:08 Anion Gap 37 mmol/L 06/14/20 04:08 BUN 80 mg/dL (9-20) H 06/14/20 04:08 Creatinine 13.2 mg/dL (0.8-1.3) H 06/14/20 04:08 Estimated GFR 5 ml/min 06/14/20 04:08 BUN/Creatinine Ratio 6 % 06/14/20 04:08 Glucose 226 mg/dL (75-100) H 06/14/20 04:08 POC Glucose 285 (70-105) H 06/14/20 08:41 Lactic Acid 1.80 mmol/L (0.7-2.0) 06/13/20 21:01 Calcium 8.6 mg/dL (8.4-10.2) 06/14/20 04:08 Total Bilirubin 0.40 mg/dL (0.1-1.2) 06/13/20 18:32 AST 261 units/L (5-40) H 06/13/20 18:32 ALT 124 units/L (7-56) H 06/13/20 18:32 Alkaline Phosphatase 179 units/L (35-129) H 06/13/20 18:32 Total Protein 7.4 g/dL (6.3-8.2) 06/13/20 18:32 Albumin 3.5 g/dL (3.9-5) L 06/13/20 18:32 Albumin/Globulin Ratio 0.9 % 06/13/20 18:32 Hepatitis A IgM Ab Nonreactive (NonReactive) 06/13/20 21:46 Hep Bs Antigen Non-reactive (Negative) 06/13/20 21:46 Hep B Core IgM Ab Non-reactive (NonReactive) 06/13/20 21:46 Hepatitis C Antibody Non-reactive (NonReactive) 06/13/20 21:46 Microbiology: Microbiology 06/13/20 18:32 Peripheral/Venous Blood Culture - Preliminary Culture in Progress 06/13/20 18:44 Peripheral/Venous Blood Culture - Preliminary Culture in Progress Active Medications - Current Medications Current Medications: Generic Name Dose Route Start Last Admin Trade Name Freq PRN Reason Stop Dose Admin Acetaminophen 650 mg 06/13/20 23:27 Tylenol PO Q6H PRN Pain MILD(1-3)/Fever >100.5/PINEDA Dextrose 50 ml 06/13/20 23:27 D50w (25gm) Syringe IV Q30MIN PRN Hypoglycemia Protocol Heparin Sodium (Porcine) 3,000 unit 06/13/20 21:03 Heparin 10,000 Units/10 Ml IV CHACORTA PRN hemodialysis Heparin Sodium (Porcine) 5,000 unit 06/14/20 06:00 06/14/20 05:09 Heparin SUB-Q 5,000 unit Q8HR BENJA Administration Sodium Chloride 100 mls @ 999 mls/hr 06/13/20 21:03 Nacl 0.9% IV CHACORTA PRN Hypotension Cefepime HCl 1 gm in 100 mls @ 200 mls/hr 06/14/20 18:00 Cefepime/Ns 1 Gm/100 Ml IV Q24H [facility] Protocol Insulin Human Lispro 0 unit 06/14/20 07:30 Humalog SUB-Q ACHS [facility] Protocol Magnesium Hydroxide 30 ml 06/13/20 23:27 Milk Of Magnesia PO Q4H PRN Constipation Ondansetron HCl 4 mg 06/13/20 23:27 Zofran IV Q8H PRN Nausea And Vomiting Sodium Chloride 10 ml 06/14/20 10:00 Sodium Chloride Flush Syringe 10 Ml IV BID BENJA Sodium Chloride 10 ml 06/13/20 23:27 Sodium Chloride Flush Syringe 10 Ml IV PRN PRN LINE FLUSH
--- NOTE | 2020-06-14 09:46 | Consultation ---
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 Patient is unable to provide any history at this time. Due to respiratory distress and hypoxia, patient was unable to undergo dialysis treatment. He has been sick for several days with cough productive of green sputum. Evaluation in the ED revealed L lower lobe infiltrate on chest x-ray, hyperkalemia nd suspected volume overload. Nephrology was consulted for ESRD care. Past History Past Medical History: CAD, diabetes, ESRD, GERD, hypertension, stroke Medications and Allergies Allergies Allergy/AdvReac Type Severity Reaction Status Date / Time No Known Allergies Allergy Unverified 12/03/13 12:17 Home Medications Medication Instructions Recorded Confirmed Last Taken Type Aspirin 325 mg PO DAILY 12/03/13 10/27/17 1 Day Ago History ~12/09/16 Ergocalciferol [Vitamin D2] 1 cap PO QWEEK 12/03/13 10/27/17 1 Day Ago History ~12/09/16 Gabapentin 300 mg PO BID 12/03/13 10/27/17 1 Day Ago History ~12/09/16 Insulin Glargine,Hum.rec.anlog 20 units SQ QHS 12/03/13 10/27/17 1 Day Ago History [Lantus Solostar] ~12/09/16 Insulin Regular, Human [HumuLIN R] 3 units SC TIDAC 12/03/13 10/27/17 1 Day Ago History ~12/09/16 Clopidogrel Bisulfate [Plavix] 75 mg PO DAILY #30 tablet 12/06/13 10/27/17 1 Day Ago Rx ~12/09/16 Sucralfate [Carafate] 1 gm PO Q6HR #56 udc 12/11/16 10/27/17 Unknown Rx AtorvaSTATin [Lipitor] 20 mg PO QHS 10/27/17 10/27/17 Unknown History Folic Acid/Vit B Complex and C 1 tab PO DAILY 10/27/17 10/27/17 Unknown History [Renal-Alexandrea Tablet] Ondansetron [Zofran TAB] 4 mg PO Q8HR PRN 10/27/17 10/27/17 Unknown History Sevelamer Carbonate [Renvela] 2 tab PO TID 10/27/17 10/27/17 Unknown History Torsemide [Demadex] 40 mg PO DAILY 10/27/17 10/27/17 Unknown History amLODIPine 10 mg PO DAILY 10/27/17 10/27/17 Unknown History calcitrioL [Rocaltrol] 0.5 mcg PO QDAY 10/27/17 10/27/17 Unknown History glipiZIDE [Glipizide] 10 mg PO DAILY 10/27/17 10/27/17 Unknown History lisinopriL [Prinivil] 5 mg PO DAILY 10/27/17 10/27/17 Unknown History traMADoL [Ultram 50 MG tab] 50 mg PO Q8HR PRN 10/27/17 10/27/17 Unknown History Active Meds: Active Medications Acetaminophen (Tylenol) 650 mg PO Q6H PRN PRN Reason: Pain MILD(1-3)/Fever >100.5/PINEDA Dextrose (D50w (25gm) Syringe) 50 ml IV Q30MIN PRN; Protocol PRN Reason: Hypoglycemia Heparin Sodium (Porcine) (Heparin 10,000 Units/10 Ml) 3,000 unit IV CHACORTA PRN PRN Reason: hemodialysis Heparin Sodium (Porcine) (Heparin) 5,000 unit SUB-Q Q8HR BENJA Last Admin: 06/14/20 05:09 Dose: 5,000 unit Documented by: Sodium Chloride (Nacl 0.9%) 100 mls @ 999 mls/hr IV CHACORTA PRN PRN Reason: Hypotension Cefepime HCl (Cefepime/Ns 1 Gm/100 Ml) 1 gm in 100 mls @ 200 mls/hr IV Q24H BENJA; Protocol Insulin Human Lispro (Humalog) 0 unit SUB-Q ACHS BENJA; Protocol Magnesium Hydroxide (Milk Of Magnesia) 30 ml PO Q4H PRN PRN Reason: Constipation Ondansetron HCl (Zofran) 4 mg IV Q8H PRN PRN Reason: Nausea And Vomiting Sodium Chloride (Sodium Chloride Flush Syringe 10 Ml) 10 ml IV BID BENJA Sodium Chloride (Sodium Chloride Flush Syringe 10 Ml) 10 ml IV PRN PRN PRN Reason: LINE FLUSH Review of Systems ROS unobtainable: due to mental status Exam - Vital Signs Vital signs: Vital Signs Pulse Resp 94 H 26 H 06/13/20 18:00 06/13/20 18:00 Results - Lab Results 06/14/20 04:08 06/14/20 04:08 Most recent lab results ABG pH 7.233 pH Units (7.350-7.450) L 06/13/20 20:25 ABG pCO2 27.6 mm Hg 06/13/20 20:25 ABG pO2 72.0 mm Hg (80.0-90.0) L 06/13/20 20:25 ABG HCO3 11.4 mmol/L (20.0-26.0) L 06/13/20 20:25 ABG O2 Saturation 91.7 % (95.0-99.0) L 06/13/20 20:25 Calcium 8.6 mg/dL (8.4-10.2) 06/14/20 04:08 Assessment and Plan 1. ESRD: His usual schedule is [facility]. Patient underwent urgent HD 06/13 due to hyperkalemia and volume overload. Hemodialysis: 06/13, 06/14. 2. FEN: Hyperkalemia, improved with HD. Metabolic acidosis, HD today. Volume overload, UF with HD as tolerated. Monitor lytes and volume status. 3. Acute hypoxic respiratory failure: CXR showed b/l PNA. On BIPAP. Pulmonary consulted. 4. Bilateral PNA: COVID-19 test ordered. On multiple abx. Follow cultures. 5. Severe sepsis, POA: 2/2 PNA. Continue abx. 6. Anemia: Epogen if needed. 7. DM type 2. 8. HTN: Monitor BP is. 9. Metabolic encephalopathy. - General Appearance General appearance: well-developed, appears stated age, not in distress, on BIPAP HEENT: ATNC, PERRL Neck: Trachea midline Respiratory: appears ctab Cardiology: regular, S1S2, no murmur Gastrointestinal: normoactive bowel sounds, not tender, not distended Integumentary: no rash, warm and dry Neurologic: obtunded Ext: no edema Hemodialysis access: left arm AVF
[2020-06-14] MEDS: INSULIN LISPRO 100 UNIT/ML VIAL 3 mL SUB-Q SCH ×4 (10:34→22:52)
--- NOTE | 2020-06-14 11:01 | Consultation ---
History of Present Illness Consult date: 06/14/20 Requesting physician: CYNTHIA GROVE Reason for consult: hypoxemia History of present illness: 69 y/o male, admitted last night night with shortness of breath. Found to be volume overloaded and hyperkalemic requiring bipap therapy and emergent HD Had HD last night but per renal mental status is not improved. No real documentation on exam of mental state but ED labeled as acute metabolic encephalolpathy. I am unable to tell if today is better or not based on documentation. Patient is obtunded but will open eyes and nod head at times. He is not appropriate for bipap at the moment but his sats are good. Ordered sat ABG. Past History Past Medical History: CAD, diabetes, ESRD, GERD, hypertension, stroke Medications and Allergies Allergies Allergy/AdvReac Type Severity Reaction Status Date / Time No Known Allergies Allergy Unverified 12/03/13 12:17 Home Medications Medication Instructions Recorded Confirmed Last Taken Type Aspirin 325 mg PO DAILY 12/03/13 10/27/17 1 Day Ago History ~12/09/16 Ergocalciferol [Vitamin D2] 1 cap PO QWEEK 12/03/13 10/27/17 1 Day Ago History ~12/09/16 Gabapentin 300 mg PO BID 12/03/13 10/27/17 1 Day Ago History ~12/09/16 Insulin Glargine,Hum.rec.anlog 20 units SQ QHS 12/03/13 10/27/17 1 Day Ago History [Lantus Solostar] ~12/09/16 Insulin Regular, Human [HumuLIN R] 3 units SC TIDAC 12/03/13 10/27/17 1 Day Ago History ~12/09/16 Clopidogrel Bisulfate [Plavix] 75 mg PO DAILY #30 tablet 12/06/13 10/27/17 1 Day Ago Rx ~12/09/16 Sucralfate [Carafate] 1 gm PO Q6HR #56 udc 12/11/16 10/27/17 Unknown Rx AtorvaSTATin [Lipitor] 20 mg PO QHS 10/27/17 10/27/17 Unknown History Folic Acid/Vit B Complex and C 1 tab PO DAILY 10/27/17 10/27/17 Unknown History [Renal-Alexandrea Tablet] Ondansetron [Zofran TAB] 4 mg PO Q8HR PRN 10/27/17 10/27/17 Unknown History Sevelamer Carbonate [Renvela] 2 tab PO TID 10/27/17 10/27/17 Unknown History Torsemide [Demadex] 40 mg PO DAILY 10/27/17 10/27/17 Unknown History amLODIPine 10 mg PO DAILY 10/27/17 10/27/17 Unknown History calcitrioL [Rocaltrol] 0.5 mcg PO QDAY 10/27/17 10/27/17 Unknown History glipiZIDE [Glipizide] 10 mg PO DAILY 10/27/17 10/27/17 Unknown History lisinopriL [Prinivil] 5 mg PO DAILY 10/27/17 10/27/17 Unknown History traMADoL [Ultram 50 MG tab] 50 mg PO Q8HR PRN 10/27/17 10/27/17 Unknown History Active Meds: Active Medications Acetaminophen (Tylenol) 650 mg PO Q6H PRN PRN Reason: Pain MILD(1-3)/Fever >100.5/PINEDA Dextrose (D50w (25gm) Syringe) 50 ml IV Q30MIN PRN; Protocol PRN Reason: Hypoglycemia Heparin Sodium (Porcine) (Heparin 10,000 Units/10 Ml) 3,000 unit IV CHACORTA PRN PRN Reason: hemodialysis Heparin Sodium (Porcine) (Heparin) 5,000 unit SUB-Q Q8HR [facility] Last Admin: 06/14/20 05:09 Dose: 5,000 unit Documented by: Sodium Chloride (Nacl 0.9%) 100 mls @ 999 mls/hr IV CHACORTA PRN PRN Reason: Hypotension Cefepime HCl (Cefepime/Ns 1 Gm/100 Ml) 1 gm in 100 mls @ 200 mls/hr IV Q24H BENJA; Protocol Insulin Human Lispro (Humalog) 0 unit SUB-Q ACHS BENJA; Protocol Last Admin: 06/14/20 10:34 Dose: 300 unit Documented by: Magnesium Hydroxide (Milk Of Magnesia) 30 ml PO Q4H PRN PRN Reason: Constipation Ondansetron HCl (Zofran) 4 mg IV Q8H PRN PRN Reason: Nausea And Vomiting Sodium Chloride (Sodium Chloride Flush Syringe 10 Ml) 10 ml IV BID [facility] Last Admin: 06/14/20 10:35 Dose: 10 ml Documented by: Sodium Chloride (Sodium Chloride Flush Syringe 10 Ml) 10 ml IV PRN PRN PRN Reason: LINE FLUSH Review of Systems ROS unobtainable: due to mental status Physical Examination Vital signs: Vital Signs Pulse Resp 94 H 26 H 06/13/20 18:00 06/13/20 18:00 General appearance: lethargic Eyes: non-icteric ENT: other (full face mask bipap is noted) Ascultation: Bilateral: clear, diminished breath sounds Results - Laboratory Findings CBC and BMP: 06/14/20 04:08 06/14/20 04:08 ABG ABG pH 7.233 pH Units (7.350-7.450) L 06/13/20 20:25 ABG pCO2 27.6 mm Hg 06/13/20 20:25 ABG pO2 72.0 mm Hg (80.0-90.0) L 06/13/20 20:25 ABG O2 Saturation 91.7 % (95.0-99.0) L 06/13/20 20:25 PT/INR, D-dimer PT 13.6 Sec. (12.2-14.9) 06/14/20 04:08 INR 1.03 (0.87-1.13) 06/14/20 04:08 D-Dimer 1226.84 ng/mlDDU (0-234) H 06/14/20 04:08 Abnormal lab findings: Abnormal Labs 06/13/20 06/13/20 06/13/20 18:32 18:32 20:25 MCV 95 H Plt Count Lymph % (Auto) 12.4 L [place] % (Auto) 11.4 H Lymph # 1.1 L [place] # 1.0 H Seg Neutrophils % 76.0 H D-Dimer ABG pH 7.233 L ABG pO2 72.0 L ABG HCO3 11.4 L ABG O2 Saturation 91.7 L ABG Base Excess -14.6 L ABG Hemoglobin 12.5 L Oxyhemoglobin 90.8 L Potassium 5.9 H Chloride Carbon Dioxide 14 L BUN 105 H Creatinine 16.2 H Glucose 160 H POC Glucose AST 261 H ALT 124 H Alkaline Phosphatase 179 H C-Reactive Protein Albumin 3.5 L 06/14/20 06/14/20 06/14/20 04:08 04:08 04:08 MCV Plt Count 136 L Lymph % (Auto) 6.0 L [place] % (Auto) Lymph # 0.4 L [place] # Seg Neutrophils % 88.4 H D-Dimer 1226.84 H ABG pH ABG pO2 ABG HCO3 ABG O2 Saturation ABG Base Excess ABG Hemoglobin Oxyhemoglobin Potassium Chloride 96.4 L Carbon Dioxide 14 L BUN 80 H Creatinine 13.2 H Glucose 226 H POC Glucose AST ALT Alkaline Phosphatase C-Reactive Protein Albumin 06/14/20 06/14/20 08:41 09:47 MCV Plt Count Lymph % (Auto) [place] % (Auto) Lymph # [place] # Seg Neutrophils % D-Dimer ABG pH ABG pO2 ABG HCO3 ABG O2 Saturation ABG Base Excess ABG Hemoglobin Oxyhemoglobin Potassium Chloride Carbon Dioxide BUN Creatinine Glucose POC Glucose 285 H AST ALT Alkaline Phosphatase C-Reactive Protein 23.80 H Albumin - Diagnostic Findings Chest x-ray: image reviewed Assessment and Plan 69 y/o male with acute respiratory failure, acute renal failure requiring emergent HD, hyperkalemia, metabolic acidosis. 1. Pulm- ABG shows a pH of 7.32 better than 7.22, with a CO2 of 29. PaO2 of 80. Will attempt patient on HFNC with sats of 88% being acceptable. If patient cannot maintain on HFNC and mental state does not improve, will need elective intubation. He is a PUI for COVID given fever. Agree with broad spectrum abx therapy given history of green sputum 2. Renal-renal failure. Got HD yesterday and getting HD again today 3. Electrolytes per renal 4. Will continue to follow along with you.
[2020-06-14] MEDS ORDERED: SODIUM CHLORIDE 0.9% 100 ML IV PRN (11:58)
--- NOTE | 2020-06-14 12:21 | Consultation ---
History of Present Illness - Reason for Consult Consult date: 06/14/20 Pneumonia, COVID r/o Requesting physician: LEXX SILVESTRE - History of Present Illness The patient is a 69-year-old male with ESRD on HD, coronary artery disease, prior CVA, gastroesophageal reflux disease was sent in from the dialysis center due to respiratory distress and hypoxia. Upon arrival in the ER, T-max was 104 F. Patient was hypoxic and currently is on nasal cannula. COVID-19 test is pending, inflammatory markers are significantly elevated, ferritin is 28,000, CRP 23.8, d-dimer 1226. Chest x-ray showed bilateral opacities. Review of Systems: reviewed in the chart, unable to obtain directly due to PPE shortage and preservation Past History Past Medical History: CAD, diabetes, ESRD, GERD, hypertension, stroke Medications and Allergies Allergies Allergy/AdvReac Type Severity Reaction Status Date / Time No Known Allergies Allergy Unverified 12/03/13 12:17 Home Medications Medication Instructions Recorded Confirmed Last Taken Type Aspirin 325 mg PO DAILY 12/03/13 10/27/17 1 Day Ago History ~12/09/16 Ergocalciferol [Vitamin D2] 1 cap PO QWEEK 12/03/13 10/27/17 1 Day Ago History ~12/09/16 Gabapentin 300 mg PO BID 12/03/13 10/27/17 1 Day Ago History ~12/09/16 Insulin Glargine,Hum.rec.anlog 20 units SQ QHS 12/03/13 10/27/17 1 Day Ago History [Lantus Solostar] ~12/09/16 Insulin Regular, Human [HumuLIN R] 3 units SC TIDAC 12/03/13 10/27/17 1 Day Ago History ~12/09/16 Clopidogrel Bisulfate [Plavix] 75 mg PO DAILY #30 tablet 12/06/13 10/27/17 1 Day Ago Rx ~12/09/16 Sucralfate [Carafate] 1 gm PO Q6HR #56 udc 12/11/16 10/27/17 Unknown Rx AtorvaSTATin [Lipitor] 20 mg PO QHS 10/27/17 10/27/17 Unknown History Folic Acid/Vit B Complex and C 1 tab PO DAILY 10/27/17 10/27/17 Unknown History [Renal-Alexandrea Tablet] Ondansetron [Zofran TAB] 4 mg PO Q8HR PRN 10/27/17 10/27/17 Unknown History Sevelamer Carbonate [Renvela] 2 tab PO TID 10/27/17 10/27/17 Unknown History Torsemide [Demadex] 40 mg PO DAILY 10/27/17 10/27/17 Unknown History amLODIPine 10 mg PO DAILY 10/27/17 10/27/17 Unknown History calcitrioL [Rocaltrol] 0.5 mcg PO QDAY 10/27/17 10/27/17 Unknown History glipiZIDE [Glipizide] 10 mg PO DAILY 10/27/17 10/27/17 Unknown History lisinopriL [Prinivil] 5 mg PO DAILY 10/27/17 10/27/17 Unknown History traMADoL [Ultram 50 MG tab] 50 mg PO Q8HR PRN 10/27/17 10/27/17 Unknown History Active Meds: Active Medications Acetaminophen (Tylenol) 650 mg PO Q6H PRN PRN Reason: Pain MILD(1-3)/Fever >100.5/PINEDA Dextrose (D50w (25gm) Syringe) 50 ml IV Q30MIN PRN; Protocol PRN Reason: Hypoglycemia Heparin Sodium (Porcine) (Heparin 10,000 Units/10 Ml) 3,000 unit IV CHACORTA PRN PRN Reason: hemodialysis Heparin Sodium (Porcine) (Heparin) 5,000 unit SUB-Q Q8HR BENJA Last Admin: 06/14/20 05:09 Dose: 5,000 unit Documented by: Cefepime HCl (Cefepime/Ns 1 Gm/100 Ml) 1 gm in 100 mls @ 200 mls/hr IV Q24H BENJA; Protocol Sodium Chloride (Nacl 0.9%) 100 mls @ 999 mls/hr IV CHACORTA PRN PRN Reason: Hypotension Insulin Human Lispro (Humalog) 0 unit SUB-Q ACHS BENJA; Protocol Last Admin: 06/14/20 10:34 Dose: 300 unit Documented by: Magnesium Hydroxide (Milk Of Magnesia) 30 ml PO Q4H PRN PRN Reason: Constipation Ondansetron HCl (Zofran) 4 mg IV Q8H PRN PRN Reason: Nausea And Vomiting Sodium Chloride (Sodium Chloride Flush Syringe 10 Ml) 10 ml IV BID BENJA Last Admin: 06/14/20 10:35 Dose: 10 ml Documented by: Sodium Chloride (Sodium Chloride Flush Syringe 10 Ml) 10 ml IV PRN PRN PRN Reason: LINE FLUSH Physical Examination - Physical Exam Narrative exam: Physical Exam (reviewed in chart due to PPE conservation) Constitutional: limited due to PPE conservation strategy Head, Ears, Nose: limited due to PPE conservation strategy Eyes: limited due to PPE conservation strategy Neck: limited due to PPE conservation strategy Oral: limited due to PPE conservation strategy Cardiovascular: limited due to PPE conservation strategy Respiratory: limited due to PPE conservation strategy GI: limited due to PPE conservation strategy Musculoskeletal: limited due to PPE conservation strategy Skin: limited due to PPE conservation strategy Hem/Lymphatic: limited due to PPE conservation strategy Psych: limited due to PPE conservation strategy Neurological: limited due to PPE conservation strategy - Constitutional Vitals: Vital Signs Temp Pulse Resp BP Pulse Ox 100.4 F H 83 19 118/58 97 06/14/20 12:00 06/14/20 09:11 06/14/20 09:11 06/14/20 09:11 06/14/20 09:11 Temperature -Last 24 Hours Temperature 100.4 F Temperature 98.5 F Temperature 99.9 F Temperature 99.9 F Temperature 102.9 F Temperature 104 F Temperature 100.7 F Results - Labs CBC & Chem 7: 06/14/20 04:08 06/14/20 04:08 Labs: Abnormal lab results 06/13/20 06/13/20 06/13/20 Range/Units 18:32 18:32 20:25 MCV 95 H (84-94) fl Plt Count (140-440) K/mm3 Lymph % (Auto) 12.4 L (13.4-35.0) % [place] % (Auto) 11.4 H (0.0-7.3) % Lymph # 1.1 L (1.2-5.4) K/mm3 [place] # 1.0 H (0.0-0.8) K/mm3 Seg Neutrophils % 76.0 H (40.0-70.0) % D-Dimer (0-234) ng/mlDDU ABG pH 7.233 L (7.350-7.450) pH Units POC ABG pCO2 (32.0-48.0) mmHg POC ABG pO2 (83-108) mmHg ABG pO2 72.0 L (80.0-90.0) mm Hg ABG HCO3 11.4 L (20.0-26.0) mmol/L ABG O2 Saturation 91.7 L (95.0-99.0) % ABG Base Excess -14.6 L (-2.0-3.0) mmol/L ABG Hemoglobin 12.5 L (14.0-18.0) gm/dl Oxyhemoglobin 90.8 L (95.0-99.0) % Potassium 5.9 H (3.6-5.0) mmol/L Chloride (98-107) mmol/L Carbon Dioxide 14 L (22-30) mmol/L BUN 105 H (9-20) mg/dL Creatinine 16.2 H (0.8-1.3) mg/dL Glucose 160 H (75-100) mg/dL POC Glucose (70-105) Ferritin (30.0-300.0) ng/mL AST 261 H (5-40) units/L ALT 124 H (7-56) units/L Alkaline Phosphatase 179 H (35-129) units/L C-Reactive Protein (0.00-1.30) mg/dL Albumin 3.5 L (3.9-5) g/dL 06/14/20 06/14/20 06/14/20 Range/Units 04:08 04:08 04:08 MCV (84-94) fl Plt Count 136 L (140-440) K/mm3 Lymph % (Auto) 6.0 L (13.4-35.0) % [place] % (Auto) (0.0-7.3) % Lymph # 0.4 L (1.2-5.4) K/mm3 [place] # (0.0-0.8) K/mm3 Seg Neutrophils % 88.4 H (40.0-70.0) % D-Dimer 1226.84 H (0-234) ng/mlDDU ABG pH (7.350-7.450) pH Units POC ABG pCO2 (32.0-48.0) mmHg POC ABG pO2 (83-108) mmHg ABG pO2 (80.0-90.0) mm Hg ABG HCO3 (20.0-26.0) mmol/L ABG O2 Saturation (95.0-99.0) % ABG Base Excess (-2.0-3.0) mmol/L ABG Hemoglobin (14.0-18.0) gm/dl Oxyhemoglobin (95.0-99.0) % Potassium (3.6-5.0) mmol/L Chloride 96.4 L (98-107) mmol/L Carbon Dioxide 14 L (22-30) mmol/L BUN 80 H (9-20) mg/dL Creatinine 13.2 H (0.8-1.3) mg/dL Glucose 226 H (75-100) mg/dL POC Glucose (70-105) Ferritin (30.0-300.0) ng/mL AST (5-40) units/L ALT (7-56) units/L Alkaline Phosphatase (35-129) units/L C-Reactive Protein (0.00-1.30) mg/dL Albumin (3.9-5) g/dL 06/14/20 06/14/20 06/14/20 Range/Units 08:41 09:47 09:47 MCV (84-94) fl Plt Count (140-440) K/mm3 Lymph % (Auto) (13.4-35.0) % [place] % (Auto) (0.0-7.3) % Lymph # (1.2-5.4) K/mm3 [place] # (0.0-0.8) K/mm3 Seg Neutrophils % (40.0-70.0) % D-Dimer (0-234) ng/mlDDU ABG pH (7.350-7.450) pH Units POC ABG pCO2 (32.0-48.0) mmHg POC ABG pO2 (83-108) mmHg ABG pO2 (80.0-90.0) mm Hg ABG HCO3 (20.0-26.0) mmol/L ABG O2 Saturation (95.0-99.0) % ABG Base Excess (-2.0-3.0) mmol/L ABG Hemoglobin (14.0-18.0) gm/dl Oxyhemoglobin (95.0-99.0) % Potassium (3.6-5.0) mmol/L Chloride (98-107) mmol/L Carbon Dioxide (22-30) mmol/L BUN (9-20) mg/dL Creatinine (0.8-1.3) mg/dL Glucose (75-100) mg/dL POC Glucose 285 H (70-105) Ferritin 84975.0 H (30.0-300.0) ng/mL AST (5-40) units/L ALT (7-56) units/L Alkaline Phosphatase (35-129) units/L C-Reactive Protein 23.80 H (0.00-1.30) mg/dL Albumin (3.9-5) g/dL 06/14/20 06/14/20 Range/Units 10:21 12:08 MCV (84-94) fl Plt Count (140-440) K/mm3 Lymph % (Auto) (13.4-35.0) % [place] % (Auto) (0.0-7.3) % Lymph # (1.2-5.4) K/mm3 [place] # (0.0-0.8) K/mm3 Seg Neutrophils % (40.0-70.0) % D-Dimer (0-234) ng/mlDDU ABG pH 7.314 L (7.350-7.450) pH Units POC ABG pCO2 29.0 L (32.0-48.0) mmHg POC ABG pO2 80.8 L (83-108) mmHg ABG pO2 (80.0-90.0) mm Hg ABG HCO3 (20.0-26.0) mmol/L ABG O2 Saturation (95.0-99.0) % ABG Base Excess (-2.0-3.0) mmol/L ABG Hemoglobin 11.9 L (14.0-18.0) gm/dl Oxyhemoglobin (95.0-99.0) % Potassium (3.6-5.0) mmol/L Chloride (98-107) mmol/L Carbon Dioxide (22-30) mmol/L BUN (9-20) mg/dL Creatinine (0.8-1.3) mg/dL Glucose (75-100) mg/dL POC Glucose 313 H (70-105) Ferritin (30.0-300.0) ng/mL AST (5-40) units/L ALT (7-56) units/L Alkaline Phosphatase (35-129) units/L C-Reactive Protein (0.00-1.30) mg/dL Albumin (3.9-5) g/dL - Imaging and Cardiology Chest x-ray: report reviewed, image reviewed (b/l opacities) Assessment and Plan Cultures: Coronavirus PCR: Pending 06/13/2020 blood culture: In process A/P: 69-year-old male with ESRD on HD, coronary artery disease, prior CVA, gastroesophageal reflux disease was sent in from the dialysis center due to respiratory distress and hypoxia: #Bilateral pneumonia: COVID-19 test is pending, inflammatory markers are significantly elevated, ferritin is 28,000, CRP 23.8, d-dimer 1226. Chest x-ray showed bilateral opacities. #Acute hypoxic respiratory failure: #ESRD on HD Recs: Reasonably high suspicion for COVID, hence will do empiric IV/PO Dexamethasone 6 mg daily x 10 days Follow-up COVID PCR Empiric antibiotics for now: Ceftriaxone, azithromycin Alexandr Talavera MD, FACP [facility] ([facility] C: [phone] O: [phone] F: [phone]
[2020-06-14] MEDS ORDERED: DEXAMETHASONE 4 MG TAB PO SCH (15:00)
[2020-06-14] MEDS: cefTRIAXone/NS 1 GM/50 ML 1 GM/50 ML BAG IV SCH (15:53)
[2020-06-14] MEDS: AZITHROMYCIN 500 MG in SODIUM CHLORIDE 0.9% 250ML 250 ML IV SCH (15:53)
[2020-06-14] MEDS ORDERED: CEFEPIME/NS 1 GM/100 ML 1 GM/100 ML BAG IV SCH ×2 (18:00)
[2020-06-15 06:20] LABS: Alanine Aminotransferase 628 units/L (7-56); Albumin 3.3 g/dL (3.9-5)
[2020-06-15] MEDS: HEPARIN 5,000 UNIT/1 ML VIAL SUB-Q SCH ×2 (06:45→13:29)
[2020-06-15 07:00] LABS: Hemolysis Index 18
[2020-06-15 07:13] LABS: BUN/Creatinine Ratio 7; Blood Urea Nitrogen 67 mg/dL (9-20)
[2020-06-15 07:25] LABS: Calcium 7.8 mg/dL (8.4-10.2)
[2020-06-15] MEDS: INSULIN LISPRO 100 UNIT/ML VIAL 3 mL SUB-Q SCH ×3 (09:12→17:23)
--- NOTE | 2020-06-15 09:19 | Progress Note ---
Assessment and Plan 1. ESRD: His usual schedule is MWF. Patient underwent urgent HD 06/13 due to hyperkalemia and volume overload. Hemodialysis: 06/13, 06/14. 2. FEN: Hyperkalemia, improved with HD. Metabolic acidosis, on HD. Volume overload, UF with HD as tolerated. Monitor lytes and volume status. 3. Acute hypoxic respiratory failure: CXR showed b/l PNA. On HFNC O2. Followed by Pulmonary. 4. Bilateral PNA: COVID-19 test ordered. On multiple abx. Follow cultures. 5. Severe sepsis, POA: 2/2 PNA. Continue abx. 6. Anemia: Epogen if needed. 7. DM type 2. 8. HTN: Monitor BP. 9. Metabolic encephalopathy. D/w . - Subjective: Patient was seen and examined at the bedside. In IMCU. - General Appearance General appearance: well-developed, appears stated age, not in distress, on HFNC O2 HEENT: ATNC, Pupils small Neck: Trachea midline Respiratory: appears ctab Cardiology: regular, S1S2, no murmur Gastrointestinal: normoactive bowel sounds, not tender, not distended Integumentary: no rash, warm and dry Neurologic: obtunded Ext: no edema Hemodialysis access: left FA AVF Subjective Date of service: 06/15/20 Objective - Vital Signs Vital signs: Vital Signs - 12hr 06/14/20 06/14/20 06/14/20 21:21 21:30 21:41 Temperature Pulse Rate 92 H 93 H 94 H Pulse Rate [ From Monitor] Respiratory 25 H 28 H 26 H Rate Blood Pressure 149/66 153/67 153/67 O2 Sat by Pulse 100 97 100 Oximetry 06/14/20 06/14/20 06/14/20 21:51 21:56 22:00 Temperature Pulse Rate 93 H 94 H Pulse Rate [ From Monitor] Respiratory 26 H 29 H Rate Blood Pressure 135/63 135/65 O2 Sat by Pulse 98 96 98 Oximetry 06/14/20 06/14/20 06/14/20 22:11 22:21 22:30 Temperature Pulse Rate 93 H 95 H 94 H Pulse Rate [ From Monitor] Respiratory 27 H 26 H 27 H Rate Blood Pressure 135/65 139/67 141/69 O2 Sat by Pulse 98 99 98 Oximetry 06/14/20 06/14/20 06/14/20 22:41 22:47 22:51 Temperature Pulse Rate 95 H 95 H 95 H Pulse Rate [ From Monitor] Respiratory 24 28 H 25 H Rate Blood Pressure 141/69 144/65 144/65 O2 Sat by Pulse 98 97 97 Oximetry 06/14/20 06/14/20 06/14/20 23:00 23:02 23:11 Temperature Pulse Rate 94 H 94 H 95 H Pulse Rate [ From Monitor] Respiratory 27 H 25 H 23 Rate Blood Pressure 134/68 144/65 134/68 O2 Sat by Pulse 99 98 99 Oximetry 06/14/20 06/14/20 06/14/20 23:21 23:30 23:41 Temperature Pulse Rate 98 H 100 H 97 H Pulse Rate [ From Monitor] Respiratory 24 23 22 Rate Blood Pressure 134/68 158/71 158/71 O2 Sat by Pulse 99 89 93 Oximetry 06/14/20 06/15/20 06/15/20 23:51 00:00 00:11 Temperature 99.6 F Pulse Rate 99 H 99 H 101 H Pulse Rate [ 99 H From Monitor] Respiratory 25 H 21 22 Rate Blood Pressure 162/66 168/72 168/72 O2 Sat by Pulse 94 94 96 Oximetry 06/15/20 06/15/20 06/15/20 00:21 00:31 00:41 Temperature Pulse Rate 100 H 97 H 97 H Pulse Rate [ From Monitor] Respiratory 24 21 24 Rate Blood Pressure 171/73 132/56 132/56 O2 Sat by Pulse 97 98 97 Oximetry 06/15/20 06/15/20 06/15/20 00:51 01:00 01:11 Temperature Pulse Rate 94 H 96 H 94 H Pulse Rate [ From Monitor] Respiratory 22 24 25 H Rate Blood Pressure 117/56 134/62 134/62 O2 Sat by Pulse 97 98 98 Oximetry 06/15/20 06/15/20 06/15/20 01:21 01:30 01:41 Temperature Pulse Rate 92 H 93 H 94 H Pulse Rate [ From Monitor] Respiratory 22 23 27 H Rate Blood Pressure 121/58 123/56 123/56 O2 Sat by Pulse 98 99 99 Oximetry 06/15/20 06/15/20 06/15/20 01:51 02:00 02:11 Temperature Pulse Rate 93 H 93 H 94 H Pulse Rate [ From Monitor] Respiratory 26 H 24 24 Rate Blood Pressure 130/62 126/60 126/60 O2 Sat by Pulse 99 99 98 Oximetry 06/15/2020 06/15/20 02:21 02:30 02:41 Temperature Pulse Rate 94 H 93 H 96 H Pulse Rate [ From Monitor] Respiratory 24 23 28 H Rate Blood Pressure 135/59 137/61 137/61 O2 Sat by Pulse 98 99 99 Oximetry 06/15/2020 06/15/20 02:51 03:00 03:11 Temperature Pulse Rate 93 H 94 H 95 H Pulse Rate [ From Monitor] Respiratory 26 H 27 H 25 H Rate Blood Pressure 128/60 124/59 124/59 O2 Sat by Pulse 100 99 99 Oximetry 06/15/20 06/15/20 06/15/20 03:21 03:30 03:41 Temperature Pulse Rate 93 H 95 H 93 H Pulse Rate [ From Monitor] Respiratory 26 H 24 24 Rate Blood Pressure 120/57 120/59 120/59 O2 Sat by Pulse 99 99 99 Oximetry 06/15/20 06/15/20 06/15/20 03:51 04:00 04:11 Temperature 101.3 F H Pulse Rate 95 H 95 H 93 H Pulse Rate [ 92 H From Monitor] Respiratory 28 H 23 26 H Rate Blood Pressure 122/60 130/57 130/57 O2 Sat by Pulse 99 98 99 Oximetry 06/15/20 06/15/20 06/15/20 04:21 04:30 04:41 Temperature Pulse Rate 95 H 93 H 95 H Pulse Rate [ From Monitor] Respiratory 27 H 24 25 H Rate Blood Pressure 122/58 131/57 131/57 O2 Sat by Pulse 98 99 98 Oximetry 06/15/20 06/15/20 06/15/20 04:51 05:00 05:11 Temperature Pulse Rate 95 H 95 H 94 H Pulse Rate [ From Monitor] Respiratory 24 26 H 26 H Rate Blood Pressure 129/59 121/59 121/59 O2 Sat by Pulse 99 99 99 Oximetry 06/15/20 06/15/20 06/15/20 05:21 05:31 05:41 Temperature Pulse Rate 95 H 90 94 H Pulse Rate [ From Monitor] Respiratory 22 30 H 22 Rate Blood Pressure 130/60 117/60 117/60 O2 Sat by Pulse 98 99 97 Oximetry 06/15/20 06/15/20 06/15/20 05:51 06:00 06:11 Temperature Pulse Rate 92 H 96 H 95 H Pulse Rate [ From Monitor] Respiratory 24 30 H 26 H Rate Blood Pressure 114/53 131/64 131/64 O2 Sat by Pulse 98 98 97 Oximetry 06/15/20 06/15/20 06/15/20 06:21 06:30 06:41 Temperature Pulse Rate 95 H 93 H 96 H Pulse Rate [ From Monitor] Respiratory 25 H 26 H 29 H Rate Blood Pressure 134/63 142/64 134/63 O2 Sat by Pulse 97 98 95 Oximetry 06/15/20 06/15/20 06/15/20 06:51 07:00 07:11 Temperature Pulse Rate 96 H 96 H 96 H Pulse Rate [ From Monitor] Respiratory 26 H 28 H 28 H Rate Blood Pressure 134/66 126/60 134/66 O2 Sat by Pulse 98 97 96 Oximetry 06/15/20 06/15/20 06/15/20 07:21 07:31 07:41 Temperature Pulse Rate 98 H 98 H 96 H Pulse Rate [ From Monitor] Respiratory 23 29 H 27 H Rate Blood Pressure 117/55 102/63 102/63 O2 Sat by Pulse 95 96 96 Oximetry 06/15/20 06/15/20 06/15/20 07:51 08:00 08:11 Temperature 98.9 F Pulse Rate 102 H 97 H 98 H Pulse Rate [ From Monitor] Respiratory 24 26 H 27 H Rate Blood Pressure 86/62 96/60 96/60 O2 Sat by Pulse 95 96 97 Oximetry 06/15/20 06/15/20 06/15/20 08:21 08:30 08:41 Temperature Pulse Rate 95 H 96 H 97 H Pulse Rate [ From Monitor] Respiratory 27 H 27 H 29 H Rate Blood Pressure 129/60 141/61 O2 Sat by Pulse 97 98 94 Oximetry - Lab 06/14/20 04:08 06/15/20 05:11 Most recent lab results ABG pH 7.314 (7.320-7.450) L 06/14/20 10:21 ABG pCO2 27.6 mm Hg 06/13/20 20:25 ABG pO2 72.0 mm Hg (80.0-90.0) L 06/13/20 20:25 ABG HCO3 11.4 mmol/L (20.0-26.0) L 06/13/20 20:25 ABG O2 Saturation 91.7 % (95.0-99.0) L 06/13/20 20:25 Calcium 7.8 mg/dL (8.4-10.2) L 06/15/20 05:11 Medications & Allergies - Medications Allergies/Adverse Reactions: Allergies No Known Allergies Allergy (Unverified 12/03/13 12:17) Home Medications: Home Medications Medication Instructions Recorded Confirmed Last Taken Type Aspirin 325 mg PO DAILY 12/03/13 10/27/17 1 Day Ago History ~12/09/16 Ergocalciferol [Vitamin D2] 1 cap PO QWEEK 12/03/13 10/27/17 1 Day Ago History ~12/09/16 Gabapentin 300 mg PO BID 12/03/13 10/27/17 1 Day Ago History ~12/09/16 Insulin Glargine,Hum.rec.anlog 20 units SQ QHS 12/03/13 10/27/17 1 Day Ago History [Lantus Solostar] ~12/09/16 Insulin Regular, Human [HumuLIN R] 3 units SC TIDAC 12/03/13 10/27/17 1 Day Ago History ~12/09/16 Clopidogrel Bisulfate [Plavix] 75 mg PO DAILY #30 tablet 12/06/13 10/27/17 1 Day Ago Rx ~12/09/16 Sucralfate [Carafate] 1 gm PO Q6HR #56 udc 12/11/16 10/27/17 Unknown Rx AtorvaSTATin [Lipitor] 20 mg PO QHS 10/27/17 10/27/17 Unknown History Folic Acid/Vit B Complex and C 1 tab PO DAILY 10/27/17 10/27/17 Unknown History [Renal-Alexandrea Tablet] Ondansetron [Zofran TAB] 4 mg PO Q8HR PRN 10/27/17 10/27/17 Unknown History Sevelamer Carbonate [Renvela] 2 tab PO TID 10/27/17 10/27/17 Unknown History Torsemide [Demadex] 40 mg PO DAILY 10/27/17 10/27/17 Unknown History amLODIPine 10 mg PO DAILY 10/27/17 10/27/17 Unknown History calcitrioL [Rocaltrol] 0.5 mcg PO QDAY 10/27/17 10/27/17 Unknown History glipiZIDE [Glipizide] 10 mg PO DAILY 10/27/17 10/27/17 Unknown History lisinopriL [Prinivil] 5 mg PO DAILY 10/27/17 10/27/17 Unknown History traMADoL [Ultram 50 MG tab] 50 mg PO Q8HR PRN 10/27/17 10/27/17 Unknown History Active Medications: Generic Name Dose Route Start Last Admin Trade Name Freq PRN Reason Stop Dose Admin Acetaminophen 650 mg 06/13/20 23:27 Tylenol PO Q6H PRN Pain MILD(1-3)/Fever >100.5/PINEDA Dexamethasone 6 mg 06/14/20 15:00 06/14/20 15:54 Decadron PO 06/24/20 14:59 Not Given DAILY BENJA Dextrose 50 ml 06/13/20 23:27 D50w (25gm) Syringe IV Q30MIN PRN Hypoglycemia Protocol Heparin Sodium (Porcine) 3,000 unit 06/13/20 21:03 Heparin 10,000 Units/10 Ml IV CHACORTA PRN hemodialysis Heparin Sodium (Porcine) 5,000 unit 06/14/20 06:00 06/15/20 06:45 Heparin SUB-Q 5,000 unit Q8HR BENJA Administration Sodium Chloride 100 mls @ 999 mls/hr 06/14/20 11:58 Nacl 0.9% IV CHACORTA PRN Hypotension Ceftriaxone Sodium 1 gm in 50 mls @ 100 mls/hr 06/14/20 15:00 06/14/20 15:53 Rocephin/Ns 1 Gm/50 Ml IV 100 mls/hr Q24HR BENJA Administration Protocol Azithromycin 500 mg/ Sodium 250 mls @ 250 mls/hr 06/14/20 15:00 06/14/20 15:53 Chloride IV 250 mls/hr Q24HR BENJA Administration Protocol Insulin Human Lispro 0 unit 06/14/20 07:30 06/14/20 22:52 Humalog SUB-Q 2 unit ACHS BENJA Administration Protocol Magnesium Hydroxide 30 ml 06/13/20 23:27 Milk Of Magnesia PO Q4H PRN Constipation Ondansetron HCl 4 mg 06/13/20 23:27 Zofran IV Q8H PRN Nausea And Vomiting Sodium Chloride 10 ml 06/14/20 10:00 06/14/20 22:52 Sodium Chloride Flush Syringe 10 Ml IV 10 ml BID BENJA Administration Sodium Chloride 10 ml 08/18/20 23:27 Sodium Chloride Flush Syringe 10 Ml IV PRN PRN LINE FLUSH
[2020-06-15] MEDS: dexAMETHasone 4 MG/ML VIAL IV SCH (09:35)
[2020-06-15] MEDS: AZITHROMYCIN 500 MG in SODIUM CHLORIDE 0.9% 250ML 250 ML IV SCH (09:35)
[2020-06-15] MEDS: cefTRIAXone/NS 1 GM/50 ML 1 GM/50 ML BAG IV SCH (09:36)
--- NOTE | 2020-06-15 10:04 | Progress Note ---
Assessment and Plan 69 y/o male with acute respiratory failure, acute renal failure requiring emergent HD, hyperkalemia, metabolic acidosis. 1. Pulm- Continue HFNC and wean for sats >88% 2. Renal-renal failure. HD back to back. BUN down to 67. Most likely not the cause of continued depressed medical state. 3. Electrolytes per renal 4. Will obtain stat Head CT 5. Given elevated LFT's will obtain abdominal ultrasound as well. 6. ID-patient had temp last night, blood cultures from 06/13 are negative but were not repeated with last temperature spike. If spikes again, will need repeat blood and urine culture. Can obtain CXR. Subjective Date of service: 06/15/20 Interval history: Despite another session on yesterday, mental status has still not improved. No worse. LFT's are elevated but no history of liver disease or cirrhosis that I am aware of. COVID was not done yesterday. Objective Vital Signs - 12hr 06/14/20 06/14/20 06/14/20 22:11 22:21 22:30 Temperature Pulse Rate 93 H 95 H 94 H Pulse Rate [ From Monitor] Respiratory 27 H 26 H 27 H Rate Blood Pressure 135/65 139/67 141/69 O2 Sat by Pulse 98 99 98 Oximetry 06/14/20 06/14/20 06/14/20 22:41 22:47 22:51 Temperature Pulse Rate 95 H 95 H 95 H Pulse Rate [ From Monitor] Respiratory 24 28 H 25 H Rate Blood Pressure 141/69 144/65 144/65 O2 Sat by Pulse 98 97 97 Oximetry 06/14/20 06/14/20 06/14/20 23:00 23:02 23:11 Temperature Pulse Rate 94 H 94 H 95 H Pulse Rate [ From Monitor] Respiratory 27 H 25 H 23 Rate Blood Pressure 134/68 144/65 134/68 O2 Sat by Pulse 99 98 99 Oximetry 06/14/20 06/14/20 06/14/20 23:21 23:30 23:41 Temperature Pulse Rate 98 H 100 H 97 H Pulse Rate [ From Monitor] Respiratory 24 23 22 Rate Blood Pressure 134/68 158/71 158/71 O2 Sat by Pulse 99 89 93 Oximetry 06/14/20 06/15/20 06/15/20 23:51 00:00 00:11 Temperature 99.6 F Pulse Rate 99 H 99 H 101 H Pulse Rate [ 99 H From Monitor] Respiratory 25 H 21 22 Rate Blood Pressure 162/66 168/72 168/72 O2 Sat by Pulse 94 94 96 Oximetry 06/15/20 06/15/20 06/15/20 00:21 00:31 00:41 Temperature Pulse Rate 100 H 97 H 97 H Pulse Rate [ From Monitor] Respiratory 24 21 24 Rate Blood Pressure 171/73 132/56 132/56 O2 Sat by Pulse 97 98 97 Oximetry 06/15/20 06/15/20 06/15/20 00:51 01:00 01:11 Temperature Pulse Rate 94 H 96 H 94 H Pulse Rate [ From Monitor] Respiratory 22 24 25 H Rate Blood Pressure 117/56 134/62 134/62 O2 Sat by Pulse 97 98 98 Oximetry 06/15/20 06/15/20 06/15/20 01:21 01:30 01:41 Temperature Pulse Rate 92 H 93 H 94 H Pulse Rate [ From Monitor] Respiratory 22 23 27 H Rate Blood Pressure 121/58 123/56 123/56 O2 Sat by Pulse 98 99 99 Oximetry 06/15/20 06/15/20 06/15/20 01:51 02:00 02:11 Temperature Pulse Rate 93 H 93 H 94 H Pulse Rate [ From Monitor] Respiratory 26 H 24 24 Rate Blood Pressure 130/62 126/60 126/60 O2 Sat by Pulse 99 99 98 Oximetry 06/15/20 06/15/20 06/15/20 02:21 02:30 02:41 Temperature Pulse Rate 94 H 93 H 96 H Pulse Rate [ From Monitor] Respiratory 24 23 28 H Rate Blood Pressure 135/59 137/61 137/61 O2 Sat by Pulse 98 99 99 Oximetry 06/15/20 06/15/20 06/15/20 02:51 03:00 03:11 Temperature Pulse Rate 93 H 94 H 95 H Pulse Rate [ From Monitor] Respiratory 26 H 27 H 25 H Rate Blood Pressure 128/60 124/59 124/59 O2 Sat by Pulse 100 99 99 Oximetry 06/15/20 06/15/20 06/15/20 03:21 03:30 03:41 Temperature Pulse Rate 93 H 95 H 93 H Pulse Rate [ From Monitor] Respiratory 26 H 24 24 Rate Blood Pressure 120/57 120/59 120/59 O2 Sat by Pulse 99 99 99 Oximetry 06/15/20 06/15/20 06/15/20 03:51 04:00 04:11 Temperature 101.3 F H Pulse Rate 95 H 95 H 93 H Pulse Rate [ 92 H From Monitor] Respiratory 28 H 23 26 H Rate Blood Pressure 122/60 130/57 130/57 O2 Sat by Pulse 99 98 99 Oximetry 20 2020 06/15/20 04:21 04:30 04:41 Temperature Pulse Rate 95 H 93 H 95 H Pulse Rate [ From Monitor] Respiratory 27 H 24 25 H Rate Blood Pressure 122/58 131/57 131/57 O2 Sat by Pulse 98 99 98 Oximetry 06/15/20 06/15/20 06/15/20 04:51 05:00 05:11 Temperature Pulse Rate 95 H 95 H 94 H Pulse Rate [ From Monitor] Respiratory 24 26 H 26 H Rate Blood Pressure 129/59 121/59 121/59 O2 Sat by Pulse 99 99 99 Oximetry 06/15/20 06/15/20 06/15/20 05:21 05:31 05:41 Temperature Pulse Rate 95 H 90 94 H Pulse Rate [ From Monitor] Respiratory 22 30 H 22 Rate Blood Pressure 130/60 117/60 117/60 O2 Sat by Pulse 98 99 97 Oximetry 06/15/20 06/15/20 06/15/20 05:51 06:00 06:11 Temperature Pulse Rate 92 H 96 H 95 H Pulse Rate [ From Monitor] Respiratory 24 30 H 26 H Rate Blood Pressure 114/53 131/64 131/64 O2 Sat by Pulse 98 98 97 Oximetry 06/15/20 06/15/20 06/15/20 06:21 06:30 06:41 Temperature Pulse Rate 95 H 93 H 96 H Pulse Rate [ From Monitor] Respiratory 25 H 26 H 29 H Rate Blood Pressure 134/63 142/64 134/63 O2 Sat by Pulse 97 98 95 Oximetry 06/15/2020 06/15/20 06:51 07:00 07:11 Temperature Pulse Rate 96 H 96 H 96 H Pulse Rate [ From Monitor] Respiratory 26 H 28 H 28 H Rate Blood Pressure 134/66 126/60 134/66 O2 Sat by Pulse 98 97 96 Oximetry 06/15/202020 06/15/20 07:21 07:31 07:41 Temperature Pulse Rate 98 H 98 H 96 H Pulse Rate [ From Monitor] Respiratory 23 29 H 27 H Rate Blood Pressure 117/55 102/63 102/63 O2 Sat by Pulse 95 96 96 Oximetry 06/15/20 06/15/20 06/15/20 07:51 08:00 08:11 Temperature 98.9 F Pulse Rate 102 H 97 H 98 H Pulse Rate [ From Monitor] Respiratory 24 26 H 27 H Rate Blood Pressure 86/62 96/60 96/60 O2 Sat by Pulse 95 96 97 Oximetry 06/15/20 06/15/20 06/15/20 08:21 08:30 08:41 Temperature Pulse Rate 95 H 96 H 97 H Pulse Rate [ From Monitor] Respiratory 27 H 27 H 29 H Rate Blood Pressure 129/60 141/61 O2 Sat by Pulse 97 98 94 Oximetry Constitutional: lethargic Eyes: non-icteric ENT: other (full face mask bipap is noted) Ascultation: Bilateral: clear, diminished breath sounds CBC and BMP: 06/14/20 04:08 06/15/20 05:11 ABG, PT/INR, D-dimer: ABG ABG pH 7.314 (7.320-7.450) L 06/14/20 10:21 POC ABG pCO2 29.0 mmHg (32.0-48.0) L 06/14/20 10:21 ABG pCO2 27.6 mm Hg 06/13/20 20:25 POC ABG pO2 80.8 mmHg (83-108) L 06/14/20 10:21 ABG pO2 72.0 mm Hg (80.0-90.0) L 06/13/20 20:25 ABG O2 Saturation 91.7 % (95.0-99.0) L 06/13/20 20:25 PT/INR, D-dimer PT 13.6 Sec. (12.2-14.9) 06/14/20 04:08 INR 1.03 (0.87-1.13) 06/14/20 04:08 D-Dimer 1226.84 ng/mlDDU (0-234) H 06/14/20 04:08 Abnormal lab findings: Abnormal Labs 06/13/20 06/13/20 06/13/20 18:32 18:32 20:25 MCV 95 H Plt Count Lymph % (Auto) 12.4 L Cloud % (Auto) 11.4 H Lymph # 1.1 L Cloud # 1.0 H Seg Neutrophils % 76.0 H D-Dimer ABG pH 7.233 L POC ABG pCO2 POC ABG pO2 ABG pO2 72.0 L ABG HCO3 11.4 L ABG O2 Saturation 91.7 L ABG Base Excess -14.6 L ABG Hemoglobin 12.5 L Oxyhemoglobin 90.8 L Potassium 5.9 H Chloride Carbon Dioxide 14 L BUN 105 H Creatinine 16.2 H Glucose 160 H POC Glucose Calcium Ferritin AST 261 H ALT 124 H Alkaline Phosphatase 179 H C-Reactive Protein Total Protein Albumin 3.5 L 06/14/20 06/14/20 06/14/20 04:08 04:08 04:08 MCV Plt Count 136 L Lymph % (Auto) 6.0 L Cloud % (Auto) Lymph # 0.4 L Cloud # Seg Neutrophils % 88.4 H D-Dimer 1226.84 H ABG pH POC ABG pCO2 POC ABG pO2 ABG pO2 ABG HCO3 ABG O2 Saturation ABG Base Excess ABG Hemoglobin Oxyhemoglobin Potassium Chloride 96.4 L Carbon Dioxide 14 L BUN 80 H Creatinine 13.2 H Glucose 226 H POC Glucose Calcium Ferritin AST ALT Alkaline Phosphatase C-Reactive Protein Total Protein Albumin 06/14/20 06/14/20 06/14/20 08:41 09:47 09:47 MCV Plt Count Lymph % (Auto) Cloud % (Auto) Lymph # Cloud # Seg Neutrophils % D-Dimer ABG pH POC ABG pCO2 POC ABG pO2 ABG pO2 ABG HCO3 ABG O2 Saturation ABG Base Excess ABG Hemoglobin Oxyhemoglobin Potassium Chloride Carbon Dioxide BUN Creatinine Glucose POC Glucose 285 H Calcium Ferritin 68948.0 H AST ALT Alkaline Phosphatase C-Reactive Protein 23.80 H Total Protein Albumin 06/14/20 06/14/20 06/14/20 10:21 12:08 16:40 MCV Plt Count Lymph % (Auto) Cloud % (Auto) Lymph # Cloud # Seg Neutrophils % D-Dimer ABG pH 7.314 L POC ABG pCO2 29.0 L POC ABG pO2 80.8 L ABG pO2 ABG HCO3 ABG O2 Saturation ABG Base Excess ABG Hemoglobin 11.9 L Oxyhemoglobin Potassium Chloride Carbon Dioxide BUN Creatinine Glucose POC Glucose 313 H 227 H Calcium Ferritin AST ALT Alkaline Phosphatase C-Reactive Protein Total Protein Albumin 06/14/20 06/15/20 21:29 05:11 MCV Plt Count Lymph % (Auto) Cloud % (Auto) Lymph # Cloud # Seg Neutrophils % D-Dimer ABG pH POC ABG pCO2 POC ABG pO2 ABG pO2 ABG HCO3 ABG O2 Saturation ABG Base Excess ABG Hemoglobin Oxyhemoglobin Potassium Chloride 91.7 L Carbon Dioxide 16 L BUN 67 H Creatinine 10.3 H Glucose 212 H POC Glucose 150 H Calcium 7.8 L Ferritin AST 669 H ALT 628 H Alkaline Phosphatase 347 H C-Reactive Protein Total Protein 6.2 L Albumin 3.3 L
--- NOTE | 2020-06-15 10:10 | Progress Note ---
Assessment and Plan Assessment and plan: -- Acute respiratory failure with hypoxia/on BiPAP Current Visit: Yes Status: Acute Plan to address problem: Possibly secondary to the pneumonia. We will keep O2 saturation greater or equal to 94%. -- Suspected 2019-CoV infection/PUI Current Visit: Yes Status: Acute Plan to address problem: We will place consult to infectious disease for evaluation and recommendation and meanwhile patient will be placed on isolation precautions. -- Healthcare-associated pneumonia Current Visit: Yes Status: Acute Plan to address problem: Patient placed on empiric IV antibiotics. We will await blood culture result. -- Hyperkalemia Current Visit: Yes Status: Acute Plan to address problem: Treated. HD per schedule will monitor electrolytes -- ESRD on hemodialysis Current Visit: Yes Status: Chronic Plan to address problem: Patient has been scheduled for stat dialysis. Nephrology following --Transaminitis; Worsening LFTs, check abdominal ultrasound, GI consult, acute hepatitis panel negative -- Hypertension Current Visit: No Status: Chronic . Qualifiers: Plan to address problem: We will resume routine home medications and monitor vital signs closely. --T2DM (type 2 diabetes mellitus) Current Visit: No Status: Chronic Plan to address problem: We will monitor Accu-Cheks. -- DVT prophylaxis Current Visit: No Status: Acute Plan to address problem: Patient placed on subcutaneous heparin -- Full code status Current Visit: Yes Status: Acute We will closely monitor the patient and adjust management as needed Consults and recommendations noted and appreciated Plan of care reviewed with the patient nurse and case management History Interval history: Seen and examined this morning Patient remains lethargic responds slightly to deep stimuli And very simple questions Vital signs noted Hospitalist Physical - Constitutional Vitals: Temp Pulse Resp BP Pulse Ox 98.9 F 97 H 29 H 141/61 94 06/15/20 08:00 06/15/20 08:41 06/15/20 08:41 06/15/20 08:30 06/15/20 08:41 General appearance: Present: mild distress, well-nourished, other (Lethargic) - EENT Eyes: Present: PERRL, EOM intact - Neck Neck: Present: supple, normal ROM - Respiratory Respiratory: bilateral: diminished, rhonchi, negative: rales, wheezing - Cardiovascular Rhythm: regular Heart Sounds: Present: S1 & S2 - Extremities Extremities: no ischemia, No edema - Abdominal General gastrointestinal: soft, non-tender, non-distended, normal bowel sounds - Integumentary Integumentary: Present: clear, warm - Psychiatric Psychiatric: other (Lethargic and confused) - Neurologic Neurologic: moves all extremities, other (Lethargic) Results - Labs CBC & Chem 7: 06/14/20 04:08 06/16/20 04:53 Labs: Laboratory Last Values WBC 7.2 K/mm3 (4.5-11.0) 06/14/20 04:08 RBC 3.93 M/mm3 (3.65-5.03) 06/14/20 04:08 Hgb 12.0 gm/dl (11.8-15.2) 06/14/20 04:08 Hct 37.0 % (35.5-45.6) 06/14/20 04:08 MCV 94 fl (84-94) 06/14/20 04:08 MCH 31 pg (28-32) 06/14/20 04:08 MCHC 33 % (32-34) 06/14/20 04:08 RDW 14.3 % (13.2-15.2) 06/14/20 04:08 Plt Count 136 K/mm3 (140-440) L 06/14/20 04:08 Lymph % (Auto) 6.0 % (13.4-35.0) L 06/14/20 04:08 [place] % (Auto) 5.5 % (0.0-7.3) 06/14/20 04:08 Eos % (Auto) 0.0 % (0.0-4.3) 06/14/20 04:08 Baso % (Auto) 0.1 % (0.0-1.8) 06/14/20 04:08 Lymph # 0.4 K/mm3 (1.2-5.4) L 06/14/20 04:08 [place] # 0.4 K/mm3 (0.0-0.8) 06/14/20 04:08 Eos # 0.0 K/mm3 (0.0-0.4) 06/14/20 04:08 Baso # 0.0 K/mm3 (0.0-0.1) 06/14/20 04:08 Seg Neutrophils % 88.4 % (40.0-70.0) H 06/14/20 04:08 Seg Neutrophils # 6.3 K/mm3 (1.8-7.7) 06/14/20 04:08 PT 13.6 Sec. (12.2-14.9) 06/14/20 04:08 INR 1.03 (0.87-1.13) 06/14/20 04:08 D-Dimer 1226.84 ng/mlDDU (0-234) H 06/14/20 04:08 ABG pH 7.314 (7.320-7.450) L 06/14/20 10:21 POC ABG pCO2 29.0 mmHg (32.0-48.0) L 06/14/20 10:21 ABG pCO2 27.6 mm Hg 06/13/20 20:25 POC ABG pO2 80.8 mmHg (83-108) L 06/14/20 10:21 ABG pO2 72.0 mm Hg (80.0-90.0) L 06/13/20 20:25 ABG HCO3 11.4 mmol/L (20.0-26.0) L 06/13/20 20:25 ABG O2 Saturation 91.7 % (95.0-99.0) L 06/13/20 20:25 ABG O2 Content 16.0 (0.0-44) 06/13/20 20:25 ABG Base Excess -14.6 mmol/L (-2.0-3.0) L 06/13/20 20:25 ABG Hemoglobin 11.9 (12.0-17.5) L 06/14/20 10:21 ABG Carboxyhemoglobin 0.7 % (0.0-5.0) 06/13/20 20:25 ABG Methemoglobin 0.2 % (0.0-1.5) 06/13/20 20:25 ABG Sodium TNR 06/14/20 10:21 ABG Potassium TNR 06/14/20 10:21 ABG Chloride TNR 06/14/20 10:21 ABG Glucose TNR 06/14/20 10:21 ABG Lactate TNR 06/14/20 10:21 Oxyhemoglobin 90.8 % (95.0-99.0) L 06/13/20 20:25 FiO2 50 06/14/20 10:21 Sodium 140 mmol/L (137-145) 06/15/20 05:11 Potassium 4.8 mmol/L (3.6-5.0) 06/15/20 05:11 Chloride 91.7 mmol/L (98-107) L 06/15/20 05:11 Carbon Dioxide 16 mmol/L (22-30) L 06/15/20 05:11 Anion Gap 37 mmol/L 06/15/20 05:11 BUN 67 mg/dL (9-20) H 06/15/20 05:11 Creatinine 10.3 mg/dL (0.8-1.3) H 06/15/20 05:11 Estimated GFR 6 ml/min 06/15/20 05:11 BUN/Creatinine Ratio 7 % 06/15/20 05:11 Glucose 212 mg/dL (75-100) H 06/15/20 05:11 POC Glucose 150 (70-105) H 06/14/20 21:29 Lactic Acid 1.80 mmol/L (0.7-2.0) 06/13/20 21:01 Calcium 7.8 mg/dL (8.4-10.2) L 06/15/20 05:11 Ferritin 37435.0 ng/mL (30.0-300.0) H 06/14/20 09:47 Total Bilirubin < 0.20 mg/dL (0.1-1.2) 06/15/20 05:11 AST 669 units/L (5-40) H 06/15/20 05:11 ALT 628 units/L (7-56) H 06/15/20 05:11 Alkaline Phosphatase 347 units/L (35-129) H 06/15/20 05:11 C-Reactive Protein 23.80 mg/dL (0.00-1.30) H 06/14/20 09:47 Total Protein 6.2 g/dL (6.3-8.2) L 06/15/20 05:11 Albumin 3.3 g/dL (3.9-5) L 06/15/20 05:11 Albumin/Globulin Ratio 1.1 % 06/15/20 05:11 Arterial Blood Glucose TNR 06/14/20 10:21 Arterial Blood Ionized Calcium TNR 06/14/20 10:21 Random Vancomycin 11.5 ug/mL (0-40.0) 06/15/20 05:11 Hepatitis A IgM Ab Nonreactive (NonReactive) 06/13/20 21:46 Hep Bs Antigen Non-reactive (Negative) 06/13/20 21:46 Hep B Core IgM Ab Non-reactive (NonReactive) 06/13/20 21:46 Hepatitis C Antibody Non-reactive (NonReactive) 06/13/20 21:46 Microbiology: Microbiology 06/13/20 18:32 Peripheral/Venous Blood Culture - Preliminary NO GROWTH AFTER 24 HOURS 06/13/20 18:44 Peripheral/Venous Blood Culture - Preliminary NO GROWTH AFTER 24 HOURS Dasilva/IV: IV Catheter Type [Left Forearm fistula ] IV Catheter Type [Right Upper Peripheral IV arm] Active Medications - Current Medications Current Medications: Generic Name Dose Route Start Last Admin Trade Name Freq PRN Reason Stop Dose Admin Acetaminophen 650 mg 06/13/20 23:27 Tylenol PO Q6H PRN Pain MILD(1-3)/Fever >100.5/PINEDA Dexamethasone 6 mg 06/15/20 10:00 06/15/20 09:35 Decadron IV 06/24/20 12:00 6 mg Q24HR BENJA Administration Dextrose 50 ml 06/13/20 23:27 D50w (25gm) Syringe IV Q30MIN PRN Hypoglycemia Protocol Heparin Sodium (Porcine) 3,000 unit 06/13/20 21:03 Heparin 10,000 Units/10 Ml IV CHACORTA PRN hemodialysis Heparin Sodium (Porcine) 5,000 unit 06/14/20 06:00 06/15/20 06:45 Heparin SUB-Q 5,000 unit Q8HR BENJA Administration Sodium Chloride 100 mls @ 999 mls/hr 06/14/20 11:58 Nacl 0.9% IV CHACORTA PRN Hypotension Ceftriaxone Sodium 1 gm in 50 mls @ 100 mls/hr 06/14/20 15:00 06/15/20 09:36 Rocephin/Ns 1 Gm/50 Ml IV 100 mls/hr Q24HR BENJA Administration Protocol Azithromycin 500 mg/ Sodium 250 mls @ 250 mls/hr 06/14/20 15:00 06/15/20 09:35 Chloride IV 250 mls/hr Q24HR BENJA Administration Protocol Insulin Human Lispro 0 unit 06/14/20 07:30 06/15/20 09:12 Humalog SUB-Q 4 unit ACHS BENJA Administration Protocol Magnesium Hydroxide 30 ml 06/13/20 23:27 Milk Of Magnesia PO Q4H PRN Constipation Ondansetron HCl 4 mg 06/13/20 23:27 Zofran IV Q8H PRN Nausea And Vomiting Sodium Chloride 10 ml 06/14/20 10:00 06/15/20 09:38 Sodium Chloride Flush Syringe 10 Ml IV 10 ml BID BENJA Administration Sodium Chloride 10 ml 06/13/20 23:27 Sodium Chloride Flush Syringe 10 Ml IV PRN PRN LINE FLUSH Nutrition/Malnutrition Assess - Dietary Evaluation Nutrition/Malnutrition Findings: Nutrition Notes Start: 06/14/20 13:08 Freq: Status: Active Protocol: Document 06/14/20 13:08 LM (Rec: 06/14/20 13:17 LM [id number]) Nutrition Notes Need for Assessment generated from: MD Order,auricular therapist,MST Initial or Follow up Assessment Current Diagnosis CKD (stage V CKD),Coronary Artery Disease,Diabetes, Hypertension Other Pertinent Diagnosis Suspected COVID-19, on HD, hx CVA Current Diet cardiac/consistent CHO Labs/Tests BG 266 BUN 80 Cr 13.2 Pertinent Medications Humalog Height 5 ft 6 in Weight 69.6 kg Lennon Body Weight (kg) 64.54 BMI 24.7 Weight Status Appropriate Subjective/Other Information MD consult for diet education and RN screen for MST and skin risk. Donato score is 10 but no wound documented. Pt is not appropriate for diet ed at this time. No intake in chart. Burn Absent Trauma Absent Minimum of two criteria No physical signs of malnutrition #1 Nutrition Diagnosis Inadequate oral intake Etiology chronic illness, suspected COVID-19 As Evidenced by Signs and Symptoms no intakes in chart Is patient on ventilator? No Is Patient Ambulatory and/or Out of Bed No REE-([facility]-confined to bed) 7671.108 Calculation Used for Recommendations [facility] Additional Notes Protein: 84g (>1.2g/kg) Fluid: 1ml/kcal Nutrition Intervention Change Diet Order: cardiac/consistent CHO/renal Goal #1 meet at least 75% of nergy and protein needs Anticipated Discharge Needs: cardiac/consistent CHO/renal Follow-Up By: 06/16/20 Additional Comments F/U for intakes
--- NOTE | 2020-06-15 12:06 | Progress Note ---
Assessment and Plan Cultures: Coronavirus PCR: Pending 06/13/2020 blood culture: In process A/P: 69-year-old male with ESRD on HD, coronary artery disease, prior CVA, gastroesophageal reflux disease was sent in from the dialysis center due to respiratory distress and hypoxia: #Bilateral pneumonia: COVID-19 test is pending, inflammatory markers are significantly elevated, ferritin is 28,000, CRP 23.8, d-dimer 1226. Chest x-ray showed bilateral opacities. #Acute hypoxic respiratory failure: #ESRD on HD #Elevated LFTs: ?cytokine storm/sepsis related. Check RUQ US Recs: Reasonably high suspicion for COVID, hence continue with empiric IV/PO Dexamethasone 6 mg daily x 10 days Follow-up COVID PCR, test results still pending Empiric antibiotics for now: Ceftriaxone, azithromycin RUQ US Alexandr Talavera MD, FACP [facility] ([facility] C: [phone] O: [phone] F: [phone] Subjective Date of service: 06/15/20 Interval history: One fever. Remains on high flow. COVID test results still pending. Objective - Exam Narrative Exam: Physical Exam (reviewed in chart due to PPE conservation) Constitutional: limited due to PPE conservation strategy Head, Ears, Nose: limited due to PPE conservation strategy Eyes: limited due to PPE conservation strategy Neck: limited due to PPE conservation strategy Oral: limited due to PPE conservation strategy Cardiovascular: limited due to PPE conservation strategy Respiratory: limited due to PPE conservation strategy GI: limited due to PPE conservation strategy Musculoskeletal: limited due to PPE conservation strategy Skin: limited due to PPE conservation strategy Hem/Lymphatic: limited due to PPE conservation strategy Psych: limited due to PPE conservation strategy Neurological: limited due to PPE conservation strategy - Constitutional Vitals: Vital Signs Temp Pulse Resp BP Pulse Ox 98.9 F 97 H 29 H 141/61 94 06/15/20 08:00 06/15/20 08:41 06/15/20 08:41 06/15/20 08:30 06/15/20 08:41 Temperature -Last 24 Hours Temperature 98.9 F Temperature 101.3 F Temperature 99.6 F Temperature 100.9 F Temperature 99.7 F Temperature 98.7 F Temperature 99.6 F - Labs CBC & Chem 7: 06/14/20 04:08 06/15/20 05:11 Labs: Abnormal lab results 06/14/20 06/14/20 06/15/20 Range/Units 16:40 21:29 05:11 Chloride 91.7 L (98-107) mmol/L Carbon Dioxide 16 L (22-30) mmol/L BUN 67 H (9-20) mg/dL Creatinine 10.3 H (0.8-1.3) mg/dL Glucose 212 H (75-100) mg/dL POC Glucose 227 H 150 H (70-105) Calcium 7.8 L (8.4-10.2) mg/dL AST 669 H (5-40) units/L ALT 628 H (7-56) units/L Alkaline Phosphatase 347 H (35-129) units/L Total Protein 6.2 L (6.3-8.2) g/dL Albumin 3.3 L (3.9-5) g/dL Amylase (27-131) units/L Lipase (13-60) units/L 06/15/20 Range/Units 10:22 Chloride (98-107) mmol/L Carbon Dioxide (22-30) mmol/L BUN (9-20) mg/dL Creatinine (0.8-1.3) mg/dL Glucose (75-100) mg/dL POC Glucose (70-105) Calcium (8.4-10.2) mg/dL AST (5-40) units/L ALT (7-56) units/L Alkaline Phosphatase (35-129) units/L Total Protein (6.3-8.2) g/dL Albumin (3.9-5) g/dL Amylase 278 H (27-131) units/L Lipase 93 H (13-60) units/L
--- NOTE | 2020-06-15 13:02 | XRay Report ---
ABDOMEN 1 VIEW(S) INDICATION / CLINICAL INFORMATION: for NG tube placement. COMPARISON: None available. FINDINGS: TUBES / LINES: The nasogastric tube terminates in the antrum of the stomach near the pylorus. BOWEL GAS PATTERN: No significant abnormality. FREE AIR / EXTRALUMINAL GAS: None seen. ADDITIONAL FINDINGS: No significant additional findings. IMPRESSION: No significant abnormality. Adequate nasogastric tube placement. Signer Name: Js Rainey Jr, MD Signed: 06/15/2020 12:58 PM Workstation Name: [id number]
[2020-06-15] MEDS ORDERED: LIPASE 10,500/PROTEASE 25,000/AMYLASE 43,750 (UNITS) DR CAP FEEDTUBE PRN (13:34)
[2020-06-15] MEDS ORDERED: SODIUM BICARBONATE 325 MG TAB FEEDTUBE PRN (13:34)
[2020-06-15] MEDS ORDERED: SIMPLE SYRUP 15 ML FEEDTUBE PRN ×2 (13:34)
--- NOTE | 2020-06-15 15:11 | Cat Scan Report ---
CT head/brain wo con INDICATION: Altered mental status. TECHNIQUE: Routine CT head without contrast. All CT scans at this location are performed using CT dos e reduction for ALARA by means of automated exposure control. COMPARISON: Head CT on 04/20/2019 FINDINGS: BRAIN / INTRACRANIAL CONTENTS: There are new wedge-shaped areas of brain edema in the bilateral cereb ellar hemispheres with appearance most likely indicating subacute infarcts. There is no associated he morrhage or adverse mass effect. There are unchanged chronic lacunar infarcts in the bilateral basal ganglia. There is no acute hemorrhage, hydrocephalus, or midline shift. ORBITS: No significant abnormality of visualized orbits. SINUSES / MASTOIDS: No significant abnormality of visualized sinuses and mastoid air cells. ADDITIONAL FINDINGS: None. IMPRESSION: 1. Bilateral subacute appearing cerebellar hemisphere infarct without associated hemorrhage or advers e mass effect. Signer Name: Caleb Power MD Signed: 06/15/2020 3:06 PM Workstation Name: [id number]
--- NOTE | 2020-06-15 17:55 | Gastroenterology Consultation ---
History of Present Illness - Reason for Consult Consult date: 06/15/20 Abnormal LFTs Requesting physician: AVELINO SCHAEFFER - History of Present Illness The patient is a 69 yo male admitted with pneumonia (initial COVID negative) with severe respiratory distress. Because of the pneumonia, he was unable to go to outpatient HD, and emergent HD was performed here. His vitals have improved at this point, but his LFTs were noted to be elevated. His hepatitis serologies were negative. He has no RUQ pain, NV or jaundice. No prior abnormal imaging is noted. Past History Past Medical History: CAD, diabetes, ESRD, GERD, hypertension, stroke Past Surgical History: Other (HD related) Social history: denies: smoking, alcohol abuse Family history: no significant family history Medications and Allergies Allergies Allergy/AdvReac Type Severity Reaction Status Date / Time No Known Allergies Allergy Unverified 12/03/13 12:17 Home Medications Medication Instructions Recorded Confirmed Last Taken Type Aspirin 325 mg PO DAILY 12/03/13 10/27/17 1 Day Ago History ~12/09/16 Ergocalciferol [Vitamin D2] 1 cap PO QWEEK 12/03/13 10/27/17 1 Day Ago History ~12/09/16 Gabapentin 300 mg PO BID 12/03/13 10/27/17 1 Day Ago History ~12/09/16 Insulin Glargine,Hum.rec.anlog 20 units SQ QHS 12/03/13 10/27/17 1 Day Ago History [Lantus Solostar] ~12/09/16 Insulin Regular, Human [HumuLIN R] 3 units SC TIDAC 12/03/13 10/27/17 1 Day Ago History ~12/09/16 Clopidogrel Bisulfate [Plavix] 75 mg PO DAILY #30 tablet 12/06/13 10/27/17 1 Day Ago Rx ~12/09/16 Sucralfate [Carafate] 1 gm PO Q6HR #56 udc 12/11/16 10/27/17 Unknown Rx AtorvaSTATin [Lipitor] 20 mg PO QHS 10/27/17 10/27/17 Unknown History Folic Acid/Vit B Complex and C 1 tab PO DAILY 10/27/17 10/27/17 Unknown History [Renal-Alexandrea Tablet] Ondansetron [Zofran TAB] 4 mg PO Q8HR PRN 10/27/17 10/27/17 Unknown History Sevelamer Carbonate [Renvela] 2 tab PO TID 10/27/17 10/27/17 Unknown History Torsemide [Demadex] 40 mg PO DAILY 10/27/17 10/27/17 Unknown History amLODIPine 10 mg PO DAILY 10/27/17 10/27/17 Unknown History calcitrioL [Rocaltrol] 0.5 mcg PO QDAY 10/27/17 10/27/17 Unknown History glipiZIDE [Glipizide] 10 mg PO DAILY 10/27/17 10/27/17 Unknown History lisinopriL [Prinivil] 5 mg PO DAILY 10/27/17 10/27/17 Unknown History traMADoL [Ultram 50 MG tab] 50 mg PO Q8HR PRN 10/27/17 10/27/17 Unknown History Active Meds: Active Medications Acetaminophen (Tylenol) 650 mg PO Q6H PRN PRN Reason: Pain MILD(1-3)/Fever >100.5/PINEDA Lipase/Protease/Amylase (Pancreaze Dr 10,500 Unit) 1 each FEEDTUBE PRN PRN PRN Reason: For Clogged Feeding Tube Dexamethasone (Decadron) 6 mg IV Q24HR BENJA Stop: 06/24/20 12:00 Last Admin: 06/15/20 09:35 Dose: 6 mg Documented by: Dextrose (D50w (25gm) Syringe) 50 ml IV Q30MIN PRN; Protocol PRN Reason: Hypoglycemia Heparin Sodium (Porcine) (Heparin 10,000 Units/10 Ml) 3,000 unit IV CHACORTA PRN PRN Reason: hemodialysis Heparin Sodium (Porcine) (Heparin) 5,000 unit SUB-Q Q8HR BENJA Last Admin: 06/15/20 13:29 Dose: 5,000 unit Documented by: Sodium Chloride (Nacl 0.9%) 100 mls @ 999 mls/hr IV CHACORTA PRN PRN Reason: Hypotension Ceftriaxone Sodium (Rocephin/Ns 1 Gm/50 Ml) 1 gm in 50 mls @ 100 mls/hr IV Q24HR BENJA; Protocol Last Admin: 06/15/20 09:36 Dose: 100 mls/hr Documented by: Azithromycin 500 mg/ Sodium (Chloride) 250 mls @ 250 mls/hr IV Q24HR BENJA; Protocol Last Admin: 06/15/20 09:35 Dose: 250 mls/hr Documented by: Insulin Human Lispro (Humalog) 0 unit SUB-Q ACHS BENJA; Protocol Last Admin: 06/15/20 17:23 Dose: 4 unit Documented by: Magnesium Hydroxide (Milk Of Magnesia) 30 ml PO Q4H PRN PRN Reason: Constipation Ondansetron HCl (Zofran) 4 mg IV Q8H PRN PRN Reason: Nausea And Vomiting Simple Syrup (Simple Syrup) 15 ml FEEDTUBE PRN PRN PRN Reason: Hypoglycemia Simple Syrup (Simple Syrup) 30 ml FEEDTUBE PRN PRN PRN Reason: Hypoglycemia Sodium Bicarbonate (Sodium Bicarbonate) 325 mg FEEDTUBE PRN PRN PRN Reason: For Clogged Feeding Tube Sodium Chloride (Sodium Chloride Flush Syringe 10 Ml) 10 ml IV BID [facility] Last Admin: 06/15/20 09:38 Dose: 10 ml Documented by: Sodium Chloride (Sodium Chloride Flush Syringe 10 Ml) 10 ml IV PRN PRN PRN Reason: LINE FLUSH MEDICATIONS REVIEWED/RECONCILED Review of Systems - Review of Systems ROS unobtainable: due to mental status Exam - Constitutional Vital Signs: Temp Pulse Resp BP Pulse Ox 98.7 F 82 18 154/71 97 06/15/20 16:00 06/15/20 17:20 06/15/20 17:20 06/15/20 17:20 06/15/20 17:20 General appearance: no acute distress - EENT Eyes: PERRL, EOM intact ENT: hearing intact, clear oral mucosa - Neck Neck: supple, normal ROM - Respiratory Respiratory effort: labored (Mildly) Respiratory: bilateral: diminished - Cardiovascular Rhythm: regular Heart Sounds: Present: S1 & S2 - Gastrointestinal General gastrointestinal: Present: soft, non-tender, non-distended - Integumentary Integumentary: Present: clear, warm, dry - Neurologic Neurological: other (Minimal response to stimuli) - Labs CBC & Chem 7: 06/14/20 04:08 06/15/20 05:11 Lab Results: Laboratory Results - last 24 hr 06/14/20 06/14/20 06/15/20 08:52 21:29 05:11 Sodium Potassium Chloride Carbon Dioxide Anion Gap BUN Creatinine Estimated GFR BUN/Creatinine Ratio Glucose POC Glucose 150 H Calcium Total Bilirubin AST ALT Alkaline Phosphatase Ammonia Total Protein Albumin Albumin/Globulin Ratio Amylase Lipase Random Vancomycin 11.5 Coronavirus (PCR) 06/15/20 06/15/20 06/15/20 05:11 07:55 10:22 Sodium 140 Potassium 4.8 Chloride 91.7 L Carbon Dioxide 16 L Anion Gap 37 BUN 67 H Creatinine 10.3 H Estimated GFR 6 BUN/Creatinine Ratio 7 Glucose 212 H POC Glucose 281 H Calcium 7.8 L Total Bilirubin < 0.20 AST 669 H ALT 628 H Alkaline Phosphatase 347 H Ammonia 33.0 Total Protein 6.2 L Albumin 3.3 L Albumin/Globulin Ratio 1.1 Amylase Lipase Random Vancomycin Coronavirus (PCR) 06/15/20 06/15/20 10:22 11:47 Sodium Potassium Chloride Carbon Dioxide Anion Gap BUN Creatinine Estimated GFR BUN/Creatinine Ratio Glucose POC Glucose 280 H Calcium Total Bilirubin AST ALT Alkaline Phosphatase Ammonia Total Protein Albumin Albumin/Globulin Ratio Amylase 278 H Lipase 93 H Random Vancomycin Coronavirus (PCR) Assessment and Plan - Patient Problems (1) Abnormal liver enzymes Current Visit: Yes Status: Acute Plan to address problem: - Hepatitis serologies negative, and likely acute ischemic injury from recent sepsis. - Will check a RUQ US tomorrow. - COVID negative, but agree with ID this may be a false negative given clinical presentation.
[2020-06-16] MEDS: HEPARIN 5,000 UNIT/1 ML VIAL SUB-Q SCH ×4 (00:02→21:49)
[2020-06-16] MEDS: INSULIN LISPRO 100 UNIT/ML VIAL 3 mL SUB-Q SCH ×3 (00:03→12:05)
[2020-06-16 05:42] LABS: Albumin 3.2 g/dL (3.9-5); Calcium 8.5 mg/dL (8.4-10.2)
--- NOTE | 2020-06-16 07:46 | Progress Note ---
Assessment and Plan 69 y/o male with acute respiratory failure, acute renal failure requiring emergent HD, hyperkalemia, metabolic acidosis. 1. Pulm- Continue HFNC and wean for sats >88% 2. Renal-renal failure. Likely HD today. 3. Electrolytes per renal 4. Given results of head CT, may benefit from neurology evaluation 5. Given elevated LFT's will obtain abdominal ultrasound as well. 6. ID-low grade this am. Cultures from 06/13 remain negative. Will defer to ID if repeat cultures are warranted. Subjective Date of service: 06/16/20 Interval history: Mental status is unchanged. Still on HFNC. BUN and CR back up today so will likely need HD. CT shows bilateral infarcts but are reading them as subacute. Objective Vital Signs - 12hr 06/15/20 06/15/20 06/15/20 19:50 20:00 20:10 Temperature 99 F Pulse Rate 86 91 H 83 Pulse Rate [ 99 H From Monitor] Respiratory 19 17 17 Rate Blood Pressure 158/75 158/75 144/69 O2 Sat by Pulse 96 96 96 Oximetry 06/15/20 06/15/20 06/15/20 20:20 20:30 20:40 Temperature Pulse Rate 89 87 84 Pulse Rate [ From Monitor] Respiratory 18 17 16 Rate Blood Pressure 136/79 136/79 137/71 O2 Sat by Pulse 93 93 94 Oximetry 06/15/20 06/15/20 06/15/20 20:50 21:00 21:10 Temperature Pulse Rate 87 87 87 Pulse Rate [ From Monitor] Respiratory 19 19 22 Rate Blood Pressure 136/79 153/75 153/75 O2 Sat by Pulse 97 96 96 Oximetry 06/15/20 06/15/20 06/15/20 21:20 21:30 21:40 Temperature Pulse Rate 88 83 90 Pulse Rate [ From Monitor] Respiratory 21 16 22 Rate Blood Pressure 136/79 136/79 142/73 O2 Sat by Pulse 97 95 94 Oximetry 06/15/20 06/15/20 06/15/20 21:50 22:00 22:10 Temperature Pulse Rate 86 87 84 Pulse Rate [ From Monitor] Respiratory 20 19 20 Rate Blood Pressure 146/70 149/73 149/73 O2 Sat by Pulse 93 91 91 Oximetry 06/15/20 06/15/20 06/15/20 22:20 22:30 22:40 Temperature Pulse Rate 82 82 82 Pulse Rate [ From Monitor] Respiratory 18 18 17 Rate Blood Pressure 154/75 139/71 139/71 O2 Sat by Pulse 94 93 93 Oximetry 06/15/20 06/15/20 06/15/20 22:50 23:00 23:10 Temperature Pulse Rate 89 81 84 Pulse Rate [ From Monitor] Respiratory 16 16 19 Rate Blood Pressure 170/81 170/81 129/77 O2 Sat by Pulse 92 94 93 Oximetry 06/15/20 06/15/20 06/15/20 23:20 23:30 23:37 Temperature 98.9 F Pulse Rate 87 82 Pulse Rate [ From Monitor] Respiratory 18 18 Rate Blood Pressure 156/72 155/72 O2 Sat by Pulse 93 89 95 Oximetry 06/15/20 06/15/20 06/16/20 23:40 23:50 00:00 Temperature Pulse Rate 90 84 93 H Pulse Rate [ 99 H From Monitor] Respiratory 19 19 20 Rate Blood Pressure 155/72 129/77 172/84 O2 Sat by Pulse 93 92 94 Oximetry 06/16/20 06/16/20 06/16/20 00:10 00:17 00:20 Temperature Pulse Rate 84 92 H Pulse Rate [ From Monitor] Respiratory 20 23 Rate Blood Pressure 172/84 160/107 O2 Sat by Pulse 94 94 93 Oximetry 06/16/20 06/16/20 06/16/20 00:30 00:40 00:50 Temperature Pulse Rate 85 82 84 Pulse Rate [ From Monitor] Respiratory 20 22 22 Rate Blood Pressure 146/74 146/74 156/84 O2 Sat by Pulse 92 96 95 Oximetry 06/16/20 06/16/20 06/16/20 01:00 01:10 01:20 Temperature Pulse Rate 87 90 87 Pulse Rate [ From Monitor] Respiratory 26 H 25 H 25 H Rate Blood Pressure 156/84 172/91 142/78 O2 Sat by Pulse 98 94 97 Oximetry 06/16/20 06/16/20 06/16/20 01:30 01:40 01:50 Temperature Pulse Rate 93 H 85 90 Pulse Rate [ From Monitor] Respiratory 24 23 24 Rate Blood Pressure 172/91 176/88 135/76 O2 Sat by Pulse 94 94 95 Oximetry 06/16/20 06/16/20 06/16/20 02:00 02:10 02:20 Temperature Pulse Rate 85 85 85 Pulse Rate [ From Monitor] Respiratory 20 22 20 Rate Blood Pressure 135/76 123/81 133/84 O2 Sat by Pulse 95 96 94 Oximetry 06/16/20 06/16/20 06/16/20 02:30 02:40 02:50 Temperature Pulse Rate 83 86 87 Pulse Rate [ From Monitor] Respiratory 24 Rate Blood Pressure 133/79 133/79 147/77 O2 Sat by Pulse 94 97 97 Oximetry 06/16/20 06/16/20 06/16/20 03:00 03:10 03:20 Temperature Pulse Rate 85 85 84 Pulse Rate [ From Monitor] Respiratory 19 Rate Blood Pressure 147/77 156/78 141/80 O2 Sat by Pulse 94 96 94 Oximetry 06/16/20 06/16/20 06/16/20 03:30 03:40 03:46 Temperature 100.4 F H Pulse Rate 83 85 Pulse Rate [ From Monitor] Respiratory 19 Rate Blood Pressure 154/81 154/81 O2 Sat by Pulse 93 94 Oximetry 06/16/20 06/16/20 06/16/20 03:50 04:00 04:10 Temperature Pulse Rate 81 84 82 Pulse Rate [ 89 From Monitor] Respiratory 18 17 18 Rate Blood Pressure 157/80 164/82 164/82 O2 Sat by Pulse 93 94 94 Oximetry 06/16/20 06/16/20 06/16/20 04:20 04:30 04:40 Temperature Pulse Rate 82 82 85 Pulse Rate [ From Monitor] Respiratory 19 Rate Blood Pressure 160/79 149/77 149/77 O2 Sat by Pulse 94 94 98 Oximetry 06/16/20 06/16/20 06/16/20 04:50 05:00 05:10 Temperature Pulse Rate 82 85 83 Pulse Rate [ From Monitor] Respiratory Rate Blood Pressure 142/76 149/77 159/84 O2 Sat by Pulse 94 96 97 Oximetry 06/16/20 06/16/20 06/16/20 05:20 05:30 05:40 Temperature Pulse Rate 82 85 84 Pulse Rate [ From Monitor] Respiratory 20 Rate Blood Pressure 150/76 150/76 160/82 O2 Sat by Pulse 96 98 95 Oximetry 06/16/20 06/16/20 05:50 06:00 Temperature Pulse Rate 80 84 Pulse Rate [ From Monitor] Respiratory 20 Rate Blood Pressure 150/78 150/78 O2 Sat by Pulse 95 98 Oximetry Constitutional: lethargic Eyes: non-icteric ENT: other (full face mask bipap is noted) Ascultation: Bilateral: clear, diminished breath sounds CBC and BMP: 06/14/20 04:08 06/16/20 04:53 ABG, PT/INR, D-dimer: ABG ABG pH 7.314 (7.320-7.450) L 06/14/20 10:21 POC ABG pCO2 29.0 mmHg (32.0-48.0) L 06/14/20 10:21 ABG pCO2 27.6 mm Hg 06/13/20 20:25 POC ABG pO2 80.8 mmHg (83-108) L 06/14/20 10:21 ABG pO2 72.0 mm Hg (80.0-90.0) L 06/13/20 20:25 ABG O2 Saturation 91.7 % (95.0-99.0) L 06/13/20 20:25 PT/INR, D-dimer PT 13.6 Sec. (12.2-14.9) 06/14/20 04:08 INR 1.03 (0.87-1.13) 06/14/20 04:08 D-Dimer 1226.84 ng/mlDDU (0-234) H 06/14/20 04:08 Abnormal lab findings: Abnormal Labs 06/13/20 06/13/20 06/13/20 18:32 18:32 20:25 MCV 95 H Plt Count Lymph % (Auto) 12.4 L [place] % (Auto) 11.4 H Lymph # 1.1 L [place] # 1.0 H Seg Neutrophils % 76.0 H D-Dimer ABG pH 7.233 L POC ABG pCO2 POC ABG pO2 ABG pO2 72.0 L ABG HCO3 11.4 L ABG O2 Saturation 91.7 L ABG Base Excess -14.6 L ABG Hemoglobin 12.5 L Oxyhemoglobin 90.8 L Potassium 5.9 H Chloride Carbon Dioxide 14 L BUN 105 H Creatinine 16.2 H Glucose 160 H POC Glucose Calcium Ferritin AST 261 H ALT 124 H Alkaline Phosphatase 179 H C-Reactive Protein Total Protein Albumin 3.5 L Amylase Lipase 06/14/20 06/14/20 06/14/20 04:08 04:08 04:08 MCV Plt Count 136 L Lymph % (Auto) 6.0 L [place] % (Auto) Lymph # 0.4 L [place] # Seg Neutrophils % 88.4 H D-Dimer 1226.84 H ABG pH POC ABG pCO2 POC ABG pO2 ABG pO2 ABG HCO3 ABG O2 Saturation ABG Base Excess ABG Hemoglobin Oxyhemoglobin Potassium Chloride 96.4 L Carbon Dioxide 14 L BUN 80 H Creatinine 13.2 H Glucose 226 H POC Glucose Calcium Ferritin AST ALT Alkaline Phosphatase C-Reactive Protein Total Protein Albumin Amylase Lipase 06/14/20 06/14/20 06/14/20 08:41 09:47 09:47 MCV Plt Count Lymph % (Auto) [place] % (Auto) Lymph # [place] # Seg Neutrophils % D-Dimer ABG pH POC ABG pCO2 POC ABG pO2 ABG pO2 ABG HCO3 ABG O2 Saturation ABG Base Excess ABG Hemoglobin Oxyhemoglobin Potassium Chloride Carbon Dioxide BUN Creatinine Glucose POC Glucose 285 H Calcium Ferritin 72758.0 H AST ALT Alkaline Phosphatase C-Reactive Protein 23.80 H Total Protein Albumin Amylase Lipase 06/14/20 06/14/20 06/14/20 10:21 12:08 16:40 MCV Plt Count Lymph % (Auto) [place] % (Auto) Lymph # [place] # Seg Neutrophils % D-Dimer ABG pH 7.314 L POC ABG pCO2 29.0 L POC ABG pO2 80.8 L ABG pO2 ABG HCO3 ABG O2 Saturation ABG Base Excess ABG Hemoglobin 11.9 L Oxyhemoglobin Potassium Chloride Carbon Dioxide BUN Creatinine Glucose POC Glucose 313 H 227 H Calcium Ferritin AST ALT Alkaline Phosphatase C-Reactive Protein Total Protein Albumin Amylase Lipase 06/14/20 06/15/20 06/15/20 21:29 05:11 07:55 MCV Plt Count Lymph % (Auto) [place] % (Auto) Lymph # [place] # Seg Neutrophils % D-Dimer ABG pH POC ABG pCO2 POC ABG pO2 ABG pO2 ABG HCO3 ABG O2 Saturation ABG Base Excess ABG Hemoglobin Oxyhemoglobin Potassium Chloride 91.7 L Carbon Dioxide 16 L BUN 67 H Creatinine 10.3 H Glucose 212 H POC Glucose 150 H 281 H Calcium 7.8 L Ferritin AST 669 H ALT 628 H Alkaline Phosphatase 347 H C-Reactive Protein Total Protein 6.2 L Albumin 3.3 L Amylase Lipase 06/15/20 06/15/20 06/15/20 10:22 11:47 16:31 MCV Plt Count Lymph % (Auto) [place] % (Auto) Lymph # [place] # Seg Neutrophils % D-Dimer ABG pH POC ABG pCO2 POC ABG pO2 ABG pO2 ABG HCO3 ABG O2 Saturation ABG Base Excess ABG Hemoglobin Oxyhemoglobin Potassium Chloride Carbon Dioxide BUN Creatinine Glucose POC Glucose 280 H 276 H Calcium Ferritin AST ALT Alkaline Phosphatase C-Reactive Protein Total Protein Albumin Amylase 278 H Lipase 93 H 06/15/20 06/16/20 21:47 04:53 MCV Plt Count Lymph % (Auto) [place] % (Auto) Lymph # [place] # Seg Neutrophils % D-Dimer ABG pH POC ABG pCO2 POC ABG pO2 ABG pO2 ABG HCO3 ABG O2 Saturation ABG Base Excess ABG Hemoglobin Oxyhemoglobin Potassium 5.2 H Chloride 93.4 L Carbon Dioxide 17 L BUN 110 H Creatinine 13.8 H Glucose 245 H POC Glucose 264 H Calcium Ferritin AST 214 H ALT 404 H Alkaline Phosphatase 296 H C-Reactive Protein Total Protein Albumin 3.2 L Amylase Lipase
[2020-06-16] MEDS ORDERED: SODIUM CHLORIDE 0.9% 100 ML IV PRN (08:20)
[2020-06-16] MEDS: cefTRIAXone/NS 1 GM/50 ML 1 GM/50 ML BAG IV SCH (09:19)
[2020-06-16] MEDS: dexAMETHasone 4 MG/ML VIAL IV SCH (09:20)
--- NOTE | 2020-06-16 09:31 | Ultrasound Report ---
ULTRASOUND ABDOMEN, LIMITED (RIGHT UPPER QUADRANT) INDICATION: abnormal LFT. COMPARISON: None available. FINDINGS: Pancreas: Visualized portion shows no significant abnormality. Liver: Mild steatosis. Gallbladder: Gallbladder is contracted and contains multiple small stones. There is borderline gallbl adder wall thickening. Bile ducts: Normal. Common Bile Duct measures 2-3 mm. Free fluid: None. Additional Findings: The right kidney is small, measuring 7.5 cm, with diffuse cortical thinning. IMPRESSION: 1. Cholelithiasis. Borderline gallbladder wall thickening may be due at least in part to gallbladder contraction. There is no common duct dilatation. 2. Hepatic steatosis. 3. Right kidney appears atrophic. Signer Name: Bill Neff MD Signed: 06/16/2020 9:27 AM Workstation Name: [id number]
[2020-06-16] MEDS: AZITHROMYCIN 500 MG in SODIUM CHLORIDE 0.9% 250ML 250 ML IV SCH (10:01)
--- NOTE | 2020-06-16 12:44 | Progress Note ---
Assessment and Plan 1. ESRD: His usual schedule is MWF. Patient underwent urgent HD 06/13 due to hyperkalemia and volume overload. Hemodialysis: 06/13, 06/14, 06/16. 2. FEN: Hyperkalemia, HD today, monitor. Metabolic acidosis, on HD. Volume overload, UF with HD as tolerated. Monitor lytes and volume status. 3. Acute hypoxic respiratory failure: CXR showed b/l PNA. On HFNC O2. Followed by Pulmonary. 4. Bilateral PNA: 2/2 COVID-19 infection. On multiple abx. Follow cultures. 5. Severe sepsis, POA: 2/2 PNA. Continue abx. 6. Anemia: Epogen if needed. 7. DM type 2. 8. HTN: Monitor BP. 9. Metabolic encephalopathy, POA. - Subjective: Patient was seen and examined at the bedside. In IMCU. - General Appearance General appearance: well-developed, appears stated age, not in distress, on HFNC O2 HEENT: ATNC, Pupils small Neck: Trachea midline Respiratory: appears ctab Cardiology: regular, S1S2, no murmur Gastrointestinal: normoactive bowel sounds, not tender, not distended Integumentary: no rash, warm and dry Neurologic: obtunded Ext: no edema Hemodialysis access: left FA AVF Subjective Date of service: 06/16/20 Objective - Vital Signs Vital signs: Vital Signs - 12hr 06/16/20 06/16/20 06/16/20 00:50 01:00 01:10 Temperature Pulse Rate 84 87 90 Pulse Rate [ From Monitor] Respiratory 22 26 H 25 H Rate Blood Pressure 156/84 156/84 172/91 O2 Sat by Pulse 95 98 94 Oximetry O2 Sat by Pulse Oximetry [ Anterior Bilateral] 06/16/20 06/16/20 06/16/20 01:20 01:30 01:40 Temperature Pulse Rate 87 93 H 85 Pulse Rate [ From Monitor] Respiratory 25 H 24 23 Rate Blood Pressure 142/78 172/91 176/88 O2 Sat by Pulse 97 94 94 Oximetry O2 Sat by Pulse Oximetry [ Anterior Bilateral] 06/16/20 06/16/20 06/16/20 01:50 02:00 02:10 Temperature Pulse Rate 90 85 85 Pulse Rate [ From Monitor] Respiratory 24 20 22 Rate Blood Pressure 135/76 135/76 123/81 O2 Sat by Pulse 95 95 96 Oximetry O2 Sat by Pulse Oximetry [ Anterior Bilateral] 06/16/20 06/16/20 06/16/20 02:20 02:30 02:40 Temperature Pulse Rate 85 83 86 Pulse Rate [ From Monitor] Respiratory 20 21 23 Rate Blood Pressure 133/84 133/79 133/79 O2 Sat by Pulse 94 94 97 Oximetry O2 Sat by Pulse Oximetry [ Anterior Bilateral] 06/16/20 06/16/20 06/16/20 02:50 03:00 03:10 Temperature Pulse Rate 87 85 85 Pulse Rate [ From Monitor] Respiratory 24 20 20 Rate Blood Pressure 147/77 147/77 156/78 O2 Sat by Pulse 97 94 96 Oximetry O2 Sat by Pulse Oximetry [ Anterior Bilateral] 06/16/20 06/16/20 06/16/20 03:20 03:30 03:40 Temperature Pulse Rate 84 83 85 Pulse Rate [ From Monitor] Respiratory 19 19 19 Rate Blood Pressure 141/80 154/81 154/81 O2 Sat by Pulse 94 93 94 Oximetry O2 Sat by Pulse Oximetry [ Anterior Bilateral] 06/16/20 06/16/20 06/16/20 03:46 03:50 04:00 Temperature 100.4 F H Pulse Rate 81 84 Pulse Rate [ 89 From Monitor] Respiratory 18 17 Rate Blood Pressure 157/80 164/82 O2 Sat by Pulse 93 94 Oximetry O2 Sat by Pulse Oximetry [ Anterior Bilateral] 06/16/20 06/16/20 06/16/20 04:10 04:20 04:30 Temperature Pulse Rate 82 82 82 Pulse Rate [ From Monitor] Respiratory 18 19 20 Rate Blood Pressure 164/82 160/79 149/77 O2 Sat by Pulse 94 94 94 Oximetry O2 Sat by Pulse Oximetry [ Anterior Bilateral] 06/16/20 06/16/20 06/16/20 04:40 04:50 05:00 Temperature Pulse Rate 85 82 85 Pulse Rate [ From Monitor] Respiratory 19 20 17 Rate Blood Pressure 149/77 142/76 149/77 O2 Sat by Pulse 98 94 96 Oximetry O2 Sat by Pulse Oximetry [ Anterior Bilateral] 06/16/20 06/16/20 06/16/20 05:10 05:20 05:30 Temperature Pulse Rate 83 82 85 Pulse Rate [ From Monitor] Respiratory 17 21 Rate Blood Pressure 159/84 150/76 150/76 O2 Sat by Pulse 97 96 98 Oximetry O2 Sat by Pulse Oximetry [ Anterior Bilateral] 06/16/20 06/16/20 06/16/20 05:40 05:50 06:00 Temperature Pulse Rate 84 80 84 Pulse Rate [ From Monitor] Respiratory 20 19 20 Rate Blood Pressure 160/82 150/78 150/78 O2 Sat by Pulse 95 95 98 Oximetry O2 Sat by Pulse Oximetry [ Anterior Bilateral] 06/16/20 06/16/20 06/16/20 09:30 09:34 09:37 Temperature 100.4 F H Pulse Rate 83 83 Pulse Rate [ From Monitor] Respiratory 18 Rate Blood Pressure 167/80 172/82 O2 Sat by Pulse 94 Oximetry O2 Sat by Pulse 92 Oximetry [ Anterior Bilateral] 06/16/20 06/16/20 06/16/20 09:45 10:00 10:15 Temperature Pulse Rate 81 87 92 H Pulse Rate [ From Monitor] Respiratory Rate Blood Pressure 159/78 141/85 116/73 O2 Sat by Pulse Oximetry O2 Sat by Pulse Oximetry [ Anterior Bilateral] 06/16/20 06/16/20 06/16/20 10:30 10:45 11:00 Temperature Pulse Rate 94 H 97 H 98 H Pulse Rate [ From Monitor] Respiratory Rate Blood Pressure 122/79 102/68 107/68 O2 Sat by Pulse Oximetry O2 Sat by Pulse Oximetry [ Anterior Bilateral] 06/16/20 06/16/20 06/16/20 11:15 11:30 11:45 Temperature Pulse Rate 98 H 98 H 100 H Pulse Rate [ From Monitor] Respiratory Rate Blood Pressure 99/66 104/68 97/66 O2 Sat by Pulse Oximetry O2 Sat by Pulse Oximetry [ Anterior Bilateral] 06/16/20 06/16/20 06/16/20 12:00 12:15 12:30 Temperature Pulse Rate 98 H 102 H 94 H Pulse Rate [ From Monitor] Respiratory Rate Blood Pressure 104/66 95/61 105/71 O2 Sat by Pulse Oximetry O2 Sat by Pulse Oximetry [ Anterior Bilateral] - Lab 06/14/20 04:08 06/16/20 04:53 Most recent lab results ABG pH 7.314 (7.320-7.450) L 06/14/20 10:21 ABG pCO2 27.6 mm Hg 06/13/20 20:25 ABG pO2 72.0 mm Hg (80.0-90.0) L 06/13/20 20:25 ABG HCO3 11.4 mmol/L (20.0-26.0) L 06/13/20 20:25 ABG O2 Saturation 91.7 % (95.0-99.0) L 06/13/20 20:25 Calcium 8.5 mg/dL (8.4-10.2) 06/16/20 04:53 Medications & Allergies - Medications Allergies/Adverse Reactions: Allergies No Known Allergies Allergy (Unverified 12/03/13 12:17) Home Medications: Home Medications Medication Instructions Recorded Confirmed Last Taken Type Aspirin 325 mg PO DAILY 12/03/13 10/27/17 1 Day Ago History ~12/09/16 Ergocalciferol [Vitamin D2] 1 cap PO QWEEK 12/03/13 10/27/17 1 Day Ago History ~12/09/16 Gabapentin 300 mg PO BID 12/03/13 10/27/17 1 Day Ago History ~12/09/16 Insulin Glargine,Hum.rec.anlog 20 units SQ QHS 12/03/13 10/27/17 1 Day Ago History [Lantus Solostar] ~12/09/16 Insulin Regular, Human [HumuLIN R] 3 units SC TIDAC 12/03/13 10/27/17 1 Day Ago History ~12/09/16 Clopidogrel Bisulfate [Plavix] 75 mg PO DAILY #30 tablet 12/06/13 10/27/17 1 Day Ago Rx ~12/09/16 Sucralfate [Carafate] 1 gm PO Q6HR #56 udc 12/11/16 10/27/17 Unknown Rx AtorvaSTATin [Lipitor] 20 mg PO QHS 10/27/17 10/27/17 Unknown History Folic Acid/Vit B Complex and C 1 tab PO DAILY 10/27/17 10/27/17 Unknown History [Renal-Alexandrea Tablet] Ondansetron [Zofran TAB] 4 mg PO Q8HR PRN 10/27/17 10/27/17 Unknown History Sevelamer Carbonate [Renvela] 2 tab PO TID 10/27/17 10/27/17 Unknown History Torsemide [Demadex] 40 mg PO DAILY 10/27/17 10/27/17 Unknown History amLODIPine 10 mg PO DAILY 10/27/17 10/27/17 Unknown History calcitrioL [Rocaltrol] 0.5 mcg PO QDAY 10/27/17 10/27/17 Unknown History glipiZIDE [Glipizide] 10 mg PO DAILY 10/27/17 10/27/17 Unknown History lisinopriL [Prinivil] 5 mg PO DAILY 10/27/17 10/27/17 Unknown History traMADoL [Ultram 50 MG tab] 50 mg PO Q8HR PRN 10/27/17 10/27/17 Unknown History Active Medications: Generic Name Dose Route Start Last Admin Trade Name Freq PRN Reason Stop Dose Admin Acetaminophen 650 mg 06/13/20 23:27 Tylenol PO Q6H PRN Pain MILD(1-3)/Fever >100.5/PINEDA Lipase/Protease/Amylase 1 each 06/15/20 13:[address] 10,500 Unit FEEDTUBE PRN PRN For Clogged Feeding Tube Dexamethasone 6 mg 06/15/20 10:00 06/16/20 09:20 Decadron IV 06/24/20 12:00 6 mg Q24HR BENJA Administration Dextrose 50 ml 06/13/20 23:27 D50w (25gm) Syringe IV Q30MIN PRN Hypoglycemia Protocol Heparin Sodium (Porcine) 3,000 unit 06/13/20 21:03 Heparin 10,000 Units/10 Ml IV CHACORTA PRN hemodialysis Heparin Sodium (Porcine) 5,000 unit 06/14/20 06:00 06/16/20 05:21 Heparin SUB-Q 5,000 unit Q8HR BENJA Administration Ceftriaxone Sodium 1 gm in 50 mls @ 100 mls/hr 06/14/20 15:00 06/16/20 09:19 Rocephin/Ns 1 Gm/50 Ml IV 100 mls/hr Q24HR BENJA Administration Protocol Azithromycin 500 mg/ Sodium 250 mls @ 250 mls/hr 06/14/20 15:00 06/15/20 09:35 Chloride IV 250 mls/hr Q24HR BENJA Administration Protocol Sodium Chloride 100 mls @ 999 mls/hr 06/16/20 08:20 Nacl 0.9% IV CHACORTA PRN Hypotension Insulin Human Lispro 0 unit 06/14/20 07:30 06/16/20 09:19 Humalog SUB-Q 4 unit ACHS BENJA Administration Protocol Magnesium Hydroxide 30 ml 06/13/20 23:27 Milk Of Magnesia PO Q4H PRN Constipation Ondansetron HCl 4 mg 06/13/20 23:27 Zofran IV Q8H PRN Nausea And Vomiting Simple Syrup 15 ml 06/15/20 13:34 Simple Syrup FEEDTUBE PRN PRN Hypoglycemia Simple Syrup 30 ml 06/15/20 13:34 Simple Syrup FEEDTUBE PRN PRN Hypoglycemia Sodium Bicarbonate 325 mg 06/15/20 13:34 Sodium Bicarbonate FEEDTUBE PRN PRN For Clogged Feeding Tube Sodium Chloride 10 ml 06/14/20 10:00 06/16/20 00:03 Sodium Chloride Flush Syringe 10 Ml IV 10 ml BID BENJA Administration Sodium Chloride 10 ml 06/13/20 23:27 Sodium Chloride Flush Syringe 10 Ml IV PRN PRN LINE FLUSH
--- NOTE | 2020-06-16 13:49 | Progress Note ---
Assessment and Plan Cultures: Coronavirus PCR: Positive 06/13/2020 blood culture: no growth A/P: 69-year-old male with ESRD on HD, coronary artery disease, prior CVA, gastroesophageal reflux disease was sent in from the dialysis center due to respiratory distress and hypoxia: #Bilateral pneumonia: secondary to COVID-19, inflammatory markers on admission significantly elevated, ferritin is 28,000, CRP 23.8, d-dimer 1226. Chest x-ray showed bilateral opacities. #Acute hypoxic respiratory failure: on HFNC. #ESRD on HD #Elevated LFTs: ?cytokine storm/sepsis related. RUQ US showed gall stones, contracted gall bladder. Recs: Continue IV/PO Dexamethasone 6 mg daily x 10 days, Day 3. Ok to use Solumedrol if pulmonary prefers Follow-up COVID PCR, test results still pending abx discontinued not a candidate for Remdesivir due to renal failure d/w hospitalist, consider enrollment for convalescent plasma Alexandr Talavera MD, FACP [facility], [place], [facility] ([facility] C: [phone] O: [phone] F: [phone] Subjective Date of service: 06/16/20 Interval history: Low grade fever. Remains on high flow. COVID positive. Objective - Exam Narrative Exam: Physical Exam (reviewed in chart due to PPE conservation) Constitutional: limited due to PPE conservation strategy Head, Ears, Nose: limited due to PPE conservation strategy Eyes: limited due to PPE conservation strategy Neck: limited due to PPE conservation strategy Oral: limited due to PPE conservation strategy Cardiovascular: limited due to PPE conservation strategy Respiratory: limited due to PPE conservation strategy GI: limited due to PPE conservation strategy Musculoskeletal: limited due to PPE conservation strategy Skin: limited due to PPE conservation strategy Hem/Lymphatic: limited due to PPE conservation strategy Psych: limited due to PPE conservation strategy Neurological: limited due to PPE conservation strategy - Constitutional Vitals: Vital Signs Temp Pulse Resp BP Pulse Ox 100.4 F H 105 H 32 H 110/73 80 L 06/16/20 09:30 06/16/20 13:07 06/16/20 12:40 06/16/20 13:07 06/16/20 12:40 Temperature -Last 24 Hours Temperature 100.4 F Temperature 100.4 F Temperature 98.9 F Temperature 99 F Temperature 98.7 F - Labs CBC & Chem 7: 06/14/20 04:08 06/16/20 04:53 Labs: Abnormal lab results 06/14/20 06/15/20 06/15/20 Range/Units 08:52 16:31 21:47 Potassium (3.6-5.0) mmol/L Chloride (98-107) mmol/L Carbon Dioxide (22-30) mmol/L BUN (9-20) mg/dL Creatinine (0.8-1.3) mg/dL Glucose (75-100) mg/dL POC Glucose 276 H 264 H (70-105) AST (5-40) units/L ALT (7-56) units/L Alkaline Phosphatase (35-129) units/L Albumin (3.9-5) g/dL Coronavirus (PCR) Positive A (Negative) 06/16/20 06/16/20 06/16/20 Range/Units 04:53 08:01 11:05 Potassium 5.2 H (3.6-5.0) mmol/L Chloride 93.4 L (98-107) mmol/L Carbon Dioxide 17 L (22-30) mmol/L BUN 110 H (9-20) mg/dL Creatinine 13.8 H (0.8-1.3) mg/dL Glucose 245 H (75-100) mg/dL POC Glucose 256 H 185 H (70-105) AST 214 H (5-40) units/L ALT 404 H (7-56) units/L Alkaline Phosphatase 296 H (35-129) units/L Albumin 3.2 L (3.9-5) g/dL Coronavirus (PCR) (Negative)
--- NOTE | 2020-06-16 15:45 | Progress Note ---
Assessment and Plan Assessment and plan: --COVID positive patient; -- Acute respiratory failure with hypoxia/on BiPAP Current Visit: Yes Status: Acute Plan to address problem: Possibly secondary to the pneumonia. On high flow oxygen we will keep O2 saturation greater than 90% Home oxygen evaluation --COVID-19 positive bilateral pneumonia Current Visit: Yes Status: Acute Plan to address problem: ID consulted, follow inflammatory markers IV dexamethasone for 10 days No need for Remdesivir due to renal failure ID recommend convulsant plasma transfusion Typed and crossed, requested convulsant plasma Awaiting reply from [facility] -- Hyperkalemia Current Visit: Yes Status: Acute Plan to address problem: Patient to undergo dialysis. Will monitor chemistry. -- ESRD on hemodialysis Current Visit: Yes Status: Chronic Plan to address problem: Patient has been scheduled for stat dialysis. Nephrology consulted, HD per schedule --Transaminitis; Probably COVID related ,worsening LFTs, Acute hepatitis panel negative Abdominal ultrasound; cholelithiasis, gallbladder contracted GI consulted -- Hypertension Current Visit: No Status: Chronic . Plan to address problem: Continue current antihypertensives PRN medications --T2DM (type 2 diabetes mellitus) Current Visit: No Status: Chronic Plan to address problem: We will monitor Accu-Cheks. -- DVT prophylaxis Current Visit: No Status: Acute Plan to address problem: Patient placed on subcutaneous heparin -- Full code status Current Visit: Yes Status: Acute We will closely monitor the patient and adjust management as needed Consults and recommendations noted and appreciated Plan of care reviewed with the patient nurse and case management History Interval history: COVID positive patient; I have seen and examined the patient Patient's chart and medications reviewed Patient feels slightly better Vital signs noted Hospitalist Physical - Constitutional Vitals: Temp Pulse Resp BP Pulse Ox 100.4 F H 105 H 23 110/73 92 06/16/20 09:30 06/16/20 13:15 06/16/20 13:15 06/16/20 13:15 06/16/20 13:15 General appearance: Present: mild distress, well-nourished, disheveled - EENT Eyes: Present: PERRL, EOM intact - Neck Neck: Present: supple, normal ROM - Respiratory Respiratory effort: normal Respiratory: bilateral: diminished, rhonchi, negative: rales, wheezing - Cardiovascular Rhythm: regular Heart Sounds: Present: S1 & S2 - Extremities Extremities: no ischemia, No edema - Abdominal General gastrointestinal: soft, non-tender, non-distended, normal bowel sounds - Integumentary Integumentary: Present: clear, warm - Psychiatric Psychiatric: other (Confused) - Neurologic Neurologic: moves all extremities Results - Labs CBC & Chem 7: 06/14/20 04:08 06/16/20 04:53 Labs: Laboratory Last Values WBC 7.2 K/mm3 (4.5-11.0) 06/14/20 04:08 RBC 3.93 M/mm3 (3.65-5.03) 06/14/20 04:08 Hgb 12.0 gm/dl (11.8-15.2) 06/14/20 04:08 Hct 37.0 % (35.5-45.6) 06/14/20 04:08 MCV 94 fl (84-94) 06/14/20 04:08 MCH 31 pg (28-32) 06/14/20 04:08 MCHC 33 % (32-34) 06/14/20 04:08 RDW 14.3 % (13.2-15.2) 06/14/20 04:08 Plt Count 136 K/mm3 (140-440) L 06/14/20 04:08 Lymph % (Auto) 6.0 % (13.4-35.0) L 06/14/20 04:08 [place] % (Auto) 5.5 % (0.0-7.3) 06/14/20 04:08 Eos % (Auto) 0.0 % (0.0-4.3) 06/14/20 04:08 Baso % (Auto) 0.1 % (0.0-1.8) 06/14/20 04:08 Lymph # 0.4 K/mm3 (1.2-5.4) L 06/14/20 04:08 [place] # 0.4 K/mm3 (0.0-0.8) 06/14/20 04:08 Eos # 0.0 K/mm3 (0.0-0.4) 06/14/20 04:08 Baso # 0.0 K/mm3 (0.0-0.1) 06/14/20 04:08 Seg Neutrophils % 88.4 % (40.0-70.0) H 06/14/20 04:08 Seg Neutrophils # 6.3 K/mm3 (1.8-7.7) 06/14/20 04:08 PT 13.6 Sec. (12.2-14.9) 06/14/20 04:08 INR 1.03 (0.87-1.13) 06/14/20 04:08 D-Dimer 1226.84 ng/mlDDU (0-234) H 06/14/20 04:08 ABG pH 7.314 (7.320-7.450) L 06/14/20 10:21 POC ABG pCO2 29.0 mmHg (32.0-48.0) L 06/14/20 10:21 ABG pCO2 27.6 mm Hg 06/13/20 20:25 POC ABG pO2 80.8 mmHg (83-108) L 06/14/20 10:21 ABG pO2 72.0 mm Hg (80.0-90.0) L 06/13/20 20:25 ABG HCO3 11.4 mmol/L (20.0-26.0) L 06/13/20 20:25 ABG O2 Saturation 91.7 % (95.0-99.0) L 06/13/20 20:25 ABG O2 Content 16.0 (0.0-44) 06/13/20 20:25 ABG Base Excess -14.6 mmol/L (-2.0-3.0) L 06/13/20 20:25 ABG Hemoglobin 11.9 (12.0-17.5) L 06/14/20 10:21 ABG Carboxyhemoglobin 0.7 % (0.0-5.0) 06/13/20 20:25 ABG Methemoglobin 0.2 % (0.0-1.5) 06/13/20 20:25 ABG Sodium TNR 06/14/20 10:21 ABG Potassium TNR 06/14/20 10:21 ABG Chloride TNR 06/14/20 10:21 ABG Glucose TNR 06/14/20 10:21 ABG Lactate TNR 06/14/20 10:21 Oxyhemoglobin 90.8 % (95.0-99.0) L 06/13/20 20:25 FiO2 50 06/14/20 10:21 Sodium 142 mmol/L (137-145) 06/16/20 04:53 Potassium 5.2 mmol/L (3.6-5.0) H 06/16/20 04:53 Chloride 93.4 mmol/L (98-107) L 06/16/20 04:53 Carbon Dioxide 17 mmol/L (22-30) L 06/16/20 04:53 Anion Gap 37 mmol/L 06/16/20 04:53 BUN 110 mg/dL (9-20) H 06/16/20 04:53 Creatinine 13.8 mg/dL (0.8-1.3) H 06/16/20 04:53 Estimated GFR 4 ml/min 06/16/20 04:53 BUN/Creatinine Ratio 8 % 06/16/20 04:53 Glucose 245 mg/dL (75-100) H 06/16/20 04:53 POC Glucose 185 (70-105) H 06/16/20 11:05 Lactic Acid 1.80 mmol/L (0.7-2.0) 06/13/20 21:01 Calcium 8.5 mg/dL (8.4-10.2) 06/16/20 04:53 Ferritin 51331.0 ng/mL (30.0-300.0) H 06/14/20 09:47 Total Bilirubin 0.30 mg/dL (0.1-1.2) 06/16/20 04:53 AST 214 units/L (5-40) H 06/16/20 04:53 ALT 404 units/L (7-56) H 06/16/20 04:53 Alkaline Phosphatase 296 units/L (35-129) H 06/16/20 04:53 Ammonia 33.0 umol/L (25-60) 06/15/20 10:22 C-Reactive Protein 23.80 mg/dL (0.00-1.30) H 06/14/20 09:47 Total Protein 7.3 g/dL (6.3-8.2) 06/16/20 04:53 Albumin 3.2 g/dL (3.9-5) L 06/16/20 04:53 Albumin/Globulin Ratio 0.8 % 06/16/20 04:53 Amylase 278 units/L (27-131) H 06/15/20 10:22 Lipase 93 units/L (13-60) H 06/15/20 10:22 Arterial Blood Glucose TNR 06/14/20 10:21 Arterial Blood Ionized Calcium TNR 06/14/20 10:21 Random Vancomycin 11.5 ug/mL (0-40.0) 06/15/20 05:11 Coronavirus (PCR) Positive (Negative) A 06/14/20 08:52 Hepatitis A IgM Ab Nonreactive (NonReactive) 06/13/20 21:46 Hep Bs Antigen Non-reactive (Negative) 06/13/20 21:46 Hep B Core IgM Ab Non-reactive (NonReactive) 06/13/20 21:46 Hepatitis C Antibody Non-reactive (NonReactive) 06/13/20 21:46 Microbiology: Microbiology 06/13/20 18:32 Peripheral/Venous Blood Culture - Preliminary NO GROWTH AFTER 48 HOURS 06/13/20 18:44 Peripheral/Venous Blood Culture - Preliminary NO GROWTH AFTER 48 HOURS Dasilva/IV: Voiding Method Condom Catheter IV Catheter Type [Left Forearm fistula ] IV Catheter Type [Right Upper Peripheral IV arm] Active Medications - Current Medications Current Medications: Generic Name Dose Route Start Last Admin Trade Name Freq PRN Reason Stop Dose Admin Acetaminophen 650 mg 06/13/20 23:27 Tylenol PO Q6H PRN Pain MILD(1-3)/Fever >100.5/PINEDA Lipase/Protease/Amylase 1 each 06/15/20 13:[address] 10,500 Unit FEEDTUBE PRN PRN For Clogged Feeding Tube Dexamethasone 6 mg 06/15/20 10:00 06/16/20 09:20 Decadron IV 06/24/20 12:00 6 mg Q24HR BENJA Administration Dextrose 50 ml 06/13/20 23:27 D50w (25gm) Syringe IV Q30MIN PRN Hypoglycemia Protocol Heparin Sodium (Porcine) 3,000 unit 06/13/20 21:03 Heparin 10,000 Units/10 Ml IV CHACORTA PRN hemodialysis Heparin Sodium (Porcine) 5,000 unit 06/14/20 06:00 06/16/20 15:01 Heparin SUB-Q 5,000 unit Q8HR BENJA Administration Ceftriaxone Sodium 1 gm in 50 mls @ 100 mls/hr 06/14/20 15:00 06/16/20 09:19 Rocephin/Ns 1 Gm/50 Ml IV 100 mls/hr Q24HR BENJA Administration Protocol Azithromycin 500 mg/ Sodium 250 mls @ 250 mls/hr 06/14/20 15:00 06/16/20 10:01 Chloride IV 250 mls/hr Q24HR BENJA Administration Protocol Sodium Chloride 100 mls @ 999 mls/hr 06/16/20 08:20 Nacl 0.9% IV CHACORTA PRN Hypotension Insulin Human Lispro 0 unit 06/14/20 07:30 06/16/20 12:05 Humalog SUB-Q 2 unit ACHS BENJA Administration Protocol Magnesium Hydroxide 30 ml 06/13/20 23:27 Milk Of Magnesia PO Q4H PRN Constipation Ondansetron HCl 4 mg 06/13/20 23:27 Zofran IV Q8H PRN Nausea And Vomiting Simple Syrup 15 ml 06/15/20 13:34 Simple Syrup FEEDTUBE PRN PRN Hypoglycemia Simple Syrup 30 ml 06/15/20 13:34 Simple Syrup FEEDTUBE PRN PRN Hypoglycemia Sodium Bicarbonate 325 mg 06/15/20 13:34 Sodium Bicarbonate FEEDTUBE PRN PRN For Clogged Feeding Tube Sodium Chloride 10 ml 06/14/20 10:00 06/16/20 10:01 Sodium Chloride Flush Syringe 10 Ml IV 10 ml BID BENJA Administration Sodium Chloride 10 ml 06/13/20 23:27 Sodium Chloride Flush Syringe 10 Ml IV PRN PRN LINE FLUSH Nutrition/Malnutrition Assess - Dietary Evaluation Nutrition/Malnutrition Findings: Nutrition Notes Start: 06/14/20 13:08 Freq: Status: Active Protocol: Document 06/15/20 13:29 LM (Rec: 06/15/20 13:34 LM [id number]) Nutrition Notes Need for Assessment generated from: MD Order Initial or Follow up Reassessment Current Diagnosis CKD (stage V CKD),Coronary Artery Disease,Diabetes, Hypertension Other Pertinent Diagnosis Suspected COVID-19, on HD, hx CVA Current Diet cardiac/consistent CHO Labs/Tests BUN 67 Cr 10.3 BG 212 Pertinent Medications Humalog Decadron Height 5 ft 6 in Weight 69.7 kg [place] Body Weight (kg) 64.54 BMI 24.7 Weight Status Appropriate Subjective/Other Information MD consult for TF. Burn Absent Trauma Absent Minimum of two criteria No physical signs of malnutrition #1 Nutrition Diagnosis Inadequate oral intake As Evidenced by Signs and Symptoms pt needing TF Diagnosis Progress(for reassessment Worsened documentation) Is patient on ventilator? No Is Patient Ambulatory and/or Out of Bed No REE-([facility]-confined to bed) [phone] Calculation Used for Recommendations [facility] Additional Notes Protein: 84g (>1.2g/kg) Fluid: 1ml/kcal Nutrition Intervention Change Diet Order: TF Nutrition Support: [place]ro 1.8 at 40ml/hr Flush 170ml q4h Kcal 1,728 Protein (gm) 78 Fluid (mL) 698 Goal #1 TF start/tolerance Anticipated Discharge Needs: unable to determine at this time Follow-Up By: 06/19/20 Additional Comments F/U for TF start/tolerance
--- NOTE | 2020-06-16 18:04 | Gastroenterology Progress Note ---
Assessment and Plan - Patient Problems (1) Abnormal liver enzymes Current Visit: Yes Status: Acute Plan to address problem: - Hepatitis serologies negative, and likely acute ischemic injury from recent sepsis and COVID. - RUQ US not impressive. - Since improved, would not w/u further, as likely from the sepsis and COVID. - Supportive care only at this point. Will sign off; please call if needed. Subjective Date of service: 06/16/20 Principal diagnosis: Abnormal Liver Enzymes Interval history: The patient remains critically ill, and is COVID positive. No emesis, or abdominal pain (but poorly responsive). Objective - Constitutional Vitals: Temp Pulse Resp BP Pulse Ox 99.6 F 96 H 26 H 109/66 97 06/16/20 16:00 06/16/20 17:20 06/16/20 17:20 06/16/20 17:20 06/16/20 17:20 General appearance: mild distress - Respiratory Respiratory effort: labored Respiratory: bilateral: diminished - Cardiovascular Rhythm: regular Heart Sounds: Present: S1 & S2 - Gastrointestinal General gastrointestinal: Present: soft, non-tender, non-distended - Labs CBC & Chem 7: 06/14/20 04:08 06/16/20 04:53 Labs: Laboratory Results - last 24 hr 06/14/20 06/15/20 06/15/20 08:52 16:31 21:47 Sodium Potassium Chloride Carbon Dioxide Anion Gap BUN Creatinine Estimated GFR BUN/Creatinine Ratio Glucose POC Glucose 276 H 264 H Calcium Total Bilirubin AST ALT Alkaline Phosphatase Total Protein Albumin Albumin/Globulin Ratio Coronavirus (PCR) Positive A Blood Type Antibody Screen 06/16/20 06/16/20 06/16/20 04:53 08:01 11:05 Sodium 142 Potassium 5.2 H Chloride 93.4 L Carbon Dioxide 17 L Anion Gap 37 BUN 110 H Creatinine 13.8 H Estimated GFR 4 BUN/Creatinine Ratio 8 Glucose 245 H POC Glucose 256 H 185 H Calcium 8.5 Total Bilirubin 0.30 AST 214 H ALT 404 H Alkaline Phosphatase 296 H Total Protein 7.3 Albumin 3.2 L Albumin/Globulin Ratio 0.8 Coronavirus (PCR) Blood Type Antibody Screen 06/16/20 06/16/20 16:05 17:30 Sodium Potassium Chloride Carbon Dioxide Anion Gap BUN Creatinine Estimated GFR BUN/Creatinine Ratio Glucose POC Glucose 321 H Calcium Total Bilirubin AST ALT Alkaline Phosphatase Total Protein Albumin Albumin/Globulin Ratio Coronavirus (PCR) Blood Type A POSITIVE Antibody Screen Negative
[2020-06-16] MEDS ORDERED: VANCOMYCIN/NS 1 GM/250 ML 1 GM/250 ML BAG IV SCH (22:00)
[2020-06-16] MEDS: ACETAMINOPHEN 325 MG TAB PO PRN (22:35)
[2020-06-17] MEDS: INSULIN LISPRO 100 UNIT/ML VIAL 3 mL SUB-Q SCH ×4 (00:03→18:29)
[2020-06-17] MEDS: HEPARIN 5,000 UNIT/1 ML VIAL SUB-Q SCH ×3 (05:35→21:32)
[2020-06-17 06:55] LABS: Albumin 3.6 g/dL (3.9-5); C-Reactive Protein 30.6 mg/dL (0.00-1.30); Calcium 8.9 mg/dL (8.4-10.2)
[2020-06-17] MEDS ORDERED: SODIUM CHLORIDE 0.9% 100 ML IV PRN (08:16)
[2020-06-17] MEDS: INSULIN NPH/REGULAR 70/30 INJ SUB-Q SCH ×2 (09:52→18:33)
[2020-06-17] MEDS: cefTRIAXone/NS 1 GM/50 ML 1 GM/50 ML BAG IV SCH (09:53)
[2020-06-17] MEDS: dexAMETHasone 4 MG/ML VIAL IV SCH ×3 (09:53→21:31)
[2020-06-17] MEDS: AZITHROMYCIN 500 MG in SODIUM CHLORIDE 0.9% 250ML 250 ML IV SCH (09:53)
--- NOTE | 2020-06-17 10:26 | Progress Note ---
Assessment and Plan Cultures: Coronavirus PCR: Positive 06/13/2020 blood culture: no growth A/P: 69-year-old male with ESRD on HD, coronary artery disease, prior CVA, gastroesophageal reflux disease was sent in from the dialysis center due to respiratory distress and hypoxia: #Bilateral pneumonia: secondary to COVID-19, inflammatory markers on admission significantly elevated, ferritin is 28,000, CRP 23.8, d-dimer 1226. Chest x-ray showed bilateral opacities. #Acute hypoxic respiratory failure: on HFNC. #ESRD on HD #Elevated LFTs: ?cytokine storm/sepsis related. RUQ US showed gall stones, contracted gall bladder. Recs: increase dose of steroids due to rising CRP to IV/PO Dexamethasone 6 mg BID x 10 days, Day 4. Ok to use Solumedrol if pulmonary prefers not a candidate for Remdesivir due to renal failure d/w Dr. Palm, consider enrollment for convalescent plasma Alexandr Talavera MD, FACP [facility] ([facility] C: [phone] O: [phone] F: [phone] Subjective Date of service: 06/17/20 Principal diagnosis: Abnormal Liver Enzymes Interval history: Low grade fever. Remains on high flow. Objective - Exam Narrative Exam: Physical Exam (reviewed in chart due to PPE conservation) Constitutional: limited due to PPE conservation strategy Head, Ears, Nose: limited due to PPE conservation strategy Eyes: limited due to PPE conservation strategy Neck: limited due to PPE conservation strategy Oral: limited due to PPE conservation strategy Cardiovascular: limited due to PPE conservation strategy Respiratory: limited due to PPE conservation strategy GI: limited due to PPE conservation strategy Musculoskeletal: limited due to PPE conservation strategy Skin: limited due to PPE conservation strategy Hem/Lymphatic: limited due to PPE conservation strategy Psych: limited due to PPE conservation strategy Neurological: limited due to PPE conservation strategy - Constitutional Vitals: Vital Signs Temp Pulse Resp BP Pulse Ox 98.7 F 87 25 H 107/60 91 06/17/20 09:30 06/17/20 10:15 06/17/20 10:01 06/17/20 10:15 06/17/20 10:01 Temperature -Last 24 Hours Temperature 98.7 F Temperature 98.7 F Temperature 99 F Temperature 98.9 F Temperature 100.2 F Temperature 99.6 F Temperature 98.4 F - Labs CBC & Chem 7: 06/14/20 04:08 06/17/20 04:36 Labs: Abnormal lab results 06/14/20 06/16/20 06/16/20 Range/Units 08:52 11:05 17:30 D-Dimer (0-234) ng/mlDDU Potassium (3.6-5.0) mmol/L Chloride (98-107) mmol/L Carbon Dioxide (22-30) mmol/L BUN (9-20) mg/dL Creatinine (0.8-1.3) mg/dL Glucose (75-100) mg/dL POC Glucose 185 H 321 H (70-105) AST (5-40) units/L ALT (7-56) units/L Alkaline Phosphatase (35-129) units/L C-Reactive Protein (0.00-1.30) mg/dL Total Protein (6.3-8.2) g/dL Albumin (3.9-5) g/dL Coronavirus (PCR) Positive A (Negative) 06/16/20 06/17/20 06/17/20 Range/Units 23:57 04:36 04:36 D-Dimer 917.42 H (0-234) ng/mlDDU Potassium 5.5 H (3.6-5.0) mmol/L Chloride 86.8 L (98-107) mmol/L Carbon Dioxide 19 L (22-30) mmol/L BUN 101 H (9-20) mg/dL Creatinine 11.1 H (0.8-1.3) mg/dL Glucose 373 H (75-100) mg/dL POC Glucose 392 H (70-105) AST 132 H (5-40) units/L ALT 327 H (7-56) units/L Alkaline Phosphatase 319 H (35-129) units/L C-Reactive Protein 30.60 H (0.00-1.30) mg/dL Total Protein 8.4 H (6.3-8.2) g/dL Albumin 3.6 L (3.9-5) g/dL Coronavirus (PCR) (Negative) 06/17/20 Range/Units 05:45 D-Dimer (0-234) ng/mlDDU Potassium (3.6-5.0) mmol/L Chloride (98-107) mmol/L Carbon Dioxide (22-30) mmol/L BUN (9-20) mg/dL Creatinine (0.8-1.3) mg/dL Glucose (75-100) mg/dL POC Glucose 346 H (70-105) AST (5-40) units/L ALT (7-56) units/L Alkaline Phosphatase (35-129) units/L C-Reactive Protein (0.00-1.30) mg/dL Total Protein (6.3-8.2) g/dL Albumin (3.9-5) g/dL Coronavirus (PCR) (Negative)
--- NOTE | 2020-06-17 10:52 | Progress Note ---
Assessment and Plan 1. ESRD: His usual schedule is MWF. Patient underwent urgent HD 06/13 due to hyperkalemia and volume overload. Hemodialysis: 06/13, 06/14, 06/16, 06/17. 2. FEN: Hyperkalemia, HD today with low K bath, monitor. Metabolic acidosis, on HD. Volume overload, UF with HD as tolerated. Monitor lytes and volume status. 3. Acute hypoxic respiratory failure: CXR showed b/l PNA. On HFNC O2. Followed by Pulmonary. 4. Bilateral PNA: 2/2 COVID-19 infection. S/p abx. Followed by ID. 5. Severe sepsis, POA: 2/2 PNA. 6. Anemia: Epogen if needed. 7. DM type 2. 8. HTN: Monitor BP. 9. Metabolic encephalopathy, POA. - Subjective: Patient was seen and examined at the bedside. In IMCU. - General Appearance General appearance: well-developed, appears stated age, not in distress, on HFNC O2 HEENT: ATNC, Pupils small Neck: Trachea midline Respiratory: appears ctab Cardiology: regular, S1S2, no murmur Gastrointestinal: normoactive bowel sounds, not tender, not distended Integumentary: no rash, warm and dry Neurologic: obtunded Ext: no edema Hemodialysis access: left FA AVF Subjective Date of service: 06/17/20 Principal diagnosis: Abnormal Liver Enzymes Objective - Vital Signs Vital signs: Vital Signs - 12hr 06/16/20 06/16/20 06/16/20 23:00 23:10 23:20 Temperature Pulse Rate 89 91 H 90 Pulse Rate [ From Monitor] Respiratory 23 27 H 26 H Rate Blood Pressure 102/55 102/55 112/64 O2 Sat by Pulse 91 95 95 Oximetry 06/16/20 06/16/20 06/16/20 23:21 23:30 23:40 Temperature 98.9 F Pulse Rate 90 89 Pulse Rate [ From Monitor] Respiratory 25 H 26 H Rate Blood Pressure 95/61 95/61 O2 Sat by Pulse 91 95 Oximetry 06/16/20 06/17/20 06/17/20 23:50 00:00 00:10 Temperature Pulse Rate 88 88 87 Pulse Rate [ 95 H From Monitor] Respiratory 24 22 22 Rate Blood Pressure 105/61 102/61 102/61 O2 Sat by Pulse 95 95 94 Oximetry 06/17/20 06/17/20 06/17/20 00:20 00:30 00:40 Temperature Pulse Rate 87 88 87 Pulse Rate [ From Monitor] Respiratory 23 26 H 23 Rate Blood Pressure 141/75 141/75 98/60 O2 Sat by Pulse 95 96 95 Oximetry 06/17/20 06/17/20 06/17/20 00:50 01:00 01:10 Temperature Pulse Rate 90 89 86 Pulse Rate [ From Monitor] Respiratory 24 23 27 H Rate Blood Pressure 102/55 111/64 111/64 O2 Sat by Pulse 96 90 94 Oximetry 06/17/20 06/17/20 06/17/20 01:20 01:30 01:40 Temperature Pulse Rate 88 90 89 Pulse Rate [ From Monitor] Respiratory 22 26 H 24 Rate Blood Pressure 109/61 112/64 112/64 O2 Sat by Pulse 95 91 95 Oximetry 06/17/20 06/17/20 06/17/20 01:50 02:00 02:10 Temperature Pulse Rate 88 87 88 Pulse Rate [ From Monitor] Respiratory 22 Rate Blood Pressure 109/59 93/56 113/70 O2 Sat by Pulse 95 91 95 Oximetry 06/17/20 06/17/20 06/17/20 02:20 02:30 02:40 Temperature Pulse Rate 87 90 90 Pulse Rate [ From Monitor] Respiratory 24 26 H 29 H Rate Blood Pressure 95/57 95/58 95/58 O2 Sat by Pulse 96 95 Oximetry 06/17/20 06/17/20 06/17/20 02:50 03:00 03:11 Temperature Pulse Rate 90 87 89 Pulse Rate [ From Monitor] Respiratory 27 H 28 H 25 H Rate Blood Pressure 93/53 113/65 113/65 O2 Sat by Pulse 94 94 94 Oximetry 06/17/20 06/17/20 06/17/20 03:21 03:30 03:36 Temperature 99 F Pulse Rate 83 89 Pulse Rate [ From Monitor] Respiratory 32 H 26 H Rate Blood Pressure 113/65 105/59 O2 Sat by Pulse 94 90 Oximetry 06/17/20 06/17/20 06/17/20 03:41 03:51 04:00 Temperature Pulse Rate 87 90 90 Pulse Rate [ 88 From Monitor] Respiratory 29 H 25 H 22 Rate Blood Pressure 105/59 112/60 102/66 O2 Sat by Pulse 95 94 91 Oximetry 0806/17/20 06/17/20 04:11 04:21 04:30 Temperature Pulse Rate 88 88 86 Pulse Rate [ From Monitor] Respiratory 23 21 Rate Blood Pressure 102/66 112/60 102/61 O2 Sat by Pulse 94 94 90 Oximetry 06/17/20 06/17/20 06/17/20 04:41 04:51 05:00 Temperature Pulse Rate 86 87 86 Pulse Rate [ From Monitor] Respiratory 21 Rate Blood Pressure 102/61 115/64 96/60 O2 Sat by Pulse 94 93 93 Oximetry 06/17/20 06/17/20 06/17/20 05:11 05:21 05:30 Temperature Pulse Rate 81 85 84 Pulse Rate [ From Monitor] Respiratory 27 H 22 23 Rate Blood Pressure 96/60 111/66 110/61 O2 Sat by Pulse 93 94 93 Oximetry 06/17/20 06/17/20 06/17/20 05:41 05:51 06:00 Temperature Pulse Rate 85 84 81 Pulse Rate [ From Monitor] Respiratory 22 28 H Rate Blood Pressure 110/61 125/68 133/61 O2 Sat by Pulse 94 92 87 Oximetry 06/17/20 06/17/20 06/17/20 06:11 06:20 06:30 Temperature Pulse Rate 86 85 85 Pulse Rate [ From Monitor] Respiratory 22 18 25 H Rate Blood Pressure 133/61 117/66 125/69 O2 Sat by Pulse 93 93 88 Oximetry 06/17/20 06/17/20 06/17/20 06:41 06:51 07:00 Temperature Pulse Rate 84 85 86 Pulse Rate [ From Monitor] Respiratory 23 Rate Blood Pressure 125/69 112/61 129/70 O2 Sat by Pulse 90 89 Oximetry 06/17/20 06/17/20 06/17/20 07:11 07:21 07:30 Temperature Pulse Rate 85 85 85 Pulse Rate [ From Monitor] Respiratory 22 Rate Blood Pressure 129/70 112/65 114/63 O2 Sat by Pulse 89 89 Oximetry 06/17/20 06/17/20 06/17/20 07:41 07:51 08:00 Temperature 98.7 F Pulse Rate 86 89 88 Pulse Rate [ From Monitor] Respiratory 21 25 H 22 Rate Blood Pressure 114/63 120/64 114/67 O2 Sat by Pulse 90 92 88 Oximetry 06/17/20 06/17/20 06/17/20 08:11 08:21 08:30 Temperature Pulse Rate 87 87 88 Pulse Rate [ From Monitor] Respiratory 20 22 26 H Rate Blood Pressure 114/67 134/70 113/66 O2 Sat by Pulse 91 91 89 Oximetry 06/17/20 06/17/20 06/17/20 08:41 08:51 08:57 Temperature Pulse Rate 87 87 Pulse Rate [ From Monitor] Respiratory 24 24 Rate Blood Pressure 113/66 120/69 O2 Sat by Pulse 91 91 91 Oximetry 06/17/20 06/17/20 06/17/20 09:00 09:11 09:21 Temperature Pulse Rate 87 89 88 Pulse Rate [ From Monitor] Respiratory 26 H 24 26 H Rate Blood Pressure 128/67 128/67 138/72 O2 Sat by Pulse 94 92 92 Oximetry 06/17/20 06/17/20 06/17/20 09:30 09:41 09:45 Temperature 98.7 F Pulse Rate 89 88 86 Pulse Rate [ From Monitor] Respiratory 25 H 24 Rate Blood Pressure 134/70 134/70 125/67 O2 Sat by Pulse 89 92 Oximetry 06/17/20 06/17/20 06/17/20 09:51 10:00 10:01 Temperature Pulse Rate 91 H 94 H 94 H Pulse Rate [ From Monitor] Respiratory 28 H 25 H Rate Blood Pressure 125/67 103/62 125/67 O2 Sat by Pulse 94 91 Oximetry 06/17/20 10:15 Temperature Pulse Rate 87 Pulse Rate [ From Monitor] Respiratory Rate Blood Pressure 107/60 O2 Sat by Pulse Oximetry - Lab 06/14/20 04:08 06/17/20 04:36 Most recent lab results ABG pH 7.314 (7.320-7.450) L 06/14/20 10:21 ABG pCO2 27.6 mm Hg 06/13/20 20:25 ABG pO2 72.0 mm Hg (80.0-90.0) L 06/13/20 20:25 ABG HCO3 11.4 mmol/L (20.0-26.0) L 06/13/20 20:25 ABG O2 Saturation 91.7 % (95.0-99.0) L 06/13/20 20:25 Calcium 8.9 mg/dL (8.4-10.2) 06/17/20 04:36 Medications & Allergies - Medications Allergies/Adverse Reactions: Allergies No Known Allergies Allergy (Unverified 12/03/13 12:17) Home Medications: Home Medications Medication Instructions Recorded Confirmed Last Taken Type Aspirin 325 mg PO DAILY 12/03/13 10/27/17 1 Day Ago History ~12/09/16 Ergocalciferol [Vitamin D2] 1 cap PO QWEEK 12/03/13 10/27/17 1 Day Ago History ~12/09/16 Gabapentin 300 mg PO BID 12/03/13 10/27/17 1 Day Ago History ~12/09/16 Insulin Glargine,Hum.rec.anlog 20 units SQ QHS 12/03/13 10/27/17 1 Day Ago History [Lantus Solostar] ~12/09/16 Insulin Regular, Human [HumuLIN R] 3 units SC TIDAC 12/03/13 10/27/17 1 Day Ago History ~12/09/16 Clopidogrel Bisulfate [Plavix] 75 mg PO DAILY #30 tablet 12/06/13 10/27/17 1 Day Ago Rx ~12/09/16 Sucralfate [Carafate] 1 gm PO Q6HR #56 udc 12/11/16 10/27/17 Unknown Rx AtorvaSTATin [Lipitor] 20 mg PO QHS 10/27/17 10/27/17 Unknown History Folic Acid/Vit B Complex and C 1 tab PO DAILY 10/27/17 10/27/17 Unknown History [Renal-Alexandrea Tablet] Ondansetron [Zofran TAB] 4 mg PO Q8HR PRN 10/27/17 10/27/17 Unknown History Sevelamer Carbonate [Renvela] 2 tab PO TID 10/27/17 10/27/17 Unknown History Torsemide [Demadex] 40 mg PO DAILY 10/27/17 10/27/17 Unknown History amLODIPine 10 mg PO DAILY 10/27/17 10/27/17 Unknown History calcitrioL [Rocaltrol] 0.5 mcg PO QDAY 10/27/17 10/27/17 Unknown History glipiZIDE [Glipizide] 10 mg PO DAILY 10/27/17 10/27/17 Unknown History lisinopriL [Prinivil] 5 mg PO DAILY 10/27/17 10/27/17 Unknown History traMADoL [Ultram 50 MG tab] 50 mg PO Q8HR PRN 10/27/17 10/27/17 Unknown History Active Medications: Generic Name Dose Route Start Last Admin Trade Name Jasper PRN Reason Stop Dose Admin Acetaminophen 650 mg 06/13/20 23:27 06/16/20 22:35 Tylenol PO 650 mg Q6H PRN Administration Pain MILD(1-3)/Fever >100.5/PINEDA Lipase/Protease/Amylase 1 each 06/15/20 13:34 Pancreaze 10,500 Unit FEEDTUBE PRN PRN For Clogged Feeding Tube Dexamethasone 6 mg 06/17/20 11:00 Decadron IV 06/24/20 12:00 Q12HR BENJA Heparin Sodium (Porcine) 3,000 unit 06/13/20 21:03 Heparin 10,000 Units/10 Ml IV CHACORTA PRN hemodialysis Heparin Sodium (Porcine) 5,000 unit 06/14/20 06:00 06/17/20 05:35 Heparin SUB-Q 5,000 unit Q8HR BENJA Administration Sodium Chloride 100 mls @ 999 mls/hr 06/16/20 08:20 Nacl 0.9% IV CHACORTA PRN Hypotension Insulin Human Isoph/Insulin Regular 8 unit 06/17/20 08:00 06/17/20 09:52 Humulin 70/30 SUB-Q 8 unit BIDDIAB BENJA Administration Insulin Human Lispro 0 unit 06/16/20 23:00 06/17/20 05:38 Humalog SUB-Q 6 unit Q6HR BENJA Administration Protocol Magnesium Hydroxide 30 ml 06/13/20 23:27 Milk Of Magnesia PO Q4H PRN Constipation Ondansetron HCl 4 mg 06/13/20 23:27 Zofran IV Q8H PRN Nausea And Vomiting Simple Syrup 15 ml 06/15/20 13:34 Simple Syrup FEEDTUBE PRN PRN Hypoglycemia Simple Syrup 30 ml 06/15/20 13:34 Simple Syrup FEEDTUBE PRN PRN Hypoglycemia Sodium Bicarbonate 325 mg 06/15/20 13:34 Sodium Bicarbonate FEEDTUBE PRN PRN For Clogged Feeding Tube Sodium Chloride 10 ml 06/14/20 10:00 06/17/20 09:54 Sodium Chloride Flush Syringe 10 Ml IV 10 ml BID BENJA Administration Sodium Chloride 10 ml 06/13/20 23:27 Sodium Chloride Flush Syringe 10 Ml IV PRN PRN LINE FLUSH
--- NOTE | 2020-06-17 17:27 | Progress Note ---
Assessment and Plan -- Acute respiratory failure with hypoxia/on BiPAP Current Visit: Yes Status: Acute Plan to address problem: Possibly secondary to the pneumonia. On high flow oxygen we will keep O2 saturation greater than 90% Home oxygen evaluation --COVID-19 positive bilateral pneumonia Current Visit: Yes Status: Acute Plan to address problem: ID consulted, follow inflammatory markers IV dexamethasone for 10 days No need for Remdesivir due to renal failure ID recommend convulsant plasma transfusion Typed and crossed, requested convulsant plasma Awaiting reply from [facility] -- Hyperkalemia Current Visit: Yes Status: Acute Plan to address problem: Patient to undergo dialysis. Will monitor chemistry. -- ESRD on hemodialysis Current Visit: Yes Status: Chronic Plan to address problem: Patient has been scheduled for stat dialysis. Nephrology consulted, HD per schedule --Transaminitis; Probably COVID related ,worsening LFTs, Acute hepatitis panel negative Abdominal ultrasound; cholelithiasis, gallbladder contracted GI consulted -- Hypertension Current Visit: No Status: Chronic . Plan to address problem: Continue current antihypertensives PRN medications --T2DM (type 2 diabetes mellitus) Current Visit: No Status: Chronic Plan to address problem: We will monitor Accu-Cheks. -- DVT prophylaxis Current Visit: No Status: Acute Plan to address problem: Patient placed on subcutaneous heparin -- Full code status Current Visit: Yes Status: Acute We will closely monitor the patient and adjust management as needed Consults and recommendations noted and appreciated Plan of care reviewed with the patient nurse and case management Subjective Date of service: 06/17/20 Principal diagnosis: Abnormal Liver Enzymes Interval history: Interval history: COVID positive patient; I have seen and examined the patient Patient's chart and medications reviewed Patient feels slightly better Vital signs noted Objective - Constitutional Vitals: Vital Signs - 12hr 06/17/20 06/17/20 06/17/20 05:30 05:41 05:51 Temperature Pulse Rate 84 85 84 Respiratory 23 20 22 Rate Blood Pressure 110/61 110/61 125/68 O2 Sat by Pulse 93 94 92 Oximetry 06/17/20 06/17/20 06/17/20 06:00 06:11 06:20 Temperature Pulse Rate 81 86 85 Respiratory 28 H 22 18 Rate Blood Pressure 133/61 133/61 117/66 O2 Sat by Pulse 87 93 93 Oximetry 06/17/20 06/17/20 06/17/20 06:30 06:41 06:51 Temperature Pulse Rate 85 84 85 Respiratory 25 H 22 22 Rate Blood Pressure 125/69 125/69 112/61 O2 Sat by Pulse 88 90 89 Oximetry 06/17/20 06/17/20 06/17/20 07:00 07:11 07:21 Temperature Pulse Rate 86 85 85 Respiratory 23 20 21 Rate Blood Pressure 129/70 129/70 112/65 O2 Sat by Pulse 89 89 Oximetry 06/17/20 06/17/20 06/17/20 07:30 07:41 07:51 Temperature Pulse Rate 85 86 89 Respiratory 22 21 25 H Rate Blood Pressure 114/63 114/63 120/64 O2 Sat by Pulse 90 92 Oximetry 06/17/20 06/17/20 06/17/20 08:00 08:11 08:21 Temperature 98.7 F Pulse Rate 88 87 87 Respiratory 22 20 22 Rate Blood Pressure 114/67 114/67 134/70 O2 Sat by Pulse 88 91 91 Oximetry 06/17/20 06/17/20 06/17/20 08:30 08:41 08:51 Temperature Pulse Rate 88 87 87 Respiratory 26 H 24 24 Rate Blood Pressure 113/66 113/66 120/69 O2 Sat by Pulse 89 91 91 Oximetry 06/17/20 06/17/20 06/17/20 08:57 09:00 09:11 Temperature Pulse Rate 87 89 Respiratory 26 H 24 Rate Blood Pressure 128/67 128/67 O2 Sat by Pulse 91 94 92 Oximetry 06/17/20 06/17/20 06/17/20 09:21 09:30 09:41 Temperature 98.7 F Pulse Rate 88 89 88 Respiratory 26 H 25 H 24 Rate Blood Pressure 138/72 134/70 134/70 O2 Sat by Pulse 92 89 92 Oximetry 06/17/20 06/17/20 06/17/20 09:45 09:51 10:00 Temperature Pulse Rate 86 91 H 94 H Respiratory 28 H Rate Blood Pressure 125/67 125/67 103/62 O2 Sat by Pulse 94 Oximetry 06/17/20 06/17/20 06/17/20 10:01 10:15 10:30 Temperature Pulse Rate 94 H 98 H 101 H Respiratory 25 H 22 25 H Rate Blood Pressure 125/67 107/60 103/57 O2 Sat by Pulse 91 87 90 Oximetry 06/17/20 06/17/2006/17/20 10:45 11:00 11:15 Temperature Pulse Rate 101 H 101 H 100 H Respiratory 28 H 31 H 31 H Rate Blood Pressure 100/59 93/59 99/60 O2 Sat by Pulse 86 Oximetry 06/17/20 06/17/20 06/17/20 11:30 11:45 12:00 Temperature 98.7 F Pulse Rate 100 H 100 H 102 H Respiratory 31 H 32 H 36 H Rate Blood Pressure 103/57 93/58 96/63 O2 Sat by Pulse 91 Oximetry 06/17/20 06/17/20 06/17/20 12:15 12:30 12:45 Temperature Pulse Rate 102 H 103 H 104 H Respiratory 38 H 38 H 42 H Rate Blood Pressure 95/59 107/58 105/60 O2 Sat by Pulse 89 90 Oximetry 06/17/20 06/17/20 06/17/20 13:00 13:15 13:30 Temperature 98.7 F Pulse Rate 106 H 107 H 104 H Respiratory 40 H 40 H 41 H Rate Blood Pressure 95/68 95/61 105/60 O2 Sat by Pulse 95 92 91 Oximetry 06/17/20 06/17/20 06/17/20 13:45 14:00 14:15 Temperature Pulse Rate 107 H 108 H 111 H Respiratory 42 H 42 H 41 H Rate Blood Pressure 108/62 111/63 123/67 O2 Sat by Pulse 90 91 Oximetry 06/17/20 06/17/20 06/17/20 14:30 14:45 15:00 Temperature Pulse Rate 111 H 114 H 111 H Respiratory 46 H 41 H 40 H Rate Blood Pressure 106/67 121/70 119/62 O2 Sat by Pulse 93 94 Oximetry 06/17/20 06/17/20 06/17/20 15:15 15:30 15:45 Temperature Pulse Rate 111 H 112 H 111 H Respiratory 41 H 38 H 40 H Rate Blood Pressure 123/68 136/71 132/75 O2 Sat by Pulse 94 94 93 Oximetry 06/17/20 06/17/20 06/17/20 16:00 16:15 16:30 Temperature 98.7 F Pulse Rate 111 H 110 H 111 H Respiratory 37 H 34 H 37 H Rate Blood Pressure 129/70 121/64 141/75 O2 Sat by Pulse 94 94 93 Oximetry 06/17/20 06/17/20 06/17/20 16:45 17:00 17:15 Temperature Pulse Rate 106 H 107 H 108 H Respiratory 32 H 35 H 31 H Rate Blood Pressure 104/59 106/61 119/65 O2 Sat by Pulse 93 93 Oximetry General appearance: Present: no acute distress, well-nourished - EENT Eyes: PERRL, EOM intact ENT: hearing intact, clear oral mucosa Ears: bilateral: normal - Neck Neck: supple, normal ROM - Respiratory Respiratory effort: normal Respiratory: bilateral: CTA - Breasts Breasts: normal - Cardiovascular Rhythm: regular Heart Sounds: Present: S1 & S2. Absent: gallop, rub Extremities: pulses intact, No edema, normal color, Full ROM - Gastrointestinal General gastrointestinal: Present: soft, non-tender, non-distended, normal bowel sounds - Genitourinary Male genitourinary: normal - Integumentary Integumentary: clear, warm, dry - Musculoskeletal Musculoskeletal: 1, strength equal bilaterally - Neurologic Neurologic: moves all extremities - Psychiatric Psychiatric: memory intact, appropriate mood/affect, intact judgment & insight - Labs CBC & Chem 7: 06/14/20 04:08 06/17/20 04:36 Labs: Abnormal lab results 06/16/20 06/17/20 06/17/20 Range/Units 23:57 04:36 04:36 D-Dimer 917.42 H (0-234) ng/mlDDU Potassium (3.6-5.0) mmol/L Chloride (98-107) mmol/L Carbon Dioxide (22-30) mmol/L BUN (9-20) mg/dL Creatinine (0.8-1.3) mg/dL Glucose (75-100) mg/dL POC Glucose 392 H (70-105) Ferritin 94067.0 H (30.0-300.0) ng/mL AST (5-40) units/L ALT (7-56) units/L Alkaline Phosphatase (35-129) units/L C-Reactive Protein (0.00-1.30) mg/dL Total Protein (6.3-8.2) g/dL Albumin (3.9-5) g/dL 06/17/20 06/17/20 Range/Units 04:36 05:45 D-Dimer (0-234) ng/mlDDU Potassium 5.5 H (3.6-5.0) mmol/L Chloride 86.8 L (98-107) mmol/L Carbon Dioxide 19 L (22-30) mmol/L BUN 101 H (9-20) mg/dL Creatinine 11.1 H (0.8-1.3) mg/dL Glucose 373 H (75-100) mg/dL POC Glucose 346 H (70-105) Ferritin (30.0-300.0) ng/mL AST 132 H (5-40) units/L ALT 327 H (7-56) units/L Alkaline Phosphatase 319 H (35-129) units/L C-Reactive Protein 30.60 H (0.00-1.30) mg/dL Total Protein 8.4 H (6.3-8.2) g/dL Albumin 3.6 L (3.9-5) g/dL
--- NOTE | 2020-06-17 18:51 | Progress Note ---
Assessment and Plan Imp: 1. Covid-19 2. Viral pneumonia 3. Acute respiratory failure, hypoxia 4. ESRD 5. Hyperkalemia 6. CAD Rec: 1. Agree w/ increasing steroids 2. Wean HFNC to keep sats 88% or > 3. Dialysis per renal 4. DVT PPx 5. TFs 6. Prognosis guarded CCT 31 minutes Subjective Date of service: 06/17/20 Principal diagnosis: Abnormal Liver Enzymes Interval history: No events. Tachypneic but work of breathing minimal. Eyes open, not following commands. Remains on HFNC. Active Medications Acetaminophen (Tylenol) 650 mg PO Q6H PRN PRN Reason: Pain MILD(1-3)/Fever >100.5/PINEDA Last Admin: 06/16/20 22:35 Dose: 650 mg Documented by: Lipase/Protease/Amylase (Andrea Grewal 10,500 Unit) 1 each FEEDTUBE PRN PRN PRN Reason: For Clogged Feeding Tube Dexamethasone (Decadron) 6 mg IV Q12HR [facility] Stop: 06/24/20 12:00 Last Admin: 06/17/20 11:34 Dose: Not Given Documented by: Heparin Sodium (Porcine) (Heparin 10,000 Units/10 Ml) 3,000 unit IV CHACORTA PRN PRN Reason: hemodialysis Heparin Sodium (Porcine) (Heparin) 5,000 unit SUB-Q Q8HR [facility] Last Admin: 06/17/20 13:01 Dose: 5,000 unit Documented by: Sodium Chloride (Nacl 0.9%) 100 mls @ 999 mls/hr IV CHACORTA PRN PRN Reason: Hypotension Insulin Human Isoph/Insulin Regular (Humulin 70/30) 8 unit SUB-Q BIDDIAB [facility] Last Admin: 06/17/20 18:33 Dose: 8 unit Documented by: Insulin Human Lispro (Humalog) 0 unit SUB-Q Q6HR [facility]; Protocol Last Admin: 06/17/20 18:29 Dose: 8 unit Documented by: Magnesium Hydroxide (Milk Of Magnesia) 30 ml PO Q4H PRN PRN Reason: Constipation Ondansetron HCl (Zofran) 4 mg IV Q8H PRN PRN Reason: Nausea And Vomiting Simple Syrup (Simple Syrup) 15 ml FEEDTUBE PRN PRN PRN Reason: Hypoglycemia Simple Syrup (Simple Syrup) 30 ml FEEDTUBE PRN PRN PRN Reason: Hypoglycemia Sodium Bicarbonate (Sodium Bicarbonate) 325 mg FEEDTUBE PRN PRN PRN Reason: For Clogged Feeding Tube Sodium Chloride (Sodium Chloride Flush Syringe 10 Ml) 10 ml IV BID BENJA Last Admin: 06/17/20 09:54 Dose: 10 ml Documented by: Sodium Chloride (Sodium Chloride Flush Syringe 10 Ml) 10 ml IV PRN PRN PRN Reason: LINE FLUSH Objective Vital Signs - 12hr 06/17/20 06/17/20 06/17/20 06:51 07:00 07:11 Temperature Pulse Rate 85 86 85 Pulse Rate [ From Monitor] Respiratory 22 23 20 Rate Blood Pressure 112/61 129/70 129/70 O2 Sat by Pulse 89 89 Oximetry 06/17/20 06/17/20 06/17/20 07:21 07:30 07:41 Temperature Pulse Rate 85 85 86 Pulse Rate [ From Monitor] Respiratory 21 22 21 Rate Blood Pressure 112/65 114/63 114/63 O2 Sat by Pulse 89 90 Oximetry 06/17/20 06/17/20 06/17/20 07:51 08:00 08:11 Temperature 98.7 F Pulse Rate 89 88 87 Pulse Rate [ 88 From Monitor] Respiratory 25 H 22 20 Rate Blood Pressure 120/64 114/67 114/67 O2 Sat by Pulse 92 88 91 Oximetry 06/17/20 06/17/20 06/17/20 08:21 08:30 08:41 Temperature Pulse Rate 87 88 87 Pulse Rate [ From Monitor] Respiratory 22 26 H 24 Rate Blood Pressure 134/70 113/66 113/66 O2 Sat by Pulse 91 89 91 Oximetry 06/17/20 06/17/20 06/17/20 08:51 08:57 09:00 Temperature Pulse Rate 87 87 Pulse Rate [ From Monitor] Respiratory 24 26 H Rate Blood Pressure 120/69 128/67 O2 Sat by Pulse 91 91 94 Oximetry 06/17/20 06/17/20 06/17/20 09:11 09:21 09:30 Temperature 98.7 F Pulse Rate 89 88 89 Pulse Rate [ From Monitor] Respiratory 24 26 H 25 H Rate Blood Pressure 128/67 138/72 134/70 O2 Sat by Pulse 92 92 89 Oximetry 06/17/20 06/17/20 06/17/20 09:41 09:45 09:51 Temperature Pulse Rate 88 86 91 H Pulse Rate [ From Monitor] Respiratory 24 28 H Rate Blood Pressure 134/70 125/67 125/67 O2 Sat by Pulse 92 94 Oximetry 06/17/20 06/17/20 06/17/20 10:00 10:01 10:15 Temperature Pulse Rate 94 H 94 H 98 H Pulse Rate [ From Monitor] Respiratory 25 H 22 Rate Blood Pressure 103/62 125/67 107/60 O2 Sat by Pulse 91 87 Oximetry 06/17/20 06/17/20 06/17/20 10:30 10:45 11:00 Temperature Pulse Rate 101 H 101 H 101 H Pulse Rate [ From Monitor] Respiratory 25 H 28 H 31 H Rate Blood Pressure 103/57 100/59 93/59 O2 Sat by Pulse 90 86 Oximetry 06/17/20 06/17/20 06/17/20 11:15 11:30 11:45 Temperature Pulse Rate 100 H 100 H 100 H Pulse Rate [ From Monitor] Respiratory 31 H 31 H 32 H Rate Blood Pressure 99/60 103/57 93/58 O2 Sat by Pulse Oximetry 06/17/20 06/17/20 06/17/20 12:00 12:15 12:30 Temperature 98.7 F Pulse Rate 102 H 102 H 103 H Pulse Rate [ 102 H From Monitor] Respiratory 36 H 38 H 38 H Rate Blood Pressure 96/63 95/59 107/58 O2 Sat by Pulse 91 89 90 Oximetry 06/17/20 06/17/20 06/17/20 12:45 13:00 13:15 Temperature Pulse Rate 104 H 106 H 107 H Pulse Rate [ From Monitor] Respiratory 42 H 40 H 40 H Rate Blood Pressure 105/60 95/68 95/61 O2 Sat by Pulse 95 92 Oximetry 06/17/20 06/17/20 06/17/20 13:30 13:45 14:00 Temperature 98.7 F Pulse Rate 104 H 107 H 108 H Pulse Rate [ From Monitor] Respiratory 41 H 42 H 42 H Rate Blood Pressure 105/60 108/62 111/63 O2 Sat by Pulse 91 90 Oximetry 06/17/20 06/17/20 06/17/20 14:15 14:30 14:45 Temperature Pulse Rate 111 H 111 H 114 H Pulse Rate [ From Monitor] Respiratory 41 H 46 H 41 H Rate Blood Pressure 123/67 106/67 121/70 O2 Sat by Pulse 91 93 Oximetry 06/17/20 06/17/20 06/17/20 15:00 15:15 15:30 Temperature Pulse Rate 111 H 111 H 112 H Pulse Rate [ From Monitor] Respiratory 40 H 41 H 38 H Rate Blood Pressure 119/62 123/68 136/71 O2 Sat by Pulse 94 94 94 Oximetry 06/17/20 06/17/20 06/17/20 15:45 16:00 16:15 Temperature 98.7 F Pulse Rate 111 H 111 H 110 H Pulse Rate [ 111 H From Monitor] Respiratory 40 H 37 H 34 H Rate Blood Pressure 132/75 129/70 121/64 O2 Sat by Pulse 93 94 94 Oximetry 06/17/20 06/17/20 06/17/20 16:30 16:45 17:00 Temperature Pulse Rate 111 H 106 H 107 H Pulse Rate [ From Monitor] Respiratory 37 H 32 H 35 H Rate Blood Pressure 141/75 104/59 106/61 O2 Sat by Pulse 93 93 93 Oximetry 06/17/20 06/17/20 06/17/20 17:15 17:30 17:45 Temperature Pulse Rate 108 H 103 H 103 H Pulse Rate [ From Monitor] Respiratory 31 H 32 H 32 H Rate Blood Pressure 119/65 104/56 109/55 O2 Sat by Pulse 92 92 Oximetry 06/17/20 18:09 Temperature Pulse Rate 105 H Pulse Rate [ From Monitor] Respiratory 34 H Rate Blood Pressure O2 Sat by Pulse 94 Oximetry Constitutional: lethargic Eyes: non-icteric ENT: oropharynx moist Effort: other (tachypneic, not labored) Ascultation: Bilateral: diminished breath sounds Cardiovascular: other (tachy, RR; no mrg) Gastrointestinal: normoactive bowel sounds, soft, non-tender, non-distended Extremities: no cyanosis, no edema, pink and warm Neurologic: other (unable to assess) Psychiatric: other (unable to assess) CBC and BMP: 06/14/20 04:08 06/17/20 04:36 ABG, PT/INR, D-dimer: ABG ABG pH 7.314 (7.320-7.450) L 06/14/20 10:21 POC ABG pCO2 29.0 mmHg (32.0-48.0) L 06/14/20 10:21 ABG pCO2 27.6 mm Hg 08/18/20 20:25 POC ABG pO2 80.8 mmHg (83-108) L 06/14/20 10:21 ABG pO2 72.0 mm Hg (80.0-90.0) L 06/13/20 20:25 ABG O2 Saturation 91.7 % (95.0-99.0) L 06/13/20 20:25 PT/INR, D-dimer PT 13.6 Sec. (12.2-14.9) 06/14/20 04:08 INR 1.03 (0.87-1.13) 06/14/20 04:08 D-Dimer 917.42 ng/mlDDU (0-234) H 06/17/20 04:36 Abnormal lab findings: Abnormal Labs 06/13/20 06/13/20 06/13/20 18:32 18:32 20:25 MCV 95 H Plt Count Lymph % (Auto) 12.4 L [place] % (Auto) 11.4 H Lymph # 1.1 L [place] # 1.0 H Seg Neutrophils % 76.0 H D-Dimer ABG pH 7.233 L POC ABG pCO2 POC ABG pO2 ABG pO2 72.0 L ABG HCO3 11.4 L ABG O2 Saturation 91.7 L ABG Base Excess -14.6 L ABG Hemoglobin 12.5 L Oxyhemoglobin 90.8 L Potassium 5.9 H Chloride Carbon Dioxide 14 L BUN 105 H Creatinine 16.2 H Glucose 160 H POC Glucose Calcium Ferritin AST 261 H ALT 124 H Alkaline Phosphatase 179 H C-Reactive Protein Total Protein Albumin 3.5 L Amylase Lipase Coronavirus (PCR) 06/14/20 06/14/20 06/14/20 04:08 04:08 04:08 MCV Plt Count 136 L Lymph % (Auto) 6.0 L [place] % (Auto) Lymph # 0.4 L [place] # Seg Neutrophils % 88.4 H D-Dimer 1226.84 H ABG pH POC ABG pCO2 POC ABG pO2 ABG pO2 ABG HCO3 ABG O2 Saturation ABG Base Excess ABG Hemoglobin Oxyhemoglobin Potassium Chloride 96.4 L Carbon Dioxide 14 L BUN 80 H Creatinine 13.2 H Glucose 226 H POC Glucose Calcium Ferritin AST ALT Alkaline Phosphatase C-Reactive Protein Total Protein Albumin Amylase Lipase Coronavirus (PCR) 06/14/20 06/14/20 06/14/20 08:41 08:52 09:47 MCV Plt Count Lymph % (Auto) [place] % (Auto) Lymph # [place] # Seg Neutrophils % D-Dimer ABG pH POC ABG pCO2 POC ABG pO2 ABG pO2 ABG HCO3 ABG O2 Saturation ABG Base Excess ABG Hemoglobin Oxyhemoglobin Potassium Chloride Carbon Dioxide BUN Creatinine Glucose POC Glucose 285 H Calcium Ferritin 36064.0 H AST ALT Alkaline Phosphatase C-Reactive Protein Total Protein Albumin Amylase Lipase Coronavirus (PCR) Positive A 06/14/20 06/14/20 06/14/20 09:47 10:21 12:08 MCV Plt Count Lymph % (Auto) [place] % (Auto) Lymph # [place] # Seg Neutrophils % D-Dimer ABG pH 7.314 L POC ABG pCO2 29.0 L POC ABG pO2 80.8 L ABG pO2 ABG HCO3 ABG O2 Saturation ABG Base Excess ABG Hemoglobin 11.9 L Oxyhemoglobin Potassium Chloride Carbon Dioxide BUN Creatinine Glucose POC Glucose 313 H Calcium Ferritin AST ALT Alkaline Phosphatase C-Reactive Protein 23.80 H Total Protein Albumin Amylase Lipase Coronavirus (PCR) 06/14/20 06/14/20 06/15/20 16:40 21:29 05:11 MCV Plt Count Lymph % (Auto) [place] % (Auto) Lymph # [place] # Seg Neutrophils % D-Dimer ABG pH POC ABG pCO2 POC ABG pO2 ABG pO2 ABG HCO3 ABG O2 Saturation ABG Base Excess ABG Hemoglobin Oxyhemoglobin Potassium Chloride 91.7 L Carbon Dioxide 16 L BUN 67 H Creatinine 10.3 H Glucose 212 H POC Glucose 227 H 150 H Calcium 7.8 L Ferritin AST 669 H ALT 628 H Alkaline Phosphatase 347 H C-Reactive Protein Total Protein 6.2 L Albumin 3.3 L Amylase Lipase Coronavirus (PCR) 06/15/20 06/15/20 06/15/20 07:55 10:22 11:47 MCV Plt Count Lymph % (Auto) [place] % (Auto) Lymph # [place] # Seg Neutrophils % D-Dimer ABG pH POC ABG pCO2 POC ABG pO2 ABG pO2 ABG HCO3 ABG O2 Saturation ABG Base Excess ABG Hemoglobin Oxyhemoglobin Potassium Chloride Carbon Dioxide BUN Creatinine Glucose POC Glucose 281 H 280 H Calcium Ferritin AST ALT Alkaline Phosphatase C-Reactive Protein Total Protein Albumin Amylase 278 H Lipase 93 H Coronavirus (PCR) 06/15/20 06/15/20 06/16/20 16:31 21:47 04:53 MCV Plt Count Lymph % (Auto) [place] % (Auto) Lymph # [place] # Seg Neutrophils % D-Dimer ABG pH POC ABG pCO2 POC ABG pO2 ABG pO2 ABG HCO3 ABG O2 Saturation ABG Base Excess ABG Hemoglobin Oxyhemoglobin Potassium 5.2 H Chloride 93.4 L Carbon Dioxide 17 L BUN 110 H Creatinine 13.8 H Glucose 245 H POC Glucose 276 H 264 H Calcium Ferritin AST 214 H ALT 404 H Alkaline Phosphatase 296 H C-Reactive Protein Total Protein Albumin 3.2 L Amylase Lipase Coronavirus (PCR) 06/16/20 06/16/20 06/16/20 08:01 11:05 17:30 MCV Plt Count Lymph % (Auto) [place] % (Auto) Lymph # [place] # Seg Neutrophils % D-Dimer ABG pH POC ABG pCO2 POC ABG pO2 ABG pO2 ABG HCO3 ABG O2 Saturation ABG Base Excess ABG Hemoglobin Oxyhemoglobin Potassium Chloride Carbon Dioxide BUN Creatinine Glucose POC Glucose 256 H 185 H 321 H Calcium Ferritin AST ALT Alkaline Phosphatase C-Reactive Protein Total Protein Albumin Amylase Lipase Coronavirus (PCR) 06/16/20 06/17/20 06/17/20 23:57 04:36 04:36 MCV Plt Count Lymph % (Auto) [place] % (Auto) Lymph # [place] # Seg Neutrophils % D-Dimer 917.42 H ABG pH POC ABG pCO2 POC ABG pO2 ABG pO2 ABG HCO3 ABG O2 Saturation ABG Base Excess ABG Hemoglobin Oxyhemoglobin Potassium Chloride Carbon Dioxide BUN Creatinine Glucose POC Glucose 392 H Calcium Ferritin 25851.0 H AST ALT Alkaline Phosphatase C-Reactive Protein Total Protein Albumin Amylase Lipase Coronavirus (PCR) 06/17/20 06/17/20 06/17/20 04:36 05:45 12:58 MCV Plt Count Lymph % (Auto) [place] % (Auto) Lymph # [place] # Seg Neutrophils % D-Dimer ABG pH POC ABG pCO2 POC ABG pO2 ABG pO2 ABG HCO3 ABG O2 Saturation ABG Base Excess ABG Hemoglobin Oxyhemoglobin Potassium 5.5 H Chloride 86.8 L Carbon Dioxide 19 L BUN 101 H Creatinine 11.1 H Glucose 373 H POC Glucose 346 H 345 H Calcium Ferritin AST 132 H ALT 327 H Alkaline Phosphatase 319 H C-Reactive Protein 30.60 H Total Protein 8.4 H Albumin 3.6 L Amylase Lipase Coronavirus (PCR) Chest x-ray: report reviewed, image reviewed
[2020-06-18] MEDS: INSULIN LISPRO 100 UNIT/ML VIAL 3 mL SUB-Q SCH ×4 (00:22→17:50)
[2020-06-18] MEDS: HEPARIN 5,000 UNIT/1 ML VIAL SUB-Q SCH ×3 (06:26→22:35)
[2020-06-18 06:39] LABS: Albumin 3.6 g/dL (3.9-5); Calcium 9.4 mg/dL (8.4-10.2)
--- NOTE | 2020-06-18 10:42 | Progress Note ---
Assessment and Plan 1. ESRD: His usual schedule is MWF. Patient underwent urgent HD 06/13 due to hyperkalemia and volume overload. Hemodialysis: 06/13, 06/14, 06/16, 06/17. 2. FEN: Hyperkalemia, associated with hyperglycemia, Insulin dose increased, monitor. Metabolic acidosis, on HD. Volume overload, UF with HD as tolerated. Monitor lytes and volume status. 3. Acute hypoxic respiratory failure: CXR showed b/l PNA. On HFNC O2. Followed by Pulmonary. 4. Bilateral PNA: 2/2 COVID-19 infection. On Decadron. S/p abx. Followed by ID. 5. Severe sepsis, POA: 2/2 PNA. 6. Anemia: Epogen if needed. 7. DM type 2: NPH dose increased. 8. HTN: Monitor BP. 9. Metabolic encephalopathy, POA. - Subjective: Patient was seen and examined at the bedside. In IMCU. D/w RN. - General Appearance General appearance: well-developed, appears stated age, not in distress, on HFNC O2 HEENT: ATNC, Pupils equal Neck: Trachea midline Respiratory: appears ctab ant / lat Cardiology: regular, S1S2, no murmur Gastrointestinal: normoactive bowel sounds, not tender, not distended Integumentary: no rash, warm and dry Neurologic: opens eyes, non-verbal, not following any command Ext: no edema Hemodialysis access: left FA AVF Subjective Date of service: 06/18/20 Principal diagnosis: Abnormal Liver Enzymes Objective - Vital Signs Vital signs: Vital Signs - 12hr 06/17/20 06/17/20 06/17/20 22:45 23:00 23:15 Temperature Pulse Rate 95 H 99 H 97 H Respiratory 25 H 31 H 27 H Rate Blood Pressure 102/54 112/62 114/58 O2 Sat by Pulse 94 93 94 Oximetry 06/17/20 06/17/20 06/18/20 23:30 23:45 00:00 Temperature 99.0 F Pulse Rate 98 H 96 H 99 H Respiratory 29 H 25 H 27 H Rate Blood Pressure 124/65 116/60 125/67 O2 Sat by Pulse 95 95 92 Oximetry 06/18/20 06/18/20 06/18/20 00:15 00:21 00:30 Temperature Pulse Rate 95 H 101 H Respiratory 25 H 26 H Rate Blood Pressure 107/54 115/62 O2 Sat by Pulse 93 92 94 Oximetry 06/18/20 06/18/20 06/18/20 00:45 01:00 01:15 Temperature Pulse Rate 96 H 99 H 96 H Respiratory 26 H 28 H 23 Rate Blood Pressure 105/61 120/65 99/56 O2 Sat by Pulse 92 92 89 Oximetry 06/18/20 06/18/20 06/18/20 01:31 01:45 02:00 Temperature Pulse Rate 103 H 103 H 104 H Respiratory 24 29 H 30 H Rate Blood Pressure 134/71 119/68 131/71 O2 Sat by Pulse 86 87 88 Oximetry 06/18/20 06/18/20 06/18/20 02:15 02:30 02:45 Temperature Pulse Rate 102 H 98 H 101 H Respiratory 27 H 25 H 30 H Rate Blood Pressure 113/64 94/58 113/70 O2 Sat by Pulse 89 89 91 Oximetry 06/18/20 06/18/20 06/18/20 03:00 03:15 03:30 Temperature Pulse Rate 100 H 99 H 99 H Respiratory 26 H 26 H 25 H Rate Blood Pressure 124/71 118/67 122/71 O2 Sat by Pulse 91 91 92 Oximetry 06/18/20 06/18/20 06/18/20 03:45 04:00 04:15 Temperature 100.6 F H Pulse Rate 99 H 97 H 98 H Respiratory 29 H 27 H 26 H Rate Blood Pressure 129/69 106/61 118/68 O2 Sat by Pulse 90 89 92 Oximetry 06/18/20 06/18/20 06/18/20 04:30 04:45 05:00 Temperature Pulse Rate 98 H 97 H 99 H Respiratory 26 H 28 H 27 H Rate Blood Pressure 112/64 122/68 126/68 O2 Sat by Pulse 89 91 89 Oximetry 06/18/20 06/18/20 06/18/20 05:01 05:15 05:30 Temperature Pulse Rate 101 H 99 H Respiratory 30 H 27 H Rate Blood Pressure 119/72 121/68 O2 Sat by Pulse 93 89 89 Oximetry 06/18/20 06/18/20 06/18/20 05:45 06:00 06:15 Temperature Pulse Rate 100 H 99 H 101 H Respiratory 28 H 25 H 28 H Rate Blood Pressure 125/70 118/70 116/77 O2 Sat by Pulse 89 91 90 Oximetry 06/18/20 06/18/20 06/18/20 06:30 06:45 07:00 Temperature Pulse Rate 100 H 98 H 99 H Respiratory 27 H 24 24 Rate Blood Pressure 129/71 116/64 123/70 O2 Sat by Pulse 88 90 Oximetry 06/18/20 06/18/20 06/18/20 07:15 07:30 07:45 Temperature Pulse Rate 100 H 99 H 98 H Respiratory 26 H 24 22 Rate Blood Pressure 127/65 134/68 112/60 O2 Sat by Pulse 89 90 88 Oximetry 06/18/20 06/18/20 06/18/20 08:00 08:15 08:30 Temperature 98.8 F Pulse Rate 100 H 98 H 98 H Respiratory 27 H 23 23 Rate Blood Pressure 113/71 116/63 107/64 O2 Sat by Pulse 91 91 91 Oximetry 06/18/20 06/18/20 06/18/20 08:45 09:00 09:15 Temperature Pulse Rate 97 H 98 H 97 H Respiratory 22 23 22 Rate Blood Pressure 123/66 128/70 120/64 O2 Sat by Pulse 91 91 Oximetry 06/18/20 06/18/20 06/18/20 09:30 09:45 10:00 Temperature Pulse Rate 97 H 97 H 96 H Respiratory 21 25 H 25 H Rate Blood Pressure 118/66 107/67 116/65 O2 Sat by Pulse 90 91 90 Oximetry - Lab 06/14/20 04:08 06/18/20 05:20 Most recent lab results ABG pH 7.314 (7.320-7.450) L 06/14/20 10:21 ABG pCO2 27.6 mm Hg 06/13/20 20:25 ABG pO2 72.0 mm Hg (80.0-90.0) L 06/13/20 20:25 ABG HCO3 11.4 mmol/L (20.0-26.0) L 06/13/20 20:25 ABG O2 Saturation 91.7 % (95.0-99.0) L 06/13/20 20:25 Calcium 9.4 mg/dL (8.4-10.2) 06/18/20 05:20 Medications & Allergies - Medications Allergies/Adverse Reactions: Allergies No Known Allergies Allergy (Unverified 12/03/13 12:17) Home Medications: Home Medications Medication Instructions Recorded Confirmed Last Taken Type Aspirin 325 mg PO DAILY 12/03/13 10/27/17 1 Day Ago History ~12/09/16 Ergocalciferol [Vitamin D2] 1 cap PO QWEEK 12/03/13 10/27/17 1 Day Ago History ~12/09/16 Gabapentin 300 mg PO BID 12/03/13 10/27/17 1 Day Ago History ~12/09/16 Insulin Glargine,Hum.rec.anlog 20 units SQ QHS 12/03/13 10/27/17 1 Day Ago History [Lantus Solostar] ~12/09/16 Insulin Regular, Human [HumuLIN R] 3 units SC TIDAC 12/03/13 10/27/17 1 Day Ago History ~12/09/16 Clopidogrel Bisulfate [Plavix] 75 mg PO DAILY #30 tablet 12/06/13 10/27/17 1 Day Ago Rx ~12/09/16 Sucralfate [Carafate] 1 gm PO Q6HR #56 udc 12/11/16 10/27/17 Unknown Rx AtorvaSTATin [Lipitor] 20 mg PO QHS 10/27/17 10/27/17 Unknown History Folic Acid/Vit B Complex and C 1 tab PO DAILY 10/27/17 10/27/17 Unknown History [Renal-Alexandrea Tablet] Ondansetron [Zofran TAB] 4 mg PO Q8HR PRN 10/27/17 10/27/17 Unknown History Sevelamer Carbonate [Renvela] 2 tab PO TID 10/27/17 10/27/17 Unknown History Torsemide [Demadex] 40 mg PO DAILY 10/27/17 10/27/17 Unknown History amLODIPine 10 mg PO DAILY 10/27/17 10/27/17 Unknown History calcitrioL [Rocaltrol] 0.5 mcg PO QDAY 10/27/17 10/27/17 Unknown History glipiZIDE [Glipizide] 10 mg PO DAILY 10/27/17 10/27/17 Unknown History lisinopriL [Prinivil] 5 mg PO DAILY 10/27/17 10/27/17 Unknown History traMADoL [Ultram 50 MG tab] 50 mg PO Q8HR PRN 10/27/17 10/27/17 Unknown History Active Medications: Generic Name Dose Route Start Last Admin Trade Name Freq PRN Reason Stop Dose Admin Acetaminophen 650 mg 06/13/20 23:27 06/16/20 22:35 Tylenol PO 650 mg Q6H PRN Administration Pain MILD(1-3)/Fever >100.5/PINEDA Lipase/Protease/Amylase 1 each 06/15/20 13:34 Pancremaryellen Grewal 10,500 Unit FEEDTUBE PRN PRN For Clogged Feeding Tube Dexamethasone 6 mg 06/17/20 11:00 06/17/20 21:31 Decadron IV 06/24/20 12:00 6 mg Q12HR BENJA Administration Heparin Sodium (Porcine) 3,000 unit 06/13/20 21:03 Heparin 10,000 Units/10 Ml IV CHACORTA PRN hemodialysis Heparin Sodium (Porcine) 5,000 unit 06/14/20 06:00 06/18/20 06:26 Heparin SUB-Q 5,000 unit Q8HR BENJA Administration Sodium Chloride 100 mls @ 999 mls/hr 06/16/20 08:20 Nacl 0.9% IV CHACORTA PRN Hypotension Insulin Human Lispro 0 unit 06/18/20 06:24 Humalog SUB-Q Q6HR [facility] Protocol Magnesium Hydroxide 30 ml 06/13/20 23:27 Milk Of Magnesia PO Q4H PRN Constipation Ondansetron HCl 4 mg 06/13/20 23:27 Zofran IV Q8H PRN Nausea And Vomiting Simple Syrup 15 ml 06/15/20 13:34 Simple Syrup FEEDTUBE PRN PRN Hypoglycemia Simple Syrup 30 ml 06/15/20 13:34 Simple Syrup FEEDTUBE PRN PRN Hypoglycemia Sodium Bicarbonate 325 mg 06/15/20 13:34 Sodium Bicarbonate FEEDTUBE PRN PRN For Clogged Feeding Tube Sodium Chloride 10 ml 06/14/20 10:00 06/17/20 21:32 Sodium Chloride Flush Syringe 10 Ml IV 10 ml BID BENJA Administration Sodium Chloride 10 ml 06/13/20 23:27 Sodium Chloride Flush Syringe 10 Ml IV PRN PRN LINE FLUSH
[2020-06-18] MEDS: dexAMETHasone 4 MG/ML VIAL IV SCH ×2 (10:49→22:35)
--- NOTE | 2020-06-18 12:43 | Progress Note ---
Assessment and Plan Cultures: Coronavirus PCR: Positive 06/13/2020 blood culture: no growth A/P: 69-year-old male with ESRD on HD, coronary artery disease, prior CVA, gastroesophageal reflux disease was sent in from the dialysis center due to respiratory distress and hypoxia: #Bilateral pneumonia: secondary to COVID-19, inflammatory markers on admission significantly elevated, ferritin is 28,000, CRP 23.8, d-dimer 1226. Chest x-ray showed bilateral opacities. #Acute hypoxic respiratory failure: on HFNC. #ESRD on HD #Elevated LFTs: ?cytokine storm/sepsis related. RUQ US showed gall stones, contracted gall bladder. Recs: continue IV/PO Dexamethasone 6 mg BID x 10 days, Day 5. not a candidate for Remdesivir due to renal failure awaiting convalescent plasma Alexandr Talavera MD, FACP [facility] C: [phone] O: [phone] F: [phone] Subjective Date of service: 06/18/20 Principal diagnosis: Abnormal Liver Enzymes Interval history: Low grade fever. Remains on high flow oxygen Objective - Exam Narrative Exam: Physical Exam (reviewed in chart due to PPE conservation) Constitutional: limited due to PPE conservation strategy Head, Ears, Nose: limited due to PPE conservation strategy Eyes: limited due to PPE conservation strategy Neck: limited due to PPE conservation strategy Oral: limited due to PPE conservation strategy Cardiovascular: limited due to PPE conservation strategy Respiratory: limited due to PPE conservation strategy GI: limited due to PPE conservation strategy Musculoskeletal: limited due to PPE conservation strategy Skin: limited due to PPE conservation strategy Hem/Lymphatic: limited due to PPE conservation strategy Psych: limited due to PPE conservation strategy Neurological: limited due to PPE conservation strategy - Constitutional Vitals: Vital Signs Temp Pulse Resp BP Pulse Ox 98.7 F 101 H 28 H 139/74 96 06/18/20 12:00 06/18/20 11:15 06/18/20 11:15 06/18/20 11:15 06/18/20 11:15 Temperature -Last 24 Hours Temperature 98.7 F Temperature 98.8 F Temperature 100.6 F Temperature 99.0 F Temperature 98.8 F Temperature 98.7 F Temperature 98.7 F - Labs CBC & Chem 7: 06/14/20 04:08 06/18/20 05:20 Labs: Abnormal lab results 06/17/20 06/17/20 06/18/20 Range/Units 12:58 23:48 05:20 Potassium 5.7 H (3.6-5.0) mmol/L Chloride 87.3 L (98-107) mmol/L Carbon Dioxide 21 L (22-30) mmol/L BUN 110 H (9-20) mg/dL Creatinine 9.1 H (0.8-1.3) mg/dL Glucose 532 H* (75-100) mg/dL POC Glucose 345 H 462 H (70-105) AST 133 H (5-40) units/L ALT 251 H (7-56) units/L Alkaline Phosphatase 311 H (35-129) units/L Albumin 3.6 L (3.9-5) g/dL 06/18/20 06/18/20 Range/Units 06:21 12:07 Potassium (3.6-5.0) mmol/L Chloride (98-107) mmol/L Carbon Dioxide (22-30) mmol/L BUN (9-20) mg/dL Creatinine (0.8-1.3) mg/dL Glucose (75-100) mg/dL POC Glucose 468 H > 500 H (70-105) AST (5-40) units/L ALT (7-56) units/L Alkaline Phosphatase (35-129) units/L Albumin (3.9-5) g/dL
[2020-06-18 13:42] LABS: Calcium 9.2 mg/dL (8.4-10.2)
--- NOTE | 2020-06-18 15:47 | Progress Note ---
Assessment and Plan Imp: 1. Covid-19 2. Viral pneumonia 3. Acute respiratory failure, hypoxia 4. ESRD 5. Hyperkalemia 6. CAD Rec: 1. Cont. steroids 2. Wean HFNC to keep sats 88% or > 3. Dialysis per renal; defer hyperkalemia to renal 4. DVT PPx 5. TFs 6. Prognosis guarded to poor 7. Complex decision-making Subjective Date of service: 06/18/20 Principal diagnosis: Acute respiratory failure Interval history: No events. Tachypneic but work of breathing minimal. Eyes open, not following commands. Remains on HFNC. Mild fever noted. Active Medications Acetaminophen (Tylenol) 650 mg PO Q6H PRN PRN Reason: Pain MILD(1-3)/Fever >100.5/PINEDA Last Admin: 06/16/20 22:35 Dose: 650 mg Documented by: Lipase/Protease/Amylase (Andrea Grewal 10,500 Unit) 1 each FEEDTUBE PRN PRN PRN Reason: For Clogged Feeding Tube Dexamethasone (Decadron) 6 mg IV Q12HR [facility] Stop: 06/24/20 12:00 Last Admin: 06/18/20 10:49 Dose: 6 mg Documented by: Heparin Sodium (Porcine) (Heparin 10,000 Units/10 Ml) 3,000 unit IV CHACORTA PRN PRN Reason: hemodialysis Heparin Sodium (Porcine) (Heparin) 5,000 unit SUB-Q Q8HR [facility] Last Admin: 06/18/20 14:37 Dose: 5,000 unit Documented by: Sodium Chloride (Nacl 0.9%) 100 mls @ 999 mls/hr IV CHACORTA PRN PRN Reason: Hypotension Insulin Human Isoph/Insulin Regular (Humulin 70/30) 20 unit SUB-Q BIDDIAB [facility] Insulin Human Lispro (Humalog) 0 unit SUB-Q Q6HR [facility]; Protocol Last Admin: 06/18/20 12:15 Dose: 12 unit Documented by: Magnesium Hydroxide (Milk Of Magnesia) 30 ml PO Q4H PRN PRN Reason: Constipation Ondansetron HCl (Zofran) 4 mg IV Q8H PRN PRN Reason: Nausea And Vomiting Simple Syrup (Simple Syrup) 15 ml FEEDTUBE PRN PRN PRN Reason: Hypoglycemia Simple Syrup (Simple Syrup) 30 ml FEEDTUBE PRN PRN PRN Reason: Hypoglycemia Sodium Bicarbonate (Sodium Bicarbonate) 325 mg FEEDTUBE PRN PRN PRN Reason: For Clogged Feeding Tube Sodium Chloride (Sodium Chloride Flush Syringe 10 Ml) 10 ml IV BID BENJA Last Admin: 06/18/20 10:49 Dose: 10 ml Documented by: Sodium Chloride (Sodium Chloride Flush Syringe 10 Ml) 10 ml IV PRN PRN PRN Reason: LINE FLUSH Objective - Exam Narrative Exam: Limited physical exam done today due to PPE conservation strategy. Vital Signs - 12hr 06/18/20 06/18/20 06/18/20 04:00 04:15 04:30 Temperature 100.6 F H Pulse Rate 97 H 98 H 98 H Respiratory 27 H 26 H 26 H Rate Blood Pressure 106/61 118/68 112/64 O2 Sat by Pulse 89 92 89 Oximetry 06/18/20 06/18/20 06/18/20 04:45 05:00 05:01 Temperature Pulse Rate 97 H 99 H Respiratory 28 H 27 H Rate Blood Pressure 122/68 126/68 O2 Sat by Pulse 91 89 93 Oximetry 06/18/20 06/18/20 06/18/20 05:15 05:30 05:45 Temperature Pulse Rate 101 H 99 H 100 H Respiratory 30 H 27 H 28 H Rate Blood Pressure 119/72 121/68 125/70 O2 Sat by Pulse 89 89 89 Oximetry 06/18/20 06/18/20 06/18/20 06:00 06:15 06:30 Temperature Pulse Rate 99 H 101 H 100 H Respiratory 25 H 28 H 27 H Rate Blood Pressure 118/70 116/77 129/71 O2 Sat by Pulse 91 90 Oximetry 06/18/20 06/18/20 06/18/20 06:45 07:00 07:15 Temperature Pulse Rate 98 H 99 H 100 H Respiratory 24 24 26 H Rate Blood Pressure 116/64 123/70 127/65 O2 Sat by Pulse 88 90 89 Oximetry 06/18/20 06/18/20 06/18/20 07:30 07:45 08:00 Temperature 98.8 F Pulse Rate 99 H 98 H 100 H Respiratory 24 22 27 H Rate Blood Pressure 134/68 112/60 113/71 O2 Sat by Pulse 90 88 91 Oximetry 06/18/20 06/18/20 06/18/20 08:15 08:30 08:45 Temperature Pulse Rate 98 H 98 H 97 H Respiratory 23 23 22 Rate Blood Pressure 116/63 107/64 123/66 O2 Sat by Pulse 91 91 Oximetry 06/18/20 06/18/20 06/18/20 09:00 09:15 09:30 Temperature Pulse Rate 98 H 97 H 97 H Respiratory 23 22 21 Rate Blood Pressure 128/70 120/64 118/66 O2 Sat by Pulse 91 91 90 Oximetry 06/18/20 06/18/20 06/18/20 09:45 10:00 10:15 Temperature Pulse Rate 97 H 96 H 99 H Respiratory 25 H 25 H 24 Rate Blood Pressure 107/67 116/65 125/69 O2 Sat by Pulse 91 90 Oximetry 06/18/20 06/18/20 06/18/20 10:30 10:45 11:00 Temperature Pulse Rate 100 H 97 H 99 H Respiratory 24 25 H 28 H Rate Blood Pressure 112/76 121/66 130/73 O2 Sat by Pulse 91 92 Oximetry 06/18/20 06/18/20 11:15 12:00 Temperature 98.7 F Pulse Rate 101 H Respiratory 28 H Rate Blood Pressure 139/74 O2 Sat by Pulse 96 Oximetry Constitutional: lethargic Eyes: non-icteric ENT: oropharynx moist Effort: other (tachypneic, not labored) Cardiovascular: other (tachy, RR; no mrg) Gastrointestinal: soft, non-distended Extremities: no cyanosis, no edema, pink and warm Neurologic: other (unable to assess) Psychiatric: other (unable to assess) CBC and BMP: 06/14/20 04:08 06/18/20 13:10 ABG, PT/INR, D-dimer: ABG ABG pH 7.314 (7.320-7.450) L 06/14/20 10:21 POC ABG pCO2 29.0 mmHg (32.0-48.0) L 06/14/20 10:21 ABG pCO2 27.6 mm Hg 06/13/20 20:25 POC ABG pO2 80.8 mmHg (83-108) L 06/14/20 10:21 ABG pO2 72.0 mm Hg (80.0-90.0) L 06/13/20 20:25 ABG O2 Saturation 91.7 % (95.0-99.0) L 06/13/20 20:25 PT/INR, D-dimer PT 13.6 Sec. (12.2-14.9) 06/14/20 04:08 INR 1.03 (0.87-1.13) 06/14/20 04:08 D-Dimer 917.42 ng/mlDDU (0-234) H 06/17/20 04:36 Abnormal lab findings: Abnormal Labs 06/13/20 06/13/20 06/13/20 18:32 18:32 20:25 MCV 95 H Plt Count Lymph % (Auto) 12.4 L [place] % (Auto) 11.4 H Lymph # 1.1 L [place] # 1.0 H Seg Neutrophils % 76.0 H D-Dimer ABG pH 7.233 L POC ABG pCO2 POC ABG pO2 ABG pO2 72.0 L ABG HCO3 11.4 L ABG O2 Saturation 91.7 L ABG Base Excess -14.6 L ABG Hemoglobin 12.5 L Oxyhemoglobin 90.8 L Sodium Potassium 5.9 H Chloride Carbon Dioxide 14 L BUN 105 H Creatinine 16.2 H Glucose 160 H POC Glucose Calcium Ferritin AST 261 H ALT 124 H Alkaline Phosphatase 179 H C-Reactive Protein Total Protein Albumin 3.5 L Amylase Lipase Coronavirus (PCR) 06/14/20 06/14/20 06/14/20 04:08 04:08 04:08 MCV Plt Count 136 L Lymph % (Auto) 6.0 L [place] % (Auto) Lymph # 0.4 L [place] # Seg Neutrophils % 88.4 H D-Dimer 1226.84 H ABG pH POC ABG pCO2 POC ABG pO2 ABG pO2 ABG HCO3 ABG O2 Saturation ABG Base Excess ABG Hemoglobin Oxyhemoglobin Sodium Potassium Chloride 96.4 L Carbon Dioxide 14 L BUN 80 H Creatinine 13.2 H Glucose 226 H POC Glucose Calcium Ferritin AST ALT Alkaline Phosphatase C-Reactive Protein Total Protein Albumin Amylase Lipase Coronavirus (PCR) 06/14/20 06/14/20 06/14/20 08:41 08:52 09:47 MCV Plt Count Lymph % (Auto) [place] % (Auto) Lymph # [place] # Seg Neutrophils % D-Dimer ABG pH POC ABG pCO2 POC ABG pO2 ABG pO2 ABG HCO3 ABG O2 Saturation ABG Base Excess ABG Hemoglobin Oxyhemoglobin Sodium Potassium Chloride Carbon Dioxide BUN Creatinine Glucose POC Glucose 285 H Calcium Ferritin 92908.0 H AST ALT Alkaline Phosphatase C-Reactive Protein Total Protein Albumin Amylase Lipase Coronavirus (PCR) Positive A 06/14/20 06/14/20 06/14/20 09:47 10:21 12:08 MCV Plt Count Lymph % (Auto) [place] % (Auto) Lymph # [place] # Seg Neutrophils % D-Dimer ABG pH 7.314 L POC ABG pCO2 29.0 L POC ABG pO2 80.8 L ABG pO2 ABG HCO3 ABG O2 Saturation ABG Base Excess ABG Hemoglobin 11.9 L Oxyhemoglobin Sodium Potassium Chloride Carbon Dioxide BUN Creatinine Glucose POC Glucose 313 H Calcium Ferritin AST ALT Alkaline Phosphatase C-Reactive Protein 23.80 H Total Protein Albumin Amylase Lipase Coronavirus (PCR) 06/14/20 06/14/20 06/15/20 16:40 21:29 05:11 MCV Plt Count Lymph % (Auto) [place] % (Auto) Lymph # [place] # Seg Neutrophils % D-Dimer ABG pH POC ABG pCO2 POC ABG pO2 ABG pO2 ABG HCO3 ABG O2 Saturation ABG Base Excess ABG Hemoglobin Oxyhemoglobin Sodium Potassium Chloride 91.7 L Carbon Dioxide 16 L BUN 67 H Creatinine 10.3 H Glucose 212 H POC Glucose 227 H 150 H Calcium 7.8 L Ferritin AST 669 H ALT 628 H Alkaline Phosphatase 347 H C-Reactive Protein Total Protein 6.2 L Albumin 3.3 L Amylase Lipase Coronavirus (PCR) 06/15/20 06/15/20 06/15/20 07:55 10:22 11:47 MCV Plt Count Lymph % (Auto) [place] % (Auto) Lymph # [place] # Seg Neutrophils % D-Dimer ABG pH POC ABG pCO2 POC ABG pO2 ABG pO2 ABG HCO3 ABG O2 Saturation ABG Base Excess ABG Hemoglobin Oxyhemoglobin Sodium Potassium Chloride Carbon Dioxide BUN Creatinine Glucose POC Glucose 281 H 280 H Calcium Ferritin AST ALT Alkaline Phosphatase C-Reactive Protein Total Protein Albumin Amylase 278 H Lipase 93 H Coronavirus (PCR) 06/15/20 06/15/20 06/16/20 16:31 21:47 04:53 MCV Plt Count Lymph % (Auto) [place] % (Auto) Lymph # [place] # Seg Neutrophils % D-Dimer ABG pH POC ABG pCO2 POC ABG pO2 ABG pO2 ABG HCO3 ABG O2 Saturation ABG Base Excess ABG Hemoglobin Oxyhemoglobin Sodium Potassium 5.2 H Chloride 93.4 L Carbon Dioxide 17 L BUN 110 H Creatinine 13.8 H Glucose 245 H POC Glucose 276 H 264 H Calcium Ferritin AST 214 H ALT 404 H Alkaline Phosphatase 296 H C-Reactive Protein Total Protein Albumin 3.2 L Amylase Lipase Coronavirus (PCR) 06/16/20 06/16/20 06/16/20 08:01 11:05 17:30 MCV Plt Count Lymph % (Auto) [place] % (Auto) Lymph # [place] # Seg Neutrophils % D-Dimer ABG pH POC ABG pCO2 POC ABG pO2 ABG pO2 ABG HCO3 ABG O2 Saturation ABG Base Excess ABG Hemoglobin Oxyhemoglobin Sodium Potassium Chloride Carbon Dioxide BUN Creatinine Glucose POC Glucose 256 H 185 H 321 H Calcium Ferritin AST ALT Alkaline Phosphatase C-Reactive Protein Total Protein Albumin Amylase Lipase Coronavirus (PCR) 06/16/20 06/17/20 06/17/20 23:57 04:36 04:36 MCV Plt Count Lymph % (Auto) [place] % (Auto) Lymph # [place] # Seg Neutrophils % D-Dimer 917.42 H ABG pH POC ABG pCO2 POC ABG pO2 ABG pO2 ABG HCO3 ABG O2 Saturation ABG Base Excess ABG Hemoglobin Oxyhemoglobin Sodium Potassium Chloride Carbon Dioxide BUN Creatinine Glucose POC Glucose 392 H Calcium Ferritin 42874.0 H AST ALT Alkaline Phosphatase C-Reactive Protein Total Protein Albumin Amylase Lipase Coronavirus (PCR) 06/17/20 06/17/20 06/17/20 04:36 05:45 12:58 MCV Plt Count Lymph % (Auto) [place] % (Auto) Lymph # [place] # Seg Neutrophils % D-Dimer ABG pH POC ABG pCO2 POC ABG pO2 ABG pO2 ABG HCO3 ABG O2 Saturation ABG Base Excess ABG Hemoglobin Oxyhemoglobin Sodium Potassium 5.5 H Chloride 86.8 L Carbon Dioxide 19 L BUN 101 H Creatinine 11.1 H Glucose 373 H POC Glucose 346 H 345 H Calcium Ferritin AST 132 H ALT 327 H Alkaline Phosphatase 319 H C-Reactive Protein 30.60 H Total Protein 8.4 H Albumin 3.6 L Amylase Lipase Coronavirus (PCR) 06/17/20 06/18/20 06/18/20 23:48 05:20 06:21 MCV Plt Count Lymph % (Auto) [place] % (Auto) Lymph # [place] # Seg Neutrophils % D-Dimer ABG pH POC ABG pCO2 POC ABG pO2 ABG pO2 ABG HCO3 ABG O2 Saturation ABG Base Excess ABG Hemoglobin Oxyhemoglobin Sodium Potassium 5.7 H Chloride 87.3 L Carbon Dioxide 21 L BUN 110 H Creatinine 9.1 H Glucose 532 H* POC Glucose 462 H 468 H Calcium Ferritin AST 133 H ALT 251 H Alkaline Phosphatase 311 H C-Reactive Protein Total Protein Albumin 3.6 L Amylase Lipase Coronavirus (PCR) 06/18/20 06/18/20 12:07 13:10 MCV Plt Count Lymph % (Auto) [place] % (Auto) Lymph # [place] # Seg Neutrophils % D-Dimer ABG pH POC ABG pCO2 POC ABG pO2 ABG pO2 ABG HCO3 ABG O2 Saturation ABG Base Excess ABG Hemoglobin Oxyhemoglobin Sodium 136 L Potassium 5.4 H Chloride 85.9 L Carbon Dioxide 18 L BUN 131 H Creatinine 10.3 H Glucose 726 H* POC Glucose > 500 H Calcium Ferritin AST ALT Alkaline Phosphatase C-Reactive Protein Total Protein Albumin Amylase Lipase Coronavirus (PCR) Chest x-ray: report reviewed, image reviewed
[2020-06-18] MEDS: INSULIN NPH/REGULAR 70/30 INJ SUB-Q SCH (17:50)
[2020-06-18 22:01] LABS: Calcium 10.8 mg/dL (8.4-10.2)
[2020-06-18] MEDS ORDERED: INSULIN LISPRO 100 UNIT/ML VIAL 3 mL SUB-Q ONE (22:27)
[2020-06-19] MEDS: INSULIN LISPRO 100 UNIT/ML VIAL 3 mL SUB-Q SCH ×4 (01:15→18:00)
[2020-06-19] MEDS: ACETAMINOPHEN 325 MG TAB PO PRN (01:27)
[2020-06-19 02:39] LABS: ABG Base Excess -6.4 mmol/L (-2.0-3.0); ABG HCO3 16.2 mmol/L (20.0-26.0); ABG Methemoglobin 0.2 % (0.0-1.5); ABG Oxygen Saturation 98.6 % (95.0-99.0); ABG PCO2 25.7 mm Hg; ABG PH 7.418 pH Units (7.350-7.450); ABG PO2 134.1 mm Hg (80.0-90.0)
[2020-06-19] MEDS ORDERED: SODIUM BICARB 8.4% 50 MEQ/50 ML SYRINGE IV ONE ×3 (05:12→10:00)
[2020-06-19] MEDS: NORepinephrine/NS 4 MG-250 ML 4 MG/250 ML BAG IV SCH ×3 (05:30→22:45)
[2020-06-19] MEDS: HEPARIN 5,000 UNIT/1 ML VIAL SUB-Q SCH ×3 (06:30→22:15)
[2020-06-19 06:49] LABS: Albumin 3.4 g/dL (3.9-5); Calcium 11.2 mg/dL (8.4-10.2)
[2020-06-19] MEDS ORDERED: CALCIUM GLUCONATE 1,000 MG in SODIUM CHLORIDE 0.9% 100 ML IV ONE (07:45)
[2020-06-19] MEDS ORDERED: INSULIN REGULAR, HUMAN 100 UNIT/ML 3ML VIAL IV ONE (08:00)
[2020-06-19] MEDS ORDERED: DEXTROSE 50% IN WATER (25GM) 50 ML SYRINGE IV ONE (08:00)
[2020-06-19] MEDS ORDERED: SODIUM CHLORIDE 0.9% 100 ML IV PRN (08:11)
--- NOTE | 2020-06-19 10:06 | Event Note ---
Date: 06/19/20 Spoke with patient's who is listed in the chart. Phone number accurate. I explained the current situation to her over the phone. Per the patient, given his age, significant comorbities, lack of improvement and worsening clinical state, she asks that he be made DNR and allow what ever happens to happen naturally. We will continue to treat to the best of our abilities. He is currently on blood pressure medicine but we will not add a second pressor. He is on bipap support and will not be intubated. If unable to declog or place access, will manage medically. Overall prognosis is very very poor. understands.
--- NOTE | 2020-06-19 10:20 | Progress Note ---
Assessment and Plan 69 y/o male with acute respiratory failure, acute renal failure requiring emergent HD, hyperkalemia, metabolic acidosis. 1. Pulm- worsening pulmonary status, now on bipap therapy with tachypnea. Oxygenation is good on 100%. Will continue bipap therapy given current state, patient is an AND 2. Renal-Worsening renal failure, likely will not tolerate HD given hemodynamic compromise and respiratory state. Will treat medically as best we can. Gave 2 amps of Na Bicarb push this am. Treating hyperkalemia 3. Neuro-mentally unchanged. CT of head showed bilateral infarcts, presumed subacute, but no MRI done. This plus his renal disease is likely the cause of depressed mental state. 4. CV-now hypotensive, likely secondary to metabolic acidosis and worsening renal function. Will continue supportive measures with vasopressors but will not escalate therapy. Bicarb as needed. 5. ID-COVID positive, on steroids, will continue for now. 6. Overall prognosis is extremely poor given age, renal failure and COVID 19 diagnosis. Agree with decision in regards to allow natural . Continue all supportive measures. CCT 31 minutes. Subjective Date of service: 06/19/20 Principal diagnosis: Acute respiratory failure Interval history: Patient has deteriorated overnight. He is currently hypotensive and on vasopressor therapy. I have spoken with the twice this am in regards to wishes and code status. On our second conversation, she has elected to make him an allow natural . he is currently on levophed at 8 with a MAP of 66. On bipap therapy. ABG was done earlier prior to obtaining of AND status. Objective Vital Signs - 12hr 06/18/20 06/18/20 06/18/20 22:15 22:30 22:45 Temperature Pulse Rate 111 H 113 H 114 H Respiratory 36 H 36 H 37 H Rate Blood Pressure 89/65 100/70 106/68 O2 Sat by Pulse 99 99 98 Oximetry 06/18/20 06/18/20 06/18/20 23:00 23:15 23:30 Temperature Pulse Rate 120 H 117 H 115 H Respiratory 41 H 40 H 41 H Rate Blood Pressure 106/68 99/65 103/66 O2 Sat by Pulse 99 97 98 Oximetry 06/18/20 06/19/20 06/19/20 23:45 00:00 00:15 Temperature 101.1 F H Pulse Rate 115 H 116 H 117 H Respiratory 44 H 40 H 41 H Rate Blood Pressure 101/62 104/58 91/61 O2 Sat by Pulse 90 98 96 Oximetry 06/19/20 06/19/20 06/19/20 00:23 00:30 00:45 Temperature Pulse Rate 115 H 115 H 112 H Respiratory 39 H 40 H 38 H Rate Blood Pressure 101/62 104/66 90/60 O2 Sat by Pulse 98 98 94 Oximetry 06/19/20 06/19/20 06/19/20 01:00 01:15 01:30 Temperature Pulse Rate 109 H 106 H 107 H Respiratory 37 H 40 H 41 H Rate Blood Pressure 95/59 104/54 112/52 O2 Sat by Pulse 98 98 90 Oximetry 06/19/20 06/19/20 06/19/20 01:45 02:00 02:15 Temperature Pulse Rate 105 H 109 H 108 H Respiratory 38 H 37 H 39 H Rate Blood Pressure 112/52 99/51 89/43 O2 Sat by Pulse 98 99 Oximetry 06/19/20 06/19/20 06/19/20 02:31 02:45 03:00 Temperature Pulse Rate 106 H 106 H 108 H Respiratory 37 H 39 H 42 H Rate Blood Pressure 101/60 103/59 90/51 O2 Sat by Pulse 75 L 97 97 Oximetry 06/19/20 06/19/20 06/19/20 03:15 03:30 03:45 Temperature Pulse Rate 111 H 114 H 111 H Respiratory 39 H 39 H 41 H Rate Blood Pressure 90/51 107/53 80/41 O2 Sat by Pulse 95 91 100 Oximetry 06/19/20 06/19/20 06/19/20 03:51 04:00 04:15 Temperature 101.8 F H Pulse Rate 110 H 110 H 110 H Respiratory 39 H 36 H 40 H Rate Blood Pressure 80/41 105/62 105/62 O2 Sat by Pulse 99 100 99 Oximetry 06/19/20 06/19/20 06/19/20 04:31 04:45 05:00 Temperature Pulse Rate 111 H 115 H 113 H Respiratory 39 H 44 H 44 H Rate Blood Pressure 72/39 77/55 O2 Sat by Pulse 98 Oximetry 06/19/20 06/19/20 06/19/20 05:15 05:30 05:45 Temperature Pulse Rate 115 H 114 H 113 H Respiratory 41 H 46 H 42 H Rate Blood Pressure 80/56 71/44 70/44 O2 Sat by Pulse 99 100 96 Oximetry 06/19/20 06/19/20 06/19/20 06:01 06:15 06:31 Temperature Pulse Rate 108 H 106 H 109 H Respiratory 41 H 45 H 40 H Rate Blood Pressure 78/45 86/54 156/69 O2 Sat by Pulse Oximetry 06/19/20 06/19/20 06/19/20 06:45 07:00 07:16 Temperature Pulse Rate 112 H 108 H 112 H Respiratory 40 H 38 H Rate Blood Pressure 75/45 81/48 88/54 O2 Sat by Pulse 100 100 Oximetry 06/19/20 08:00 Temperature 98.7 F Pulse Rate 105 H Respiratory 40 H Rate Blood Pressure 89/50 O2 Sat by Pulse 100 Oximetry Constitutional: lethargic Eyes: non-icteric ENT: oropharynx moist Effort: other (tachypneic, not labored) Ascultation: Bilateral: clear, diminished breath sounds Cardiovascular: other (tachy, RR; no mrg) Gastrointestinal: soft, non-distended Extremities: no cyanosis, no edema, pink and warm Neurologic: other (unable to assess) Psychiatric: other (unable to assess) CBC and BMP: 06/14/20 04:08 06/19/20 05:55 ABG, PT/INR, D-dimer: ABG ABG pH 7.418 pH Units (7.350-7.450) 06/19/20 02:25 POC ABG pCO2 29.0 mmHg (32.0-48.0) L 06/14/20 10:21 ABG pCO2 25.7 mm Hg 06/19/20 02:25 POC ABG pO2 80.8 mmHg (83-108) L 06/14/20 10:21 ABG pO2 134.1 mm Hg (80.0-90.0) H 06/19/20 02:25 ABG O2 Saturation 98.6 % (95.0-99.0) 06/19/20 02:25 PT/INR, D-dimer PT 13.6 Sec. (12.2-14.9) 06/14/20 04:08 INR 1.03 (0.87-1.13) 06/14/20 04:08 D-Dimer 917.42 ng/mlDDU (0-234) H 06/17/20 04:36 Abnormal lab findings: Abnormal Labs 06/13/20 06/13/20 06/13/20 18:32 18:32 20:25 MCV 95 H Plt Count Lymph % (Auto) 12.4 L Irwin % (Auto) 11.4 H Lymph # 1.1 L Irwin # 1.0 H Seg Neutrophils % 76.0 H D-Dimer ABG pH 7.233 L POC ABG pCO2 POC ABG pO2 ABG pO2 72.0 L ABG HCO3 11.4 L ABG O2 Saturation 91.7 L ABG Base Excess -14.6 L ABG Hemoglobin 12.5 L Oxyhemoglobin 90.8 L Sodium Potassium 5.9 H Chloride Carbon Dioxide 14 L BUN 105 H Creatinine 16.2 H Glucose 160 H POC Glucose Calcium Ferritin AST 261 H ALT 124 H Alkaline Phosphatase 179 H C-Reactive Protein Total Protein Albumin 3.5 L Amylase Lipase Coronavirus (PCR) 06/14/20 06/14/20 06/14/20 04:08 04:08 04:08 MCV Plt Count 136 L Lymph % (Auto) 6.0 L Irwin % (Auto) Lymph # 0.4 L Irwin # Seg Neutrophils % 88.4 H D-Dimer 1226.84 H ABG pH POC ABG pCO2 POC ABG pO2 ABG pO2 ABG HCO3 ABG O2 Saturation ABG Base Excess ABG Hemoglobin Oxyhemoglobin Sodium Potassium Chloride 96.4 L Carbon Dioxide 14 L BUN 80 H Creatinine 13.2 H Glucose 226 H POC Glucose Calcium Ferritin AST ALT Alkaline Phosphatase C-Reactive Protein Total Protein Albumin Amylase Lipase Coronavirus (PCR) 06/14/20 06/14/20 06/14/20 08:41 08:52 09:47 MCV Plt Count Lymph % (Auto) Irwin % (Auto) Lymph # Irwin # Seg Neutrophils % D-Dimer ABG pH POC ABG pCO2 POC ABG pO2 ABG pO2 ABG HCO3 ABG O2 Saturation ABG Base Excess ABG Hemoglobin Oxyhemoglobin Sodium Potassium Chloride Carbon Dioxide BUN Creatinine Glucose POC Glucose 285 H Calcium Ferritin 13667.0 H AST ALT Alkaline Phosphatase C-Reactive Protein Total Protein Albumin Amylase Lipase Coronavirus (PCR) Positive A 06/14/20 06/14/20 06/14/20 09:47 10:21 12:08 MCV Plt Count Lymph % (Auto) Irwin % (Auto) Lymph # Irwin # Seg Neutrophils % D-Dimer ABG pH 7.314 L POC ABG pCO2 29.0 L POC ABG pO2 80.8 L ABG pO2 ABG HCO3 ABG O2 Saturation ABG Base Excess ABG Hemoglobin 11.9 L Oxyhemoglobin Sodium Potassium Chloride Carbon Dioxide BUN Creatinine Glucose POC Glucose 313 H Calcium Ferritin AST ALT Alkaline Phosphatase C-Reactive Protein 23.80 H Total Protein Albumin Amylase Lipase Coronavirus (PCR) 06/14/20 06/14/20 06/15/20 16:40 21:29 05:11 MCV Plt Count Lymph % (Auto) Irwin % (Auto) Lymph # Irwin # Seg Neutrophils % D-Dimer ABG pH POC ABG pCO2 POC ABG pO2 ABG pO2 ABG HCO3 ABG O2 Saturation ABG Base Excess ABG Hemoglobin Oxyhemoglobin Sodium Potassium Chloride 91.7 L Carbon Dioxide 16 L BUN 67 H Creatinine 10.3 H Glucose 212 H POC Glucose 227 H 150 H Calcium 7.8 L Ferritin AST 669 H ALT 628 H Alkaline Phosphatase 347 H C-Reactive Protein Total Protein 6.2 L Albumin 3.3 L Amylase Lipase Coronavirus (PCR) 06/15/20 06/15/20 06/15/20 07:55 10:22 11:47 MCV Plt Count Lymph % (Auto) Irwin % (Auto) Lymph # Irwin # Seg Neutrophils % D-Dimer ABG pH POC ABG pCO2 POC ABG pO2 ABG pO2 ABG HCO3 ABG O2 Saturation ABG Base Excess ABG Hemoglobin Oxyhemoglobin Sodium Potassium Chloride Carbon Dioxide BUN Creatinine Glucose POC Glucose 281 H 280 H Calcium Ferritin AST ALT Alkaline Phosphatase C-Reactive Protein Total Protein Albumin Amylase 278 H Lipase 93 H Coronavirus (PCR) 06/15/20 06/15/20 06/16/20 16:31 21:47 04:53 MCV Plt Count Lymph % (Auto) Irwin % (Auto) Lymph # Irwin # Seg Neutrophils % D-Dimer ABG pH POC ABG pCO2 POC ABG pO2 ABG pO2 ABG HCO3 ABG O2 Saturation ABG Base Excess ABG Hemoglobin Oxyhemoglobin Sodium Potassium 5.2 H Chloride 93.4 L Carbon Dioxide 17 L BUN 110 H Creatinine 13.8 H Glucose 245 H POC Glucose 276 H 264 H Calcium Ferritin AST 214 H ALT 404 H Alkaline Phosphatase 296 H C-Reactive Protein Total Protein Albumin 3.2 L Amylase Lipase Coronavirus (PCR) 06/16/20 06/16/20 06/16/20 08:01 11:05 17:30 MCV Plt Count Lymph % (Auto) Irwin % (Auto) Lymph # Irwin # Seg Neutrophils % D-Dimer ABG pH POC ABG pCO2 POC ABG pO2 ABG pO2 ABG HCO3 ABG O2 Saturation ABG Base Excess ABG Hemoglobin Oxyhemoglobin Sodium Potassium Chloride Carbon Dioxide BUN Creatinine Glucose POC Glucose 256 H 185 H 321 H Calcium Ferritin AST ALT Alkaline Phosphatase C-Reactive Protein Total Protein Albumin Amylase Lipase Coronavirus (PCR) 06/16/20 06/17/20 06/17/20 23:57 04:36 04:36 MCV Plt Count Lymph % (Auto) Irwin % (Auto) Lymph # Irwin # Seg Neutrophils % D-Dimer 917.42 H ABG pH POC ABG pCO2 POC ABG pO2 ABG pO2 ABG HCO3 ABG O2 Saturation ABG Base Excess ABG Hemoglobin Oxyhemoglobin Sodium Potassium Chloride Carbon Dioxide BUN Creatinine Glucose POC Glucose 392 H Calcium Ferritin 81177.0 H AST ALT Alkaline Phosphatase C-Reactive Protein Total Protein Albumin Amylase Lipase Coronavirus (PCR) 06/17/20 06/17/20 06/17/20 04:36 05:45 12:58 MCV Plt Count Lymph % (Auto) Irwin % (Auto) Lymph # Irwin # Seg Neutrophils % D-Dimer ABG pH POC ABG pCO2 POC ABG pO2 ABG pO2 ABG HCO3 ABG O2 Saturation ABG Base Excess ABG Hemoglobin Oxyhemoglobin Sodium Potassium 5.5 H Chloride 86.8 L Carbon Dioxide 19 L BUN 101 H Creatinine 11.1 H Glucose 373 H POC Glucose 346 H 345 H Calcium Ferritin AST 132 H ALT 327 H Alkaline Phosphatase 319 H C-Reactive Protein 30.60 H Total Protein 8.4 H Albumin 3.6 L Amylase Lipase Coronavirus (PCR) 06/17/20 06/17/20 06/18/20 18:03 23:48 05:20 MCV Plt Count Lymph % (Auto) Irwin % (Auto) Lymph # Irwin # Seg Neutrophils % D-Dimer ABG pH POC ABG pCO2 POC ABG pO2 ABG pO2 ABG HCO3 ABG O2 Saturation ABG Base Excess ABG Hemoglobin Oxyhemoglobin Sodium Potassium 5.7 H Chloride 87.3 L Carbon Dioxide 21 L BUN 110 H Creatinine 9.1 H Glucose 532 H* POC Glucose 451 H 462 H Calcium Ferritin AST 133 H ALT 251 H Alkaline Phosphatase 311 H C-Reactive Protein Total Protein Albumin 3.6 L Amylase Lipase Coronavirus (PCR) 06/18/20 06/18/20 06/18/20 06:21 12:07 13:10 MCV Plt Count Lymph % (Auto) Irwin % (Auto) Lymph # Irwin # Seg Neutrophils % D-Dimer ABG pH POC ABG pCO2 POC ABG pO2 ABG pO2 ABG HCO3 ABG O2 Saturation ABG Base Excess ABG Hemoglobin Oxyhemoglobin Sodium 136 L Potassium 5.4 H Chloride 85.9 L Carbon Dioxide 18 L BUN 131 H Creatinine 10.3 H Glucose 726 H* POC Glucose 468 H > 500 H Calcium Ferritin AST ALT Alkaline Phosphatase C-Reactive Protein Total Protein Albumin Amylase Lipase Coronavirus (PCR) 06/18/20 06/18/20 06/18/20 17:54 18:21 20:07 MCV Plt Count Lymph % (Auto) Irwin % (Auto) Lymph # Irwin # Seg Neutrophils % D-Dimer ABG pH POC ABG pCO2 POC ABG pO2 ABG pO2 ABG HCO3 ABG O2 Saturation ABG Base Excess ABG Hemoglobin Oxyhemoglobin Sodium Potassium 5.6 H Chloride 86.2 L Carbon Dioxide 17 L BUN 153 H Creatinine 11.0 H Glucose 524 H* POC Glucose > 500 H > 500 H Calcium 10.8 H D Ferritin AST ALT Alkaline Phosphatase C-Reactive Protein Total Protein Albumin Amylase Lipase Coronavirus (PCR) 06/19/20 06/19/20 06/19/20 00:00 02:25 05:55 MCV Plt Count Lymph % (Auto) Irwin % (Auto) Lymph # Irwin # Seg Neutrophils % D-Dimer ABG pH POC ABG pCO2 POC ABG pO2 ABG pO2 134.1 H ABG HCO3 16.2 L ABG O2 Saturation ABG Base Excess -6.4 L ABG Hemoglobin Oxyhemoglobin Sodium 147 H D Potassium 6.3 H* Chloride 86.8 L Carbon Dioxide 19 L BUN 161 H Creatinine 11.7 H Glucose 283 H POC Glucose 382 H Calcium 11.2 H Ferritin AST 187 H ALT 241 H Alkaline Phosphatase 299 H C-Reactive Protein Total Protein 8.6 H Albumin 3.4 L Amylase Lipase Coronavirus (PCR) 06/19/20 06:04 MCV Plt Count Lymph % (Auto) Irwin % (Auto) Lymph # Irwin # Seg Neutrophils % D-Dimer ABG pH POC ABG pCO2 POC ABG pO2 ABG pO2 ABG HCO3 ABG O2 Saturation ABG Base Excess ABG Hemoglobin Oxyhemoglobin Sodium Potassium Chloride Carbon Dioxide BUN Creatinine Glucose POC Glucose 263 H Calcium Ferritin AST ALT Alkaline Phosphatase C-Reactive Protein Total Protein Albumin Amylase Lipase Coronavirus (PCR)
[2020-06-19] MEDS ORDERED: SODIUM POLYSTYRENE 15 GM/60 ML ORAL LIQD PO ONE (10:30)
--- NOTE | 2020-06-19 10:40 | Event Note ---
Date: 06/19/20 69 year old male with multiple medical issues and ESRD with COVID 19 who has been made DNR/AND. At this time, it does not appear placing a hemodialysis access will change patient's outcome or prognosis, which is grim. Patient is on BiPAP with COVID 19 in a regular (not negative pressure room). If patient is intubated, changed to ventimask/nonrebreather, or placed in a negative pressure room, then will place hemodialysis access if it is felt this will change outcome.
[2020-06-19] MEDS: dexAMETHasone 4 MG/ML VIAL IV SCH ×2 (10:49→22:15)
[2020-06-19] MEDS: INSULIN NPH/REGULAR 70/30 INJ SUB-Q SCH (10:58)
--- NOTE | 2020-06-19 11:22 | Progress Note ---
Assessment and Plan -- Acute respiratory failure with hypoxia/on BiPAP Current Visit: Yes Status: Acute Plan to address problem: Possibly secondary to the pneumonia. On high flow oxygen we will keep O2 saturation greater than 90% Home oxygen evaluation --COVID-19 positive bilateral pneumonia Current Visit: Yes Status: Acute Plan to address problem: ID consulted, follow inflammatory markers IV dexamethasone for 10 days No need for Remdesivir due to renal failure ID recommend convulsant plasma transfusion Typed and crossed, requested convulsant plasma Awaiting reply from [place] -- Hyperkalemia Current Visit: Yes Status: Acute Plan to address problem: Patient to undergo dialysis. Will monitor chemistry. -- ESRD on hemodialysis Current Visit: Yes Status: Chronic Plan to address problem: Patient has been scheduled for stat dialysis. Nephrology consulted, HD per schedule --Transaminitis; Probably COVID related ,worsening LFTs, Acute hepatitis panel negative Abdominal ultrasound; cholelithiasis, gallbladder contracted GI consulted -- Hypertension Current Visit: No Status: Chronic . Plan to address problem: Continue current antihypertensives PRN medications --T2DM (type 2 diabetes mellitus) Current Visit: No Status: Chronic Plan to address problem: We will monitor Accu-Cheks. -- DVT prophylaxis Current Visit: No Status: Acute Plan to address problem: Patient placed on subcutaneous heparin -- Full code status Current Visit: Yes Status: Acute We will closely monitor the patient and adjust management as needed Consults and recommendations noted and appreciated Plan of care reviewed with the patient nurse and case management Subjective Date of service: 06/18/20 Principal diagnosis: Acute respiratory failure Interval history: Interval history: COVID positive patient; I have seen and examined the patient Patient's chart and medications reviewed Patient feels slightly better Vital signs noted Objective - Constitutional Vitals: Vital Signs - 12hr 06/18/20 06/18/20 06/19/20 23:30 23:45 00:00 Temperature 101.1 F H Pulse Rate 115 H 115 H 116 H Respiratory 41 H 44 H 40 H Rate Blood Pressure 103/66 101/62 104/58 O2 Sat by Pulse 98 90 98 Oximetry 06/19/20 06/19/20 06/19/20 00:15 00:23 00:30 Temperature Pulse Rate 117 H 115 H 115 H Respiratory 41 H 39 H 40 H Rate Blood Pressure 91/61 101/62 104/66 O2 Sat by Pulse 96 98 98 Oximetry 06/19/20 06/19/20 06/19/20 00:45 01:00 01:15 Temperature Pulse Rate 112 H 109 H 106 H Respiratory 38 H 37 H 40 H Rate Blood Pressure 90/60 95/59 104/54 O2 Sat by Pulse 94 98 98 Oximetry 06/19/20 06/19/20 06/19/20 01:30 01:45 02:00 Temperature Pulse Rate 107 H 105 H 109 H Respiratory 41 H 38 H 37 H Rate Blood Pressure 112/52 112/52 99/51 O2 Sat by Pulse 90 98 99 Oximetry 06/19/20 06/19/20 06/19/20 02:15 02:31 02:45 Temperature Pulse Rate 108 H 106 H 106 H Respiratory 39 H 37 H 39 H Rate Blood Pressure 89/43 101/60 103/59 O2 Sat by Pulse 75 L 97 Oximetry 06/19/20 06/19/20 06/19/20 03:00 03:15 03:30 Temperature Pulse Rate 108 H 111 H 114 H Respiratory 42 H 39 H 39 H Rate Blood Pressure 90/51 90/51 107/53 O2 Sat by Pulse 97 95 91 Oximetry 06/19/20 06/19/20 06/19/20 03:45 03:51 04:00 Temperature 101.8 F H Pulse Rate 111 H 110 H 110 H Respiratory 41 H 39 H 36 H Rate Blood Pressure 80/41 80/41 105/62 O2 Sat by Pulse 100 99 100 Oximetry 06/19/20 06/19/20 06/19/20 04:15 04:31 04:45 Temperature Pulse Rate 110 H 111 H 115 H Respiratory 40 H 39 H 44 H Rate Blood Pressure 105/62 72/39 O2 Sat by Pulse 99 Oximetry 06/19/20 06/19/20 06/19/20 05:00 05:15 05:30 Temperature Pulse Rate 113 H 115 H 114 H Respiratory 44 H 41 H 46 H Rate Blood Pressure 77/55 80/56 71/44 O2 Sat by Pulse 98 99 100 Oximetry 06/19/20 06/19/20 06/19/20 05:45 06:01 06:15 Temperature Pulse Rate 113 H 108 H 106 H Respiratory 42 H 41 H 45 H Rate Blood Pressure 70/44 78/45 86/54 O2 Sat by Pulse 96 Oximetry 06/19/20 06/19/20 06/19/20 06:31 06:45 07:00 Temperature Pulse Rate 109 H 112 H 108 H Respiratory 40 H 40 H 38 H Rate Blood Pressure 156/69 75/45 81/48 O2 Sat by Pulse 100 100 Oximetry 06/19/20 06/19/20 07:16 08:00 Temperature 98.7 F Pulse Rate 112 H 105 H Respiratory 40 H Rate Blood Pressure 88/54 89/50 O2 Sat by Pulse 100 Oximetry General appearance: Present: no acute distress, well-nourished - EENT Eyes: PERRL, EOM intact ENT: hearing intact, clear oral mucosa Ears: bilateral: normal - Neck Neck: supple, normal ROM - Respiratory Respiratory effort: normal Respiratory: bilateral: CTA - Breasts Breasts: normal - Cardiovascular Rhythm: regular Heart Sounds: Present: S1 & S2. Absent: gallop, rub Extremities: pulses intact, No edema, normal color, Full ROM - Gastrointestinal General gastrointestinal: Present: soft, non-tender, non-distended, normal bowel sounds - Genitourinary Male genitourinary: normal - Integumentary Integumentary: clear, warm, dry - Musculoskeletal Musculoskeletal: 1, strength equal bilaterally - Neurologic Neurologic: moves all extremities - Psychiatric Psychiatric: memory intact, appropriate mood/affect, intact judgment & insight - Labs CBC & Chem 7: 06/14/20 04:08 06/19/20 05:55 Labs: Abnormal lab results 06/17/20 06/18/20 06/18/20 Range/Units 18:03 12:07 13:10 ABG pO2 (80.0-90.0) mm Hg ABG HCO3 (20.0-26.0) mmol/L ABG Base Excess (-2.0-3.0) mmol/L Sodium 136 L (137-145) mmol/L Potassium 5.4 H (3.6-5.0) mmol/L Chloride 85.9 L (98-107) mmol/L Carbon Dioxide 18 L (22-30) mmol/L BUN 131 H (9-20) mg/dL Creatinine 10.3 H (0.8-1.3) mg/dL Glucose 726 H* (75-100) mg/dL POC Glucose 451 H > 500 H (70-105) Calcium (8.4-10.2) mg/dL AST (5-40) units/L ALT (7-56) units/L Alkaline Phosphatase (35-129) units/L Total Protein (6.3-8.2) g/dL Albumin (3.9-5) g/dL 06/18/20 06/18/20 06/18/20 Range/Units 17:54 18:21 20:07 ABG pO2 (80.0-90.0) mm Hg ABG HCO3 (20.0-26.0) mmol/L ABG Base Excess (-2.0-3.0) mmol/L Sodium (137-145) mmol/L Potassium 5.6 H (3.6-5.0) mmol/L Chloride 86.2 L (98-107) mmol/L Carbon Dioxide 17 L (22-30) mmol/L BUN 153 H (9-20) mg/dL Creatinine 11.0 H (0.8-1.3) mg/dL Glucose 524 H* (75-100) mg/dL POC Glucose > 500 H > 500 H (70-105) Calcium 10.8 H D (8.4-10.2) mg/dL AST (5-40) units/L ALT (7-56) units/L Alkaline Phosphatase (35-129) units/L Total Protein (6.3-8.2) g/dL Albumin (3.9-5) g/dL 06/19/20 06/19/20 06/19/20 Range/Units 00:00 02:25 05:55 ABG pO2 134.1 H (80.0-90.0) mm Hg ABG HCO3 16.2 L (20.0-26.0) mmol/L ABG Base Excess -6.4 L (-2.0-3.0) mmol/L Sodium 147 H D (137-145) mmol/L Potassium 6.3 H* (3.6-5.0) mmol/L Chloride 86.8 L (98-107) mmol/L Carbon Dioxide 19 L (22-30) mmol/L BUN 161 H (9-20) mg/dL Creatinine 11.7 H (0.8-1.3) mg/dL Glucose 283 H (75-100) mg/dL POC Glucose 382 H (70-105) Calcium 11.2 H (8.4-10.2) mg/dL AST 187 H (5-40) units/L ALT 241 H (7-56) units/L Alkaline Phosphatase 299 H (35-129) units/L Total Protein 8.6 H (6.3-8.2) g/dL Albumin 3.4 L (3.9-5) g/dL 06/19/20 Range/Units 06:04 ABG pO2 (80.0-90.0) mm Hg ABG HCO3 (20.0-26.0) mmol/L ABG Base Excess (-2.0-3.0) mmol/L Sodium (137-145) mmol/L Potassium (3.6-5.0) mmol/L Chloride (98-107) mmol/L Carbon Dioxide (22-30) mmol/L BUN (9-20) mg/dL Creatinine (0.8-1.3) mg/dL Glucose (75-100) mg/dL POC Glucose 263 H (70-105) Calcium (8.4-10.2) mg/dL AST (5-40) units/L ALT (7-56) units/L Alkaline Phosphatase (35-129) units/L Total Protein (6.3-8.2) g/dL Albumin (3.9-5) g/dL
--- NOTE | 2020-06-19 11:26 | Progress Note ---
Assessment and Plan Cultures: Coronavirus PCR: Positive 06/13/2020 blood culture: no growth A/P: 69-year-old male with ESRD on HD, coronary artery disease, prior CVA, gastroesophageal reflux disease was sent in from the dialysis center due to respiratory distress and hypoxia: #Bilateral pneumonia: secondary to COVID-19, inflammatory markers on admission significantly elevated, ferritin is 28,000, CRP 23.8, d-dimer 1226. Chest x-ray showed bilateral opacities. #Acute hypoxic respiratory failure: on HFNC. #ESRD on HD #Elevated LFTs: ?cytokine storm/sepsis related. RUQ US showed gall stones, contracted gall bladder. Recs: continue IV/PO Dexamethasone 6 mg BID x 10 days, Day 6. not a candidate for Remdesivir due to renal failure awaiting convalescent plasma (request was placed by Dr. Palm last week) Alexandr Talavera MD, FACP [facility] ([facility] C: [phone] O: [phone] F: [phone] Subjective Date of service: 06/19/20 Principal diagnosis: Acute respiratory failure Interval history: Febrile. Now on BiPAP, moved to ICU. Objective - Exam Narrative Exam: Physical Exam (reviewed in chart due to PPE conservation) Constitutional: limited due to PPE conservation strategy Head, Ears, Nose: limited due to PPE conservation strategy Eyes: limited due to PPE conservation strategy Neck: limited due to PPE conservation strategy Oral: limited due to PPE conservation strategy Cardiovascular: limited due to PPE conservation strategy Respiratory: limited due to PPE conservation strategy GI: limited due to PPE conservation strategy Musculoskeletal: limited due to PPE conservation strategy Skin: limited due to PPE conservation strategy Hem/Lymphatic: limited due to PPE conservation strategy Psych: limited due to PPE conservation strategy Neurological: limited due to PPE conservation strategy - Constitutional Vitals: Vital Signs Temp Pulse Resp BP Pulse Ox 98.7 F 105 H 40 H 89/50 100 06/19/20 08:00 06/19/20 08:00 06/19/20 08:00 06/19/20 08:00 06/19/20 08:00 Temperature -Last 24 Hours Temperature 98.7 F Temperature 101.8 F Temperature 101.1 F Temperature 100.5 F Temperature 98.6 F Temperature 98.7 F - Labs CBC & Chem 7: 06/14/20 04:08 06/19/20 05:55 Labs: Abnormal lab results 06/17/20 06/18/20 06/18/20 Range/Units 18:03 12:07 13:10 ABG pO2 (80.0-90.0) mm Hg ABG HCO3 (20.0-26.0) mmol/L ABG Base Excess (-2.0-3.0) mmol/L Sodium 136 L (137-145) mmol/L Potassium 5.4 H (3.6-5.0) mmol/L Chloride 85.9 L (98-107) mmol/L Carbon Dioxide 18 L (22-30) mmol/L BUN 131 H (9-20) mg/dL Creatinine 10.3 H (0.8-1.3) mg/dL Glucose 726 H* (75-100) mg/dL POC Glucose 451 H > 500 H (70-105) Calcium (8.4-10.2) mg/dL AST (5-40) units/L ALT (7-56) units/L Alkaline Phosphatase (35-129) units/L Total Protein (6.3-8.2) g/dL Albumin (3.9-5) g/dL 06/18/20 06/18/20 06/18/20 Range/Units 17:54 18:21 20:07 ABG pO2 (80.0-90.0) mm Hg ABG HCO3 (20.0-26.0) mmol/L ABG Base Excess (-2.0-3.0) mmol/L Sodium (137-145) mmol/L Potassium 5.6 H (3.6-5.0) mmol/L Chloride 86.2 L (98-107) mmol/L Carbon Dioxide 17 L (22-30) mmol/L BUN 153 H (9-20) mg/dL Creatinine 11.0 H (0.8-1.3) mg/dL Glucose 524 H* (75-100) mg/dL POC Glucose > 500 H > 500 H (70-105) Calcium 10.8 H D (8.4-10.2) mg/dL AST (5-40) units/L ALT (7-56) units/L Alkaline Phosphatase (35-129) units/L Total Protein (6.3-8.2) g/dL Albumin (3.9-5) g/dL 06/19/20 06/19/20 06/19/20 Range/Units 00:00 02:25 05:55 ABG pO2 134.1 H (80.0-90.0) mm Hg ABG HCO3 16.2 L (20.0-26.0) mmol/L ABG Base Excess -6.4 L (-2.0-3.0) mmol/L Sodium 147 H D (137-145) mmol/L Potassium 6.3 H* (3.6-5.0) mmol/L Chloride 86.8 L (98-107) mmol/L Carbon Dioxide 19 L (22-30) mmol/L BUN 161 H (9-20) mg/dL Creatinine 11.7 H (0.8-1.3) mg/dL Glucose 283 H (75-100) mg/dL POC Glucose 382 H (70-105) Calcium 11.2 H (8.4-10.2) mg/dL AST 187 H (5-40) units/L ALT 241 H (7-56) units/L Alkaline Phosphatase 299 H (35-129) units/L Total Protein 8.6 H (6.3-8.2) g/dL Albumin 3.4 L (3.9-5) g/dL 06/19/20 Range/Units 06:04 ABG pO2 (80.0-90.0) mm Hg ABG HCO3 (20.0-26.0) mmol/L ABG Base Excess (-2.0-3.0) mmol/L Sodium (137-145) mmol/L Potassium (3.6-5.0) mmol/L Chloride (98-107) mmol/L Carbon Dioxide (22-30) mmol/L BUN (9-20) mg/dL Creatinine (0.8-1.3) mg/dL Glucose (75-100) mg/dL POC Glucose 263 H (70-105) Calcium (8.4-10.2) mg/dL AST (5-40) units/L ALT (7-56) units/L Alkaline Phosphatase (35-129) units/L Total Protein (6.3-8.2) g/dL Albumin (3.9-5) g/dL
[2020-06-19] MEDS ORDERED: SODIUM CHLORIDE 0.9% 1000 ML 1,000 ML IV ONE (14:34)
--- NOTE | 2020-06-19 14:50 | Progress Note ---
Assessment and Plan 1. ESRD: His usual schedule is MWF. Patient underwent urgent HD 06/13 due to hyperkalemia and volume overload. Hemodialysis: 06/13, 06/14, 06/16, 06/17. 2. FEN: Hyperkalemia, hyperglycemia noted, Insulin dose increased, monitor. Manage with meds. Metabolic acidosis, Sodium bicarbonate if needed. Monitor lytes and volume status. 3. Acute hypoxic respiratory failure: CXR showed b/l PNA. On BIPAP. Followed by Pulmonary. 4. Bilateral PNA: 2/2 COVID-19 infection. On Decadron. S/p abx. Followed by ID. 5. Severe sepsis, POA: 2/2 PNA. 6. Anemia: Epogen if needed. 7. DM type 2: NPH dose increased. 8. HTN: Monitor BP. 9. Metabolic encephalopathy, POA. D/w his over phone. She is aware of poor pognosis. She decided not to pursue any further dialysis or access placement. - Subjective: Patient was seen and examined at the bedside. In ICU. D/w RN. - General Appearance General appearance: well-developed, appears stated age, not in distress, on BIPAP HEENT: ATNC, Pupils equal Neck: Trachea midline Respiratory: coarse breath sounds ant / lat Cardiology: S1S2, tachycardia, no murmur Gastrointestinal: bowel sounds heard, not tender, not distended Integumentary: no rash, warm and dry Neurologic: obtunded Ext: no edema Hemodialysis access: left FA AVF clotted Subjective Date of service: 06/19/20 Principal diagnosis: Acute respiratory failure Objective - Vital Signs Vital signs: Vital Signs - 12hr 06/19/20 06/19/20 06/19/20 03:00 03:15 03:30 Temperature Pulse Rate 108 H 111 H 114 H Respiratory 42 H 39 H 39 H Rate Blood Pressure 90/51 90/51 107/53 O2 Sat by Pulse 97 95 91 Oximetry 06/19/20 06/19/20 06/19/20 03:45 03:51 04:00 Temperature 101.8 F H Pulse Rate 111 H 110 H 110 H Respiratory 41 H 39 H 36 H Rate Blood Pressure 80/41 80/41 105/62 O2 Sat by Pulse 100 99 100 Oximetry 06/19/20 06/19/20 06/19/20 04:15 04:31 04:45 Temperature Pulse Rate 110 H 111 H 115 H Respiratory 40 H 39 H 44 H Rate Blood Pressure 105/62 72/39 O2 Sat by Pulse 99 Oximetry 06/19/20 06/19/20 06/19/20 05:00 05:15 05:30 Temperature Pulse Rate 113 H 115 H 114 H Respiratory 44 H 41 H 46 H Rate Blood Pressure 77/55 80/56 71/44 O2 Sat by Pulse 98 99 100 Oximetry 06/19/20 06/19/20 06/19/20 05:45 06:01 06:15 Temperature Pulse Rate 113 H 108 H 106 H Respiratory 42 H 41 H 45 H Rate Blood Pressure 70/44 78/45 86/54 O2 Sat by Pulse 96 Oximetry 06/19/20 06/19/20 06/19/20 06:31 06:45 07:00 Temperature Pulse Rate 109 H 112 H 108 H Respiratory 40 H 40 H 38 H Rate Blood Pressure 156/69 75/45 81/48 O2 Sat by Pulse 100 100 Oximetry 06/19/20 06/19/20 06/19/20 07:16 08:00 09:00 Temperature 98.7 F 98.7 F Pulse Rate 112 H 105 H 109 H Respiratory 40 H 30 H Rate Blood Pressure 88/54 89/50 95/53 O2 Sat by Pulse 100 Oximetry 06/19/20 06/19/20 06/19/20 10:00 11:29 12:00 Temperature 98.7 F Pulse Rate 113 H 116 H Respiratory 42 H 48 H Rate Blood Pressure 105/45 77/53 O2 Sat by Pulse 99 96 99 Oximetry 06/19/20 06/19/20 06/19/20 12:50 13:00 13:15 Temperature Pulse Rate 111 H 116 H 111 H Respiratory 42 H 48 H 44 H Rate Blood Pressure 77/53 99/63 O2 Sat by Pulse 100 99 99 Oximetry 06/19/20 06/19/20 06/19/20 13:30 13:45 14:00 Temperature Pulse Rate 114 H 115 H 125 H Respiratory 41 H 46 H 45 H Rate Blood Pressure 108/72 108/61 127/74 O2 Sat by Pulse 98 95 92 Oximetry 06/19/20 14:15 Temperature Pulse Rate 120 H Respiratory 41 H Rate Blood Pressure 112/62 O2 Sat by Pulse 98 Oximetry - Lab 06/14/20 04:08 06/19/20 05:55 Most recent lab results ABG pH 7.418 pH Units (7.350-7.450) 06/19/20 02:25 ABG pCO2 25.7 mm Hg 06/19/20 02:25 ABG pO2 134.1 mm Hg (80.0-90.0) H 06/19/20 02:25 ABG HCO3 16.2 mmol/L (20.0-26.0) L 06/19/20 02:25 ABG O2 Saturation 98.6 % (95.0-99.0) 06/19/20 02:25 Calcium 11.2 mg/dL (8.4-10.2) H 06/19/20 05:55 Medications & Allergies - Medications Allergies/Adverse Reactions: Allergies No Known Allergies Allergy (Unverified 12/03/13 12:17) Home Medications: Home Medications Medication Instructions Recorded Confirmed Last Taken Type Aspirin 325 mg PO DAILY 12/03/13 10/27/17 1 Day Ago History ~12/09/16 Ergocalciferol [Vitamin D2] 1 cap PO QWEEK 12/03/13 10/27/17 1 Day Ago History ~12/09/16 Gabapentin 300 mg PO BID 12/03/13 10/27/17 1 Day Ago History ~12/09/16 Insulin Glargine,Hum.rec.anlog 20 units SQ QHS 12/03/13 10/27/17 1 Day Ago Hi story [Lantus Solostar] ~12/09/16 Insulin Regular, Human [HumuLIN R] 3 units SC TIDAC 12/03/13 10/27/17 1 Day Ago History ~12/09/16 Clopidogrel Bisulfate [Plavix] 75 mg PO DAILY #30 tablet 12/06/13 10/27/17 1 Day Ago Rx ~12/09/16 Sucralfate [Carafate] 1 gm PO Q6HR #56 udc 12/11/16 10/27/17 Unknown Rx AtorvaSTATin [Lipitor] 20 mg PO QHS 10/27/17 10/27/17 Unknown History Folic Acid/Vit B Complex and C 1 tab PO DAILY 10/27/17 10/27/17 Unknown History [Renal-Alexandrea Tablet] Ondansetron [Zofran TAB] 4 mg PO Q8HR PRN 10/27/17 10/27/17 Unknown History Sevelamer Carbonate [Renvela] 2 tab PO TID 10/27/17 10/27/17 Unknown History Torsemide [Demadex] 40 mg PO DAILY 10/27/17 10/27/17 Unknown History amLODIPine 10 mg PO DAILY 10/27/17 10/27/17 Unknown History calcitrioL [Rocaltrol] 0.5 mcg PO QDAY 10/27/17 10/27/17 Unknown History glipiZIDE [Glipizide] 10 mg PO DAILY 10/27/17 10/27/17 Unknown History lisinopriL [Prinivil] 5 mg PO DAILY 10/27/17 10/27/17 Unknown History traMADoL [Ultram 50 MG tab] 50 mg PO Q8HR PRN 10/27/17 10/27/17 Unknown History Active Medications: Generic Name Dose Route Start Last Admin Trade Name Freq PRN Reason Stop Dose Admin Acetaminophen 650 mg 06/13/20 23:27 06/19/20 01:27 Tylenol PO 650 mg Q6H PRN Administration Pain MILD(1-3)/Fever >100.5/PINEDA Lipase/Protease/Amylase 1 each 06/15/20 13:[address] 10,500 Unit FEEDTUBE PRN PRN For Clogged Feeding Tube Dexamethasone 6 mg 06/17/20 11:00 06/19/20 10:49 Decadron IV 06/24/20 12:00 6 mg Q12HR BENJA Administration Heparin Sodium (Porcine) 3,000 unit 06/13/20 21:03 Heparin 10,000 Units/10 Ml IV CHACORTA PRN hemodialysis Heparin Sodium (Porcine) 5,000 unit 06/14/20 06:00 06/19/20 13:22 Heparin SUB-Q 5,000 unit Q8HR BENJA Administration Norepinephrine 4 mg in 250 mls @ 7.5 mls/hr 06/19/20 06:00 06/19/20 08:06 Levophed Drip 4 Mg/Ns 250 Ml IV 8 mcg/min TITR BENJA 30 mls/hr Titration Protocol 2 MCG/MIN Sodium Chloride 100 mls @ 999 mls/hr 06/19/20 08:11 Nacl 0.9% IV CHACORTA PRN Hypotension Sodium Chloride 1,000 mls @ 999 mls/hr 06/19/20 14:34 Nacl 0.9% 1000 Ml IV 06/19/20 15:34 BOLUS ONE Insulin Human Isoph/Insulin Regular 20 unit 06/18/20 17:00 06/19/20 10:58 Humulin 70/30 SUB-Q 20 unit BIDDIAB BENJA Administration Insulin Human Lispro 0 unit 06/18/20 06:24 06/19/20 12:59 Humalog SUB-Q 4 unit Q6HR BENJA Administration Protocol Magnesium Hydroxide 30 ml 06/13/20 23:27 Milk Of Magnesia PO Q4H PRN Constipation Ondansetron HCl 4 mg 06/13/20 23:27 Zofran IV Q8H PRN Nausea And Vomiting Simple Syrup 15 ml 06/15/20 13:34 Simple Syrup FEEDTUBE PRN PRN Hypoglycemia Simple Syrup 30 ml 06/15/20 13:34 Simple Syrup FEEDTUBE PRN PRN Hypoglycemia Sodium Bicarbonate 325 mg 06/15/20 13:34 Sodium Bicarbonate FEEDTUBE PRN PRN For Clogged Feeding Tube Sodium Chloride 10 ml 06/14/20 10:00 06/19/20 10:50 Sodium Chloride Flush Syringe 10 Ml IV 10 ml BID BENJA Administration Sodium Chloride 10 ml 06/13/20 23:27 Sodium Chloride Flush Syringe 10 Ml IV PRN PRN LINE FLUSH
[2020-06-19] MEDS ORDERED: INSULIN NPH/REGULAR 70/30 INJ SUB-Q SCH (17:00)
[2020-06-19] MEDS: fentaNYL 100 MCG/2 ML INJ IV PRN (18:07)
[2020-06-19] MEDS ORDERED: AMIODARONE 150 MG in DEXTROSE 5% IN WATER 100 ML IV ONE (18:30)
[2020-06-19] MEDS ORDERED: AMIODARONE 900 MG in DEXTROSE 5% IN WATER 482 ML IV SCH (19:00)
[2020-06-19 20:41] LABS: Hemolysis Index 164
[2020-06-19 20:45] LABS: BUN/Creatinine Ratio TNR; Blood Urea Nitrogen TNR mg/dL (9-20); Calcium TNR mg/dL (8.4-10.2)
[2020-06-19 23:13] LABS: Calcium 10.7 mg/dL (8.4-10.2)
[2020-06-20] MEDS ORDERED: CALCIUM GLUCONATE 1,000 MG in SODIUM CHLORIDE 0.9% 100 ML IV ONE (00:26)
[2020-06-20] MEDS ORDERED: INSULIN REGULAR, HUMAN 100 UNIT/ML 3ML VIAL IV ONE (00:37)
[2020-06-20] MEDS ORDERED: SODIUM POLYSTYRENE 15 GM/60 ML ORAL LIQD PO ONE (01:00)
[2020-06-20] MEDS: ALBUTEROL 2.5 MG/3 ML NEBU IH ONE ×2 (01:27→01:29)
[2020-06-20] MEDS: fentaNYL 100 MCG/2 ML INJ IV PRN (01:30)
[2020-06-20] MEDS ORDERED: ALBUTEROL 2.5 MG/3 ML NEBU IH ONE (01:46)
[2020-06-20] MEDS: NORepinephrine/NS 4 MG-250 ML 4 MG/250 ML BAG IV SCH (02:20)
[2020-06-20] MEDS: HEPARIN 5,000 UNIT/1 ML VIAL SUB-Q SCH (06:06)
[2020-06-20] MEDS: INSULIN LISPRO 100 UNIT/ML VIAL 3 mL SUB-Q SCH ×2 (06:07)
[2020-06-20 06:14] LABS: Alanine Aminotransferase 441 units/L (7-56); Blood Urea Nitrogen 98 mg/dL (9-20); Hemolysis Index 14
[2020-06-20 06:21] LABS: BUN/Creatinine Ratio 18
[2020-06-20 06:24] LABS: Calcium 3.7 mg/dL (8.4-10.2)
--- NOTE | 2020-06-20 07:07 | Progress Note ---
Assessment and Plan -- Acute respiratory failure with hypoxia/on BiPAP Current Visit: Yes Status: Acute Plan to address problem: Possibly secondary to the pneumonia. On high flow oxygen we will keep O2 saturation greater than 90% Home oxygen evaluation --COVID-19 positive bilateral pneumonia Current Visit: Yes Status: Acute Plan to address problem: ID consulted, follow inflammatory markers IV dexamethasone for 10 days No need for Remdesivir due to renal failure ID recommend convulsant plasma transfusion Typed and crossed, requested convulsant plasma Awaiting reply from [facility] -- Hyperkalemia Current Visit: Yes Status: Acute Plan to address problem: Patient to undergo dialysis. Will monitor chemistry. -- ESRD on hemodialysis Current Visit: Yes Status: Chronic Plan to address problem: Patient has been scheduled for stat dialysis. Nephrology consulted, HD per schedule --Transaminitis; Probably COVID related ,worsening LFTs, Acute hepatitis panel negative Abdominal ultrasound; cholelithiasis, gallbladder contracted GI consulted -- Hypertension Current Visit: No Status: Chronic . Plan to address problem: Continue current antihypertensives PRN medications --T2DM (type 2 diabetes mellitus) Current Visit: No Status: Chronic Plan to address problem: We will monitor Accu-Cheks. -- DVT prophylaxis Current Visit: No Status: Acute Plan to address problem: Patient placed on subcutaneous heparin -- Full code status Current Visit: Yes Status: Acute We will closely monitor the patient and adjust management as needed Consults and recommendations noted and appreciated Plan of care reviewed with the patient nurse and case management Subjective Date of service: 06/19/20 Principal diagnosis: Acute respiratory failure Interval history: COVID positive patient; I have seen and examined the patient Patient's chart and medications reviewed Patient feels slightly better Vital signs noted Objective - Constitutional Vitals: Vital Signs - 12hr 06/19/20 06/19/20 06/19/20 19:15 19:31 19:45 Temperature Pulse Rate 98 H 95 H 95 H Pulse Rate [ Anterior Bilateral] Pulse Rate [ From Monitor] Respiratory 39 H 38 H 37 H Rate Respiratory Rate [Anterior Bilateral] Blood Pressure 184/111 228/54 228/54 O2 Sat by Pulse 98 99 96 Oximetry 06/19/20 06/19/20 06/19/20 20:00 20:01 20:15 Temperature 100.2 F H Pulse Rate 93 H 93 H 90 Pulse Rate [ Anterior Bilateral] Pulse Rate [ 93 H From Monitor] Respiratory 31 H 18 Rate Respiratory Rate [Anterior Bilateral] Blood Pressure 118/42 118/42 O2 Sat by Pulse 92 89 Oximetry 06/19/20 06/19/20 06/19/20 20:30 20:45 21:00 Temperature Pulse Rate 93 H 98 H 97 H Pulse Rate [ Anterior Bilateral] Pulse Rate [ From Monitor] Respiratory 22 32 H 32 H Rate Respiratory Rate [Anterior Bilateral] Blood Pressure 78/54 78/54 145/98 O2 Sat by Pulse 94 99 86 Oximetry 06/19/20 06/19/20 06/19/20 21:15 21:18 21:31 Temperature Pulse Rate 91 H 91 H 89 Pulse Rate [ Anterior Bilateral] Pulse Rate [ From Monitor] Respiratory 15 31 H 15 Rate Respiratory Rate [Anterior Bilateral] Blood Pressure 145/98 145/81 71/45 O2 Sat by Pulse 95 95 94 Oximetry 06/19/20 06/19/20 06/19/20 21:45 22:01 22:15 Temperature Pulse Rate 94 H 92 H 93 H Pulse Rate [ Anterior Bilateral] Pulse Rate [ From Monitor] Respiratory 23 30 H 32 H Rate Respiratory Rate [Anterior Bilateral] Blood Pressure 72/42 71/45 101/55 O2 Sat by Pulse 98 97 97 Oximetry 06/19/20 06/19/20 06/19/20 22:31 22:45 23:00 Temperature Pulse Rate 94 H 95 H 94 H Pulse Rate [ Anterior Bilateral] Pulse Rate [ From Monitor] Respiratory 39 H 40 H 45 H Rate Respiratory Rate [Anterior Bilateral] Blood Pressure 92/55 108/67 97/64 O2 Sat by Pulse 99 99 98 Oximetry 06/19/20 06/19/20 06/19/20 23:15 23:30 23:33 Temperature Pulse Rate 94 H 95 H 95 H Pulse Rate [ Anterior Bilateral] Pulse Rate [ From Monitor] Respiratory 42 H 43 H 43 H Rate Respiratory Rate [Anterior Bilateral] Blood Pressure 105/68 104/65 104/65 O2 Sat by Pulse 99 94 98 Oximetry 06/19/20 06/20/20 06/20/20 23:45 00:00 00:13 Temperature 100.4 F H Pulse Rate 95 H 96 H 97 H Pulse Rate [ Anterior Bilateral] Pulse Rate [ 96 H From Monitor] Respiratory 44 H 46 H 44 H Rate Respiratory Rate [Anterior Bilateral] Blood Pressure 104/65 109/72 116/80 O2 Sat by Pulse 96 99 99 Oximetry 06/20/20 06/20/20 06/20/20 00:15 00:31 00:45 Temperature Pulse Rate 101 H 99 H 100 H Pulse Rate [ Anterior Bilateral] Pulse Rate [ From Monitor] Respiratory 48 H 47 H 46 H Rate Respiratory Rate [Anterior Bilateral] Blood Pressure 116/80 103/62 103/62 O2 Sat by Pulse 98 96 98 Oximetry 06/20/20 06/20/20 06/20/20 01:01 01:15 01:22 Temperature Pulse Rate 102 H 187 H Pulse Rate [ 158 H Anterior Bilateral] Pulse Rate [ From Monitor] Respiratory 46 H 46 H Rate Respiratory 37 H Rate [Anterior Bilateral] Blood Pressure 101/68 136/69 O2 Sat by Pulse 97 98 Oximetry 06/20/20 06/20/20 06/20/20 01:31 01:45 02:01 Temperature Pulse Rate 172 H 162 H 171 H Pulse Rate [ Anterior Bilateral] Pulse Rate [ From Monitor] Respiratory 48 H 40 H 41 H Rate Respiratory Rate [Anterior Bilateral] Blood Pressure 136/101 136/101 135/81 O2 Sat by Pulse 100 100 100 Oximetry 06/20/20 06/20/20 06/20/20 02:15 02:31 02:45 Temperature Pulse Rate 178 H 152 H 154 H Pulse Rate [ Anterior Bilateral] Pulse Rate [ From Monitor] Respiratory 41 H 42 H 36 H Rate Respiratory Rate [Anterior Bilateral] Blood Pressure 113/62 124/71 111/65 O2 Sat by Pulse 100 100 100 Oximetry 06/20/20 06/20/20 06/20/20 03:00 03:15 03:30 Temperature Pulse Rate 156 H 168 H 137 H Pulse Rate [ Anterior Bilateral] Pulse Rate [ From Monitor] Respiratory 43 H 45 H 44 H Rate Respiratory Rate [Anterior Bilateral] Blood Pressure 105/73 115/73 110/68 O2 Sat by Pulse 100 100 Oximetry 06/20/20 06/20/20 06/20/20 03:45 03:46 03:55 Temperature 99.3 F Pulse Rate 151 H 147 H Pulse Rate [ Anterior Bilateral] Pulse Rate [ From Monitor] Respiratory 44 H 43 H Rate Respiratory Rate [Anterior Bilateral] Blood Pressure 103/68 115/73 O2 Sat by Pulse 100 100 Oximetry 06/20/20 06/20/20 06/20/20 04:00 04:15 04:31 Temperature Pulse Rate 137 H 127 H 158 H Pulse Rate [ Anterior Bilateral] Pulse Rate [ 137 H From Monitor] Respiratory 37 H 31 H 40 H Rate Respiratory Rate [Anterior Bilateral] Blood Pressure 103/68 116/77 242/191 O2 Sat by Pulse 94 89 Oximetry 06/20/20 06/20/20 06/20/20 04:45 05:01 05:15 Temperature Pulse Rate 118 H 101 H 62 Pulse Rate [ Anterior Bilateral] Pulse Rate [ From Monitor] Respiratory 30 H 12 34 H Rate Respiratory Rate [Anterior Bilateral] Blood Pressure 203/94 203/94 74/38 O2 Sat by Pulse 82 L Oximetry 06/20/20 06/20/20 06/20/20 05:31 05:45 06:01 Temperature Pulse Rate 77 94 H 92 H Pulse Rate [ Anterior Bilateral] Pulse Rate [ From Monitor] Respiratory 25 H 33 H 31 H Rate Respiratory Rate [Anterior Bilateral] Blood Pressure 79/43 82/46 119/50 O2 Sat by Pulse 96 21 L Oximetry General appearance: Present: severe distress, well-nourished - EENT Eyes: PERRL, EOM intact ENT: hearing intact, clear oral mucosa Ears: bilateral: normal - Neck Neck: supple, normal ROM - Respiratory Respiratory effort: normal Respiratory: bilateral: CTA, rhonchi - Breasts Breasts: normal - Cardiovascular Heart rate: 98 Rhythm: regular Heart Sounds: Present: S1 & S2. Absent: gallop, rub Extremities: pulses intact, No edema, normal color, Full ROM - Gastrointestinal General gastrointestinal: Present: soft, non-tender, non-distended, normal bowel sounds - Genitourinary Male genitourinary: normal - Integumentary Integumentary: clear, warm, dry - Musculoskeletal Musculoskeletal: 1, strength equal bilaterally - Neurologic Neurologic: moves all extremities - Psychiatric Psychiatric: memory intact, appropriate mood/affect, intact judgment & insight - Allied health notes Allied health notes reviewed: nursing, case management - Labs CBC & Chem 7: 06/14/20 04:08 06/20/20 04:46 Labs: Abnormal lab results 06/17/20 06/19/20 06/19/20 Range/Units 18:03 11:59 17:07 Sodium (137-145) mmol/L Potassium (3.6-5.0) mmol/L Chloride (98-107) mmol/L Carbon Dioxide (22-30) mmol/L BUN (9-20) mg/dL Creatinine (0.8-1.3) mg/dL Glucose (75-100) mg/dL POC Glucose 451 H 234 H 332 H (70-105) Calcium (8.4-10.2) mg/dL Phosphorus (2.5-4.5) mg/dL Magnesium (1.7-2.3) mg/dL AST (5-40) units/L ALT (7-56) units/L Total Protein (6.3-8.2) g/dL Albumin (3.9-5) g/dL 06/19/20 06/19/20 06/20/20 Range/Units 22:42 23:52 04:46 Sodium 151 H 161 H* D (137-145) mmol/L Potassium 7.1 H* 2.5 L* D (3.6-5.0) mmol/L Chloride 88.2 L 131.2 H (98-107) mmol/L Carbon Dioxide 11 L D 6 L* (22-30) mmol/L BUN 198 H 98 H (9-20) mg/dL Creatinine 13.4 H 5.5 H D (0.8-1.3) mg/dL Glucose 353 H 141 H (75-100) mg/dL POC Glucose 292 H (70-105) Calcium 10.7 H 3.7 L* D (8.4-10.2) mg/dL Phosphorus 13.10 H (2.5-4.5) mg/dL Magnesium 3.70 H (1.7-2.3) mg/dL AST 1139 H (5-40) units/L ALT 441 H (7-56) units/L Total Protein 2.7 L D (6.3-8.2) g/dL Albumin 1.0 L (3.9-5) g/dL
--- NOTE | 2020-06-20 09:45 | Event Note ---
Date: 06/20/20 Patient at 9:34, no breath sound and no heart beat palpated, or auscultated. Will call and inform her.
[2020-06-20 10:21] VITALS: BP 66/35
--- NOTE | 2020-06-20 17:30 | Death Summary ---
Summary - Providers Date of service: 06/20/20 Consults: 06/13/20 20:50 Consult to Physician [CONS] Stat Comment: Dr. Donis spoke with Dr. Grove @ 2048 Consulting Provider: CYNTHIA GROVE Physician Instructions: Reason For Exam: emergent dialysis 06/13/20 23:36 Consult to Physician [CONS] Routine Comment: Consulting Provider: LUDY BARONE Physician Instructions: Reason For Exam: pneumonia r/o covid 19 06/14/20 10:02 Consult to Physician [CONS] Urgent Comment: Consulting Provider: PEPE RANDOLPH Physician Instructions: Reason For Exam: pulmonary management/ Critical care management 06/15/20 09:57 Consult to Physician [CONS] Routine Comment: called office/ faustino Consulting Provider: KEVAN VELAZQUEZ Physician Instructions: Reason For Exam: Transaminitis 06/15/20 11:55 Consult to Dietitian/Nutrition [CONS] Routine Physician Instructions: Reason For Exam: Reason for Consult: tube feeding 06/19/20 07:43 Consult to PICC Line RN [CONS] Stat Reason For Exam: PICC placement for levophed Type Line:: PICC 06/19/20 07:52 PICC Line Insertion [Consult to PICC Line RN] [CONS] Stat Reason For Exam: levophed Type Line:: PICC 06/19/20 09:26 Consult to Physician [CONS] Urgent Comment: Consulting Provider: IRWIN SINGH Physician Instructions: Reason For Exam: Vascath placement Attending: KEVAN SEXTON - summary Date of admission: 06/14/20 12:44 Date of : 06/20/20 (09:34) Significant findings: -- Acute respiratory failure with hypoxia/on BiPAP Current Visit: Yes Status: Acute Plan to address problem: Possibly secondary to the pneumonia. On high flow oxygen we will keep O2 saturation greater than 90% Home oxygen evaluation --COVID-19 positive bilateral pneumonia Current Visit: Yes Status: Acute Plan to address problem: ID consulted, follow inflammatory markers IV dexamethasone for 10 days No need for Remdesivir due to renal failure ID recommend convulsant plasma transfusion Typed and crossed, requested convulsant plasma Awaiting reply from [facility] -- Severe hypokalemia Current Visit: Yes Status: Acute Plan to address problem: Patient to undergo dialysis. Will monitor chemistry. --Severe sepsis/COVID positive bilateral pneumonia ---Severe hypernatremia; --Hypotension/shock--Hypocalcemia; - ESRD on hemodialysis Current Visit: Yes Status: Chronic Plan to address problem: Patient has been scheduled for stat dialysis. Nephrology consulted, HD per schedule --Transaminitis/acute liver failure; Probably COVID related ,worsening LFTs, Acute hepatitis panel negative Abdominal ultrasound; cholelithiasis, gallbladder contracted GI consulted -- Hypertension Current Visit: No Status: Chronic . Plan to address problem: Continue current antihypertensives PRN medications --T2DM (type 2 diabetes mellitus) Current Visit: No Status: Chronic Plan to address problem: We will monitor Accu-Cheks. -- DVT prophylaxis Current Visit: No Status: Acute Plan to address problem: Patient placed on subcutaneous heparin -- Full code status Current Visit: Yes Status: Acute - Final diagnosis (1) Severe sepsis Note: Final diagnosis: (2) Pneumonia due to COVID-19 virus Note: Final diagnosis: (3) Acute respiratory failure with hypoxia Note: Final diagnosis: (4) ESRD on hemodialysis Note: Final diagnosis: (5) Acute liver failure Note: Final diagnosis: (6) Thrombocytopenia Note: Final diagnosis: (7) Multiorgan failure Note: Final diagnosis:
== END 2020-06-20 12:58 | DRG 871 ==
LOC: ED 17:31 → IMCU 22:23 → OBSVTOIN 06-14 12:44 → CC1 06-19 07:29
PROVIDERS: ADMIT Internal Medicine Geriatric Medicine; ATTEND Internal Medicine
PROC: 4A033R1 Measurement of Arterial Saturation, Peripheral, Percutaneous Approach (ICD-10-PCS; principal; 2020-06-13)
PROC: 5A09357 Assistance with Respiratory Ventilation, Less than 24 Consecutive Hours, Continuous Positive Airway Pressure (ICD-10-PCS; 2020-06-13)
PROC: 5A09457 Assistance with Respiratory Ventilation, 24-96 Consecutive Hours, Continuous Positive Airway Pressure (ICD-10-PCS; 2020-06-13)
PROC: 5A1D70Z Performance of Urinary Filtration, Intermittent, Less than 6 Hours Per Day (ICD-10-PCS; 2020-06-14)
PROC: 5A1D70Z Performance of Urinary Filtration, Intermittent, Less than 6 Hours Per Day (ICD-10-PCS; 2020-06-16)
PROC: 5A1D70Z Performance of Urinary Filtration, Intermittent, Less than 6 Hours Per Day (ICD-10-PCS; 2020-06-17)
PROC: 5A1D70Z Performance of Urinary Filtration, Intermittent, Less than 6 Hours Per Day (ICD-10-PCS; 2020-06-19)
DX: A41.89 Other specified sepsis (principal); J96.01 Acute respiratory failure with hypoxia; G93.41 Metabolic encephalopathy; U07.1 COVID-19; J12.89 Other viral pneumonia; N18.6 End stage renal disease; I12.0 Hypertensive chronic kidney disease with stage 5 chronic kidney disease or end stage renal disease; E87.5 Hyperkalemia; K21.9 Gastro-esophageal reflux disease without esophagitis; I25.10 Atherosclerotic heart disease of native coronary artery without angina pectoris; Y95 Nosocomial condition; R74.0 Nonspecific elevation of levels of transaminase and lactic acid dehydrogenase [LDH]; D64.9 Anemia, unspecified; E11.22 Type 2 diabetes mellitus with diabetic chronic kidney disease; Z86.73 Personal history of transient ischemic attack (TIA), and cerebral infarction without residual deficits; Z99.2 Dependence on renal dialysis; Z79.899 Other long term (current) drug therapy
CPT/HCPCS: 36415; 36600; 70450; 71045; 74018; 76705; 80048; 80053; 80074; 80202; 82140; 82150; 82728; 82803; 82805; 82962; 83690; 83735; 84100; 85025; 85379; 85610; 86140; 86850; 86900; 86901; 87040; 93005; 94640; 94660; 94760; G0378; J0282; J0456; J0610; J0692; J0696; J1100; J1644; J1815; J3010; J3370; J7030; J7050; J7060; U0003-CS